=== PATIENT | female | born 1970 | race Caucasian/White ===

== ENCOUNTER 2024-01-22 04:13 | Emergency (ER) | payer OTHER ==
--- OUTSIDE RECORDS SUMMARY | 2024-01-22 04:23 | XMS REPORT | Continuity of Care Document ---
Author Name Unknown Address [address] [facility] [address] [place] [address] 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 Name Role Phone Margarita Salter Primary Care Physician [email or web address] Attending Clinician Unavaila ble [email or web address] Admitting Clinician Unavaila ble Allergies, Adverse Reactions, Alerts Allergy Name Allergy Type Status Severity Reaction(s) Onset Date Inactive Date Treating Clinician Comments Source cillins (Not Checked) Propensi ty to adverse reaction to drug Active 12-31 00:00: 00 Medardo Miner Penicill ins - CLASS Propensi ty to adverse reaction to drug Active 4-13 00:00: 00 Medardo Miner Penicill ins Propensi ty to adverse reaction to drug Active 2-16 00:00: 00 Medardo Miner Medications Ordered Medication Name Filled Medication Name Start Date Stop Date Current Medication? Ordering Clinician Indication Dosage Frequency Signature (SIG) Comments Components Source metoprolol tartrate 100 mg tablet 12-31 00:00: 00 Yes mg Medardo Miner hydralazine 10 mg tablet 12-31 00:00: 00 Yes 1mg Medardo Miner atorvastati n 20 mg tablet 12-31 00:00: 00 Yes 1mg Medardo Miner diltiazem ER 180 mg capsule,24 hr,extended release 12-31 00:00: 00 Yes 1mg Medardo Miner lisinopril 40 mg tablet - 00:00: 00 Yes 1mg Medardo Miner bupropion HCl XL 300 mg 24 hr tablet, extended release 2023-0 7-15 00:00: 00 Yes 1mg Medardo Miner aripiprazol e 2 mg tablet 0 -15 00:00: 00 Yes 15mg Medardo Miner Trileptal 300 mg tablet 2023-0 7-15 00:00: 00 Yes 1mg Medardo Miner buspirone 15 mg tablet 0 -15 00:00: 00 Yes 1mg Medardo Miner bupropion HCl XL 300 mg 24 hr tablet, extended release 0 -10 00:00: 00 Yes 1mg Medardo Miner aripiprazol e 2 mg tablet 0 - 00:00: 00 Yes 15mg Medardo Miner Trileptal 300 mg tablet 0 - 00:00: 00 Yes 1mg Medardo Miner buspirone 15 mg tablet 2023-0 - 00:00: 00 Yes 1mg Medardo Miner diltiazem ER 180 mg capsule,24 hr,extended release 0 -14 00:00: 00 Yes 1mg Medardo Miner diltiazem ER 360 mg capsule,24 hr,extended release 0 -30 00:00: 00 Yes mg Medardo Miner metoprolol tartrate 100 mg tablet 0 5-30 00:00: 00 Yes mg Medardo Miner atorvastati n 20 mg tablet 0 -30 00:00: 00 Yes 1mg Medardo Miner lisinopril 40 mg tablet 0 5-30 00:00: 00 Yes 1mg Medardo Miner hydralazine 10 mg tablet 0 5-30 00:00: 00 Yes 1mg Medardo iMner diltiazem ER 360 mg capsule,24 hr,extended release 0 -29 00:00: 00 Yes mg Medardo Miner metoprolol tartrate 100 mg tablet 0 5-24 00:00: 00 Yes mg Medardo Miner bupropion HCl XL 300 mg 24 hr tablet, extended release 2023-0 - 00:00: 00 Yes 1mg Medardo Miner aripiprazol e 2 mg tablet 5-10 00:00: 00 Yes 15mg Medardo Miner Trileptal 300 mg tablet 5-10 00:00: 00 Yes 1mg Medardo Miner buspirone 15 mg tablet 5-10 00:00: 00 Yes 1mg Medardo Miner TAKE 1 TABLET BY MOUTH TWICE A DAY 5 00:00: 00 Yes 300 Medardo Miner bupropion HCl XL 300 mg 24 hr tablet, extended release 14 00:00: 00 Yes 1mg Medardo Miner aripiprazol e 2 mg tablet 14 00:00: 00 Yes 15mg Medardo Miner Trileptal 300 mg tablet 06-23 00:00: 00 Yes 1mg Medardo Miner buspirone 15 mg tablet 06-23 00:00: 00 Yes 1mg Medardo Miner TAKE 1 TABLET BY MOUTH DAILY 05-28 00:00: 00 12-14 00:00 :00 No 10 Medardo Miner TAKE 1 TABLET DAILY. 05-07 00:00: 00 12-14 00:00 :00 No 300 Medardo Miner TAKE 1 TABLET TWICE DAILY. 05-07 00:00: 00 12-14 00:00 :00 No 300 Medardo Miner TAKE 1 TABLET 3 TIMES DAILY. 05-07 00:00: 00 12-14 00:00 :00 No 15 Medardo Miner TAKE ONE AND A HALF TABLET DAILY 05-07 00:00: 00 12-14 00:00 :00 No 2 Medardoraysa Miner TAKE ONE AND A HALF TABLET DAILY 2022-04 2 00:00: 00 12-14 00:00 :00 No 2 Medardoraysa Miner TAKE 1 TABLET 3 TIMES DAILY. 2022-04 2 00:00: 00 12-14 00:00 :00 No 15 Medardo Miner TAKE 1 TABLET TWICE DAILY. 2022-04 2- 00:00: 00 12-14 00:00 :00 No 300 Medardo Miner TAKE 1 TABLET DAILY. 2022-04 2 00:00: 00 12-14 00:00 :00 No 300 Medardo F Kristofer TAKE 1 TABLET BY MOUTH DAILY 2022-04 00:00: 00 12-14 00:00 :00 No 20 Medardo F Kristofer TAKE 1 TABLET TWICE DAILY. 2022-04 00:00: 00 12-14 00:00 :00 No 40 Medardo F Kristofer TAKE 1 TABLET BY MOUTH DAILY 2022-04 00:00: 00 12-14 00:00 :00 No 10 Medardo F Kristofer TAKE 1 TABLET DAILY. 2022-04 00:00: 00 12-14 00:00 :00 No 250 Medardo F Kristofer TAKE 1 TABLET TWICE DAILY. 2022-04 00:00: 00 12-14 00:00 :00 No 100 Medardo F Kristofer TAKE 1 TABLET BY MOUTH DAILY 2022-04 00:00: 00 12-14 00:00 :00 No 360 Medardo F Kristofer TAKE 1 TABLET 3 TIMES DAILY. 2022-04 00:00: 00 12-14 00:00 :00 No 15 Medardo F Kristofer TAKE 1 TABLET TWICE DAILY. 2022-04 0 00:00: 00 12-14 00:00 :00 No 300 Medardo F Kristofer TAKE 1 TABLET DAILY. 2022-04 0 00:00: 00 12-14 00:00 :00 No 300 Medardo F Kristofer TAKE ONE AND A HALF TABLET DAILY 2022-04 0 00:00: 00 12-14 00:00 :00 No 2 Medardo F Kristofer TAKE 1 CAPSULE TWICE DAILY. 12-16 00:00: 00 12-14 00:00 :00 No 100 Medardo F Kristofer APPLY SPARINGLY TO AFFECTED AREA(S) 3 TIMES A DAY 12-16 00:00: 00 12-14 00:00 :00 No 2 Medardo F Kristofer Apply to affected nail bed(s) and adjacent skin daily. Remove with alcohol every 7 days. 8-16 00:00: 00 12-14 00:00 :00 No 8 Medardo F Kristofer TAKE 1 TABLET BY MOUTH DAILY 11-24 00:00: 00 12-14 00:00 :00 No 20 Medardoraysa Miner TAKE 1 TABLET TWICE DAILY. 11-24 00:00: 00 12-14 00:00 :00 No 40 Medardoraysa Miner TAKE 1 TABLET BY MOUTH DAILY 11-24 00:00: 00 12-14 00:00 :00 No 10 Medardoraysa Miner TAKE 1 TABLET BY MOUTH DAILY 11-24 00:00: 00 12-14 00:00 :00 No 360 Medardo Miner TAKE 1 TABLET TWICE DAILY. 11-24 00:00: 00 12-14 00:00 :00 No 100 Medardo Miner TAKE 1 TAB Q12H X 5 DAYS 11-23 00:00: 00 12-14 00:00 :00 No 100 Medardoraysa Mienr APPLY SPARINGLY TO AFFECTED AREA(S) 3 TIMES A DAY 11-23 00:00: 00 12-14 00:00 :00 No 2 Medardoraysa Miner TAKE ONE AND A HALF TABLET DAILY 11-12 00:00: 00 12-14 00:00 :00 No 2 Medardoraysa Miner TAKE 1 TABLET DAILY. 11-12 00:00: 00 12-14 00:00 :00 No 300 Medardo Miner TAKE 1 TABLET TWICE DAILY. 11-12 00:00: 00 12-14 00:00 :00 No 300 Medardo Miner TAKE 1 TABLET 3 TIMES DAILY. 11-12 00:00: 00 12-14 00:00 :00 No 15 Medardo Miner TAKE 1 TABLET BY MOUTH DAILY 11-03 00:00: 00 12-14 00:00 :00 No 20 Medardoraysa Miner TAKE 1 TABLET BY MOUTH DAILY 09-18 00:00: 00 12-14 00:00 :00 No 360 Medardo Miner TAKE 1 TABLET TWICE DAILY. 09-18 00:00: 00 12-14 00:00 :00 No 100 Medardo Miner TAKE 1 TABLET TWICE DAILY. 09-17 00:00: 00 12-14 00:00 :00 No 300 Medardo Miner TAKE 1 TABLET 3 TIMES DAILY. 09-17 00:00: 00 12-14 00:00 :00 No 15 Medardoraysa Miner TAKE ONE AND A HALF TABLET DAILY 09-17 00:00: 00 12-14 00:00 :00 No 2 Medardoraysa Miner TAKE 1 TABLET DAILY. 09-17 00:00: 00 12-14 00:00 :00 No 300 Medardo Miner TAKE 1 TABLET TWICE DAILY. 09-09 00:00: 00 12-14 00:00 :00 No 40 Medardoraysa Miner TAKE 1 TABLET TWICE DAILY. 09-09 00:00: 00 12-14 00:00 :00 No 100 Medardo Miner TAKE 1 TABLET BY MOUTH DAILY 24 00:00: 00 12-14 00:00 :00 No 360 Medardo Miner TAKE 1 TABLET TWICE DAILY. 08-29 00:00: 00 12-14 00:00 :00 No 25 Medardoraysa Miner TAKE 1 TABLET TWICE DAILY DIRECTED. 20 00:00: 00 12-14 00:00 :00 No 100 Medardo Miner TAKE 1 TABLET 3 TIMES DAILY. 08-21 00:00: 00 12-14 00:00 :00 No 15 Medardo Miner TAKE ONE AND A HALF TABLET DAILY 08-21 00:00: 00 12-14 00:00 :00 No 2 Medardo Miner TAKE 1 TABLET DAILY. 08-21 00:00: 00 12-14 00:00 :00 No 300 Medardo Miner TAKE 1 TABLET TWICE DAILY. 12 00:00: 00 12-14 00:00 :00 No 300 Medardo Miner TAKE 1 TABLET DAILY. 4-14 00:00: 00 12-14 00:00 :00 No 150 Medardo Miner TAKE 1 TABLET TWICE DAILY. -14 00:00: 00 12-14 00:00 :00 No 300 Medardo Miner TAKE 1 TABLET 3 TIMES DAILY. 14 00:00: 00 12-14 00:00 :00 No 15 Medardoraysa Miner TAKE ONE AND A HALF TABLET DAILY 4 00:00: 00 12-14 00:00 :00 No 2 Medardoraysa Miner TAKE 1 TABLET TWICE DAILY. 07-23 00:00: 00 12-14 00:00 :00 No 100 Medardo Miner TAKE 1 TABLET DAILY. 07-23 00:00: 00 12-14 00:00 :00 No 20 Medardoraysa Miner TAKE 1 TABLET BY MOUTH DAILY 07-23 00:00: 00 12-14 00:00 :00 No 10 Medardoraysa Miner TAKE 1 TABLET TWICE DAILY. 07-23 00:00: 00 12-14 00:00 :00 No 40 Medardo Miner TAKE 1 CAPSULE BY MOUTH EVERY 8 HOURS NEEDED COUGH 07-17 00:00: 00 Yes Medardoraysa Miner INHALE 1 PUFF BY MOUTH EVERY 4 TO 6 HOURS NEEDED 07-17 00:00: 00 Yes Medardo Miner TAKE 1 TABLET DAILY. 3- 00:00: 00 12-14 00:00 :00 No 20 Medardoraysa Miner TAKE 1 TABLET BY MOUTH DAILY 3- 00:00: 00 12-14 00:00 :00 No 40 Medardoraysa Miner TAKE 1 TABLET BY MOUTH DAILY 3-10 00:00: 00 12-14 00:00 :00 No 10 Medardoraysa Miner TAKE 1 TABLET TWICE DAILY. 3- 00:00: 00 12-14 00:00 :00 No 100 Medardo Miner TAKE 1 TABLET BY MOUTH TWICE DAILY. 06-18 00:00: 00 12-14 00:00 :00 No [id number] Medardo Miner TAKE 1 TABLET BY MOUTH DAILY 2-22 00:00: 00 12-14 00:00 :00 No 10 Medardo [place] Miner TAKE ONE AND A HALF TABLET DAILY 2-17 00:00: 00 12-14 00:00 :00 No 2 Medardo F Kristofer TAKE 1 TABLET 3 TIMES DAILY. 2-17 00:00: 00 12-14 00:00 :00 No 15 Medardo [place] Miner TAKE 1 TABLET TWICE DAILY. 2-17 00:00: 00 12-14 00:00 :00 No 300 Medardo [place] Miner TAKE 1 TABLET BY MOUTH DAILY 1-16 00:00: 00 12-14 00:00 :00 No 10 Medardo F Kristofer TAKE 1 TABLET TWICE DAILY. 2021-04 2- 00:00: 00 12-14 00:00 :00 No 300 Medardo [place] Miner TAKE ONE AND A HALF TABLET DAILY 2021-04 2 00:00: 00 12-14 00:00 :00 No 2 Medardoraysa Miner TAKE 1 TABLET DAILY. 2021-04 2 00:00: 00 12-14 00:00 :00 No Medardo [place] Miner TAKE 1 TABLET TWICE DAILY. 2021-04 2 00:00: 00 12-14 00:00 :00 No Medardo [place] Miner TAKE 1 TABLET 3 TIMES DAILY. 2021-04 2- 00:00: 00 12-14 00:00 :00 No Medardo [place] Miner TAKE ONE AND A HALF TABLET DAILY 2021-04 2- 00:00: 00 12-14 00:00 :00 No Medardo [place] Miner TAKE 1 CAPSULE EVERY 12 HOURS DAILY. 2021-04 2- 00:00: 00 12-14 00:00 :00 No Medardo F Kristofer Dose Unknown 2021-04 2-15 00:00: 00 12-14 00:00 :00 No Medardo F Kristofer Dose Unknown 2021-04 2-15 00:00: 00 12-14 00:00 :00 No Medardo F Kristofer TAKE 1 TABLET DAILY. 2021-04 2- 00:00: 00 12-14 00:00 :00 No 10 Medardo [place] Miner TAKE 1 TABLET DAILY. 2021-04 2 00:00: 00 12-14 00:00 :00 No 10 Medardo Miner TAKE 1 TABLET TWICE DAILY. 2021-04 00:00: 00 12-14 00:00 :00 No Medardo Miner TAKE 1 TABLET TWICE DAILY. 2021-04 2 00:00: 00 12-14 00:00 :00 No 100 Medardo Miner TAKE 1 TABLET 3 TIMES DAILY. 2021-04 00:00: 00 12-14 00:00 :00 No 15 Medardo Miner TAKE 1 TAB Q12H X 5 DAYS 01-09 00:00: 00 No TAKE 1 TAB Q12H X 5 DAYS 01-09 00:00: 00 12-14 00:00 :00 No Medardo Miner TAKE 1 TABLET TWICE DAILY. 11-26 00:00: 00 Yes Medardo Miner TAKE 1 TABLET TWICE DAILY. 11-26 00:00: 00 No TAKE 1 TABLET TWICE DAILY. 11-26 00:00: 00 No TAKE 1 TAB Q12H X 5 DAYS 8 00:00: 00 Yes 100 Medardo Miner TAKE 1 TAB Q12H X 5 DAYS 11-24 00:00: 00 No 100 TAKE 1 TAB Q12H X 5 DAYS 11-24 00:00: 00 No 100 TAKE 1 TABLET 3 TIMES DAILY. 11-21 00:00: 00 Yes 15 Medardo Miner TAKE 1 TABLET 3 TIMES DAILY. 11-21 00:00: 00 No 15 TAKE 1 TABLET 3 TIMES DAILY. 11-21 00:00: 00 No 15 TAKE 1 TABLET 3 TIMES DAILY. 11-21 00:00: 00 No 15 TAKE ONE AND A HALF TABLET DAILY 11-19 00:00: 00 Yes 2 Medardo Miner TAKE ONE AND A HALF TABLET DAILY 11-19 00:00: 00 No 2 TAKE ONE AND A HALF TABLET DAILY 8 00:00: 00 No 2 TAKE ONE AND A HALF TABLET DAILY 11-19 00:00: 00 No 2 Dose Unknown 0 14 00:00: 00 Yes Medardo Miner Dose Unknown 0 14 00:00: 00 Yes Medardo Miner Dose Unknown 10-23 00:00: 00 Yes Medardo Miner Dose Unknown 0 10-23 00:00: 00 No Dose Unknown 0 10-23 00:00: 00 No Dose Unknown 0 10-23 00:00: 00 No Dose Unknown 0 10-23 00:00: 00 No Dose Unknown 0 10-23 00:00: 00 No Dose Unknown 0 10-23 00:00: 00 No Dose Unknown 0 10-23 00:00: 00 No Dose Unknown 0 10-23 00:00: 00 No Dose Unknown 0 10-23 00:00: 00 No TAKE 1 TABLET TWICE DAILY. 0 09-18 00:00: 00 Yes Medardo Miner Dose Unknown 0 09-18 00:00: 00 Yes Medardo Miner Dose Unknown 0 09-18 00:00: 00 Yes Medardo Miner Trileptal 300 mg tablet 0 09-18 00:00: 00 No 1mg buspirone 10 mg tablet 0 09-18 00:00: 00 No 15mg Abilify 2 mg tablet 0 09-18 00:00: 00 No 15mg Trileptal 300 mg tablet 0 09-18 00:00: 00 No 1mg buspirone 10 mg tablet 0 09-18 00:00: 00 No 15mg Abilify 2 mg tablet 0 09-18 00:00: 00 No 15mg Trileptal 300 mg tablet 0 09-18 00:00: 00 No 1mg buspirone 10 mg tablet 0 09-18 00:00: 00 No 15mg Abilify 2 mg tablet 0 09-18 00:00: 00 No 15mg TAKE 1 TABLET TWICE DAILY. 0 09-02 00:00: 00 Yes Medardo Miner simvastatin 40 mg tablet 0 09-02 00:00: 00 Yes 1mg Medardo Miner Dose Unknown 09-02 00:00: 00 Yes Medardo Miner Dose Unknown 09-02 00:00: 00 Yes Medardo Miner TAKE 1 TABLET TWICE DAILY. 09-02 00:00: 00 Yes Medardo Miner Dose Unknown 09-02 00:00: 00 Yes Medardo Miner simvastatin 40 mg tablet 09-02 00:00: 00 No 1mg Singulair 10 mg tablet 09-02 00:00: 00 No 1mg amlodipine 5 mg tablet 09-02 00:00: 00 No 1mg metoprolol tartrate 75 mg tablet 09-02 00:00: 00 No 1mg lisinopril 20 mg-hydrochl orothiazide 12.5 mg tablet 09-02 00:00: 00 No 1mg atorvastati n 10 mg tablet 09-02 00:00: 00 No 1mg simvastatin 40 mg tablet 09-02 00:00: 00 No 1mg Singulair 10 mg tablet 09-02 00:00: 00 No 1mg amlodipine 5 mg tablet 09-02 00:00: 00 No 1mg metoprolol tartrate 75 mg tablet 09-02 00:00: 00 No 1mg lisinopril 20 mg-hydrochl orothiazide 12.5 mg tablet 09-02 00:00: 00 No 1mg atorvastati n 10 mg tablet 09-02 00:00: 00 No 1mg simvastatin 40 mg tablet 09-02 00:00: 00 No 1mg Singulair 10 mg tablet 09-02 00:00: 00 No 1mg amlodipine 5 mg tablet 09-02 00:00: 00 No 1mg metoprolol tartrate 75 mg tablet 09-02 00:00: 00 No 1mg TAKE 1 TABLET TWICE DAILY. 09-02 00:00: 00 No atorvastati n 10 mg tablet 09-02 00:00: 00 No 1mg Dose Unknown 09-02 00:00: 00 12-14 00:00 :00 No 75 Medardo Miner Dose Unknown 0 08-04 00:00: 00 Yes Medardo Miner simvastatin 40 mg tablet 0 08-04 00:00: 00 No 1mg simvastatin 40 mg tablet 0 08-04 00:00: 00 No 1mg simvastatin 40 mg tablet 0 08-04 00:00: 00 No 1mg TAKE 1 TABLET TWICE DAILY. 0 07-23 00:00: 00 Yes Medardo Miner Dose Unknown 0 07-23 00:00: 00 Yes Medardo Miner Dose Unknown 0 07-23 00:00: 00 Yes Medardo Miner Dose Unknown 0 07-23 00:00: 00 Yes Medardo Miner Trileptal 300 mg tablet 0 07-23 00:00: 00 No 1mg buspirone 10 mg tablet 0 4 00:00: 00 No 15mg Abilify 2 mg tablet 0 4 00:00: 00 No 15mg Dose Unknown 0 4 00:00: 00 No Trileptal 300 mg tablet 0 4 00:00: 00 No 1mg buspirone 10 mg tablet 0 4 00:00: 00 No 15mg Abilify 2 mg tablet 0 07-23 00:00: 00 No 15mg Dose Unknown 0 4 00:00: 00 No Trileptal 300 mg tablet 0 4 00:00: 00 No 1mg buspirone 10 mg tablet 0 07-23 00:00: 00 No 15mg Abilify 2 mg tablet 0 07-23 00:00: 00 No 15mg Dose Unknown 0 4 00:00: 00 No TAKE 1 TABLET TWICE DAILY. 0 2-17 00:00: 00 Yes Medardo Miner Dose Unknown 0 217 00:00: 00 Yes Medardo Mnier Dose Unknown 0 217 00:00: 00 Yes Medardo Miner TAKE 1 TABLET TWICE DAILY. 0 2-17 00:00: 00 Yes Medardo Miner simvastatin 40 mg tablet 2022-0 2-17 00:00: 00 No 1mg Singulair 10 mg tablet 0 2-17 00:00: 00 No 1mg metoprolol tartrate 75 mg tablet 0 2-17 00:00: 00 No 1mg lisinopril 20 mg-hydrochl orothiazide 12.5 mg tablet 2021-0 2-17 00:00: 00 No 1mg simvastatin 40 mg tablet 2021-0 2-17 00:00: 00 No 1mg Singulair 10 mg tablet 0 2-17 00:00: 00 No 1mg metoprolol tartrate 75 mg tablet 0 2-17 00:00: 00 No 1mg lisinopril 20 mg-hydrochl orothiazide 12.5 mg tablet 0 2-17 00:00: 00 No 1mg simvastatin 40 mg tablet 0 2-17 00:00: 00 No 1mg Singulair 10 mg tablet 0 2-17 00:00: 00 No 1mg metoprolol tartrate 75 mg tablet 0 2-17 00:00: 00 No 1mg TAKE 1 TABLET TWICE DAILY. 0 2-17 00:00: 00 No Dose Unknown 0 2-17 00:00: 00 - 00:00 :00 No 75 Medardo F Kristofer Dose Unknown 2021-0 2-16 00:00: 00 Yes Medardo F Kristofer Dose Unknown 2021-0 2-16 00:00: 00 Yes Medardo F Kristofer Dose Unknown 0 2-16 00:00: 00 Yes Medardo F Kristofer Dose Unknown 2021-0 2-16 00:00: 00 No Dose Unknown 2021-0 2-16 00:00: 00 No Dose Unknown 2021-0 2-16 00:00: 00 No Dose Unknown 2021-0 2-16 00:00: 00 No Dose Unknown 2021-0 2-16 00:00: 00 No Dose Unknown 2021-0 2-16 00:00: 00 No Dose Unknown 2021-0 2-16 00:00: 00 No Dose Unknown 2021-0 2-16 00:00: 00 No Dose Unknown 2021-0 2-16 00:00: 00 No Trileptal 300 mg tablet 2021-1 2-23 00:00: 00 Yes 1mg Medardo Miner buspirone 10 mg tablet 2020-04 00:00: 00 Yes 15mg Medardo Miner Abilify 2 mg tablet 2020-04 00:00: 00 Yes 15mg Medardo Miner Trileptal 300 mg tablet 2020-04 00:00: 00 No 1mg buspirone 10 mg tablet 2020-04 00:00: 00 No 15mg Abilify 2 mg tablet 2020-04 00:00: 00 No 15mg Trileptal 300 mg tablet 2020-04 00:00: 00 No 1mg buspirone 10 mg tablet 2020-04 00:00: 00 No 15mg Abilify 2 mg tablet 2020-04 00:00: 00 No 15mg Trileptal 300 mg tablet 2020-04 00:00: 00 No 1mg buspirone 10 mg tablet 2020-04 00:00: 00 No 15mg Abilify 2 mg tablet 2020-04 00:00: 00 No 15mg simvastatin 40 mg tablet 2020-04 00:00: 00 Yes 1mg Medardo Miner metoprolol tartrate 25 mg tablet 2020-04 00:00: 00 Yes 1mg Medardo Miner lisinopril 20 mg-hydrochl orothiazide 12.5 mg tablet 2020-04 00:00: 00 Yes 1mg Medardo Miner metoprolol tartrate 75 mg tablet 2020-04 00:00: 00 Yes 1mg Medardo Miner simvastatin 40 mg tablet 2020-04 00:00: 00 No 1mg metoprolol tartrate 25 mg tablet 2020-04 00:00: 00 No 1mg lisinopril 20 mg-hydrochl orothiazide 12.5 mg tablet 2020-04 00:00: 00 No 1mg metoprolol tartrate 75 mg tablet 2020-04 2 00:00: 00 No 1mg simvastatin 40 mg tablet 2020-04 2 00:00: 00 No 1mg metoprolol tartrate 25 mg tablet 2020-04 00:00: 00 No 1mg lisinopril 20 mg-hydrochl orothiazide 12.5 mg tablet 2020-04 00:00: 00 No 1mg metoprolol tartrate 75 mg tablet 2020-04 00:00: 00 No 1mg simvastatin 40 mg tablet 2020-04 00:00: 00 No 1mg metoprolol tartrate 25 mg tablet 2020-04 00:00: 00 No 1mg lisinopril 20 mg-hydrochl orothiazide 12.5 mg tablet 2020-04 00:00: 00 No 1mg metoprolol tartrate 75 mg tablet 2020-04 00:00: 00 No 1mg metoprolol tartrate 25 mg tablet 2020-04 00:00: 00 Yes 1mg Medardo Miner metoprolol tartrate 50 mg tablet 2020-04 00:00: 00 Yes 1mg Medardo Miner metoprolol tartrate 25 mg tablet 2020-04 00:00: 00 No 1mg metoprolol tartrate 50 mg tablet 2020-04 00:00: 00 No 1mg metoprolol tartrate 25 mg tablet 2020-04 00:00: 00 No 1mg metoprolol tartrate 50 mg tablet 2020-04 00:00: 00 No 1mg metoprolol tartrate 25 mg tablet 2020-04 00:00: 00 No 1mg metoprolol tartrate 50 mg tablet 2020-04 00:00: 00 No 1mg metoprolol tartrate 50 mg tablet 2020-04 00:00: 00 Yes 1mg Medardo Miner metoprolol tartrate 50 mg tablet 2020-04 00:00: 00 No 1mg metoprolol tartrate 50 mg tablet 2020-04 00:00: 00 No 1mg metoprolol tartrate 50 mg tablet 2020-04 00:00: 00 No 1mg Trileptal 300 mg tablet 2020-04 00:00: 00 Yes 1mg Medardo Miner Abilify 2 mg tablet 2020-04 00:00: 00 Yes 15mg Medardo Miner Trileptal 300 mg tablet 2020-04 0 00:00: 00 No 1mg Abilify 2 mg tablet 2020-04 0 00:00: 00 No 15mg Trileptal 300 mg tablet 2020-04 0 00:00: 00 No 1mg Abilify 2 mg tablet 2020-04 0 00:00: 00 No 15mg Trileptal 300 mg tablet 2020-04 0 00:00: 00 No 1mg Abilify 2 mg tablet 2020-04 0 00:00: 00 No 15mg Dose Unknown 2020-04 0 00:00: 00 Yes Medardo Miner buspirone 10 mg tablet 2020-04 0 00:00: 00 Yes 15mg Medardo Miner hydrocortis one 2.5 % topical cream 2020-04 0- 00:00: 00 No 1% buspirone 10 mg tablet 2020-04 0 00:00: 00 No 15mg hydrocortis one 2.5 % topical cream 2020-04 0 00:00: 00 No 1% buspirone 10 mg tablet 2020-04 0 00:00: 00 No 15mg hydrocortis one 2.5 % topical cream 2020-04 0 00:00: 00 No 1% buspirone 10 mg tablet 2020-04 0 00:00: 00 No 15mg buspirone 10 mg tablet 01-02 00:00: 00 Yes 15mg Medardo Miner Trileptal 300 mg tablet 01-02 00:00: 00 Yes 1mg Medardo Miner Abilify 2 mg tablet 01-02 00:00: 00 Yes 15mg Medardo Miner buspirone 10 mg tablet 01-02 00:00: 00 No 15mg Trileptal 300 mg tablet 01-02 00:00: 00 No 1mg Abilify 2 mg tablet 01-02 00:00: 00 No 15mg buspirone 10 mg tablet 01-02 00:00: 00 No 15mg Trileptal 300 mg tablet 0 01-02 00:00: 00 No 1mg Abilify 2 mg tablet 0 01-02 00:00: 00 No 15mg buspirone 10 mg tablet 0 01-02 00:00: 00 No 15mg Trileptal 300 mg tablet 0 01-02 00:00: 00 No 1mg Abilify 2 mg tablet 0 01-02 00:00: 00 No 15mg Trileptal 300 mg tablet 11-07 00:00: 00 Yes 1mg Medardo Miner buspirone 10 mg tablet 11-07 00:00: 00 Yes 15mg Medardo Miner Abilify 2 mg tablet 11-07 00:00: 00 Yes 15mg Medardo Miner Trileptal 300 mg tablet 11-07 00:00: 00 No 1mg buspirone 10 mg tablet 0 11-07 00:00: 00 No 15mg Abilify 2 mg tablet 11-07 00:00: 00 No 15mg Trileptal 300 mg tablet 11-07 00:00: 00 No 1mg buspirone 10 mg tablet 11-07 00:00: 00 No 15mg Abilify 2 mg tablet 11-07 00:00: 00 No 15mg Trileptal 300 mg tablet 11-07 00:00: 00 No 1mg buspirone 10 mg tablet 11-07 00:00: 00 No 15mg Abilify 2 mg tablet 11-07 00:00: 00 No 15mg Trileptal 300 mg tablet 11-01 00:00: 00 Yes 1mg Medardo Miner Trileptal 300 mg tablet 11-01 00:00: 00 No 1mg Trileptal 300 mg tablet 11-01 00:00: 00 No 1mg Trileptal 300 mg tablet 11-01 00:00: 00 No 1mg simvastatin 40 mg tablet 0 10-27 00:00: 00 Yes 1mg Medardo Miner simvastatin 40 mg tablet 10-27 00:00: 00 No 1mg simvastatin 40 mg tablet 10-27 00:00: 00 No 1mg simvastatin 40 mg tablet 10-27 00:00: 00 No 1mg Dose Unknown 10-22 00:00: 00 Yes Medardo Miner simvastatin 20 mg tablet 10-22 00:00: 00 Yes 1mg Medardo Miner Singulair 10 mg tablet 10-22 00:00: 00 Yes 1mg Medardo Miner metoprolol tartrate 25 mg tablet 10-22 00:00: 00 Yes 1mg Medardo Miner lisinopril 20 mg-hydrochl orothiazide 12.5 mg tablet 10-22 00:00: 00 Yes 1mg Medardo Miner hydrocortis one 2.5 % topical cream 10-22 00:00: 00 No 1% simvastatin 20 mg tablet 10-22 00:00: 00 No 1mg Singulair 10 mg tablet 10-22 00:00: 00 No 1mg metoprolol tartrate 25 mg tablet 10-22 00:00: 00 No 1mg lisinopril 20 mg-hydrochl orothiazide 12.5 mg tablet 10-22 00:00: 00 No 1mg hydrocortis one 2.5 % topical cream 10-22 00:00: 00 No 1% simvastatin 20 mg tablet 10-22 00:00: 00 No 1mg Singulair 10 mg tablet 10-22 00:00: 00 No 1mg metoprolol tartrate 25 mg tablet 10-22 00:00: 00 No 1mg lisinopril 20 mg-hydrochl orothiazide 12.5 mg tablet 10-22 00:00: 00 No 1mg hydrocortis one 2.5 % topical cream 10-22 00:00: 00 No 1% simvastatin 20 mg tablet 10-22 00:00: 00 No 1mg Singulair 10 mg tablet 10-22 00:00: 00 No 1mg metoprolol tartrate 25 mg tablet 10-22 00:00: 00 No 1mg lisinopril 20 mg-hydrochl orothiazide 12.5 mg tablet 10-22 00:00: 00 No 1mg simvastatin 20 mg tablet 09-27 00:00: 00 Yes 1mg Medardo Miner Singulair 10 mg tablet 09-27 00:00: 00 Yes 1mg Medardo Miner lisinopril 20 mg-hydrochl orothiazide 12.5 mg tablet 09-27 00:00: 00 Yes 1mg Medardo Miner metoprolol tartrate 25 mg tablet 09-27 00:00: 00 Yes 1mg Medardo Miner simvastatin 20 mg tablet 09-27 00:00: 00 No 1mg Singulair 10 mg tablet 09-27 00:00: 00 No 1mg lisinopril 20 mg-hydrochl orothiazide 12.5 mg tablet 09-27 00:00: 00 No 1mg metoprolol tartrate 25 mg tablet 09-27 00:00: 00 No 1mg simvastatin 20 mg tablet 09-27 00:00: 00 No 1mg Singulair 10 mg tablet 09-27 00:00: 00 No 1mg lisinopril 20 mg-hydrochl orothiazide 12.5 mg tablet 09-27 00:00: 00 No 1mg metoprolol tartrate 25 mg tablet 09-27 00:00: 00 No 1mg simvastatin 20 mg tablet 09-27 00:00: 00 No 1mg Singulair 10 mg tablet 09-27 00:00: 00 No 1mg lisinopril 20 mg-hydrochl orothiazide 12.5 mg tablet 09-27 00:00: 00 No 1mg metoprolol tartrate 25 mg tablet 09-27 00:00: 00 No 1mg buspirone 10 mg tablet 09-13 00:00: 00 Yes 15mg Medardo Miner Trileptal 300 mg tablet 09-13 00:00: 00 Yes 1mg Medardo Miner Abilify 2 mg tablet 09-13 00:00: 00 Yes 15mg Medardo Miner buspirone 10 mg tablet 0 6- 00:00: 00 No 15mg Trileptal 300 mg tablet 0 6 00:00: 00 No 1mg Abilify 2 mg tablet 0 6 00:00: 00 No 15mg buspirone 10 mg tablet 0 6- 00:00: 00 No 15mg Trileptal 300 mg tablet 0 6 00:00: 00 No 1mg Abilify 2 mg tablet 0 6 00:00: 00 No 15mg buspirone 10 mg tablet 0 6 00:00: 00 No 15mg Trileptal 300 mg tablet 0 6 00:00: 00 No 1mg Abilify 2 mg tablet 0 6 00:00: 00 No 15mg buspirone 10 mg tablet 0 4-14 00:00: 00 Yes 15mg Medardo Miner Trileptal 300 mg tablet 0 4-14 00:00: 00 Yes 1mg Medardo Miner Abilify 2 mg tablet 0 4-14 00:00: 00 Yes 15mg Medardo Miner buspirone 10 mg tablet 0 4-14 00:00: 00 No 15mg Trileptal 300 mg tablet 0 4-14 00:00: 00 No 1mg Abilify 2 mg tablet 0 4-14 00:00: 00 No 15mg buspirone 10 mg tablet 0 4-14 00:00: 00 No 15mg Trileptal 300 mg tablet 0 4-14 00:00: 00 No 1mg Abilify 2 mg tablet 0 4-14 00:00: 00 No 15mg buspirone 10 mg tablet 0 4-14 00:00: 00 No 15mg Trileptal 300 mg tablet 0 4-14 00:00: 00 No 1mg Abilify 2 mg tablet 0 4-14 00:00: 00 No 15mg Trileptal 300 mg tablet 0 2-22 00:00: 00 Yes 1mg Medardo Miner buspirone 10 mg tablet 0 2- 00:00: 00 Yes 15mg Medardo Miner Abilify 2 mg tablet 2 00:00: 00 Yes 15mg Medardo Miner Trileptal 300 mg tablet 2 00:00: 00 No 1mg buspirone 10 mg tablet 0 2 00:00: 00 No 15mg Abilify 2 mg tablet 06-03 00:00: 00 No 15mg Trileptal 300 mg tablet 06-03 00:00: 00 No 1mg buspirone 10 mg tablet 06-03 00:00: 00 No 15mg Abilify 2 mg tablet 06-03 00:00: 00 No 15mg Trileptal 300 mg tablet 2 00:00: 00 No 1mg buspirone 10 mg tablet 06-03 00:00: 00 No 15mg Abilify 2 mg tablet 06-03 00:00: 00 No 15mg Trileptal 300 mg tablet 2019-04 2- 00:00: 00 Yes 1mg Medardo Miner buspirone 10 mg tablet 2019-04 2- 00:00: 00 Yes 15mg Medardo [facility]er Abilify 2 mg tablet 2019-04 2- 00:00: 00 Yes 15mg Medardo [facility]er Trileptal 300 mg tablet 2019-04 2- 00:00: 00 No 1mg buspirone 10 mg tablet 2019-04 2- 00:00: 00 No 15mg Abilify 2 mg tablet 2019-04 2- 00:00: 00 No 15mg Trileptal 300 mg tablet 2019-04 2- 00:00: 00 No 1mg buspirone 10 mg tablet 2019-04 2- 00:00: 00 No 15mg Abilify 2 mg tablet 2019-04 2- 00:00: 00 No 15mg Trileptal 300 mg tablet 2019-04 2- 00:00: 00 No 1mg buspirone 10 mg tablet 202006-03 00:00: 00 No 15mg Abilify 2 mg tablet 2019-04 00:00: 00 No 15mg simvastatin 20 mg tablet 2019-04 00:00: 00 Yes 1mg Medardo Miner Singulair 10 mg tablet 2019-04 00:00: 00 Yes 1mg Medardo Miner lisinopril 20 mg-hydrochl orothiazide 12.5 mg tablet 2019-04 00:00: 00 Yes 1mg Medardo Miner metoprolol tartrate 25 mg tablet 2019-04 00:00: 00 Yes 1mg Medardo [facility]er simvastatin 20 mg tablet 2019-04 00:00: 00 No 1mg Singulair 10 mg tablet 2019-04 00:00: 00 No 1mg lisinopril 20 mg-hydrochl orothiazide 12.5 mg tablet 2019-04 00:00: 00 No 1mg metoprolol tartrate 25 mg tablet 2019-04 00:00: 00 No 1mg simvastatin 20 mg tablet 2019-04 00:00: 00 No 1mg Singulair 10 mg tablet 2019-04 00:00: 00 No 1mg lisinopril 20 mg-hydrochl orothiazide 12.5 mg tablet 2019-04 00:00: 00 No 1mg metoprolol tartrate 25 mg tablet 2019-04 00:00: 00 No 1mg simvastatin 20 mg tablet 2019-04 00:00: 00 No 1mg Singulair 10 mg tablet 2019-04 00:00: 00 No 1mg lisinopril 20 mg-hydrochl orothiazide 12.5 mg tablet 2019-04 00:00: 00 No 1mg metoprolol tartrate 25 mg tablet 2019-04 00:00: 00 No 1mg buspirone 10 mg tablet 2019-04 00:00: 00 Yes 15mg Medardo [facility]er Trileptal 300 mg tablet 2019-04 00:00: 00 Yes 1mg Medardo [facility]er Abilify 2 mg tablet 2019-04 00:00: 00 Yes 15mg Medardo [facility]er buspirone 10 mg tablet 2020-1 0-22 00:00: 00 No 15mg Trileptal 300 mg tablet 2019-1 0- 00:00: 00 No 1mg Abilify 2 mg tablet 2019-1 0-22 00:00: 00 No 15mg buspirone 10 mg tablet 2019-1 0- 00:00: 00 No 15mg Trileptal 300 mg tablet 2019-1 0- 00:00: 00 No 1mg Abilify 2 mg tablet 2019-1 0- 00:00: 00 No 15mg buspirone 10 mg tablet 1 0- 00:00: 00 No 15mg Trileptal 300 mg tablet 2019-04 0- 00:00: 00 No 1mg Abilify 2 mg tablet 2019-04 0- 00:00: 00 No 15mg buspirone 10 mg tablet 2019-0 8- 00:00: 00 Yes 15mg Medardo [facility]er Trileptal 300 mg tablet 2019-0 8- 00:00: 00 Yes 1mg Medardo [facility]er Abilify 2 mg tablet 2019-0 8- 00:00: 00 Yes 15mg Medardo [facility]er Abilify 2 mg tablet 2019-0 8- 00:00: 00 No 15mg buspirone 10 mg tablet 2019-0 8- 00:00: 00 No 15mg Trileptal 300 mg tablet 2019-0 8- 00:00: 00 No 1mg Abilify 2 mg tablet 2019-0 8- 00:00: 00 No 15mg buspirone 10 mg tablet 2019-0 8- 00:00: 00 No 15mg Trileptal 300 mg tablet 2019-0 8- 00:00: 00 No 1mg Abilify 2 mg tablet 2019-0 8- 00:00: 00 No 15mg buspirone 10 mg tablet 2019-0 8- 00:00: 00 No 15mg Trileptal 300 mg tablet 2019-0 8- 00:00: 00 No 1mg buspirone 10 mg tablet 2019-0 6- 00:00: 00 Yes 15mg Medardo [facility]er Trileptal 300 mg tablet 2019-0 6- 00:00: 00 Yes 1mg Medardo [facility]er Abilify 2 mg tablet 201910-02 00:00: 00 Yes 15mg Medardo [facility]er buspirone 10 mg tablet 10-02 00:00: 00 No 15mg Trileptal 300 mg tablet 10-02 00:00: 00 No 1mg Abilify 2 mg tablet 10-02 00:00: 00 No 15mg buspirone 10 mg tablet 10-02 00:00: 00 No 15mg Trileptal 300 mg tablet 10-02 00:00: 00 No 1mg Abilify 2 mg tablet 10-02 00:00: 00 No 15mg buspirone 10 mg tablet 10-02 00:00: 00 No 15mg Trileptal 300 mg tablet 10-02 00:00: 00 No 1mg Abilify 2 mg tablet 10-02 00:00: 00 No 15mg simvastatin 20 mg tablet 08-10 00:00: 00 Yes 1mg Medardo Miner Singulair 10 mg tablet 08-10 00:00: 00 Yes 1mg Medardo [facility]er lisinopril 20 mg-hydrochl orothiazide 12.5 mg tablet 08-10 00:00: 00 Yes 1mg Medardo [facility]er metoprolol tartrate 25 mg tablet 0 08-10 00:00: 00 Yes 1mg Medardo [facility]er simvastatin 20 mg tablet 0 08-10 00:00: 00 No 1mg Singulair 10 mg tablet 0 5 00:00: 00 No 1mg lisinopril 20 mg-hydrochl orothiazide 12.5 mg tablet 0 08-10 00:00: 00 No 1mg metoprolol tartrate 25 mg tablet 0 5 00:00: 00 No 1mg simvastatin 20 mg tablet 0 5- 00:00: 00 No 1mg Singulair 10 mg tablet 5- 00:00: 00 No 1mg lisinopril 20 mg-hydrochl orothiazide 12.5 mg tablet 0 5- 00:00: 00 No 1mg metoprolol tartrate 25 mg tablet 0 5- 00:00: 00 No 1mg simvastatin 20 mg tablet 202008-10 00:00: 00 No 1mg Singulair 10 mg tablet 0 08-10 00:00: 00 No 1mg lisinopril 20 mg-hydrochl orothiazide 12.5 mg tablet 0 08-10 00:00: 00 No 1mg metoprolol tartrate 25 mg tablet 0 08-10 00:00: 00 No 1mg buspirone 10 mg tablet 0 08-07 00:00: 00 Yes 15mg Medardo [facility]er Trileptal 300 mg tablet 0 08-07 00:00: 00 Yes 1mg Medardo [facility]er Abilify 2 mg tablet 0 08-07 00:00: 00 Yes 1mg Medardo [facility]er melatonin 10 mg capsule 0 08-07 00:00: 00 Yes 12mg Medardo [facility]er buspirone 10 mg tablet 08-07 00:00: 00 No 15mg Trileptal 300 mg tablet 0 08-07 00:00: 00 No 1mg Abilify 2 mg tablet 0 08-07 00:00: 00 No 1mg melatonin 10 mg capsule 0 08-07 00:00: 00 No 12mg buspirone 10 mg tablet 0 08-07 00:00: 00 No 15mg Trileptal 300 mg tablet 0 08-07 00:00: 00 No 1mg Abilify 2 mg tablet 0 08-07 00:00: 00 No 1mg melatonin 10 mg capsule 0 08-07 00:00: 00 No 12mg buspirone 10 mg tablet 0 08-07 00:00: 00 No 15mg Trileptal 300 mg tablet 0 08-07 00:00: 00 No 1mg Abilify 2 mg tablet 0 08-07 00:00: 00 No 1mg melatonin 10 mg capsule 0 08-07 00:00: 00 No 12mg buspirone 10 mg tablet 2019-0 06-12 00:00: 00 Yes 15mg Medardo [facility]er Trileptal 300 mg tablet 0 3-03 00:00: 00 Yes 1mg Medardo [facility]er Abilify 2 mg tablet 2019-0 3- 00:00: 00 Yes 1mg Medardo [facility]er melatonin 10 mg capsule 2019-0 3-03 00:00: 00 Yes 12mg Medardo [facility]er buspirone 10 mg tablet 2019-0 3-03 00:00: 00 No 15mg Trileptal 300 mg tablet 2019-0 3-03 00:00: 00 No 1mg Abilify 2 mg tablet 2019-0 3-03 00:00: 00 No 1mg melatonin 10 mg capsule 2019-0 3-03 00:00: 00 No 12mg buspirone 10 mg tablet 2019-0 3-03 00:00: 00 No 15mg Trileptal 300 mg tablet 2019-0 3- 00:00: 00 No 1mg Abilify 2 mg tablet 2019-0 3- 00:00: 00 No 1mg melatonin 10 mg capsule 2019-0 3- 00:00: 00 No 12mg buspirone 10 mg tablet 2019-0 3- 00:00: 00 No 15mg Trileptal 300 mg tablet 2019-0 3- 00:00: 00 No 1mg Abilify 2 mg tablet 2019-0 3- 00:00: 00 No 1mg melatonin 10 mg capsule 2019-0 3- 00:00: 00 No 12mg buspirone 10 mg tablet 2019-0 1-07 00:00: 00 Yes 15mg Medardo [facility]er Trileptal 300 mg tablet 2019-0 1-07 00:00: 00 Yes 1mg Medardo [facility]er Abilify 2 mg tablet 2019-0 1-07 00:00: 00 Yes 1mg Medardo [facility]er melatonin 10 mg capsule 2019-0 1-07 00:00: 00 Yes 12mg Medardo [facility]er buspirone 10 mg tablet 2019-0 1-07 00:00: 00 No 15mg Trileptal 300 mg tablet 2019-0 1-07 00:00: 00 No 1mg Abilify 2 mg tablet 2019-0 1-07 00:00: 00 No 1mg melatonin 10 mg capsule 2019-0 1-07 00:00: 00 No 12mg buspirone 10 mg tablet 2019-0 1-07 00:00: 00 No 15mg Trileptal 300 mg tablet 2019-0 1-07 00:00: 00 No 1mg Abilify 2 mg tablet 2019-0 1-07 00:00: 00 No 1mg melatonin 10 mg capsule 04-18 00:00: 00 No 12mg buspirone 10 mg tablet 04-18 00:00: 00 No 15mg Trileptal 300 mg tablet 04-18 00:00: 00 No 1mg Abilify 2 mg tablet 04-18 00:00: 00 No 1mg melatonin 10 mg capsule 04-18 00:00: 00 No 12mg Trileptal 300 mg tablet 2018-04 00:00: 00 Yes 1mg Medardo [facility]er buspirone 10 mg tablet 2018-04 00:00: 00 Yes 15mg Medardo [facility]er Abilify 2 mg tablet 2018-04 00:00: 00 Yes 1mg Medardo [facility]er Trileptal 300 mg tablet 2018-04 00:00: 00 No 1mg buspirone 10 mg tablet 2018-04 00:00: 00 No 15mg Abilify 2 mg tablet 2018-04 00:00: 00 No 1mg Trileptal 300 mg tablet 2018-04 00:00: 00 No 1mg buspirone 10 mg tablet 2018-04 00:00: 00 No 15mg Abilify 2 mg tablet 2018-04 00:00: 00 No 1mg Trileptal 300 mg tablet 2018-04 00:00: 00 No 1mg buspirone 10 mg tablet 2018-04 00:00: 00 No 15mg Abilify 2 mg tablet 2018-04 00:00: 00 No 1mg Singulair 10 mg tablet 2018-04 00:00: 00 Yes 1mg Medardo [facility]er simvastatin 20 mg tablet 2018-04 00:00: 00 Yes 1mg Medardo [facility]er lisinopril 20 mg-hydrochl orothiazide 12.5 mg tablet 2018-04 00:00: 00 Yes 1mg Medardo [facility]er metoprolol tartrate 25 mg tablet 2018-04 00:00: 00 Yes 1mg Medardo Miner Singulair 10 mg tablet 2018-04 00:00: 00 No 1mg simvastatin 20 mg tablet 2018-04 00:00: 00 No 1mg lisinopril 20 mg-hydrochl orothiazide 12.5 mg tablet 2018-04 00:00: 00 No 1mg metoprolol tartrate 25 mg tablet 2018-04 00:00: 00 No 1mg Singulair 10 mg tablet 2018-04 00:00: 00 No 1mg simvastatin 20 mg tablet 2018-04 00:00: 00 No 1mg lisinopril 20 mg-hydrochl orothiazide 12.5 mg tablet 2018-04 00:00: 00 No 1mg metoprolol tartrate 25 mg tablet 2018-04 00:00: 00 No 1mg Singulair 10 mg tablet 2018-04 00:00: 00 No 1mg simvastatin 20 mg tablet 2018-04 00:00: 00 No 1mg lisinopril 20 mg-hydrochl orothiazide 12.5 mg tablet 2018-04 00:00: 00 No 1mg metoprolol tartrate 25 mg tablet 2018-04 00:00: 00 No 1mg buspirone 10 mg tablet 12-26 00:00: 00 Yes 15mg Medardo [facility]er Trileptal 300 mg tablet 12-26 00:00: 00 Yes 1mg Medardo Miner Abilify 2 mg tablet 12-26 00:00: 00 Yes 1mg Medardo [facility]er buspirone 10 mg tablet 12-26 00:00: 00 No 15mg Trileptal 300 mg tablet 12-26 00:00: 00 No 1mg Abilify 2 mg tablet 12-26 00:00: 00 No 1mg buspirone 10 mg tablet 12-26 00:00: 00 No 15mg Trileptal 300 mg tablet 12-26 00:00: 00 No 1mg Abilify 2 mg tablet 12-26 00:00: 00 No 1mg buspirone 10 mg tablet 12-26 00:00: 00 No 15mg Trileptal 300 mg tablet 12-26 00:00: 00 No 1mg Abilify 2 mg tablet 12-26 00:00: 00 No 1mg Trileptal 300 mg tablet 11-21 00:00: 00 Yes 1mg Medardo [facility]er buspirone 10 mg tablet 11-21 00:00: 00 Yes 15mg Medardo [facility]er Abilify 2 mg tablet 11-21 00:00: 00 Yes 1mg Medardo [facility]er Trileptal 300 mg tablet 11-21 00:00: 00 No 1mg buspirone 10 mg tablet 11-21 00:00: 00 No 15mg Abilify 2 mg tablet 11-21 00:00: 00 No 1mg Trileptal 300 mg tablet 11-21 00:00: 00 No 1mg buspirone 10 mg tablet 11-21 00:00: 00 No 15mg Abilify 2 mg tablet 11-21 00:00: 00 No 1mg Trileptal 300 mg tablet 11-21 00:00: 00 No 1mg buspirone 10 mg tablet 11-21 00:00: 00 No 15mg Abilify 2 mg tablet 11-21 00:00: 00 No 1mg Singulair 10 mg tablet 11-10 00:00: 00 Yes 1mg Medardo [facility]er simvastatin 20 mg tablet 11-10 00:00: 00 Yes 1mg Medardo [facility]er lisinopril 20 mg-hydrochl orothiazide 12.5 mg tablet 11-10 00:00: 00 Yes 1mg Medardo [facility]er metoprolol tartrate 25 mg tablet 11-10 00:00: 00 Yes 1mg Medardo [facility]er Singulair 10 mg tablet 11-10 00:00: 00 No 1mg simvastatin 20 mg tablet 11-10 00:00: 00 No 1mg lisinopril 20 mg-hydrochl orothiazide 12.5 mg tablet 11-10 00:00: 00 No 1mg metoprolol tartrate 25 mg tablet 11-10 00:00: 00 No 1mg Singulair 10 mg tablet 11-10 00:00: 00 No 1mg simvastatin 20 mg tablet 11-10 00:00: 00 No 1mg Singulair 10 mg tablet 11-10 00:00: 00 No 1mg simvastatin 20 mg tablet 11-10 00:00: 00 No 1mg lisinopril 20 mg-hydrochl orothiazide 12.5 mg tablet 11-10 00:00: 00 No 1mg lisinopril 20 mg-hydrochl orothiazide 12.5 mg tablet 11-10 00:00: 00 No 1mg metoprolol tartrate 25 mg tablet 11-10 00:00: 00 No 1mg metoprolol tartrate 25 mg tablet 11-10 00:00: 00 No 1mg Trileptal 300 mg tablet 10-24 00:00: 00 Yes 1mg Medardo [facility]er Abilify 2 mg tablet 10-24 00:00: 00 Yes 1mg Medardo F Kristofer Trileptal 300 mg tablet 10-24 00:00: 00 No 1mg Abilify 2 mg tablet 10-24 00:00: 00 No 1mg Trileptal 300 mg tablet 10-24 00:00: 00 No 1mg Abilify 2 mg tablet 10-24 00:00: 00 No 1mg Trileptal 300 mg tablet 10-24 00:00: 00 No 1mg Abilify 2 mg tablet 10-24 00:00: 00 No 1mg buspirone 10 mg tablet 09-26 00:00: 00 Yes 15mg Medardo [place] [facility] Trileptal 300 mg tablet 09-26 00:00: 00 Yes 1mg Medardo [place] [facility] Abilify 2 mg tablet 09-26 00:00: 00 Yes 1mg Medardo F Kristofer buspirone 10 mg tablet 09-26 00:00: 00 No 15mg Trileptal 300 mg tablet 09-26 00:00: 00 No 1mg Abilify 2 mg tablet 09-26 00:00: 00 No 1mg buspirone 10 mg tablet 09-26 00:00: 00 No 15mg Trileptal 300 mg tablet 09-26 00:00: 00 No 1mg Abilify 2 mg tablet 09-26 00:00: 00 No 1mg buspirone 10 mg tablet 09-26 00:00: 00 No 15mg Trileptal 300 mg tablet 09-26 00:00: 00 No 1mg Abilify 2 mg tablet 09-26 00:00: 00 No 1mg metronidazo le 0.75 % topical cream 08-23 00:00: 00 Yes 1% Medardo [facility]er metronidazo le 0.75 % topical cream 08-23 00:00: 00 No 1% metronidazo le 0.75 % topical cream 08-23 00:00: 00 No 1% metronidazo le 0.75 % topical cream 08-23 00:00: 00 No 1% Trileptal 300 mg tablet 08-22 00:00: 00 No 1mg buspirone 10 mg tablet 08-22 00:00: 00 No 15mg Abilify 2 mg tablet 08-22 00:00: 00 No 1mg Trileptal 300 mg tablet 08-22 00:00: 00 No 1mg buspirone 10 mg tablet 08-22 00:00: 00 No 15mg Abilify 2 mg tablet 08-22 00:00: 00 No 1mg Trileptal 300 mg tablet 08-22 00:00: 00 Yes 1mg Medardo [facility]er buspirone 10 mg tablet 08-22 00:00: 00 Yes 15mg Medardo [facility]er Abilify 2 mg tablet 08-22 00:00: 00 Yes 1mg Medardo [facility]er Trileptal 300 mg tablet 08-22 00:00: 00 No 1mg buspirone 10 mg tablet 08-22 00:00: 00 No 15mg Abilify 2 mg tablet 08-22 00:00: 00 No 1mg Trileptal 300 mg tablet 07-25 00:00: 00 No 1mg buspirone 10 mg tablet 07-25 00:00: 00 No 15mg Abilify 2 mg tablet 07-25 00:00: 00 No 1mg Trileptal 300 mg tablet 07-25 00:00: 00 No 1mg buspirone 10 mg tablet 07-25 00:00: 00 No 15mg Abilify 2 mg tablet 07-25 00:00: 00 No 1mg Trileptal 300 mg tablet 07-25 00:00: 00 No 1mg buspirone 10 mg tablet 07-25 00:00: 00 No 15mg Abilify 2 mg tablet 07-25 00:00: 00 No 1mg Trileptal 300 mg tablet 07-25 00:00: 00 Yes 1mg Medardo [facility]er buspirone 10 mg tablet 07-25 00:00: 00 Yes 15mg Medardo Miner Abilify 2 mg tablet 07-25 00:00: 00 Yes 1mg Medardo Miner Singulair 10 mg tablet 07-14 00:00: 00 No 1mg lisinopril 20 mg-hydrochl orothiazide 12.5 mg tablet 07-14 00:00: 00 No 1mg metoprolol tartrate 25 mg tablet 07-14 00:00: 00 No 1mg Singulair 10 mg tablet 07-14 00:00: 00 No 1mg lisinopril 20 mg-hydrochl orothiazide 12.5 mg tablet 07-14 00:00: 00 No 1mg metoprolol tartrate 25 mg tablet 07-14 00:00: 00 No 1mg Singulair 10 mg tablet 07-14 00:00: 00 No 1mg lisinopril 20 mg-hydrochl orothiazide 12.5 mg tablet 07-14 00:00: 00 No 1mg metoprolol tartrate 25 mg tablet 07-14 00:00: 00 No 1mg Singulair 10 mg tablet 07-14 00:00: 00 Yes 1mg Medardo [facility]er lisinopril 20 mg-hydrochl orothiazide 12.5 mg tablet 07-14 00:00: 00 Yes 1mg Medardo [facility]er metoprolol tartrate 25 mg tablet 07-14 00:00: 00 Yes 1mg Medardo [facility]er simvastatin 20 mg tablet 07-12 00:00: 00 No 1mg Singulair 10 mg tablet 07-12 00:00: 00 No 1mg lisinopril 20 mg-hydrochl orothiazide 12.5 mg tablet 07-12 00:00: 00 No 1mg metoprolol tartrate 25 mg tablet 07-12 00:00: 00 No 1mg simvastatin 20 mg tablet 07-12 00:00: 00 No 1mg Singulair 10 mg tablet 07-12 00:00: 00 No 1mg lisinopril 20 mg-hydrochl orothiazide 12.5 mg tablet 07-12 00:00: 00 No 1mg metoprolol tartrate 25 mg tablet 07-12 00:00: 00 No 1mg simvastatin 20 mg tablet 07-12 00:00: 00 No 1mg Singulair 10 mg tablet 07-12 00:00: 00 No 1mg lisinopril 20 mg-hydrochl orothiazide 12.5 mg tablet 07-12 00:00: 00 No 1mg metoprolol tartrate 25 mg tablet 07-12 00:00: 00 No 1mg simvastatin 20 mg tablet 07-12 00:00: 00 Yes 1mg Medardo [facility]er Singulair 10 mg tablet 07-12 00:00: 00 Yes 1mg Medardo [facility]er lisinopril 20 mg-hydrochl orothiazide 12.5 mg tablet 07-12 00:00: 00 Yes 1mg Medardo [facility]er metoprolol tartrate 25 mg tablet 07-12 00:00: 00 Yes 1mg Medardo [facility]er Trileptal 300 mg tablet 06-20 00:00: 00 No 1mg Abilify 2 mg tablet 06-20 00:00: 00 No 1mg Trileptal 300 mg tablet 06-20 00:00: 00 No 1mg Abilify 2 mg tablet 06-20 00:00: 00 No 1mg Trileptal 300 mg tablet 06-20 00:00: 00 No 1mg Abilify 2 mg tablet 3 00:00: 00 No 1mg Trileptal 300 mg tablet 3 00:00: 00 Yes 1mg Medardo [facility]er Abilify 2 mg tablet 3 00:00: 00 Yes 1mg Medardo [facility]er Trileptal 300 mg tablet 2 00:00: 00 No 1mg Abilify 2 mg tablet 05-23 00:00: 00 No 1mg Trileptal 300 mg tablet 05-23 00:00: 00 No 1mg Abilify 2 mg tablet 05-23 00:00: 00 No 1mg Trileptal 300 mg tablet 05-23 00:00: 00 No 1mg Abilify 2 mg tablet 05-23 00:00: 00 No 1mg Trileptal 300 mg tablet 05-23 00:00: 00 Yes 1mg Medardo [facility]er Abilify 2 mg tablet 05-23 00:00: 00 Yes 1mg Medardo Miner buspirone 10 mg tablet 04-25 00:00: 00 No 15mg Trileptal 300 mg tablet 04-25 00:00: 00 No 1mg Abilify 2 mg tablet 04-25 00:00: 00 No 1mg buspirone 10 mg tablet 04-25 00:00: 00 No 15mg Trileptal 300 mg tablet 04-25 00:00: 00 No 1mg Abilify 2 mg tablet 04-25 00:00: 00 No 1mg buspirone 10 mg tablet 04-25 00:00: 00 No 15mg Trileptal 300 mg tablet 04-25 00:00: 00 No 1mg Abilify 2 mg tablet 04-25 00:00: 00 No 1mg buspirone 10 mg tablet 04-25 00:00: 00 Yes 15mg Medardo [facility]er Trileptal 300 mg tablet 04-25 00:00: 00 Yes 1mg Medardo Miner Abilify 2 mg tablet 14 00:00: 00 Yes 1mg Medardo [facility]er Abilify 2 mg tablet 2017-04 00:00: 00 No 1mg buspirone 10 mg tablet 2017-04 00:00: 00 No 15mg Trileptal 300 mg tablet 2017-04 00:00: 00 No 1mg Abilify 2 mg tablet 2017-04 00:00: 00 No 1mg buspirone 10 mg tablet 2017-04 00:00: 00 No 15mg Trileptal 300 mg tablet 2017-04 00:00: 00 No 1mg Abilify 2 mg tablet 2017-04 00:00: 00 No 1mg buspirone 10 mg tablet 2017-04 00:00: 00 No 15mg Trileptal 300 mg tablet 2017-04 00:00: 00 No 1mg Abilify 2 mg tablet 2017-04 00:00: 00 Yes 1mg Medardo [facility]er buspirone 10 mg tablet 2017-04 00:00: 00 Yes 15mg Medardo [facility]er Trileptal 300 mg tablet 2017-04 00:00: 00 Yes 1mg Medardo Miner simvastatin 20 mg tablet 2017-0416 00:00: 00 No 1mg metoprolol tartrate 25 mg tablet 2017-0416 00:00: 00 No 1mg lisinopril 20 mg-hydrochl orothiazide 12.5 mg tablet 2017-0416 00:00: 00 No 1mg nitrofurant oin macrocrysta l 100 mg capsule 2017-04 00:00: 00 No 1mg simvastatin 20 mg tablet 2017-0416 00:00: 00 No 1mg metoprolol tartrate 25 mg tablet 2017-0416 00:00: 00 No 1mg lisinopril 20 mg-hydrochl orothiazide 12.5 mg tablet 2017-0416 00:00: 00 No 1mg nitrofurant oin macrocrysta l 100 mg capsule 2017-0416 00:00: 00 No 1mg simvastatin 20 mg tablet 2017-0416 00:00: 00 No 1mg metoprolol tartrate 25 mg tablet 2017-04 00:00: 00 No 1mg lisinopril 20 mg-hydrochl orothiazide 12.5 mg tablet 2017-04 00:00: 00 No 1mg nitrofurant oin macrocrysta l 100 mg capsule 2017-04 00:00: 00 No 1mg simvastatin 20 mg tablet 2017-04 00:00: 00 Yes 1mg Medardo Miner metoprolol tartrate 25 mg tablet 2017-04 00:00: 00 Yes 1mg Medardo Miner lisinopril 20 mg-hydrochl orothiazide 12.5 mg tablet 2017-04 00:00: 00 Yes 1mg Medardo [facility]er nitrofurant oin macrocrysta l 100 mg capsule 2017-04 00:00: 00 Yes 1mg Medardo Miner Abilify 2 mg tablet 12-20 00:00: 00 No 1mg buspirone 10 mg tablet 12-20 00:00: 00 No 1mg Trileptal 300 mg tablet 12-20 00:00: 00 No 1mg Abilify 2 mg tablet 12-20 00:00: 00 No 1mg buspirone 10 mg tablet 12-20 00:00: 00 No 1mg Trileptal 300 mg tablet 12-20 00:00: 00 No 1mg Abilify 2 mg tablet 12-20 00:00: 00 No 1mg buspirone 10 mg tablet 12-20 00:00: 00 No 1mg Trileptal 300 mg tablet 12-20 00:00: 00 No 1mg Abilify 2 mg tablet 12-20 00:00: 00 Yes 1mg Medardo Miner buspirone 10 mg tablet 12-20 00:00: 00 Yes 1mg Medardo [facility]er Trileptal 300 mg tablet 12-20 00:00: 00 Yes 1mg Medardo Miner Abilify 2 mg tablet 11-22 00:00: 00 No 1mg buspirone 5 mg tablet 11-22 00:00: 00 No 1mg Trileptal 300 mg tablet 11-22 00:00: 00 No 1mg Abilify 2 mg tablet 11-22 00:00: 00 No 1mg buspirone 5 mg tablet 11-22 00:00: 00 No 1mg Trileptal 300 mg tablet 11-22 00:00: 00 No 1mg Abilify 2 mg tablet 11-22 00:00: 00 No 1mg buspirone 5 mg tablet 11-22 00:00: 00 No 1mg Trileptal 300 mg tablet 11-22 00:00: 00 No 1mg Abilify 2 mg tablet 11-22 00:00: 00 Yes 1mg Medardo Miner buspirone 5 mg tablet 11-22 00:00: 00 Yes 1mg Medardo Miner Trileptal 300 mg tablet 11-22 00:00: 00 Yes 1mg Medardo Miner Abilify 2 mg tablet 11-09 00:00: 00 No 1mg buspirone 5 mg tablet 11-09 00:00: 00 No 1mg Trileptal 300 mg tablet 11-09 00:00: 00 No 1mg Abilify 2 mg tablet 11-09 00:00: 00 No 1mg buspirone 5 mg tablet 11-09 00:00: 00 No 1mg Trileptal 300 mg tablet 11-09 00:00: 00 No 1mg Abilify 2 mg tablet 11-09 00:00: 00 No 1mg buspirone 5 mg tablet 11-09 00:00: 00 No 1mg Trileptal 300 mg tablet 11-09 00:00: 00 No 1mg Abilify 2 mg tablet 11-09 00:00: 00 Yes 1mg Medardo Miner buspirone 5 mg tablet 11-09 00:00: 00 Yes 1mg Medardo [facility]er Trileptal 300 mg tablet 11-09 00:00: 00 Yes 1mg Medardo Miner simvastatin 20 mg tablet 11-02 00:00: 00 No 1mg metoprolol tartrate 25 mg tablet 11-02 00:00: 00 No 1mg lisinopril 20 mg-hydrochl orothiazide 12.5 mg tablet 11-02 00:00: 00 No 1mg simvastatin 20 mg tablet 11-02 00:00: 00 No 1mg metoprolol tartrate 25 mg tablet 11-02 00:00: 00 No 1mg lisinopril 20 mg-hydrochl orothiazide 12.5 mg tablet 11-02 00:00: 00 No 1mg simvastatin 20 mg tablet 11-02 00:00: 00 No 1mg metoprolol tartrate 25 mg tablet 11-02 00:00: 00 No 1mg lisinopril 20 mg-hydrochl orothiazide 12.5 mg tablet 11-02 00:00: 00 No 1mg simvastatin 20 mg tablet 11-02 00:00: 00 Yes 1mg Medardo Miner metoprolol tartrate 25 mg tablet 11-02 00:00: 00 Yes 1mg Medardo Miner lisinopril 20 mg-hydrochl orothiazide 12.5 mg tablet 11-02 00:00: 00 Yes 1mg Medardo Miner Abilify 2 mg tablet 10-11 00:00: 00 No 1mg buspirone 5 mg tablet 10-11 00:00: 00 No 1mg Trileptal 300 mg tablet 10-11 00:00: 00 No 1mg Abilify 2 mg tablet 10-11 00:00: 00 No 1mg buspirone 5 mg tablet 10-11 00:00: 00 No 1mg Trileptal 300 mg tablet 10-11 00:00: 00 No 1mg Abilify 2 mg tablet 10-11 00:00: 00 No 1mg buspirone 5 mg tablet 10-11 00:00: 00 No 1mg Trileptal 300 mg tablet 10-11 00:00: 00 No 1mg Abilify 2 mg tablet 10-11 00:00: 00 Yes 1mg Medardo Miner buspirone 5 mg tablet 10-11 00:00: 00 Yes 1mg Medardo Miner Trileptal 300 mg tablet 10-11 00:00: 00 Yes 1mg Medardo Miner Abilify 2 mg tablet 09-20 00:00: 00 No 1mg Trileptal 300 mg tablet 09-20 00:00: 00 No 1mg Abilify 2 mg tablet 09-20 00:00: 00 No 1mg Trileptal 300 mg tablet 09-20 00:00: 00 No 1mg Abilify 2 mg tablet 09-20 00:00: 00 No 1mg Trileptal 300 mg tablet 09-20 00:00: 00 No 1mg Abilify 2 mg tablet 09-20 00:00: 00 Yes 1mg Medardo [facility]er Trileptal 300 mg tablet 09-20 00:00: 00 Yes 1mg Medardo [facility]er Abilify 2 mg tablet 08-09 00:00: 00 No 1mg Trileptal 150 mg tablet 08-09 00:00: 00 No 1mg Abilify 2 mg tablet 08-09 00:00: 00 No 1mg Trileptal 150 mg tablet 08-09 00:00: 00 No 1mg Abilify 2 mg tablet 08-09 00:00: 00 No 1mg Trileptal 150 mg tablet 08-09 00:00: 00 No 1mg Abilify 2 mg tablet 08-09 00:00: 00 Yes 1mg Medardo Miner Trileptal 150 mg tablet 08-09 00:00: 00 Yes 1mg Medardo Miner simvastatin 20 mg tablet 07-08 00:00: 00 No 1mg lisinopril 20 mg-hydrochl orothiazide 12.5 mg tablet 07-08 00:00: 00 No 1mg Bactrim DS 800 mg-160 mg tablet 07-08 00:00: 00 No 1mg metoprolol tartrate 25 mg tablet 07-08 00:00: 00 No 1mg simvastatin 20 mg tablet 07-08 00:00: 00 No 1mg simvastatin 20 mg tablet 07-08 00:00: 00 No 1mg lisinopril 20 mg-hydrochl orothiazide 12.5 mg tablet 07-08 00:00: 00 No 1mg Bactrim DS 800 mg-160 mg tablet 07-08 00:00: 00 No 1mg metoprolol tartrate 25 mg tablet 07-08 00:00: 00 No 1mg lisinopril 20 mg-hydrochl orothiazide 12.5 mg tablet 07-08 00:00: 00 No 1mg Bactrim DS 800 mg-160 mg tablet 07-08 00:00: 00 No 1mg metoprolol tartrate 25 mg tablet 07-08 00:00: 00 No 1mg simvastatin 20 mg tablet 07-08 00:00: 00 Yes 1mg Medardo [place] Miner lisinopril 20 mg-hydrochl orothiazide 12.5 mg tablet 07-08 00:00: 00 Yes 1mg Medardo Miner Bactrim DS 800 mg-160 mg tablet 07-08 00:00: 00 Yes 1mg Medardo Miner metoprolol tartrate 25 mg tablet 07-08 00:00: 00 Yes 1mg Medardo [place] Kristofer Immunizations Ordered Immunization Name Filled Immunization Name Date Status Comments Source Influenza, seasonal, inj 2018-01-25 00:00:00 Completed Influenza, seasonal, inj 2018-01-25 00:00:00 Completed Influenza, seasonal, inj 2018-01-25 00:00:00 Completed Influenza, seasonal, inj Influenza, seasonal, inj 2018-01-25 00:00:00 Completed Medardo Alexandria Kristofer Vital Signs Vital Name Observation Time Observation Value Comments S petty BP Systolic 2024-01-01 08:15:00 Adi Miner BP Diastolic 2024-01-01 08:15:00 Ky Miner Weight Measured 2024-01-01 08:15:00 Medardo Miner Height Measured 2024-01-01 08:15:00 Medardo Miner Body Temperature 2024-01-01 08:15:00 Medardo Miner Heart Rate 2024-01-01 08:15:00 Kaley Miner Respiratory Rate 2024-01-01 08:15:00 Medardo F Kristofer BP Systolic 2023-09-24 08:10:00 151 mm[Hg] Step hen F Kristofer BP Diastolic 2023-09-24 08:10:00 88 mm[Hg] Ky phen F Kristofer Weight Measured 2023-09-24 08:10:00 150.80 pounds Medardo F Kristofer Height Measured 2023-09-24 08:10:00 63.00 inches Medardo F Kristofer Body Temperature 2023-09-24 08:10:00 98.00 degrees Medardo F Kristofer Heart Rate 2023-09-24 08:10:00 47.00 /min Kaley en F Kristofer Respiratory Rate 2023-09-24 08:10:00 16.00 /min Medardo F Kristofer BP Systolic 2023-09-09 08:09:00 160 mm[Hg] Step hen F Kristofer BP Diastolic 2023-09-09 08:09:00 96 mm[Hg] Ky phen F Kristofer Weight Measured 2023-09-09 08:09:00 155.00 pounds Medardo F Kristofer Height Measured 2023-09-09 08:09:00 63.00 inches Medardo F Kristofer Body Temperature 2023-09-09 08:09:00 98.00 degrees Medardo F Kristofer Heart Rate 2023-09-09 08:09:00 47.00 /min Kaley en F Kristofer Respiratory Rate 2023-09-09 08:09:00 Medardo F Kristofer BP Systolic 2023-02-26 08:11:00 132 mm[Hg] Step hen F Kristofer BP Diastolic 2023-02-26 08:11:00 86 mm[Hg] Ky phen F Kristofer Weight Measured 2023-02-26 08:11:00 168.00 pounds Medardo F Kristofer Height Measured 2023-02-26 08:11:00 63.00 inches Medardo F Kristofer Body Temperature 2023-02-26 08:11:00 98.20 degrees Medardo F Kristofer Heart Rate 2023-02-26 08:11:00 49.00 /min Kaley en F Kristofer Respiratory Rate 2023-02-26 08:11:00 19.00 /min Medardo F Kristofer BP Systolic 2023-02-26 08:07:00 132 mm[Hg] Step hen F Kristofer BP Diastolic 2023-02-26 08:07:00 86 mm[Hg] Ky phen F Kristofer Weight Measured 2023-02-26 08:07:00 168.00 pounds Medardo F Kristofer Height Measured 2023-02-26 08:07:00 63.00 inches Medardo F Kristofer Body Temperature 2023-02-26 08:07:00 98.20 degrees Medardo F Kritsofer Heart Rate 2023-02-26 08:07:00 59.00 /min Kaley en F Kristofer Respiratory Rate 2023-02-26 08:07:00 19.00 /min Medardo F Kristofer BP Systolic 2022-12-25 08:07:00 128 mm[Hg] Step hen F Kristofer BP Diastolic 2022-12-25 08:07:00 81 mm[Hg] Ky phen F Kristofer Weight Measured 2022-12-25 08:07:00 161.60 pounds Medardo F Kristofer Height Measured 2022-12-25 08:07:00 63.00 inches Medardo F Kristofer Body Temperature 2022-12-25 08:07:00 98.10 degrees Medardo F Kristofer Heart Rate 2022-12-25 08:07:00 54.00 /min Kaley en F Kristofer Respiratory Rate 2022-12-25 08:07:00 Medardo F Kristofer BP Systolic 2022-12-16 10:31:00 140 mm[Hg] Step hen F Kristofer BP Diastolic 2022-12-16 10:31:00 87 mm[Hg] Ky phen F Kristofer Weight Measured 2022-12-16 10:31:00 161.60 pounds Medardo F Kristofer Height Measured 2022-12-16 10:31:00 63.00 inches Medardo F Kristofer Body Temperature 2022-12-16 10:31:00 98.10 degrees Medardo F Kristofer Heart Rate 2022-12-16 10:31:00 55.00 /min Kaley en F Kristofer Respiratory Rate 2022-12-16 10:31:00 17.00 /min Medardo F Kristofer BP Systolic 2022-11-24 08:07:00 145 mm[Hg] Step hen F Kristofer BP Diastolic 2022-11-24 08:07:00 88 mm[Hg] Ky phen F Kristofer Weight Measured 2022-11-24 08:07:00 161.80 pounds Medardo F Kristofer Height Measured 2022-11-24 08:07:00 63.00 inches Medardo F Kristofer Body Temperature 2022-11-24 08:07:00 98.10 degrees Medardo F Kristofer Heart Rate 2022-11-24 08:07:00 54.00 /min Kaley en F Kristofer Respiratory Rate 2022-11-24 08:07:00 18.00 /min Medardo F Kristofer BP Systolic 2022-11-23 13:40:00 174 mm[Hg] Step hen F Kristofer BP Diastolic 2022-11-23 13:40:00 105 mm[Hg] Ky phen F Kristofer Weight Measured 2022-11-23 13:40:00 162.40 pounds Medardo F Kristofer Height Measured 2022-11-23 13:40:00 63.00 inches Medardo F Kristofer Body Temperature 2022-11-23 13:40:00 98.50 degrees Medardo F Kristofer Heart Rate 2022-11-23 13:40:00 62.00 /min Kaley en F Kristofer Respiratory Rate 2022-11-23 13:40:00 Medardo F Kristofer BP Systolic 2022-09-18 08:05:00 138 mm[Hg] Step hen F Kristofer BP Diastolic 2022-09-18 08:05:00 85 mm[Hg] Ky phen F Kristofer Weight Measured 2022-09-18 08:05:00 159.20 pounds Medardo F Kristofer Height Measured 2022-09-18 08:05:00 63.00 inches Medardo F Kristofer Body Temperature 2022-09-18 08:05:00 98.10 degrees Medardo F Kristofer Heart Rate 2022-09-18 08:05:00 54.00 /min Kaley en F Kristofer Respiratory Rate 2022-09-18 08:05:00 18.00 /min Medardo F Kristofer BP Systolic 2022-09-09 15:41:00 163 mm[Hg] Step hen F Kristofer BP Diastolic 2022-09-09 15:41:00 99 mm[Hg] Ky phen F Kristofer Weight Measured 2022-09-09 15:41:00 Medardo F Kristofer Height Measured 2022-09-09 15:41:00 Medardo F Kristofer Body Temperature 2022-09-09 15:41:00 Medardo F Kristofer Heart Rate 2022-09-09 15:41:00 Kaley en F Kristofer Respiratory Rate 2022-09-09 15:41:00 Medardo Miner BP Systolic 2022-03-12 08:46:00 146 mm[Hg] BP Diastolic 2022-03-12 08:46:00 71 mm[Hg] Weight Measured 2022-03-12 08:46:00 164.20 pounds Height Measured 2022-03-12 08:46:00 63.00 inches Body Temperature 2022-03-12 08:46:00 98.80 degrees Heart Rate 2022-03-12 08:46:00 68.00 /min Respiratory Rate 2022-03-12 08:46:00 18.00 /min BP Systolic 2021-11-26 08:32:00 148 mm[Hg] BP Diastolic 2021-11-26 08:32:00 89 mm[Hg] Weight Measured 2021-11-26 08:32:00 163.80 pounds Height Measured 2021-11-26 08:32:00 63.00 inches Body Temperature 2021-11-26 08:32:00 98.00 degrees Heart Rate 2021-11-26 08:32:00 60.00 /min Respiratory Rate 2021-11-26 08:32:00 15.00 /min BP Systolic 2021-11-21 08:31:00 162 mm[Hg] BP Diastolic 2021-11-21 08:31:00 99 mm[Hg] Weight Measured 2021-11-21 08:31:00 164.60 pounds Height Measured 2021-11-21 08:31:00 63.00 inches Body Temperature 2021-11-21 08:31:00 98.30 degrees Heart Rate 2021-11-21 08:31:00 68.00 /min Respiratory Rate 2021-11-21 08:31:00 18.00 /min BP Systolic 2021-09-02 13:38:00 174 mm[Hg] BP Diastolic 2021-09-02 13:38:00 100 mm[Hg] Weight Measured 2021-09-02 13:38:00 163.80 pounds Height Measured 2021-09-02 13:38:00 63.00 inches Body Temperature 2021-09-02 13:38:00 98.00 degrees Heart Rate 2021-09-02 13:38:00 70.00 /min Respiratory Rate 2021-09-02 13:38:00 16.00 /min BP Systolic 2021-05-26 10:32:00 151 mm[Hg] BP Diastolic 2021-05-26 10:32:00 92 mm[Hg] Weight Measured 2021-05-26 10:32:00 162.80 pounds Height Measured 2021-05-26 10:32:00 63.00 inches Body Temperature 2021-05-26 10:32:00 98.30 degrees Heart Rate 2021-05-26 10:32:00 69.00 /min Respiratory Rate 2021-05-26 10:32:00 BP Systolic 2021-03-18 13:24:00 157 mm[Hg] BP Diastolic 2021-03-18 13:24:00 98 mm[Hg] Weight Measured 2021-03-18 13:24:00 161.40 pounds Height Measured 2021-03-18 13:24:00 63.00 inches Body Temperature 2021-03-18 13:24:00 98.10 degrees Heart Rate 2021-03-18 13:24:00 66.00 /min Respiratory Rate 2021-03-18 13:24:00 17.00 /min BP Systolic 2021-03-03 17:10:00 159 mm[Hg] BP Diastolic 2021-03-03 17:10:00 88 mm[Hg] Weight Measured 2021-03-03 17:10:00 160.80 pounds Height Measured 2021-03-03 17:10:00 63.00 inches Body Temperature 2021-03-03 17:10:00 98.20 degrees Heart Rate 2021-03-03 17:10:00 82.00 /min Respiratory Rate 2021-03-03 17:10:00 17.00 /min BP Systolic 2021-02-07 08:12:00 163 mm[Hg] BP Diastolic 2021-02-07 08:12:00 101 mm[Hg] Weight Measured 2021-02-07 08:12:00 162.60 pounds Height Measured 2021-02-07 08:12:00 63.00 inches Body Temperature 2021-02-07 08:12:00 98.20 degrees Heart Rate 2021-02-07 08:12:00 70.00 /min Respiratory Rate 2021-02-07 08:12:00 16.00 /min BP Systolic 2021-01-21 08:11:00 152 mm[Hg] BP Diastolic 2021-01-21 08:11:00 96 mm[Hg] Weight Measured 2021-01-21 08:11:00 163.60 pounds Height Measured 2021-01-21 08:11:00 63.00 inches Body Temperature 2021-01-21 08:11:00 98.30 degrees Heart Rate 2021-01-21 08:11:00 73.00 /min Respiratory Rate 2021-01-21 08:11:00 17.00 /min BP Systolic 2020-10-22 11:36:00 158 mm[Hg] BP Diastolic 2020-10-22 11:36:00 90 mm[Hg] Weight Measured 2020-10-22 11:36:00 163.40 pounds Height Measured 2020-10-22 11:36:00 63.00 inches Body Temperature 2020-10-22 11:36:00 98.10 degrees Heart Rate 2020-10-22 11:36:00 80.00 /min Respiratory Rate 2020-10-22 11:36:00 25.00 /min BP Systolic 2019-10-03 08:51:00 155 mm[Hg] BP Diastolic 2019-10-03 08:51:00 96 mm[Hg] Weight Measured 2019-10-03 08:51:00 158.80 pounds Height Measured 2019-10-03 08:51:00 63.00 inches Body Temperature 2019-10-03 08:51:00 98.80 degrees Heart Rate 2019-10-03 08:51:00 70.00 /min Respiratory Rate 2019-10-03 08:51:00 16.00 /min BP Systolic 2019-08-11 08:47:00 132 mm[Hg] BP Diastolic 2019-08-11 08:47:00 88 mm[Hg] Weight Measured 2019-08-11 08:47:00 157.40 pounds Height Measured 2019-08-11 08:47:00 63.00 inches Body Temperature 2019-08-11 08:47:00 99.00 degrees Heart Rate 2019-08-11 08:47:00 79.00 /min Respiratory Rate 2019-08-11 08:47:00 16.00 /min Procedures Procedure Date / Time Performed Performing Clinicia n Source 27784 Ekg W/ At Least 12 Leads W/ I r 2022-07-17 00:00:00 Medardo Miner Plan of Care Planned Activity Planned Date Details Comments Source Goal Plan of Care Note [code = 27893-8] Goal Plan of Care Note [code = 57459-6] Goal Plan of Care Note [code = 56398-5] Goal Plan of Care Note [code = 75571-8] Goal Plan of Care Note [code = 39408-4] Goal Plan of Care Note [code = 85608-2] Goal Plan of Care Note [code = 75745-9] Goal Plan of Care Note [code = 02234-4] Goal Plan of Care Note [code = 39407-4] Goal Plan of Care Note [code = 98538-2] Goal Plan of Care Note [code = 97708-4] Goal Plan of Care Note [code = 88177-0] Goal Plan of Care Note [code = 25628-3] Goal Plan of Care Note [code = 87208-3] Goal Plan of Care Note [code = 63569-7] Goal Plan of Care Note [code = 82795-5] Goal Plan of Care Note [code = 94386-1] Goal Plan of Care Note [code = 54361-4] Goal Plan of Care Note [code = 62096-9] Goal Plan of Care Note [code = 76927-6] Goal Plan of Care Note [code = 80632-8] Goal Plan of Care Note [code = 77303-7] Goal Plan of Care Note [code = 25312-1] Goal Plan of Care Note [code = 16115-8] Goal Plan of Care Note [code = 71109-0] Goal Plan of Care Note [code = 46404-7] Goal Plan of Care Note [code = 81340-7] Goal Plan of Care Note [code = 13577-8] Goal Plan of Care Note [code = 02700-3] Goal Plan of Care Note [code = 57112-1] Goal Plan of Care Note [code = 66416-3] Goal Plan of Care Note [code = 06500-0] Goal Plan of Care Note [code = 83604-5] Goal Plan of Care Note [code = 08318-7] Goal Plan of Care Note [code = 35295-5] Goal Plan of Care Note [code = 61482-7] Goal Plan of Care Note [code = 69579-6] Goal Plan of Care Note [code = 66306-7] Goal Plan of Care Note [code = 77410-7] Goal Plan of Care Note [code = 03077-5] Goal Plan of Care Note [code = 37769-9] Goal Plan of Care Note [code = 69590-4] Goal Plan of Care Note [code = 48128-1] Goal Plan of Care Note [code = 81429-2] Goal Plan of Care Note [code = 02894-7] Goal Plan of Care Note [code = 10911-9] Goal Plan of Care Note [code = 67350-7] Goal Plan of Care Note [code = 12192-1] Goal Plan of Care Note [code = 99632-4] Goal Plan of Care Note [code = 43728-5] Goal Plan of Care Note [code = 62402-8] Goal Plan of Care Note [code = 37946-9] Goal Plan of Care Note [code = 40405-7] Goal Plan of Care Note [code = 25214-6] Goal Plan of Care Note [code = 07061-1] Goal Plan of Care Note [code = 84816-2] Goal Plan of Care Note [code = 83682-5] Goal Plan of Care Note [code = 84335-7] Goal Plan of Care Note [code = 39884-7] Goal Plan of Care Note [code = 47799-0] Goal Plan of Care Note [code = 50318-9] Goal Plan of Care Note [code = 63068-0] Goal Plan of Care Note [code = 30815-8] Goal Plan of Care Note [code = 00725-4] Goal Plan of Care Note [code = 52873-4] Goal Plan of Care Note [code = 55503-0] Goal Plan of Care Note [code = 66897-9] Goal Plan of Care Note [code = 17642-0] Goal Plan of Care Note [code = 75280-2] Goal Plan of Care Note [code = 22944-7] Goal Plan of Care Note [code = 27469-3] Goal Plan of Care Note [code = 92133-8] Goal Plan of Care Note [code = 21219-5] Goal Plan of Care Note [code = 06586-1] Goal Plan of Care Note [code = 42108-2] Goal Plan of Care Note [code = 31978-1] Goal Plan of Care Note [code = 72665-6] Goal Plan of Care Note [code = 42638-7] Goal Plan of Care Note [code = 81469-1] Encounters Start Date/Time End Date/Time Encounter Type Admission Type Attending [facility] Care Department Encounter ID Source 2024-01-21 07:59:00 2024-01-21 07:59:00 Outpatient SFA SFA [id number] Medardo Miner 2024-01-11 07:57:12 2024-01-11 07:57:12 Outpatient SFA SFA [id number] Medardo Miner 2024-01-01 08:45:28 2024-01-01 08:45:28 Outpatient SFA SFA [id number] Medardo Ibrahim Kristofer 2024-01-01 00:00:00 2024-01-01 00:00:00 Outpatient Visit SFA [id number] Medardo Miner 2023-09-24 08:00:06 2023-09-24 08:00:06 Outpatient SFA [id number] Medardo Miner 2023-09-24 00:00:00 2023-09-24 00:00:00 Outpatient Visit SFA [id number] Medardo Miner 2023-09-09 08:08:55 2023-09-09 08:08:55 Outpatient SFA SFA [id number] Medardo Miner 2023-09-09 00:00:00 2023-09-09 00:00:00 Outpatient Visit SFA [id number] Medardo Mnier 2023-08-20 08:20:50 2023-08-20 08:20:50 Outpatient SFA SFA [id number] Medardo Miner 2023-06-24 08:06:01 2023-06-24 08:06:01 Outpatient SFA SFA [id number] Medardo Miner 2023-05-07 08:01:36 2023-05-07 08:01:36 Outpatient SFA SFA [id number] Medardo Miner 2023-03-12 08:03:39 2023-03-12 08:03:39 Outpatient SFA SFA [id number] Medardo Ibrahim Kristofer 2023-02-26 08:03:23 2023-02-26 08:03:23 Outpatient SFA SFA [id number] Medardo Ibrahim Kristofer 2023-02-09 00:00:00 2023-02-09 00:00:00 Outpatient GC_GCBZW_Ka diyala_S PRIV PRIV [id number] [facility] 2023-02-08 00:00:00 2023-02-08 00:00:00 Outpatient GC_GCBZW_Ka diyala_S PRIV PRIV [id number] [facility] 2023-01-11 16:56:44 2023-01-11 16:56:44 Outpatient SFA SFA [id number] Medardo Ibrahim [place] 2022-12-25 07:59:39 2022-12-25 07:59:39 Outpatient SFA SFA [id number] Medardo Ibrahim [place] 2022-12-16 09:56:37 2022-12-16 09:56:37 Outpatient SFA SFA [id number] Medardo Ibrahim [place] 2022-11-23 13:37:52 2022-11-23 13:37:52 Outpatient SFA SFA [id number] Medardo Ibrahim Kristofer 2022-09-18 08:01:58 2022-09-18 08:01:58 Outpatient SFA SFA [id number] Medardo Ibrahim Kristofer 2022-09-10 10:11:37 2022-09-10 10:11:37 Outpatient SFA SFA [id number] Medardo Ibrahim Kristofer 2022-09-09 15:34:57 2022-09-09 15:34:57 Outpatient SFA SFA [id number] Medardo Ibrahim Kristofer 2022-09-02 10:09:33 2022-09-02 10:09:33 Outpatient SFA SFA [id number] Medardo Miner 2022-08-31 10:01:09 2022-08-31 10:01:09 Outpatient SFA SFA [id number] Medardo Miner 2022-08-29 09:02:59 2022-08-29 09:02:59 Outpatient SFA SFA [id number] Medardo Miner 2022-07-23 08:13:44 2022-07-23 08:13:44 Outpatient SFA SFA [id number] Medardo Miner 2022-07-17 10:18:41 2022-07-17 10:18:41 Outpatient SFA SFA [id number] Medardo Miner 2022-06-19 16:52:29 2022-06-19 16:52:29 Outpatient SFA SFA [id number] Medardo Miner 2022-03-19 10:48:26 2022-03-19 10:48:26 Outpatient SFA SFA [id number] Medardo Ibrahim Kristofer 2022-03-13 10:02:51 2022-03-13 10:02:51 Outpatient SFA SFA [id number] Medardo Ibrahim Kristofer 2022-03-12 08:33:45 2022-03-12 08:33:45 Outpatient SFA SFA [id number] Medardo Ibrahim Kristofer 2022-03-12 00:00:00 2022-03-12 00:00:00 Outpatient Visit [id number] 2021-11-26 00:00:00 2021-11-26 00:00:00 Outpatient Visit [id number] 2021-11-21 00:00:00 2021-11-21 00:00:00 Outpatient Visit [id number] Results Test Description Test Time Test Comments Results Result Co mments Source COMPREHENSIVE METABOLIC [id number] 06:06:54* Test Item Value Reference Range Interpretation Comme nts GLUCOSE (test code = 2217) 103 MG/DL 70-99 H BUN (test code = 2207) 14 MG/DL 6-20 CREATININE (test code = 2214) 0.90 MG/DL 0.60-1.30 eGFR (2020 CKD-EPI) (test code = 40270) 77 ML/MIN/1.73 >60 CALC BUN/CREAT (test code = 2235) 16 RATIO 6-28 SODIUM (test code = 223) 137 MEQ/L 133-146 POTASSIUM (test code = 2228) 3.6 MEQ/L 3.5-5.4 CHLORIDE (test code = 2215) 100 MEQ/L 95-107 CARBON DIOXIDE (test code = 2206) 23 MEQ/L 19-31 CALCIUM (test code = 2209) 8.9 MG/DL 8.5-10.5 PROTEIN, TOTAL (test code = 2229) 7.2 G/DL 6.1-8.3 ALBUMIN (test code = 2201) 4.7 G/DL 3.5-5.2 CALC GLOBULIN (test code = 2240) 2.5 G/DL 1.9-3.7 CALC A/G RATIO (test code = 2234) 1.9 RATIO 1.0-2.6 BILIRUBIN, TOTAL (test code = 2207) 0.4 MG/DL <=1.2 ALKALINE PHOSPHATASE (test code = 2204) 103 U/L 40-132 AST (test code = 2218) 26 U/L 9-40 ALT (test code = 2219) 28 U/L 5-40 UNLESS OTHERWISE INDICATED, ALL TESTING PERFORMED AT [facility] [address] [place] [id number] SAL[employer] AND BUSINESS [employer]ELOPMENT MANAGER: RAMY DOHERTY M.D. CLIA NUMBER [id number] [place]. [id number] CBC W/AUTO DIFF WITH [id number] 03:12:31* Test Item Value Reference Range Interpretation Comme nts WBC (test code = 1001) 12.0 K/UL 3.5-11.0 H RBC (test code = 1002) 4.80 M/UL 3.80-5.40 HEMOGLOBIN (test code = 1003) 15.4 G/DL 11.5-15.5 HEMATOCRIT (test code = 1004) 44.1 % 34.0-45.0 MCV (test code = 1005) 91.9 fL 80.0-99.0 MCH (test code = 1006) 32.1 PG 25.0-33.0 MCHC (test code = 1007) 34.9 G/DL 31.0-36.0 RDW (test code = 1038) 12.5 % 11.5-15.0 NEUTROPHILS (test code = 1008) 72.8 % LYMPHOCYTES (test code = 1010) 20.9 % MONOCYTES (test code = 1011) 3.8 % EOSINOPHILS (test code = 1012) 1.9 % BASOPHILS (test code = 1013) 0.3 % IMMATURE GRANULOCYTES (test code = 1036) 0.3 % NUCLEATED RBCS (test code = 1065) 0.0 /100 WBC'S See_Comment [Automated messa ge] The system which generated this result transmitted reference range: 0.0. The reference range was not used to interpret this result as normal/abnormal. PLATELET COUNT (test code = 1015) 317 K/UL 130-400 ABSOLUTE NEUTROPHILS (test code = 1066) 8.72 K/UL 1.50-7.50 H ABSOLUTE LYMPHOCYTES (test code = 1067) 2.50 K/UL 1.00-4.00 ABSOLUTE MONOCYTES (test code = 1068) 0.45 K/UL 0.20-1.00 ABSOLUTE EOSINOPHILS (test code = 1040) 0.23 K/UL 0.00-0.50 ABSOLUTE BASOPHILS (test code = 1069) 0.04 K/UL 0.00-0.20 ABS IMMATURE GRANULOCYTES (test code = 1020) 0.03 K/UL 0.00-0.10 ABS NUCLEATED RBCS (test code = 20770) 0.00 K/UL 0.00-0.11 CBC W/AUTO [id number] 00:00:00* Test Item Value Reference Range Interpretation Comme nts WBC (test code = 1001) 12.0 K/UL RBC (test code = 1002) 4.80 M/UL HEMOGLOBIN (test code = 1003) 15.4 G/DL HEMATOCRIT (test code = 1004) 44.1 % MCV (test code = 1005) 91.9 fL MCH (test code = 1006) 32.1 PG MCHC (test code = 1007) 34.9 G/DL RDW (test code = 1038) 12.5 % NEUTROPHILS (test code = 1008) 72.8 % LYMPHOCYTES (test code = 1010) 20.9 % MONOCYTES (test code = 1011) 3.8 % EOSINOPHILS (test code = 1012) 1.9 % BASOPHILS (test code = 1013) 0.3 % IMMATURE GRANULOCYTES (test code = 1036) 0.3 % NUCLEATED RBCS (test code = 1065) 0.0 /100WBC'S PLATELET COUNT (test code = 1015) 317 K/UL ABSOLUTE NEUTROPHILS (test c ode = 1066) 8.72 K/UL ABSOLUTE LYMPHOCYTES (test c ode = 1067) 2.50 K/UL ABSOLUTE MONOCYTES (test cod e = 1068) 0.45 K/UL ABSOLUTE EOSINOPHILS (test c ode = 1040) 0.23 K/UL ABSOLUTE BASOPHILS (test cod e = 1069) 0.04 K/UL ABS IMMATURE GRANULOCYTES (t est code = 1020) 0.03 K/UL ABS NUCLEATED RBCS (test cod e = 98645) 0.00 K/UL Medardo Ibrahim AustinLIPID [id number] 00:00:00* Test Item Value Reference Range Interpretation Comme nts CHOLESTEROL (test code = 2210) 202 MG/DL TRIGLYCERIDES (test code = 2232) 150 MG/DL HDL CHOLESTEROL (test code = 2220) 43 MG/DL CALC LDL CHOL (test code = 2237) 133 MG/DL RISK RATIO LDL/HDL (test cod e = 2238) 3.09 RATIO Medardo MinerCOMPREHENSIVE METABOLIC [id number] 00:00:00* Test Item Value Reference Range Interpretation Comme nts GLUCOSE (test code = 2217) 103 MG/DL BUN (test code = 2208) 14 MG/DL CREATININE (test code = 2214) 0.90 MG/DL eGFR (2020 CKD-EPI) (test co de = 38573) 77 ML/MIN/1.73 CALC BUN/CREAT (test code = 2235) 16 RATIO SODIUM (test code = 2231) 137 MEQ/L POTASSIUM (test code = 2228) 3.6 MEQ/L CHLORIDE (test code = 2215) 100 MEQ/L CARBON DIOXIDE (test code = 2206) 23 MEQ/L CALCIUM (test code = 2209) 8.9 MG/DL PROTEIN, TOTAL (test code = 2229) 7.2 G/DL ALBUMIN (test code = 2201) 4.7 G/DL CALC GLOBULIN (test code = 2240) 2.5 G/DL CALC A/G RATIO (test code = 2234) 1.9 RATIO BILIRUBIN, TOTAL (test code = 2207) 0.4 MG/DL ALKALINE PHOSPHATASE (test code = 2204) 103 U/L AST (test code = 2218) 26 U/L ALT (test code = 2219) 28 U/L [facility] I[facility] W/AUTO [id number] 00:00:00* Test Item Value Reference Range Interpretation Comme nts WBC (test code = 1001) 12.0 K/UL RBC (test code = 1002) 4.80 M/UL HEMOGLOBIN (test code = 1003) 15.4 G/DL HEMATOCRIT (test code = 1004) 44.1 % MCV (test code = 1005) 91.9 fL MCH (test code = 1006) 32.1 PG MCHC (test code = 1007) 34.9 G/DL RDW (test code = 1038) 12.5 % NEUTROPHILS (test code = 1008) 72.8 % LYMPHOCYTES (test code = 1010) 20.9 % MONOCYTES (test code = 1011) 3.8 % EOSINOPHILS (test code = 1012) 1.9 % BASOPHILS (test code = 1013) 0.3 % IMMATURE GRANULOCYTES (test code = 1036) 0.3 % NUCLEATED RBCS (test code = 1065) 0.0 /100WBC'S PLATELET COUNT (test code = 1015) 317 K/UL ABSOLUTE NEUTROPHILS (test c ode = 1066) 8.72 K/UL ABSOLUTE LYMPHOCYTES (test c ode = 1067) 2.50 K/UL ABSOLUTE MONOCYTES (test cod e = 1068) 0.45 K/UL ABSOLUTE EOSINOPHILS (test c ode = 1040) 0.23 K/UL ABSOLUTE BASOPHILS (test cod e = 1069) 0.04 K/UL ABS IMMATURE GRANULOCYTES (t est code = 1020) 0.03 K/UL ABS NUCLEATED RBCS (test cod e = 83829) 0.00 K/UL Medardo MinerLIPID [id number] 00:00:00* Test Item Value Reference Range Interpretation Comme nts CHOLESTEROL (test code = 2210) 202 MG/DL TRIGLYCERIDES (test code = 2232) 150 MG/DL HDL CHOLESTEROL (test code = 2220) 43 MG/DL CALC LDL CHOL (test code = 2237) 133 MG/DL RISK RATIO LDL/HDL (test cod e = 2238) 3.09 RATIO Medardo MinerCOMPREHENSIVE METABOLIC [id number] 00:00:00* Test Item Value Reference Range Interpretation Comme nts GLUCOSE (test code = 2217) 103 MG/DL BUN (test code = 2208) 14 MG/DL CREATININE (test code = 2214) 0.90 MG/DL eGFR (2020 CKD-EPI) (test co de = 68968) 77 ML/MIN/1.73 CALC BUN/CREAT (test code = 2235) 16 RATIO SODIUM (test code = 2231) 137 MEQ/L POTASSIUM (test code = 2228) 3.6 MEQ/L CHLORIDE (test code = 2215) 100 MEQ/L CARBON DIOXIDE (test code = 2206) 23 MEQ/L CALCIUM (test code = 2209) 8.9 MG/DL PROTEIN, TOTAL (test code = 2229) 7.2 G/DL ALBUMIN (test code = 2201) 4.7 G/DL CALC GLOBULIN (test code = 2240) 2.5 G/DL CALC A/G RATIO (test code = 2234) 1.9 RATIO BILIRUBIN, TOTAL (test code = 2207) 0.4 MG/DL ALKALINE PHOSPHATASE (test code = 2204) 103 U/L AST (test code = 2218) 26 U/L ALT (test code = 2219) 28 U/L Medardo MinerCBC W/AUTO [id number] 00:00:00* Test Item Value Reference Range Interpretation Comme nts WBC (test code = 1001) 12.0 K/UL RBC (test code = 1002) 4.80 M/UL HEMOGLOBIN (test code = 1003) 15.4 G/DL HEMATOCRIT (test code = 1004) 44.1 % MCV (test code = 1005) 91.9 fL MCH (test code = 1006) 32.1 PG MCHC (test code = 1007) 34.9 G/DL RDW (test code = 1038) 12.5 % NEUTROPHILS (test code = 1008) 72.8 % LYMPHOCYTES (test code = 1010) 20.9 % MONOCYTES (test code = 1011) 3.8 % EOSINOPHILS (test code = 1012) 1.9 % BASOPHILS (test code = 1013) 0.3 % IMMATURE GRANULOCYTES (test code = 1036) 0.3 % NUCLEATED RBCS (test code = 1065) 0.0 /100WBC'S PLATELET COUNT (test code = 1015) 317 K/UL ABSOLUTE NEUTROPHILS (test c ode = 1066) 8.72 K/UL ABSOLUTE LYMPHOCYTES (test c ode = 1067) 2.50 K/UL ABSOLUTE MONOCYTES (test cod e = 1068) 0.45 K/UL ABSOLUTE EOSINOPHILS (test c ode = 1040) 0.23 K/UL ABSOLUTE BASOPHILS (test cod e = 1069) 0.04 K/UL ABS IMMATURE GRANULOCYTES (t est code = 1020) 0.03 K/UL ABS NUCLEATED RBCS (test cod e = 66126) 0.00 K/UL Medardo Alexandria KristoferLIPID [id number] 00:00:00* Test Item Value Reference Range Interpretation Comme nts CHOLESTEROL (test code = 2210) 202 MG/DL TRIGLYCERIDES (test code = 2232) 150 MG/DL HDL CHOLESTEROL (test code = 2220) 43 MG/DL CALC LDL CHOL (test code = 2237) 133 MG/DL RISK RATIO LDL/HDL (test cod e = 2238) 3.09 RATIO Medardo Ibrahim KristoferCOMPREHENSIVE METABOLIC [id number] 00:00:00* Test Item Value Reference Range Interpretation Comme nts GLUCOSE (test code = 2217) 103 MG/DL BUN (test code = 2208) 14 MG/DL CREATININE (test code = 2214) 0.90 MG/DL eGFR (2020 CKD-EPI) (test co de = 59313) 77 ML/MIN/1.73 CALC BUN/CREAT (test code = 2235) 16 RATIO SODIUM (test code = 2231) 137 MEQ/L POTASSIUM (test code = 2228) 3.6 MEQ/L CHLORIDE (test code = 2215) 100 MEQ/L CARBON DIOXIDE (test code = 2206) 23 MEQ/L CALCIUM (test code = 2209) 8.9 MG/DL PROTEIN, TOTAL (test code = 2229) 7.2 G/DL ALBUMIN (test code = 2201) 4.7 G/DL CALC GLOBULIN (test code = 2240) 2.5 G/DL CALC A/G RATIO (test code = 2234) 1.9 RATIO BILIRUBIN, TOTAL (test code = 2207) 0.4 MG/DL ALKALINE PHOSPHATASE (test code = 2204) 103 U/L AST (test code = 2218) 26 U/L ALT (test code = 2219) 28 U/L Medardo MinerCOMPREHENSIVE METABOLIC [id number] 04:10:01* Test Item Value Reference Range Interpretation Comme nts GLUCOSE (test code = 221) 87 MG/DL 70-99 BUN (test code = 2207) 14 MG/DL 6-20 CREATININE (test code = 2214) 0.82 MG/DL 0.60-1.30 eGFR (2020 CKD-EPI) (test code = 62198) 87 ML/MIN/1.73 >60 CALC BUN/CREAT (test code = 2235) 17 RATIO 6-28 SODIUM (test code = 2231) 140 MEQ/L 133-146 POTASSIUM (test code = 2228) 3.9 MEQ/L 3.5-5.4 CHLORIDE (test code = 2215) 102 MEQ/L 95-107 CARBON DIOXIDE (test code = 2206) 28 MEQ/L 19-31 CALCIUM (test code = 2209) 9.5 MG/DL 8.5-10.5 PROTEIN, TOTAL (test code = 2229) 7.2 G/DL 6.1-8.3 ALBUMIN (test code = 2201) 4.8 G/DL 3.5-5.2 CALC GLOBULIN (test code = 2240) 2.4 G/DL 1.9-3.7 CALC A/G RATIO (test code = 2234) 2.0 RATIO 1.0-2.6 BILIRUBIN, TOTAL (test code = 2207) 0.4 MG/DL See_Comment [Automated me ssage] The system which generated this result transmitted reference range: <=1.2. The reference range was not used to interpret this result as normal/abnormal. ALKALINE PHOSPHATASE (test code = 2204) 96 U/L 40-130 AST (test code = 2218) 21 U/L 9-40 ALT (test code = 2219) 19 U/L 5-40 UNLESS OTHERWISE INDICATED, ALL TESTING PERFORMED AT [facility] [address] [place] [address] SALES AND BUSINESS DEVELOPMENT MANAGER: RAMY DOHERTY M.D. [place] NUMBER [id number] [facility] [place]. [id number] COMPREHENSIVE METABOLIC [id number] 00:00:00* Test Item Value Reference Range Interpretation Comme nts GLUCOSE (test code = 2217) 87 MG/DL BUN (test code = 2208) 14 MG/DL CREATININE (test code = 2214) 0.82 MG/DL eGFR (2020 CKD-EPI) (test co de = 98783) 87 ML/MIN/1.73 CALC BUN/CREAT (test code = 2235) 17 RATIO SODIUM (test code = 2231) 140 MEQ/L POTASSIUM (test code = 2228) 3.9 MEQ/L CHLORIDE (test code = 2215) 102 MEQ/L CARBON DIOXIDE (test code = 2206) 28 MEQ/L CALCIUM (test code = 2209) 9.5 MG/DL PROTEIN, TOTAL (test code = 2229) 7.2 G/DL ALBUMIN (test code = 2201) 4.8 G/DL CALC GLOBULIN (test code = 2240) 2.4 G/DL CALC A/G RATIO (test code = 2234) 2.0 RATIO BILIRUBIN, TOTAL (test code = 2207) 0.4 MG/DL ALKALINE PHOSPHATASE (test code = 2204) 96 U/L AST (test code = 2218) 21 U/L ALT (test code = 2219) 19 U/L Medardo MinerCOMPREHENSIVE METABOLIC [id number] 00:00:00* Test Item Value Reference Range Interpretation Comme nts GLUCOSE (test code = 2217) 87 MG/DL BUN (test code = 2208) 14 MG/DL CREATININE (test code = 2214) 0.82 MG/DL eGFR (2020 CKD-EPI) (test co de = 48359) 87 ML/MIN/1.73 CALC BUN/CREAT (test code = 2235) 17 RATIO SODIUM (test code = 2231) 140 MEQ/L POTASSIUM (test code = 2228) 3.9 MEQ/L CHLORIDE (test code = 2215) 102 MEQ/L CARBON DIOXIDE (test code = 2206) 28 MEQ/L CALCIUM (test code = 2209) 9.5 MG/DL PROTEIN, TOTAL (test code = 2229) 7.2 G/DL ALBUMIN (test code = 2201) 4.8 G/DL CALC GLOBULIN (test code = 2240) 2.4 G/DL CALC A/G RATIO (test code = 2234) 2.0 RATIO BILIRUBIN, TOTAL (test code = 2207) 0.4 MG/DL ALKALINE PHOSPHATASE (test code = 2204) 96 U/L AST (test code = 2218) 21 U/L ALT (test code = 2219) 19 U/L Medardo MinerCOMPREHENSIVE METABOLIC [id number] 00:00:00* Test Item Value Reference Range Interpretation Comme nts GLUCOSE (test code = 2217) 87 MG/DL BUN (test code = 2208) 14 MG/DL CREATININE (test code = 2214) 0.82 MG/DL eGFR (2020 CKD-EPI) (test co de = 88776) 87 ML/MIN/1.73 CALC BUN/CREAT (test code = 2235) 17 RATIO SODIUM (test code = 2231) 140 MEQ/L POTASSIUM (test code = 2228) 3.9 MEQ/L CHLORIDE (test code = 2215) 102 MEQ/L CARBON DIOXIDE (test code = 2206) 28 MEQ/L CALCIUM (test code = 2209) 9.5 MG/DL PROTEIN, TOTAL (test code = 2229) 7.2 G/DL ALBUMIN (test code = 2201) 4.8 G/DL CALC GLOBULIN (test code = 2240) 2.4 G/DL CALC A/G RATIO (test code = 2234) 2.0 RATIO BILIRUBIN, TOTAL (test code = 2207) 0.4 MG/DL ALKALINE PHOSPHATASE (test code = 2204) 96 U/L AST (test code = 2218) 21 U/L ALT (test code = 2219) 19 U/L Medardo MinerLIPID [id number] 01:33:15* Test Item Value Reference Range Interpretation Comme nts CHOLESTEROL (test code = 2210) 181 MG/DL <200 TRIGLYCERIDES (test code = 2232) 228 MG/DL <150 H HDL CHOLESTEROL (test code = 2220) 47 MG/DL >39 CALC LDL CHOL (test code = 2237) 99 MG/DL <100 NOTE: CALCULATED LDL IS BASED ON ZURDO-OSEGUERA METHOD WHICHINCLUDES ADJUSTABLE TRIGLYCERIDE:VLDL CHOLESTEROL RATIO.THIS FACTOR VARIES BY MEASURED TRIGLYCERIDE AND NON-HDLCHOLESTEROL CONCENTRATIONS WITH INCREASED CALCULATED LDL SEENIN HIGHER TRIGLYCERIDE OR LOWER NON-HDL SPECIMENS. FOR MOREINFORMATION, SEE CLIENT ANNOUNCEMENT AT [email or web address] RISK RATIO LDL/HDL (test code = 2238) 2.11 RATIO <3.22 UNLESS OTHERW ISE INDICATED, ALL TESTING PERFORMED AT [facility] [address] [place] [address] SALES AND BUSINESS DEVELOPMENT MANAGER: RAMY DOHERTY M.D. CLIA NUMBER [id number] [facility] [place]. [id number] LIPID [id number] 00:00:00* Test Item Value Reference Range Interpretation Comme nts CHOLESTEROL (test code = 2210) 181 MG/DL TRIGLYCERIDES (test code = 2232) 228 MG/DL HDL CHOLESTEROL (test code = 2220) 47 MG/DL CALC LDL CHOL (test code = 2237) 99 MG/DL RISK RATIO LDL/HDL (test cod e = 2238) 2.11 RATIO Medardo Ibrahim WestmorelandLIPID [id number] 00:00:00* Test Item Value Reference Range Interpretation Comme nts CHOLESTEROL (test code = 2210) 181 MG/DL TRIGLYCERIDES (test code = 2232) 228 MG/DL HDL CHOLESTEROL (test code = 2220) 47 MG/DL CALC LDL CHOL (test code = 2237) 99 MG/DL RISK RATIO LDL/HDL (test cod e = 2238) 2.11 RATIO Medardo F AustinLIPID [id number] 00:00:00* Test Item Value Reference Range Interpretation Comme nts CHOLESTEROL (test code = 2210) 181 MG/DL TRIGLYCERIDES (test code = 2232) 228 MG/DL HDL CHOLESTEROL (test code = 2220) 47 MG/DL CALC LDL CHOL (test code = 2237) 99 MG/DL RISK RATIO LDL/HDL (test cod e = 2238) 2.11 RATIO Medardo F AustinHEMOGLOBIN [id number] 00:00:00* Test Item Value Reference Range Interpretation Comme nts HEMOGLOBIN A1c (test code = 54797) 5.6 % Medardo Ibrahim AustinHEMOGLOBIN [id number] 00:00:00* Test Item Value Reference Range Interpretation Comme nts HEMOGLOBIN A1c (test code = 33422) 5.6 % Medardo Ibrahim AustinHEMOGLOBIN [id number] 00:00:00* Test Item Value Reference Range Interpretation Comme daysi HEMOGLOBIN A1c (test code = 74356) 5.6 % Medardo MinerLIPID [id number] 00:00:00* Test Item Value Reference Range Interpretation Comme nts CHOLESTEROL (test code = 2210) 297 MG/DL TRIGLYCERIDES (test code = 2232) 336 MG/DL HDL CHOLESTEROL (test code = 2220) 43 MG/DL CALC LDL CHOL (test code = 2237) 197 MG/DL RISK RATIO LDL/HDL (test cod e = 2238) 4.58 RATIO Medardo MinerCOMPREHENSIVE METABOLIC [id number] 00:00:00* Test Item Value Reference Range Interpretation Comme nts GLUCOSE (test code = 2217) 102 MG/DL BUN (test code = 2208) 11 MG/DL CREATININE (test code = 2214) 0.68 MG/DL eGFR (2020 CKD-EPI) (test code = 91500) 105 ML/MIN/1.73 CALC BUN/CREAT (test code = 2235) 16 RATIO SODIUM (test code = 2231) 138 MEQ/L POTASSIUM (test code = 2228) 3.7 MEQ/L CHLORIDE (test code = 2215) 97 MEQ/L CARBON DIOXIDE (test code = 2206) 29 MEQ/L CALCIUM (test code = 2209) 9.7 MG/DL PROTEIN, TOTAL (test code = 2229) 7.3 G/DL ALBUMIN (test code = 2201) 4.6 G/DL CALC GLOBULIN (test code = 2240) 2.7 G/DL CALC A/G RATIO (test code = 2234) 1.7 RATIO BILIRUBIN, TOTAL (test code = 2207) 0.6 MG/DL ALKALINE PHOSPHATASE (test code = 2204) 71 U/L AST (test code = 2218) 21 U/L ALT (test code = 2219) 18 U/L Medardo MinerLIPID [id number] 00:00:00* Test Item Value Reference Range Interpretation Comme nts CHOLESTEROL (test code = 2210) 297 MG/DL TRIGLYCERIDES (test code = 2232) 336 MG/DL HDL CHOLESTEROL (test code = 2220) 43 MG/DL CALC LDL CHOL (test code = 2237) 197 MG/DL RISK RATIO LDL/HDL (test cod e = 2238) 4.58 RATIO Medardo Ibrahim AustinCOMPREHENSIVE METABOLIC [id number] 00:00:00* Test Item Value Reference Range Interpretation Comme nts GLUCOSE (test code = 2217) 102 MG/DL BUN (test code = 2208) 11 MG/DL CREATININE (test code = 2214) 0.68 MG/DL eGFR (2020 CKD-EPI) (test code = 56166) 105 ML/MIN/1.73 CALC BUN/CREAT (test code = 2235) 16 RATIO SODIUM (test code = 2231) 138 MEQ/L POTASSIUM (test code = 2228) 3.7 MEQ/L CHLORIDE (test code = 2215) 97 MEQ/L CARBON DIOXIDE (test code = 2206) 29 MEQ/L CALCIUM (test code = 2209) 9.7 MG/DL PROTEIN, TOTAL (test code = 2229) 7.3 G/DL ALBUMIN (test code = 2201) 4.6 G/DL CALC GLOBULIN (test code = 2240) 2.7 G/DL CALC A/G RATIO (test code = 2234) 1.7 RATIO BILIRUBIN, TOTAL (test code = 2207) 0.6 MG/DL ALKALINE PHOSPHATASE (test code = 2204) 71 U/L AST (test code = 2218) 21 U/L ALT (test code = 2219) 18 U/L Medardo Ibrahim AustinLIPID [id number] 00:00:00* Test Item Value Reference Range Interpretation Comme nts CHOLESTEROL (test code = 2210) 297 MG/DL TRIGLYCERIDES (test code = 2232) 336 MG/DL HDL CHOLESTEROL (test code = 2220) 43 MG/DL CALC LDL CHOL (test code = 2237) 197 MG/DL RISK RATIO LDL/HDL (test cod e = 2238) 4.58 RATIO Medardo MinerCOMPREHENSIVE METABOLIC [id number] 00:00:00* Test Item Value Reference Range Interpretation Comme nts GLUCOSE (test code = 2217) 102 MG/DL BUN (test code = 2208) 11 MG/DL CREATININE (test code = 2214) 0.68 MG/DL eGFR (2020 CKD-EPI) (test code = 75310) 105 ML/MIN/1.73 CALC BUN/CREAT (test code = 2235) 16 RATIO SODIUM (test code = 2231) 138 MEQ/L POTASSIUM (test code = 2228) 3.7 MEQ/L CHLORIDE (test code = 2215) 97 MEQ/L CARBON DIOXIDE (test code = 2206) 29 MEQ/L CALCIUM (test code = 2209) 9.7 MG/DL PROTEIN, TOTAL (test code = 222) 7.3 G/DL ALBUMIN (test code = 2201) 4.6 G/DL CALC GLOBULIN (test code = 2240) 2.7 G/DL CALC A/G RATIO (test code = 2234) 1.7 RATIO BILIRUBIN, TOTAL (test code = 2207) 0.6 MG/DL ALKALINE PHOSPHATASE (test code = 2204) 71 U/L AST (test code = 2218) 21 U/L ALT (test code = 2219) 18 U/L Medardo Ibrahim WestmorelandLIPID [id number] 04:38:43* Test Item Value Reference Range Interpretation Comme nts CHOLESTEROL (test code = 2210) 212 MG/DL <200 H TRIGLYCERIDES (test code = 2232) 274 MG/DL <150 H HDL CHOLESTEROL (test code = 2220) 43 MG/DL >39 CALC LDL CHOL (test code = 2237) 127 MG/DL <100 H NOTE: CALCULATED LDL IS BASED ON ZURDO-OSEGUERA METHOD WHICHINCLUDES ADJUSTABLE TRIGLYCERIDE:VLDL CHOLESTEROL RATIO.THIS FACTOR VARIES BY MEASURED TRIGLYCERIDE AND NON-HDLCHOLESTEROL CONCENTRATIONS WITH INCREASED CALCULATED LDL SEENIN HIGHER TRIGLYCERIDE OR LOWER NON-HDL SPECIMENS. FOR MOREINFORMATION, SEE CLIENT ANNOUNCEMENT AT [email or web address] RISK RATIO LDL/HDL (test code = 2238) 2.95 RATIO <3.22 UNLESS OTHERW ISE INDICATED, [facility] [address] [place] [address] SALES AND BUSINESS DEVELOPMENT MANAGER: SUMMER STOKES M.D. CLIA NUMBER [id number] [place]. [id number] LIPID [id number] 00:00:00* Test Item Value Reference Range Interpretation Comme nts CHOLESTEROL (test code = 2210) 212 MG/DL TRIGLYCERIDES (test code = 2232) 274 MG/DL HDL CHOLESTEROL (test code = 2220) 43 MG/DL CALC LDL CHOL (test code = 2237) 127 MG/DL RISK RATIO LDL/HDL (test cod e = 2238) 2.95 RATIO Medardo MinerLIPID [id number] 00:00:00* Test Item Value Reference Range Interpretation Comme nts CHOLESTEROL (test code = 2210) 212 MG/DL TRIGLYCERIDES (test code = 2232) 274 MG/DL HDL CHOLESTEROL (test code = 2220) 43 MG/DL CALC LDL CHOL (test code = 2237) 127 MG/DL RISK RATIO LDL/HDL (test cod e = 2238) 2.95 RATIO Medardo Ibrahim AustinLIPID [id number] 00:00:00* Test Item Value Reference Range Interpretation Comme nts CHOLESTEROL (test code = 2210) 212 MG/DL TRIGLYCERIDES (test code = 2232) 274 MG/DL HDL CHOLESTEROL (test code = 2220) 43 MG/DL CALC LDL CHOL (test code = 2237) 127 MG/DL RISK RATIO LDL/HDL (test cod e = 2238) 2.95 RATIO LIPID [id number] 00:00:00* Test Item Value Reference Range Interpretation Comme nts CHOLESTEROL (test code = 2210) 212 MG/DL TRIGLYCERIDES (test code = 2232) 274 MG/DL HDL CHOLESTEROL (test code = 2220) 43 MG/DL CALC LDL CHOL (test code = 2237) 127 MG/DL RISK RATIO LDL/HDL (test cod e = 2238) 2.95 RATIO LIPID [id number] 00:00:00* Test Item Value Reference Range Interpretation Comme nts CHOLESTEROL (test code = 2210) 212 MG/DL TRIGLYCERIDES (test code = 2232) 274 MG/DL HDL CHOLESTEROL (test code = 2220) 43 MG/DL CALC LDL CHOL (test code = 2237) 127 MG/DL RISK RATIO LDL/HDL (test cod e = 2238) 2.95 RATIO Medardo Ibrahim AustinHEMOGLOBIN [id number] 05:20:30* Test Item Value Reference Range Interpretation Comme nts HEMOGLOBIN A1c (test code = 99730) 5.6 % 4.2-5.6 CBC W/AUTO DIFF WITH [id number] 04:41:22* Test Item Value Reference Range Interpretation Comme nts WBC (test code = 1001) 9.5 K/UL 3.5-11.0 RBC (test code = 1002) 4.88 M/UL 3.80-5.40 HEMOGLOBIN (test code = 1003) 14.9 G/DL 11.5-15.5 HEMATOCRIT (test code = 1004) 43.6 % 34.0-45.0 MCV (test code = 1005) 89.3 fL 80.0-99.0 MCH (test code = 1006) 30.5 PG 25.0-33.0 MCHC (test code = 1007) 34.2 G/DL 31.0-36.0 RDW (test code = 1038) 12.2 % 11.5-15.0 NEUTROPHILS (test code = 1008) 57.9 % LYMPHOCYTES (test code = 1010) 30.9 % MONOCYTES (test code = 1011) 4.3 % EOSINOPHILS (test code = 1012) 2.7 % BASOPHILS (test code = 1013) 0.5 % IMMATURE GRANULOCYTES (test code = 1036) 3.7 % NUCLEATED RBCS (test code = 1065) 0.0 /100 WBC'S See_Comment [Automated message] The system which generated this result transmitted reference range: 0.0. The reference range was not used to interpret this result as normal/abnormal. PLATELET COUNT (test code = 1015) 272 K/UL 130-400 ABSOLUTE NEUTROPHILS (test code = 1066) 5.49 K/UL 1.50-7.50 ABSOLUTE LYMPHOCYTES (test code = 1067) 2.93 K/UL 1.00-4.00 ABSOLUTE MONOCYTES (test code = 1068) 0.41 K/UL 0.20-1.00 ABSOLUTE EOSINOPHILS (test code = 1040) 0.26 K/UL 0.00-0.50 ABSOLUTE BASOPHILS (test code = 1069) 0.05 K/UL 0.00-0.20 ABS IMMATURE GRANULOCYTES (test code = 1020) 0.35 K/UL 0.00-0.10 H ABS NUCLEATED RBCS (test code = 68849) 0.00 K/UL 0.00-0.11 UNLESS OTHER MCKAY INDICATED, ALL TESTING PERFORMED [facility] [address] [place] [address] SALES AND BUSINESS DEVELOPMENT MANAGER: SUMMER STOKES M.D. IA NUMBER [id number] [facility] [place]. [id number] HEMOGLOBIN [id number] 00:00:00* Test Item Value Reference Range Interpretation Comme nts HEMOGLOBIN A1c (test code = 49191) 5.6 % Medardo MinerCBC W/AUTO [id number] 00:00:00* Test Item Value Reference Range Interpretation Comme nts WBC (test code = 1001) 9.5 K/UL RBC (test code = 1002) 4.88 M/UL HEMOGLOBIN (test code = 1003) 14.9 G/DL HEMATOCRIT (test code = 1004) 43.6 % MCV (test code = 1005) 89.3 fL MCH (test code = 1006) 30.5 PG MCHC (test code = 1007) 34.2 G/DL RDW (test code = 1038) 12.2 % NEUTROPHILS (test code = 1008) 57.9 % LYMPHOCYTES (test code = 1010) 30.9 % MONOCYTES (test code = 1011) 4.3 % EOSINOPHILS (test code = 1012) 2.7 % BASOPHILS (test code = 1013) 0.5 % IMMATURE GRANULOCYTES (test code = 1036) 3.7 % NUCLEATED RBCS (test code = 1065) 0.0 /100WBC'S PLATELET COUNT (test code = 1015) 272 K/UL ABSOLUTE NEUTROPHILS (test c ode = 1066) 5.49 K/UL ABSOLUTE LYMPHOCYTES (test c ode = 1067) 2.93 K/UL ABSOLUTE MONOCYTES (test cod e = 1068) 0.41 K/UL ABSOLUTE EOSINOPHILS (test c ode = 1040) 0.26 K/UL ABSOLUTE BASOPHILS (test cod e = 1069) 0.05 K/UL ABS IMMATURE GRANULOCYTES (t est code = 1020) 0.35 K/UL ABS NUCLEATED RBCS (test cod e = 46780) 0.00 K/UL Medardo MinerHEMOGLOBIN [id number] 00:00:00* Test Item Value Reference Range Interpretation Comme nts HEMOGLOBIN A1c (test code = 62072) 5.6 % Medardo Ibrahim AustinHEMOGLOBIN [id number] 00:00:00* Test Item Value Reference Range Interpretation Comme nts HEMOGLOBIN A1c (test code = 95035) 5.6 % CBC W/AUTO [id number] 00:00:00* Test Item Value Reference Range Interpretation Comme nts WBC (test code = 1001) 9.5 K/UL RBC (test code = 1002) 4.88 M/UL HEMOGLOBIN (test code = 1003) 14.9 G/DL HEMATOCRIT (test code = 1004) 43.6 % MCV (test code = 1005) 89.3 fL MCH (test code = 1006) 30.5 PG MCHC (test code = 1007) 34.2 G/DL RDW (test code = 1038) 12.2 % NEUTROPHILS (test code = 1008) 57.9 % LYMPHOCYTES (test code = 1010) 30.9 % MONOCYTES (test code = 1011) 4.3 % EOSINOPHILS (test code = 1012) 2.7 % BASOPHILS (test code = 1013) 0.5 % IMMATURE GRANULOCYTES (test code = 1036) 3.7 % NUCLEATED RBCS (test code = 1065) 0.0 /100WBC'S PLATELET COUNT (test code = 1015) 272 K/UL ABSOLUTE NEUTROPHILS (test c ode = 1066) 5.49 K/UL ABSOLUTE LYMPHOCYTES (test c ode = 1067) 2.93 K/UL ABSOLUTE MONOCYTES (test cod e = 1068) 0.41 K/UL ABSOLUTE EOSINOPHILS (test c ode = 1040) 0.26 K/UL ABSOLUTE BASOPHILS (test cod e = 1069) 0.05 K/UL ABS IMMATURE GRANULOCYTES (t est code = 1020) 0.35 K/UL ABS NUCLEATED RBCS (test cod e = 04192) 0.00 K/UL HEMOGLOBIN [id number] 00:00:00* Test Item Value Reference Range Interpretation Comme nts HEMOGLOBIN A1c (test code = 39513) 5.6 % CBC W/AUTO [id number] 00:00:00* Test Item Value Reference Range Interpretation Comme nts WBC (test code = 1001) 9.5 K/UL RBC (test code = 1002) 4.88 M/UL HEMOGLOBIN (test code = 1003) 14.9 G/DL HEMATOCRIT (test code = 1004) 43.6 % MCV (test code = 1005) 89.3 fL MCH (test code = 1006) 30.5 PG MCHC (test code = 1007) 34.2 G/DL RDW (test code = 1038) 12.2 % NEUTROPHILS (test code = 1008) 57.9 % LYMPHOCYTES (test code = 1010) 30.9 % MONOCYTES (test code = 1011) 4.3 % EOSINOPHILS (test code = 1012) 2.7 % BASOPHILS (test code = 1013) 0.5 % IMMATURE GRANULOCYTES (test code = 1036) 3.7 % NUCLEATED RBCS (test code = 1065) 0.0 /100WBC'S PLATELET COUNT (test code = 1015) 272 K/UL ABSOLUTE NEUTROPHILS (test c ode = 1066) 5.49 K/UL ABSOLUTE LYMPHOCYTES (test c ode = 1067) 2.93 K/UL ABSOLUTE MONOCYTES (test cod e = 1068) 0.41 K/UL ABSOLUTE EOSINOPHILS (test c ode = 1040) 0.26 K/UL ABSOLUTE BASOPHILS (test cod e = 1069) 0.05 K/UL ABS IMMATURE GRANULOCYTES (t est code = 1020) 0.35 K/UL ABS NUCLEATED RBCS (test cod e = 87769) 0.00 K/UL HEMOGLOBIN [id number] 00:00:00* Test Item Value Reference Range Interpretation Comme nts HEMOGLOBIN A1c (test code = 85998) 5.6 % CBC W/AUTO [id number] 00:00:00* Test Item Value Reference Range Interpretation Comme nts WBC (test code = 1001) 9.5 K/UL RBC (test code = 1002) 4.88 M/UL HEMOGLOBIN (test code = 1003) 14.9 G/DL HEMATOCRIT (test code = 1004) 43.6 % MCV (test code = 1005) 89.3 fL MCH (test code = 1006) 30.5 PG MCHC (test code = 1007) 34.2 G/DL RDW (test code = 1038) 12.2 % NEUTROPHILS (test code = 1008) 57.9 % LYMPHOCYTES (test code = 1010) 30.9 % MONOCYTES (test code = 1011) 4.3 % EOSINOPHILS (test code = 1012) 2.7 % BASOPHILS (test code = 1013) 0.5 % IMMATURE GRANULOCYTES (test code = 1036) 3.7 % NUCLEATED RBCS (test code = 1065) 0.0 /100WBC'S PLATELET COUNT (test code = 1015) 272 K/UL ABSOLUTE NEUTROPHILS (test c ode = 1066) 5.49 K/UL ABSOLUTE LYMPHOCYTES (test c ode = 1067) 2.93 K/UL ABSOLUTE MONOCYTES (test cod e = 1068) 0.41 K/UL ABSOLUTE EOSINOPHILS (test c ode = 1040) 0.26 K/UL ABSOLUTE BASOPHILS (test cod e = 1069) 0.05 K/UL ABS IMMATURE GRANULOCYTES (t est code = 1020) 0.35 K/UL ABS NUCLEATED RBCS (test cod e = 01083) 0.00 K/UL CBC W/AUTO [id number] 00:00:00* Test Item Value Reference Range Interpretation Comme nts WBC (test code = 1001) 9.5 K/UL RBC (test code = 1002) 4.88 M/UL HEMOGLOBIN (test code = 1003) 14.9 G/DL HEMATOCRIT (test code = 1004) 43.6 % MCV (test code = 1005) 89.3 fL MCH (test code = 1006) 30.5 PG MCHC (test code = 1007) 34.2 G/DL RDW (test code = 1038) 12.2 % NEUTROPHILS (test code = 1008) 57.9 % LYMPHOCYTES (test code = 1010) 30.9 % MONOCYTES (test code = 1011) 4.3 % EOSINOPHILS (test code = 1012) 2.7 % BASOPHILS (test code = 1013) 0.5 % IMMATURE GRANULOCYTES (test code = 1036) 3.7 % NUCLEATED RBCS (test code = 1065) 0.0 /100WBC'S PLATELET COUNT (test code = 1015) 272 K/UL ABSOLUTE NEUTROPHILS (test c ode = 1066) 5.49 K/UL ABSOLUTE LYMPHOCYTES (test c ode = 1067) 2.93 K/UL ABSOLUTE MONOCYTES (test cod e = 1068) 0.41 K/UL ABSOLUTE EOSINOPHILS (test c ode = 1040) 0.26 K/UL ABSOLUTE BASOPHILS (test cod e = 1069) 0.05 K/UL ABS IMMATURE GRANULOCYTES (t est code = 1020) 0.35 K/UL ABS NUCLEATED RBCS (test cod e = 03313) 0.00 K/UL Medardo MinerHEMOGLOBIN [id number] 00:00:00* Test Item Value Reference Range Interpretation Comme nts HEMOGLOBIN A1c (test code = 07551) 5.6 % Medardo MinerCBC W/AUTO [id number] 00:00:00* Test Item Value Reference Range Interpretation Comme nts WBC (test code = 1001) 9.5 K/UL RBC (test code = 1002) 4.88 M/UL HEMOGLOBIN (test code = 1003) 14.9 G/DL HEMATOCRIT (test code = 1004) 43.6 % MCV (test code = 1005) 89.3 fL MCH (test code = 1006) 30.5 PG MCHC (test code = 1007) 34.2 G/DL RDW (test code = 1038) 12.2 % NEUTROPHILS (test code = 1008) 57.9 % LYMPHOCYTES (test code = 1010) 30.9 % MONOCYTES (test code = 1011) 4.3 % EOSINOPHILS (test code = 1012) 2.7 % BASOPHILS (test code = 1013) 0.5 % IMMATURE GRANULOCYTES (test code = 1036) 3.7 % NUCLEATED RBCS (test code = 1065) 0.0 /100WBC'S PLATELET COUNT (test code = 1015) 272 K/UL ABSOLUTE NEUTROPHILS (test c ode = 1066) 5.49 K/UL ABSOLUTE LYMPHOCYTES (test c ode = 1067) 2.93 K/UL ABSOLUTE MONOCYTES (test cod e = 1068) 0.41 K/UL ABSOLUTE EOSINOPHILS (test c ode = 1040) 0.26 K/UL ABSOLUTE BASOPHILS (test cod e = 1069) 0.05 K/UL ABS IMMATURE GRANULOCYTES (t est code = 1020) 0.35 K/UL ABS NUCLEATED RBCS (test cod e = 92786) 0.00 K/UL Medardo MinerLIPID [id number] 00:00:00* Test Item Value Reference Range Interpretation Comme nts CHOLESTEROL (test code = 2210) 242 MG/DL TRIGLYCERIDES (test code = 2232) 300 MG/DL HDL CHOLESTEROL (test code = 2220) 53 MG/DL CALC LDL CHOL (test code = 2237) 146 MG/DL RISK RATIO LDL/HDL (test cod e = 2238) 2.75 RATIO Medardo MinerCOMPREHENSIVE METABOLIC [id number] 00:00:00* Test Item Value Reference Range Interpretation Comme nts GLUCOSE (test code = 2217) 101 MG/DL BUN (test code = 2208) 11 MG/DL CREATININE (test code = 2214) 0.86 MG/DL eGFR AMER. (test cod e = 76698) 92 ML/MIN/1.73 eGFR NON- AMER. (test code = 67847) 79 ML/MIN/1.73 CALC BUN/CREAT (test code = 2235) 13 RATIO SODIUM (test code = 2231) 141 MEQ/L POTASSIUM (test code = 2228) 3.4 MEQ/L CHLORIDE (test code = 2215) 99 MEQ/L CARBON DIOXIDE (test code = 2206) 26 MEQ/L CALCIUM (test code = 2209) 9.7 MG/DL PROTEIN, TOTAL (test code = 2229) 7.8 G/DL ALBUMIN (test code = 2201) 4.8 G/DL CALC GLOBULIN (test code = 2240) 3.0 G/DL CALC A/G RATIO (test code = 2234) 1.6 RATIO BILIRUBIN, TOTAL (test code = 2207) 0.4 MG/DL ALKALINE PHOSPHATASE (test code = 2204) 67 U/L AST (test code = 2218) 28 U/L ALT (test code = 2219) 31 U/L Medardo MinerHEMOGLOBIN [id number] 00:00:00* Test Item Value Reference Range Interpretation Comme nts HEMOGLOBIN A1c (test code = 31707) 5.5 % LIPID [id number] 00:00:00* Test Item Value Reference Range Interpretation Comme nts CHOLESTEROL (test code = 2210) 242 MG/DL TRIGLYCERIDES (test code = 2232) 300 MG/DL HDL CHOLESTEROL (test code = 2220) 53 MG/DL CALC LDL CHOL (test code = 2237) 146 MG/DL RISK RATIO LDL/HDL (test cod e = 2238) 2.75 RATIO COMPREHENSIVE METABOLIC [id number] 00:00:00* Test Item Value Reference Range Interpretation Comme nts GLUCOSE (test code = 2217) 101 MG/DL BUN (test code = 2208) 11 MG/DL CREATININE (test code = 2214) 0.86 MG/DL eGFR AMER. (test cod e = 69840) 92 ML/MIN/1.73 eGFR NON- AMER. (test code = 98744) 79 ML/MIN/1.73 CALC BUN/CREAT (test code = 2235) 13 RATIO SODIUM (test code = 2231) 141 MEQ/L POTASSIUM (test code = 2228) 3.4 MEQ/L CHLORIDE (test code = 2215) 99 MEQ/L CARBON DIOXIDE (test code = 2206) 26 MEQ/L CALCIUM (test code = 2209) 9.7 MG/DL PROTEIN, TOTAL (test code = 2229) 7.8 G/DL ALBUMIN (test code = 2201) 4.8 G/DL CALC GLOBULIN (test code = 2240) 3.0 G/DL CALC A/G RATIO (test code = 2234) 1.6 RATIO BILIRUBIN, TOTAL (test code = 2207) 0.4 MG/DL ALKALINE PHOSPHATASE (test code = 2204) 67 U/L AST (test code = 2218) 28 U/L ALT (test code = 2219) 31 U/L HEMOGLOBIN [id number] 00:00:00* Test Item Value Reference Range Interpretation Comme nts HEMOGLOBIN A1c (test code = 94800) 5.5 % LIPID [id number] 00:00:00* Test Item Value Reference Range Interpretation Comme nts CHOLESTEROL (test code = 2210) 242 MG/DL TRIGLYCERIDES (test code = 2232) 300 MG/DL HDL CHOLESTEROL (test code = 2220) 53 MG/DL CALC LDL CHOL (test code = 2237) 146 MG/DL RISK RATIO LDL/HDL (test cod e = 2238) 2.75 RATIO COMPREHENSIVE METABOLIC [id number] 00:00:00* Test Item Value Reference Range Interpretation Comme nts GLUCOSE (test code = 2217) 101 MG/DL BUN (test code = 2208) 11 MG/DL CREATININE (test code = 2214) 0.86 MG/DL eGFR AMER. (test cod e = 53147) 92 ML/MIN/1.73 eGFR NON- AMER. (test code = 36361) 79 ML/MIN/1.73 CALC BUN/CREAT (test code = 2235) 13 RATIO SODIUM (test code = 2231) 141 MEQ/L POTASSIUM (test code = 2228) 3.4 MEQ/L CHLORIDE (test code = 2215) 99 MEQ/L CARBON DIOXIDE (test code = 2206) 26 MEQ/L CALCIUM (test code = 2209) 9.7 MG/DL PROTEIN, TOTAL (test code = 2229) 7.8 G/DL ALBUMIN (test code = 2201) 4.8 G/DL CALC GLOBULIN (test code = 2240) 3.0 G/DL CALC A/G RATIO (test code = 2234) 1.6 RATIO BILIRUBIN, TOTAL (test code = 2207) 0.4 MG/DL ALKALINE PHOSPHATASE (test code = 2204) 67 U/L AST (test code = 2218) 28 U/L ALT (test code = 2219) 31 U/L HEMOGLOBIN [id number] 00:00:00* Test Item Value Reference Range Interpretation Comme nts HEMOGLOBIN A1c (test code = 40915) 5.5 % Medardo F AustinHEMOGLOBIN [id number] 00:00:00* Test Item Value Reference Range Interpretation Comme nts HEMOGLOBIN A1c (test code = 34255) 5.5 % LIPID [id number] 00:00:00* Test Item Value Reference Range Interpretation Comme nts CHOLESTEROL (test code = 2210) 242 MG/DL TRIGLYCERIDES (test code = 2232) 300 MG/DL HDL CHOLESTEROL (test code = 2220) 53 MG/DL CALC LDL CHOL (test code = 2237) 146 MG/DL RISK RATIO LDL/HDL (test cod e = 2238) 2.75 RATIO COMPREHENSIVE METABOLIC [id number] 00:00:00* Test Item Value Reference Range Interpretation Comme nts GLUCOSE (test code = 2217) 101 MG/DL BUN (test code = 2208) 11 MG/DL CREATININE (test code = 2214) 0.86 MG/DL eGFR AMER. (test cod e = 97101) 92 ML/MIN/1.73 eGFR NON- AMER. (test code = 27017) 79 ML/MIN/1.73 CALC BUN/CREAT (test code = 2235) 13 RATIO SODIUM (test code = 2231) 141 MEQ/L POTASSIUM (test code = 2228) 3.4 MEQ/L CHLORIDE (test code = 2215) 99 MEQ/L CARBON DIOXIDE (test code = 2206) 26 MEQ/L CALCIUM (test code = 2209) 9.7 MG/DL PROTEIN, TOTAL (test code = 2229) 7.8 G/DL ALBUMIN (test code = 2201) 4.8 G/DL CALC GLOBULIN (test code = 2240) 3.0 G/DL CALC A/G RATIO (test code = 2234) 1.6 RATIO BILIRUBIN, TOTAL (test code = 2207) 0.4 MG/DL ALKALINE PHOSPHATASE (test code = 2204) 67 U/L AST (test code = 2218) 28 U/L ALT (test code = 2219) 31 U/L LIPID [id number] 00:00:00* Test Item Value Reference Range Interpretation Comme nts CHOLESTEROL (test code = 2210) 242 MG/DL TRIGLYCERIDES (test code = 2232) 300 MG/DL HDL CHOLESTEROL (test code = 2220) 53 MG/DL CALC LDL CHOL (test code = 2237) 146 MG/DL RISK RATIO LDL/HDL (test cod e = 2238) 2.75 RATIO Medardo F KristoferCOMPREHENSIVE METABOLIC [id number] 00:00:00* Test Item Value Reference Range Interpretation Comme nts GLUCOSE (test code = 2217) 101 MG/DL BUN (test code = 2208) 11 MG/DL CREATININE (test code = 2214) 0.86 MG/DL eGFR AMER. (test cod e = 12209) 92 ML/MIN/1.73 eGFR NON- AMER. (test code = 81917) 79 ML/MIN/1.73 CALC BUN/CREAT (test code = 2235) 13 RATIO SODIUM (test code = 2231) 141 MEQ/L POTASSIUM (test code = 2228) 3.4 MEQ/L CHLORIDE (test code = 2215) 99 MEQ/L CARBON DIOXIDE (test code = 2206) 26 MEQ/L CALCIUM (test code = 2209) 9.7 MG/DL PROTEIN, TOTAL (test code = 2229) 7.8 G/DL ALBUMIN (test code = 2201) 4.8 G/DL CALC GLOBULIN (test code = 2240) 3.0 G/DL CALC A/G RATIO (test code = 2234) 1.6 RATIO BILIRUBIN, TOTAL (test code = 2207) 0.4 MG/DL ALKALINE PHOSPHATASE (test code = 2204) 67 U/L AST (test code = 2218) 28 U/L ALT (test code = 2219) 31 U/L Medardo MinerHEMOGLOBIN [id number] 00:00:00* Test Item Value Reference Range Interpretation Comme daysi HEMOGLOBIN A1c (test code = 25628) 5.5 % Medardo MinerLIPID [id number] 00:00:00* Test Item Value Reference Range Interpretation Comme nts CHOLESTEROL (test code = 2210) 242 MG/DL TRIGLYCERIDES (test code = 2232) 300 MG/DL HDL CHOLESTEROL (test code = 2220) 53 MG/DL CALC LDL CHOL (test code = 2237) 146 MG/DL RISK RATIO LDL/HDL (test cod e = 2238) 2.75 RATIO Medardo MinerCOMPREHENSIVE METABOLIC [id number] 00:00:00* Test Item Value Reference Range Interpretation Comme nts GLUCOSE (test code = 2217) 101 MG/DL BUN (test code = 2208) 11 MG/DL CREATININE (test code = 2214) 0.86 MG/DL eGFR AMER. (test cod e = 60024) 92 ML/MIN/1.73 eGFR NON- AMER. (test code = 84225) 79 ML/MIN/1.73 CALC BUN/CREAT (test code = 2235) 13 RATIO SODIUM (test code = 2231) 141 MEQ/L POTASSIUM (test code = 2228) 3.4 MEQ/L CHLORIDE (test code = 2215) 99 MEQ/L CARBON DIOXIDE (test code = 2206) 26 MEQ/L CALCIUM (test code = 2209) 9.7 MG/DL PROTEIN, TOTAL (test code = 2229) 7.8 G/DL ALBUMIN (test code = 2201) 4.8 G/DL CALC GLOBULIN (test code = 2240) 3.0 G/DL CALC A/G RATIO (test code = 2234) 1.6 RATIO BILIRUBIN, TOTAL (test code = 2207) 0.4 MG/DL ALKALINE PHOSPHATASE (test code = 2204) 67 U/L AST (test code = 2218) 28 U/L ALT (test code = 2219) 31 U/L Medardo MinerHEMOGLOBIN [id number] 00:00:00* Test Item Value Reference Range Interpretation Comme nts HEMOGLOBIN A1c (test code = 50436) 5.5 % Medardo Ibrahim AustinHEMOGLOBIN [id number] 00:00:00* Test Item Value Reference Range Interpretation Comme nts HEMOGLOBIN A1c (test code = 25329) 5.5 % Medardo F AustinHEMOGLOBIN [id number] 00:00:00* Test Item Value Reference Range Interpretation Comme nts HEMOGLOBIN A1c (test code = 40018) 5.5 % Medardo F AustinHEMOGLOBIN [id number] 00:00:00* Test Item Value Reference Range Interpretation Comme nts HEMOGLOBIN A1c (test code = 71126) 5.5 % HEMOGLOBIN [id number] 00:00:00* Test Item Value Reference Range Interpretation Comme nts HEMOGLOBIN A1c (test code = 04615) 5.5 % HEMOGLOBIN [id number] 00:00:00* Test Item Value Reference Range Interpretation Comme nts HEMOGLOBIN A1c (test code = 69643) 5.5 % HEMOGLOBIN [id number] 00:00:00* Test Item Value Reference Range Interpretation Comme nts HEMOGLOBIN A1c (test code = 80471) 5.5 % Medardo Ibrahim AustinCOMPREHENSIVE METABOLIC [id number] 00:00:00* Test Item Value Reference Range Interpretation Comme nts GLUCOSE (test code = 2217) 139 MG/DL BUN (test code = 2208) 12 MG/DL CREATININE (test code = 2214) 0.74 MG/DL eGFR AMER. (test cod e = 23732) 111 ML/MIN/1.73 eGFR NON- AMER. (test code = 46557) 96 ML/MIN/1.73 CALC BUN/CREAT (test code = 2235) 16 RATIO SODIUM (test code = 2231) 140 MEQ/L POTASSIUM (test code = 2228) 3.7 MEQ/L CHLORIDE (test code = 2215) 98 MEQ/L CARBON DIOXIDE (test code = 2206) 27 MEQ/L CALCIUM (test code = 2209) 10.3 MG/DL PROTEIN, TOTAL (test code = 2229) 7.7 G/DL ALBUMIN (test code = 2201) 4.6 G/DL CALC GLOBULIN (test code = 2240) 3.1 G/DL CALC A/G RATIO (test code = 2234) 1.5 RATIO BILIRUBIN, TOTAL (test code = 2207) 0.3 MG/DL ALKALINE PHOSPHATASE (test code = 2204) 63 U/L AST (test code = 2218) 17 U/L ALT (test code = 2219) 18 U/L Medardo MinerHEMOGLOBIN [id number] 00:00:00* Test Item Value Reference Range Interpretation Comme daysi HEMOGLOBIN A1c (test code = 80883) 5.5 % Medardo MinerCBC W/AUTO [id number] 00:00:00* Test Item Value Reference Range Interpretation Comme nts WBC (test code = 1001) 8.0 K/UL RBC (test code = 1002) 4.63 M/UL HEMOGLOBIN (test code = 1003) 14.2 G/DL HEMATOCRIT (test code = 1004) 41.7 % MCV (test code = 1005) 90.1 fL MCH (test code = 1006) 30.7 PG MCHC (test code = 1007) 34.1 G/DL RDW (test code = 1038) 11.8 % NEUTROPHILS (test code = 1008) 63.3 % LYMPHOCYTES (test code = 1010) 30.7 % MONOCYTES (test code = 1011) 3.9 % EOSINOPHILS (test code = 1012) 1.8 % BASOPHILS (test code = 1013) 0.3 % PLATELET COUNT (test code = 1015) 295 K/UL Medardo [id number] 00:00:00* Test Item Value Reference Range Interpretation Comme daysi TSH, THIRD GENERATION (test code = 2821) 0.857 UIU/ML Medardo MinerCOMPREHENSIVE METABOLIC [id number] 00:00:00* Test Item Value Reference Range Interpretation Comme nts GLUCOSE (test code = 2217) 139 MG/DL BUN (test code = 2208) 12 MG/DL CREATININE (test code = 2214) 0.74 MG/DL eGFR AMER. (test cod e = 42139) 111 ML/MIN/1.73 eGFR NON- AMER. (test code = 40721) 96 ML/MIN/1.73 CALC BUN/CREAT (test code = 2235) 16 RATIO SODIUM (test code = 2231) 140 MEQ/L POTASSIUM (test code = 2228) 3.7 MEQ/L CHLORIDE (test code = 2215) 98 MEQ/L CARBON DIOXIDE (test code = 2206) 27 MEQ/L CALCIUM (test code = 2209) 10.3 MG/DL PROTEIN, TOTAL (test code = 2229) 7.7 G/DL ALBUMIN (test code = 2201) 4.6 G/DL CALC GLOBULIN (test code = 2240) 3.1 G/DL CALC A/G RATIO (test code = 2234) 1.5 RATIO BILIRUBIN, TOTAL (test code = 2207) 0.3 MG/DL ALKALINE PHOSPHATASE (test code = 2204) 63 U/L AST (test code = 2218) 17 U/L ALT (test code = 2219) 18 U/L Medardo MinerCOMPREHENSIVE METABOLIC [id number] 00:00:00* Test Item Value Reference Range Interpretation Comme nts GLUCOSE (test code = 2217) 139 MG/DL BUN (test code = 2208) 12 MG/DL CREATININE (test code = 2214) 0.74 MG/DL eGFR AMER. (test cod e = 85840) 111 ML/MIN/1.73 eGFR NON- AMER. (test code = 62740) 96 ML/MIN/1.73 CALC BUN/CREAT (test code = 2235) 16 RATIO SODIUM (test code = 2231) 140 MEQ/L POTASSIUM (test code = 2228) 3.7 MEQ/L CHLORIDE (test code = 2215) 98 MEQ/L CARBON DIOXIDE (test code = 2206) 27 MEQ/L CALCIUM (test code = 2209) 10.3 MG/DL PROTEIN, TOTAL (test code = 2229) 7.7 G/DL ALBUMIN (test code = 2201) 4.6 G/DL CALC GLOBULIN (test code = 2240) 3.1 G/DL CALC A/G RATIO (test code = 2234) 1.5 RATIO BILIRUBIN, TOTAL (test code = 2207) 0.3 MG/DL ALKALINE PHOSPHATASE (test code = 2204) 63 U/L AST (test code = 2218) 17 U/L ALT (test code = 2219) 18 U/L HEMOGLOBIN [id number] 00:00:00* Test Item Value Reference Range Interpretation Comme nts HEMOGLOBIN A1c (test code = 13263) 5.5 % CBC W/AUTO [id number] 00:00:00* Test Item Value Reference Range Interpretation Comme nts WBC (test code = 1001) 8.0 K/UL RBC (test code = 1002) 4.63 M/UL HEMOGLOBIN (test code = 1003) 14.2 G/DL HEMATOCRIT (test code = 1004) 41.7 % MCV (test code = 1005) 90.1 fL MCH (test code = 1006) 30.7 PG MCHC (test code = 1007) 34.1 G/DL RDW (test code = 1038) 11.8 % NEUTROPHILS (test code = 1008) 63.3 % LYMPHOCYTES (test code = 1010) 30.7 % MONOCYTES (test code = 1011) 3.9 % EOSINOPHILS (test code = 1012) 1.8 % BASOPHILS (test code = 1013) 0.3 % PLATELET COUNT (test code = 1015) 295 K/UL [id number] 00:00:00* Test Item Value Reference Range Interpretation Comme nts TSH, THIRD GENERATION (test code = 2821) 0.857 UIU/ML COMPREHENSIVE METABOLIC [id number] 00:00:00* Test Item Value Reference Range Interpretation Comme nts GLUCOSE (test code = 2217) 139 MG/DL BUN (test code = 2208) 12 MG/DL CREATININE (test code = 2214) 0.74 MG/DL eGFR AMER. (test cod e = 13096) 111 ML/MIN/1.73 eGFR NON- AMER. (test code = 99407) 96 ML/MIN/1.73 CALC BUN/CREAT (test code = 2235) 16 RATIO SODIUM (test code = 2231) 140 MEQ/L POTASSIUM (test code = 2228) 3.7 MEQ/L CHLORIDE (test code = 2215) 98 MEQ/L CARBON DIOXIDE (test code = 2206) 27 MEQ/L CALCIUM (test code = 2209) 10.3 MG/DL PROTEIN, TOTAL (test code = 2229) 7.7 G/DL ALBUMIN (test code = 2201) 4.6 G/DL CALC GLOBULIN (test code = 2240) 3.1 G/DL CALC A/G RATIO (test code = 2234) 1.5 RATIO BILIRUBIN, TOTAL (test code = 2207) 0.3 MG/DL ALKALINE PHOSPHATASE (test code = 2204) 63 U/L AST (test code = 2218) 17 U/L ALT (test code = 2219) 18 U/L HEMOGLOBIN [id number] 00:00:00* Test Item Value Reference Range Interpretation Comme nts HEMOGLOBIN A1c (test code = 62379) 5.5 % CBC W/AUTO [id number] 00:00:00* Test Item Value Reference Range Interpretation Comme nts WBC (test code = 1001) 8.0 K/UL RBC (test code = 1002) 4.63 M/UL HEMOGLOBIN (test code = 1003) 14.2 G/DL HEMATOCRIT (test code = 1004) 41.7 % MCV (test code = 1005) 90.1 fL MCH (test code = 1006) 30.7 PG MCHC (test code = 1007) 34.1 G/DL RDW (test code = 1038) 11.8 % NEUTROPHILS (test code = 1008) 63.3 % LYMPHOCYTES (test code = 1010) 30.7 % MONOCYTES (test code = 1011) 3.9 % EOSINOPHILS (test code = 1012) 1.8 % BASOPHILS (test code = 1013) 0.3 % PLATELET COUNT (test code = 1015) 295 K/UL [id number] 00:00:00* Test Item Value Reference Range Interpretation Comme nts TSH, THIRD GENERATION (test code = 2821) 0.857 UIU/ML COMPREHENSIVE METABOLIC [id number] 00:00:00* Test Item Value Reference Range Interpretation Comme nts GLUCOSE (test code = 2217) 139 MG/DL BUN (test code = 2208) 12 MG/DL CREATININE (test code = 2214) 0.74 MG/DL eGFR AMER. (test cod e = 57452) 111 ML/MIN/1.73 eGFR NON- AMER. (test code = 63627) 96 ML/MIN/1.73 CALC BUN/CREAT (test code = 2235) 16 RATIO SODIUM (test code = 2231) 140 MEQ/L POTASSIUM (test code = 2228) 3.7 MEQ/L CHLORIDE (test code = 2215) 98 MEQ/L CARBON DIOXIDE (test code = 2206) 27 MEQ/L CALCIUM (test code = 2209) 10.3 MG/DL PROTEIN, TOTAL (test code = 2229) 7.7 G/DL ALBUMIN (test code = 2201) 4.6 G/DL CALC GLOBULIN (test code = 2240) 3.1 G/DL CALC A/G RATIO (test code = 2234) 1.5 RATIO BILIRUBIN, TOTAL (test code = 2207) 0.3 MG/DL ALKALINE PHOSPHATASE (test code = 2204) 63 U/L AST (test code = 2218) 17 U/L ALT (test code = 2219) 18 U/L HEMOGLOBIN [id number] 00:00:00* Test Item Value Reference Range Interpretation Comme nts HEMOGLOBIN A1c (test code = 67398) 5.5 % CBC W/AUTO [id number] 00:00:00* Test Item Value Reference Range Interpretation Comme nts WBC (test code = 1001) 8.0 K/UL RBC (test code = 1002) 4.63 M/UL HEMOGLOBIN (test code = 1003) 14.2 G/DL HEMATOCRIT (test code = 1004) 41.7 % MCV (test code = 1005) 90.1 fL MCH (test code = 1006) 30.7 PG MCHC (test code = 1007) 34.1 G/DL RDW (test code = 1038) 11.8 % NEUTROPHILS (test code = 1008) 63.3 % LYMPHOCYTES (test code = 1010) 30.7 % MONOCYTES (test code = 1011) 3.9 % EOSINOPHILS (test code = 1012) 1.8 % BASOPHILS (test code = 1013) 0.3 % PLATELET COUNT (test code = 1015) 295 K/UL [id number] 00:00:00* Test Item Value Reference Range Interpretation Comme nts TSH, THIRD GENERATION (test code = 2821) 0.857 UIU/ML HEMOGLOBIN [id number] 00:00:00* Test Item Value Reference Range Interpretation Comme nts HEMOGLOBIN A1c (test code = 66922) 5.5 % Medardo F AustinCBC W/AUTO [id number] 00:00:00* Test Item Value Reference Range Interpretation Comme nts WBC (test code = 1001) 8.0 K/UL RBC (test code = 1002) 4.63 M/UL HEMOGLOBIN (test code = 1003) 14.2 G/DL HEMATOCRIT (test code = 1004) 41.7 % MCV (test code = 1005) 90.1 fL MCH (test code = 1006) 30.7 PG MCHC (test code = 1007) 34.1 G/DL RDW (test code = 1038) 11.8 % NEUTROPHILS (test code = 1008) 63.3 % LYMPHOCYTES (test code = 1010) 30.7 % MONOCYTES (test code = 1011) 3.9 % EOSINOPHILS (test code = 1012) 1.8 % BASOPHILS (test code = 1013) 0.3 % PLATELET COUNT (test code = 1015) 295 K/UL Medardo [id number] 00:00:00* Test Item Value Reference Range Interpretation Comme nts TSH, THIRD GENERATION (test code = 2821) 0.857 UIU/ML Medardo MinerCOMPREHENSIVE METABOLIC [id number] 00:00:00* Test Item Value Reference Range Interpretation Comme nts GLUCOSE (test code = 2217) 139 MG/DL BUN (test code = 2208) 12 MG/DL CREATININE (test code = 2214) 0.74 MG/DL eGFR AMER. (test cod e = 39154) 111 ML/MIN/1.73 eGFR NON- AMER. (test code = 47497) 96 ML/MIN/1.73 CALC BUN/CREAT (test code = 2235) 16 RATIO SODIUM (test code = 2231) 140 MEQ/L POTASSIUM (test code = 2228) 3.7 MEQ/L CHLORIDE (test code = 2215) 98 MEQ/L CARBON DIOXIDE (test code = 2206) 27 MEQ/L CALCIUM (test code = 2209) 10.3 MG/DL PROTEIN, TOTAL (test code = 2229) 7.7 G/DL ALBUMIN (test code = 2201) 4.6 G/DL CALC GLOBULIN (test code = 2240) 3.1 G/DL CALC A/G RATIO (test code = 2234) 1.5 RATIO BILIRUBIN, TOTAL (test code = 2207) 0.3 MG/DL ALKALINE PHOSPHATASE (test code = 2204) 63 U/L AST (test code = 2218) 17 U/L ALT (test code = 2219) 18 U/L Medardo MinerHEMOGLOBIN [id number] 00:00:00* Test Item Value Reference Range Interpretation Comme nts HEMOGLOBIN A1c (test code = 23725) 5.5 % Medardo MinerCBC W/AUTO [id number] 00:00:00* Test Item Value Reference Range Interpretation Comme nts WBC (test code = 1001) 8.0 K/UL RBC (test code = 1002) 4.63 M/UL HEMOGLOBIN (test code = 1003) 14.2 G/DL HEMATOCRIT (test code = 1004) 41.7 % MCV (test code = 1005) 90.1 fL MCH (test code = 1006) 30.7 PG MCHC (test code = 1007) 34.1 G/DL RDW (test code = 1038) 11.8 % NEUTROPHILS (test code = 1008) 63.3 % LYMPHOCYTES (test code = 1010) 30.7 % MONOCYTES (test code = 1011) 3.9 % EOSINOPHILS (test code = 1012) 1.8 % BASOPHILS (test code = 1013) 0.3 % PLATELET COUNT (test code = 1015) 295 K/UL Medardo [id number] 00:00:00* Test Item Value Reference Range Interpretation Comme nts TSH, THIRD GENERATION (test code = 2821) 0.857 UIU/ML Medardo MinerLIPID [id number] 00:00:00* Test Item Value Reference Range Interpretation Comme nts CHOLESTEROL (test code = 2210) 219 MG/DL TRIGLYCERIDES (test code = 2232) 407 MG/DL HDL CHOLESTEROL (test code = 2220) 41 MG/DL CALC LDL CHOL (test code = 2237) NOTE MG/DL RISK RATIO LDL/HDL (test cod e = 2238) (NOTE) RATIO Medardo Ibrahim AustinLIPID [id number] 00:00:00* Test Item Value Reference Range Interpretation Comme nts CHOLESTEROL (test code = 2210) 219 MG/DL TRIGLYCERIDES (test code = 2232) 407 MG/DL HDL CHOLESTEROL (test code = 2220) 41 MG/DL CALC LDL CHOL (test code = 2237) NOTE MG/DL RISK RATIO LDL/HDL (test cod e = 2238) (NOTE) RATIO Medardo Ibrahim AustinLIPID [id number] 00:00:00* Test Item Value Reference Range Interpretation Comme nts CHOLESTEROL (test code = 2210) 219 MG/DL TRIGLYCERIDES (test code = 2232) 407 MG/DL HDL CHOLESTEROL (test code = 2220) 41 MG/DL CALC LDL CHOL (test code = 2237) NOTE MG/DL RISK RATIO LDL/HDL (test cod e = 2238) (NOTE) RATIO LIPID [id number] 00:00:00* Test Item Value Reference Range Interpretation Comme nts CHOLESTEROL (test code = 2210) 219 MG/DL TRIGLYCERIDES (test code = 2232) 407 MG/DL HDL CHOLESTEROL (test code = 2220) 41 MG/DL CALC LDL CHOL (test code = 2237) NOTE MG/DL RISK RATIO LDL/HDL (test cod e = 2238) (NOTE) RATIO LIPID [id number] 00:00:00* Test Item Value Reference Range Interpretation Comme nts CHOLESTEROL (test code = 2210) 219 MG/DL TRIGLYCERIDES (test code = 2232) 407 MG/DL HDL CHOLESTEROL (test code = 2220) 41 MG/DL CALC LDL CHOL (test code = 2237) NOTE MG/DL RISK RATIO LDL/HDL (test cod e = 2238) (NOTE) RATIO LIPID [id number] 00:00:00* Test Item Value Reference Range Interpretation Comme nts CHOLESTEROL (test code = 2210) 219 MG/DL TRIGLYCERIDES (test code = 2232) 407 MG/DL HDL CHOLESTEROL (test code = 2220) 41 MG/DL CALC LDL CHOL (test code = 2237) NOTE MG/DL RISK RATIO LDL/HDL (test cod e = 2238) (NOTE) RATIO Medardo F AustinGC AND CHLAMYDIA, AMPLIFIED, [id number] 00:00:00* Test Item Value Reference Range Interpretation Comme nts GONORRHEA, TMA (test code = 55206) NEGATIVE CHLAMYDIA, TMA (test code = 89806) NEGATIVE Medardo F AustinGC AND CHLAMYDIA, AMPLIFIED, [id number] 00:00:00* Test Item Value Reference Range Interpretation Comme nts GONORRHEA, TMA (test code = 77662) NEGATIVE CHLAMYDIA, TMA (test code = 24915) NEGATIVE GC AND CHLAMYDIA, AMPLIFIED, [id number] 00:00:00* Test Item Value Reference Range Interpretation Comme nts GONORRHEA, TMA (test code = 03181) NEGATIVE CHLAMYDIA, TMA (test code = 08029) NEGATIVE GC AND CHLAMYDIA, AMPLIFIED, [id number] 00:00:00* Test Item Value Reference Range Interpretation Comme nts GONORRHEA, TMA (test code = 75945) NEGATIVE CHLAMYDIA, TMA (test code = 96867) NEGATIVE Medardo F AustinGC AND CHLAMYDIA, AMPLIFIED, [id number] 00:00:00* Test Item Value Reference Range Interpretation Comme nts GONORRHEA, TMA (test code = 43785) NEGATIVE CHLAMYDIA, TMA (test code = 92725) NEGATIVE GC AND CHLAMYDIA, AMPLIFIED, [id number] 00:00:00* Test Item Value Reference Range Interpretation Comme nts GONORRHEA, TMA (test code = 68679) NEGATIVE CHLAMYDIA, TMA (test code = 36225) NEGATIVE Medardo F KristoferCOMPREHENSIVE METABOLIC [id number] 00:00:00* Test Item Value Reference Range Interpretation Comme nts GLUCOSE (test code = 2217) 100 MG/DL BUN (test code = 2208) 16 MG/DL CREATININE (test code = 2214) 0.72 MG/DL eGFR AMER. (test cod e = 15744) 116 ML/MIN/1.73 eGFR NON- AMER. (test code = 83170) 100 ML/MIN/1.73 CALC BUN/CREAT (test code = 2235) 22 RATIO SODIUM (test code = 2231) 143 MEQ/L POTASSIUM (test code = 2228) 3.9 MEQ/L CHLORIDE (test code = 2215) 101 MEQ/L CARBON DIOXIDE (test code = 2206) 26 MEQ/L CALCIUM (test code = 2209) 10.1 MG/DL PROTEIN, TOTAL (test code = 2229) 7.3 G/DL ALBUMIN (test code = 2201) 4.4 G/DL CALC GLOBULIN (test code = 2240) 2.9 G/DL CALC A/G RATIO (test code = 2234) 1.5 RATIO BILIRUBIN, TOTAL (test code = 2207) <0.2 MG/DL ALKALINE PHOSPHATASE (test code = 2204) 67 U/L AST (test code = 2218) 30 U/L ALT (test code = 2219) 20 U/L Medardo F AustinLIPID [id number] 00:00:00* Test Item Value Reference Range Interpretation Comme nts CHOLESTEROL (test code = 2210) 202 MG/DL TRIGLYCERIDES (test code = 2232) 190 MG/DL HDL CHOLESTEROL (test code = 2220) 51 MG/DL CALC LDL CHOL (test code = 2237) 113 MG/DL RISK RATIO LDL/HDL (test cod e = 2238) 2.22 RATIO Medardo MinerCOMPREHENSIVE METABOLIC [id number] 00:00:00* Test Item Value Reference Range Interpretation Comme nts GLUCOSE (test code = 2217) 100 MG/DL BUN (test code = 2208) 16 MG/DL CREATININE (test code = 2214) 0.72 MG/DL eGFR AMER. (test cod e = 92392) 116 ML/MIN/1.73 eGFR NON- AMER. (test code = 79294) 100 ML/MIN/1.73 CALC BUN/CREAT (test code = 2235) 22 RATIO SODIUM (test code = 2231) 143 MEQ/L POTASSIUM (test code = 2228) 3.9 MEQ/L CHLORIDE (test code = 2215) 101 MEQ/L CARBON DIOXIDE (test code = 2206) 26 MEQ/L CALCIUM (test code = 2209) 10.1 MG/DL PROTEIN, TOTAL (test code = 2229) 7.3 G/DL ALBUMIN (test code = 2201) 4.4 G/DL CALC GLOBULIN (test code = 2240) 2.9 G/DL CALC A/G RATIO (test code = 2234) 1.5 RATIO BILIRUBIN, TOTAL (test code = 2207) <0.2 MG/DL ALKALINE PHOSPHATASE (test code = 2204) 67 U/L AST (test code = 2218) 30 U/L ALT (test code = 2219) 20 U/L Medardo Ibrahim [facility] [id number] 00:00:00* Test Item Value Reference Range Interpretation Comme nts GLUCOSE (test code = 2217) 100 MG/DL BUN (test code = 2208) 16 MG/DL CREATININE (test code = 2214) 0.72 MG/DL eGFR AMER. (test cod e = 71396) 116 ML/MIN/1.73 eGFR NON- AMER. (test code = 45037) 100 ML/MIN/1.73 CALC BUN/CREAT (test code = 2235) 22 RATIO SODIUM (test code = 2231) 143 MEQ/L POTASSIUM (test code = 2228) 3.9 MEQ/L CHLORIDE (test code = 2215) 101 MEQ/L CARBON DIOXIDE (test code = 2206) 26 MEQ/L CALCIUM (test code = 2209) 10.1 MG/DL PROTEIN, TOTAL (test code = 2229) 7.3 G/DL ALBUMIN (test code = 2201) 4.4 G/DL CALC GLOBULIN (test code = 2240) 2.9 G/DL CALC A/G RATIO (test code = 2234) 1.5 RATIO BILIRUBIN, TOTAL (test code = 2207) <0.2 MG/DL ALKALINE PHOSPHATASE (test code = 2204) 67 U/L AST (test code = 2218) 30 U/L ALT (test code = 2219) 20 U/L LIPID [id number] 00:00:00* Test Item Value Reference Range Interpretation Comme nts CHOLESTEROL (test code = 2210) 202 MG/DL TRIGLYCERIDES (test code = 2232) 190 MG/DL HDL CHOLESTEROL (test code = 2220) 51 MG/DL CALC LDL CHOL (test code = 2237) 113 MG/DL RISK RATIO LDL/HDL (test cod e = 2238) 2.22 RATIO COMPREHENSIVE METABOLIC [id number] 00:00:00* Test Item Value Reference Range Interpretation Comme nts GLUCOSE (test code = 2217) 100 MG/DL BUN (test code = 2208) 16 MG/DL CREATININE (test code = 2214) 0.72 MG/DL eGFR AMER. (test cod e = 05691) 116 ML/MIN/1.73 eGFR NON- AMER. (test code = 51674) 100 ML/MIN/1.73 CALC BUN/CREAT (test code = 2235) 22 RATIO SODIUM (test code = 2231) 143 MEQ/L POTASSIUM (test code = 2228) 3.9 MEQ/L CHLORIDE (test code = 2215) 101 MEQ/L CARBON DIOXIDE (test code = 2206) 26 MEQ/L CALCIUM (test code = 2209) 10.1 MG/DL PROTEIN, TOTAL (test code = 2229) 7.3 G/DL ALBUMIN (test code = 2201) 4.4 G/DL CALC GLOBULIN (test code = 2240) 2.9 G/DL CALC A/G RATIO (test code = 2234) 1.5 RATIO BILIRUBIN, TOTAL (test code = 2207) <0.2 MG/DL ALKALINE PHOSPHATASE (test code = 2204) 67 U/L AST (test code = 2218) 30 U/L ALT (test code = 2219) 20 U/L LIPID [id number] 00:00:00* Test Item Value Reference Range Interpretation Comme nts CHOLESTEROL (test code = 2210) 202 MG/DL TRIGLYCERIDES (test code = 2232) 190 MG/DL HDL CHOLESTEROL (test code = 2220) 51 MG/DL CALC LDL CHOL (test code = 2237) 113 MG/DL RISK RATIO LDL/HDL (test cod e = 2238) 2.22 RATIO COMPREHENSIVE METABOLIC [id number] 00:00:00* Test Item Value Reference Range Interpretation Comme nts GLUCOSE (test code = 2217) 100 MG/DL BUN (test code = 2208) 16 MG/DL CREATININE (test code = 2214) 0.72 MG/DL eGFR AMER. (test cod e = 69171) 116 ML/MIN/1.73 eGFR NON- AMER. (test code = 08071) 100 ML/MIN/1.73 CALC BUN/CREAT (test code = 2235) 22 RATIO SODIUM (test code = 2231) 143 MEQ/L POTASSIUM (test code = 2228) 3.9 MEQ/L CHLORIDE (test code = 2215) 101 MEQ/L CARBON DIOXIDE (test code = 2206) 26 MEQ/L CALCIUM (test code = 2209) 10.1 MG/DL PROTEIN, TOTAL (test code = 2229) 7.3 G/DL ALBUMIN (test code = 2201) 4.4 G/DL CALC GLOBULIN (test code = 2240) 2.9 G/DL CALC A/G RATIO (test code = 2234) 1.5 RATIO BILIRUBIN, TOTAL (test code = 2207) <0.2 MG/DL ALKALINE PHOSPHATASE (test code = 2204) 67 U/L AST (test code = 2218) 30 U/L ALT (test code = 2219) 20 U/L LIPID [id number] 00:00:00* Test Item Value Reference Range Interpretation Comme nts CHOLESTEROL (test code = 2210) 202 MG/DL TRIGLYCERIDES (test code = 2232) 190 MG/DL HDL CHOLESTEROL (test code = 2220) 51 MG/DL CALC LDL CHOL (test code = 2237) 113 MG/DL RISK RATIO LDL/HDL (test cod e = 2238) 2.22 RATIO LIPID [id number] 00:00:00* Test Item Value Reference Range Interpretation Comme nts CHOLESTEROL (test code = 2210) 202 MG/DL TRIGLYCERIDES (test code = 2232) 190 MG/DL HDL CHOLESTEROL (test code = 2220) 51 MG/DL CALC LDL CHOL (test code = 2237) 113 MG/DL RISK RATIO LDL/HDL (test cod e = 2238) 2.22 RATIO Medardo MinerCOMPREHENSIVE METABOLIC [id number] 00:00:00* Test Item Value Reference Range Interpretation Comme nts GLUCOSE (test code = 2217) 100 MG/DL BUN (test code = 2208) 16 MG/DL CREATININE (test code = 2214) 0.72 MG/DL eGFR AMER. (test cod e = 86046) 116 ML/MIN/1.73 eGFR NON- AMER. (test code = 87193) 100 ML/MIN/1.73 CALC BUN/CREAT (test code = 2235) 22 RATIO SODIUM (test code = 2231) 143 MEQ/L POTASSIUM (test code = 2228) 3.9 MEQ/L CHLORIDE (test code = 2215) 101 MEQ/L CARBON DIOXIDE (test code = 2206) 26 MEQ/L CALCIUM (test code = 2209) 10.1 MG/DL PROTEIN, TOTAL (test code = 2229) 7.3 G/DL ALBUMIN (test code = 2201) 4.4 G/DL CALC GLOBULIN (test code = 2240) 2.9 G/DL CALC A/G RATIO (test code = 2234) 1.5 RATIO BILIRUBIN, TOTAL (test code = 2207) <0.2 MG/DL ALKALINE PHOSPHATASE (test code = 2204) 67 U/L AST (test code = 2218) 30 U/L ALT (test code = 2219) 20 U/L Medardo Ibrahim AustinLIPID [id number] 00:00:00* Test Item Value Reference Range Interpretation Comme nts CHOLESTEROL (test code = 2210) 202 MG/DL TRIGLYCERIDES (test code = 2232) 190 MG/DL HDL CHOLESTEROL (test code = 2220) 51 MG/DL CALC LDL CHOL (test code = 2237) 113 MG/DL RISK RATIO LDL/HDL (test cod e = 2238) 2.22 RATIO Medardo MinerCOMPREHENSIVE METABOLIC PANEL [ADDED]2018-01-26 00:00:00* Test Item Value Reference Range Interpretation Comme nts GLUCOSE (test code = 2217) 93 MG/DL BUN (test code = 2208) 15 MG/DL CREATININE (test code = 2214) 0.61 MG/DL eGFR AMER. (test cod e = 83405) 126 ML/MIN/1.73 eGFR NON- AMER. (test code = 19306) 109 ML/MIN/1.73 CALC BUN/CREAT (test code = 2235) 25 RATIO SODIUM (test code = 2231) 141 MEQ/L POTASSIUM (test code = 2228) 3.6 MEQ/L CHLORIDE (test code = 2215) 98 MEQ/L CARBON DIOXIDE (test code = 2206) 31 MEQ/L CALCIUM (test code = 2209) 9.8 MG/DL PROTEIN, TOTAL (test code = 2229) 7.6 G/DL ALBUMIN (test code = 2201) 4.8 G/DL CALC GLOBULIN (test code = 2240) 2.8 G/DL CALC A/G RATIO (test code = 2234) 1.7 RATIO BILIRUBIN, TOTAL (test code = 2207) 0.3 MG/DL ALKALINE PHOSPHATASE (test code = 2204) 65 U/L AST (test code = 2218) 20 U/L ALT (test code = 2219) 16 U/L Medardo Ibrahim AustinLIPID PANEL [ADDED]2018-01-26 00:00:00* Test Item Value Reference Range Interpretation Comme nts CHOLESTEROL (test code = 2210) 220 MG/DL TRIGLYCERIDES (test code = 2232) 389 MG/DL HDL CHOLESTEROL (test code = 2220) 44 MG/DL CALC LDL CHOL (test code = 2237) 98 MG/DL RISK RATIO LDL/HDL (test cod e = 2238) 2.23 RATIO Medardo Ibrahim AustinCOMPREHENSIVE METABOLIC PANEL [ADDED]2018-01-26 00:00:00* Test Item Value Reference Range Interpretation Comme nts GLUCOSE (test code = 2217) 93 MG/DL BUN (test code = 2208) 15 MG/DL CREATININE (test code = 2214) 0.61 MG/DL eGFR AMER. (test cod e = 82296) 126 ML/MIN/1.73 eGFR NON- AMER. (test code = 43834) 109 ML/MIN/1.73 CALC BUN/CREAT (test code = 2235) 25 RATIO SODIUM (test code = 2231) 141 MEQ/L POTASSIUM (test code = 2228) 3.6 MEQ/L CHLORIDE (test code = 2215) 98 MEQ/L CARBON DIOXIDE (test code = 2206) 31 MEQ/L CALCIUM (test code = 2209) 9.8 MG/DL PROTEIN, TOTAL (test code = 2229) 7.6 G/DL ALBUMIN (test code = 2201) 4.8 G/DL CALC GLOBULIN (test code = 2240) 2.8 G/DL CALC A/G RATIO (test code = 2234) 1.7 RATIO BILIRUBIN, TOTAL (test code = 2207) 0.3 MG/DL ALKALINE PHOSPHATASE (test code = 2204) 65 U/L AST (test code = 2218) 20 U/L ALT (test code = 2219) 16 U/L Medardo Ibrahim WestmorelandCOMPREHENSIVE METABOLIC PANEL [ADDED]2018-01-26 00:00:00* Test Item Value Reference Range Interpretation Comme nts GLUCOSE (test code = 2217) 93 MG/DL BUN (test code = 2208) 15 MG/DL CREATININE (test code = 2214) 0.61 MG/DL eGFR AMER. (test cod e = 56296) 126 ML/MIN/1.73 eGFR NON- AMER. (test code = 10407) 109 ML/MIN/1.73 CALC BUN/CREAT (test code = 2235) 25 RATIO SODIUM (test code = 2231) 141 MEQ/L POTASSIUM (test code = 2228) 3.6 MEQ/L CHLORIDE (test code = 2215) 98 MEQ/L CARBON DIOXIDE (test code = 2206) 31 MEQ/L CALCIUM (test code = 2209) 9.8 MG/DL PROTEIN, TOTAL (test code = 2229) 7.6 G/DL ALBUMIN (test code = 2201) 4.8 G/DL CALC GLOBULIN (test code = 2240) 2.8 G/DL CALC A/G RATIO (test code = 2234) 1.7 RATIO BILIRUBIN, TOTAL (test code = 2207) 0.3 MG/DL ALKALINE PHOSPHATASE (test code = 2204) 65 U/L AST (test code = 2218) 20 U/L ALT (test code = 2219) 16 U/L LIPID PANEL [ADDED]2018-01-26 00:00:00* Test Item Value Reference Range Interpretation Comme nts CHOLESTEROL (test code = 2210) 220 MG/DL TRIGLYCERIDES (test code = 2232) 389 MG/DL HDL CHOLESTEROL (test code = 2220) 44 MG/DL CALC LDL CHOL (test code = 2237) 98 MG/DL RISK RATIO LDL/HDL (test cod e = 2238) 2.23 RATIO COMPREHENSIVE METABOLIC PANEL [ADDED]2018-01-26 00:00:00* Test Item Value Reference Range Interpretation Comme nts GLUCOSE (test code = 2217) 93 MG/DL BUN (test code = 2208) 15 MG/DL CREATININE (test code = 2214) 0.61 MG/DL eGFR AMER. (test cod e = 24323) 126 ML/MIN/1.73 eGFR NON- AMER. (test code = 89711) 109 ML/MIN/1.73 CALC BUN/CREAT (test code = 2235) 25 RATIO SODIUM (test code = 2231) 141 MEQ/L POTASSIUM (test code = 2228) 3.6 MEQ/L CHLORIDE (test code = 2215) 98 MEQ/L CARBON DIOXIDE (test code = 2206) 31 MEQ/L CALCIUM (test code = 2209) 9.8 MG/DL PROTEIN, TOTAL (test code = 2229) 7.6 G/DL ALBUMIN (test code = 2201) 4.8 G/DL CALC GLOBULIN (test code = 2240) 2.8 G/DL CALC A/G RATIO (test code = 2234) 1.7 RATIO BILIRUBIN, TOTAL (test code = 2207) 0.3 MG/DL ALKALINE PHOSPHATASE (test code = 2204) 65 U/L AST (test code = 2218) 20 U/L ALT (test code = 2219) 16 U/L LIPID PANEL [ADDED]2018-01-26 00:00:00* Test Item Value Reference Range Interpretation Comme nts CHOLESTEROL (test code = 2210) 220 MG/DL TRIGLYCERIDES (test code = 2232) 389 MG/DL HDL CHOLESTEROL (test code = 2220) 44 MG/DL CALC LDL CHOL (test code = 2237) 98 MG/DL RISK RATIO LDL/HDL (test cod e = 2238) 2.23 RATIO COMPREHENSIVE METABOLIC PANEL [ADDED]2018-01-26 00:00:00* Test Item Value Reference Range Interpretation Comme nts GLUCOSE (test code = 2217) 93 MG/DL BUN (test code = 2208) 15 MG/DL CREATININE (test code = 2214) 0.61 MG/DL eGFR AMER. (test cod e = 52779) 126 ML/MIN/1.73 eGFR NON- AMER. (test code = 09664) 109 ML/MIN/1.73 CALC BUN/CREAT (test code = 2235) 25 RATIO SODIUM (test code = 2231) 141 MEQ/L POTASSIUM (test code = 2228) 3.6 MEQ/L CHLORIDE (test code = 2215) 98 MEQ/L CARBON DIOXIDE (test code = 2206) 31 MEQ/L CALCIUM (test code = 2209) 9.8 MG/DL PROTEIN, TOTAL (test code = 2229) 7.6 G/DL ALBUMIN (test code = 2201) 4.8 G/DL CALC GLOBULIN (test code = 2240) 2.8 G/DL CALC A/G RATIO (test code = 2234) 1.7 RATIO BILIRUBIN, TOTAL (test code = 2207) 0.3 MG/DL ALKALINE PHOSPHATASE (test code = 2204) 65 U/L AST (test code = 2218) 20 U/L ALT (test code = 2219) 16 U/L LIPID PANEL [ADDED]2018-01-26 00:00:00* Test Item Value Reference Range Interpretation Comme nts CHOLESTEROL (test code = 2210) 220 MG/DL TRIGLYCERIDES (test code = 2232) 389 MG/DL HDL CHOLESTEROL (test code = 2220) 44 MG/DL CALC LDL CHOL (test code = 2237) 98 MG/DL RISK RATIO LDL/HDL (test cod e = 2238) 2.23 RATIO Medardo F AustinLIPID PANEL [ADDED]2018-01-26 00:00:00* Test Item Value Reference Range Interpretation Comme nts CHOLESTEROL (test code = 2210) 220 MG/DL TRIGLYCERIDES (test code = 2232) 389 MG/DL HDL CHOLESTEROL (test code = 2220) 44 MG/DL CALC LDL CHOL (test code = 2237) 98 MG/DL RISK RATIO LDL/HDL (test cod e = 2238) 2.23 RATIO COMPREHENSIVE METABOLIC PANEL [ADDED]2018-01-26 00:00:00* Test Item Value Reference Range Interpretation Comme nts GLUCOSE (test code = 2217) 93 MG/DL BUN (test code = 2208) 15 MG/DL CREATININE (test code = 2214) 0.61 MG/DL eGFR AMER. (test cod e = 49262) 126 ML/MIN/1.73 eGFR NON- AMER. (test code = 99308) 109 ML/MIN/1.73 CALC BUN/CREAT (test code = 2235) 25 RATIO SODIUM (test code = 2231) 141 MEQ/L POTASSIUM (test code = 2228) 3.6 MEQ/L CHLORIDE (test code = 2215) 98 MEQ/L CARBON DIOXIDE (test code = 2206) 31 MEQ/L CALCIUM (test code = 2209) 9.8 MG/DL PROTEIN, TOTAL (test code = 2229) 7.6 G/DL ALBUMIN (test code = 2201) 4.8 G/DL CALC GLOBULIN (test code = 2240) 2.8 G/DL CALC A/G RATIO (test code = 2234) 1.7 RATIO BILIRUBIN, TOTAL (test code = 2207) 0.3 MG/DL ALKALINE PHOSPHATASE (test code = 2204) 65 U/L AST (test code = 2218) 20 U/L ALT (test code = 2219) 16 U/L Medardo MinerLIPID PANEL [ADDED]2018-01-26 00:00:00* Test Item Value Reference Range Interpretation Comme nts CHOLESTEROL (test code = 2210) 220 MG/DL TRIGLYCERIDES (test code = 2232) 389 MG/DL HDL CHOLESTEROL (test code = 2220) 44 MG/DL CALC LDL CHOL (test code = 2237) 98 MG/DL RISK RATIO LDL/HDL (test cod e = 2238) 2.23 RATIO Medardo Lynch Date/Time Note Provider Source Medardo Duque [facility]2024-06-14 00:00:00 Medardo Duque [facility]2024-05-30 00:00:00 Medardo Duque [facility]
[2024-01-22] MEDS ORDERED: METOCLOPRAMIDE 10 MG/2mL INJ ONE (04:41)
[2024-01-22] MEDS ORDERED: KETOROLAC 30 MG/ML INJ ONE (04:41)
[2024-01-22] MEDS ORDERED: HYDRALAZINE HCL 25 MG TABLET ONE (04:41)
[2024-01-22 04:51] LABS: Absolute Basophils 0.1 K/uL (0-0.5); Absolute Eosinophils 0.3 K/uL (0-0.5); Absolute Lymphocytes (CBC) 3.6 K/uL (0.7-4.9); Absolute Monocytes 0.6 K/uL (0.1-1.3); Absolute Neutrophil 4.7 K/uL (1.8-8.0); Basophils % 1.2 % (0-1.3); Eosinophils % 2.9 % (0-4.4); Hemoglobin 15.9 g/dL (12.0-15.0); Lymphocytes % 38.9 % (15.3-44.8); MCH 30.9 pg (27.0-35.0); MCHC 33.8 g/dL (32.0-36.0); MCV 91.6 fL (80-100); MPV 9.9 fL (7.6-11.3); Monocytes % 6.3 % (3.3-12.3); Neutrophils % 50.7 % (41.7-73.7); Nucleated Red Blood Cells % 0.1 % (0-0); PT Prothrombin Time 10.7 SECONDS (9.4-12.5); Platelets 259 thou/uL (152-406); Protime INR 0.95; RBC Red Blood Cell Count 5.13 M/uL (3.86-4.86); Red Cell Distribution Width 13.9 % (12.1-15.2)
[2024-01-22 05:02] LABS: Albumin 3.5 g/dL (3.4-5.0); Anion Gap 7.3 mEq/L (5.0-15.0); BUN Blood Urea Nitrogen 15 mg/dL (7-18); Bicarbonate 25 mEq/L (21-32); Glucose Level 95 mg/dL (74-106); Sodium Level 134 mEq/L (136-145)
[2024-01-22 05:08] LABS: ALT/SGPT 28 U/L (13-56); AST/SGOT 16 U/L (15-37); Albumin/Globulin Ratio 0.9 (1.1-1.8); Alkaline Phosphatase 102 U/L (45-117); Bilirubin Direct < 0.2 mg/dL (0-0.2); Bilirubin Indirect, Calculated 0.2 mg/dL (0.2-0.8); Bilirubin Total 0.4 mg/dL (0.2-1.0); Globulin 4.1 g/dL (2.3-3.5); Glomerular Filtration Rate 104 ml/min (=/>90); Magnesium 1.9 mg/dL (1.6-2.4); NT PRO-BNP 261 pg/mL (<125); Potassium 3.3 mEq/L (3.5-5.1); Protein, Total 7.6 g/dL (6.4-8.2); Troponin High Sensitivity 30.1 pg/mL (<58.9)
--- NOTE | 2024-01-22 05:51 | RAD REPORT ---
CLINICAL HISTORY: Chest pain. COMPARISON: None. TECHNIQUE: XR CHEST 1 VIEW 01/22/2024 4:24 AM CDT FINDINGS: Cardiac silhouette is normal in size. Lungs are clear without consolidation, atelectasis, mass or shawn ma. There is no pleural effusion. There is no pneumothorax. There are no acute osseous findings. IMPRESSION: Clear lungs. Electronically signed by: Ihsan Negron MD 01/22/2024 05:43 AM CDT RP Due to temporary technical issues with the [employer] reporting system, reports are being rakan d by the in-house radiologist without review as a courtesy to ensure prompt reporting the interpreting radiologist is fully responsible for the content of the report. Transcribed Date/Time: 01/22/2024 5:51 AM
--- NOTE | 2024-01-22 06:33 | RAD REPORT ---
CLINICAL HISTORY: Acute headache. COMPARISON: CT Head Brain 07/18/2023. TECHNIQUE: CT HEAD WITHOUT IV CONTRAST on 01/22/2024 4:33 AM CDT This exam was performed according to our departmental dose-optimization program, which includes autom ated exposure control, adjustment of the mA and/or kV according to patient size and/or use of iterative reconstruction technique. FINDINGS: There is no acute hemorrhage, mass effect or midline shift. López-white differentiation is preserved. There is no hydrocephalus. There is no significant volume loss for age. The calvarium is intact. Orbits and globes are unremarkable. The paranasal sinuses are clear. Mastoid air cells are clear. IMPRESSION: No acute intracranial findings. Electronically signed by: Ihsan Negron MD 01/22/2024 05:50 AM CDT Due to temporary technical issues with the PACS/Q Interactive reporting system, reports are being rakan d by the in-house radiologist without review as a courtesy to ensure prompt reporting the interpreting radiologist is fully responsible for the content of the report. Transcribed Date/Time: 01/22/2024 9:52 PM
--- NOTE | 2024-01-22 07:13 | ER ---
Nurse's Notes [facility] Name: Tina Chapman Age: 53 yrs Sex: Female : 1970 Arrival Date: 01/22/2024 Time: 04:13 Bed 13 Private MD: Diagnosis: Essential (primary) hypertension;Essential hypertension, acute hypertensive urgency, tension headache Presentation: 01/21 04:19 Chief complaint: Patient states: HIGH BLOOD PRESSURE, HEADACHE, NAUSEA, AND CHEST PAIN. ha1 04:19 Coronavirus screen: Vaccine status: At this time, the client does not indicate any [facility] symptoms associated with coronavirus-19. Ebola Screen: No symptoms or risks identified at this time. Initial Sepsis Screen: Does the patient meet any 2 criteria? No. Patient's initial sepsis screen is negative. Does the patient have a suspected source of infection? No. Patient's initial sepsis screen is negative. Risk Assessment: Do you want to hurt yourself or someone else? Patient reports no desire to harm self or others. Onset of symptoms was January 22, 2024. 04:19 Method Of Arrival: Ambulatory ha1 04:19 Acuity: DENEEN 2 ha1 Triage Assessment: 04:19 Headache History: Denies prior headaches. General: Appears uncomfortable, Behavior is ha1 calm, cooperative. Pain: Complains of pain in HEAD AND CHEST Pain does not radiate. Pain currently is 5 out of 10 on a pain scale. Quality of pain is described as pressure, Pain began gradually, Also complains of nausea. Neuro: Level of Consciousness is awake, alert, obeys commands, Oriented to person, place, time, situation. Cardiovascular: Reports chest pain, Capillary refill < 3 seconds Patient's skin is warm and dry. Respiratory: Airway is patent Respiratory effort is even, unlabored, Respiratory pattern is regular, symmetrical. CELERY WRAPPER: 04:19 LMP N/A - Hysterectomy, Not ha1 Historical: - Allergies: 04:33 Codeine; cp4 04:33 PENICILLINS; cp4 - Home Meds: 04:33 lisinopril 40 mg Oral tablet daily [Active]; metoprolol tartrate 100 mg Oral tablet 2 cp4 times per day [Active]; - PMHx: 04:33 Anxiety; Hypercholesterolemia; Hypertensive disorder; cp4 - PSHx: 04:33 Thyroid tumor; cp4 04:42 Thyroidectomy; Tonsillectomy; HISTORECTOMY; ha1 - Immunization history:: Adult Immunizations up to date. - Infectious Disease History:: Denies. - Family history:: not pertinent. - Social history:: Smoking status: Patient denies any tobacco usage or history of. Screenin:33 [facility] ED Fall Risk Assessment (Adult) History of falling in the last 3 months, cp4 including since admission No falls in past 3 months (0 pts) Confusion or Disorientation No (0 pts) Intoxicated or Sedated No (0 pts) Impaired Gait No (0 pts) Mobility Assist Device Used No (0 pt) Altered Elimination No (0 pt) Score/Fall Risk Level 0 - 2 = Low Risk Oriented to surroundings, Maintained a safe environment, Assessed \T\ reinforced patient's understanding of fall precautions, Hourly rounding (assess needs \T\ fall precautionary measures) done. Abuse screen: Denies threats or abuse. Nutritional screening: No deficits noted. Tuberculosis screening: No symptoms or risk factors identified. Assessment: 04:31 General: Appears in no apparent distress. uncomfortable. General: Appears Behavior is cp4 calm, cooperative, appropriate for age. Pain: Complains of pain in head Pain does not radiate. Pain currently is 5 out of 10 on a pain scale. Neuro: Level of Consciousness is awake, alert, obeys commands, Oriented to person, place, time, situation. Cardiovascular: Patient's skin is warm and dry. Respiratory: Airway is patent Respiratory effort is even, unlabored. GI: No signs and/or symptoms were reported involving the gastrointestinal system. : No signs and/or symptoms were reported regarding the genitourinary system. EENT: No signs and/or symptoms were reported regarding the EENT system. Derm: No signs and/or symptoms reported regarding the dermatologic system. Musculoskeletal: No signs and/or symptoms reported regarding the musculoskeletal system. 05:30 Reassessment: Patient appears in no apparent distress at this time. Patient and/or cp4 family updated on plan of care and expected duration. Pain level reassessed. Patient is alert, oriented x 3, equal unlabored respirations, skin warm/dry/pink. 06:30 Reassessment: Patient appears in no apparent distress at this time. Patient and/or cp4 family updated on plan of care and expected duration. Pain level reassessed. Patient is alert, oriented x 3, equal unlabored respirations, skin warm/dry/pink. Vital Signs: 04:19 BP 198 / 117; Pulse 71; Resp 17 S; Temp 97.8(T); Pulse Ox 99% on R/A; Weight 68.49 kg; ha1 Height 5 ft. 4 in. ; Pain 5/10; 05:30 BP 170 / 97; Pulse 69; Resp 18; Pulse Ox 99% ; cp4 06:43 BP 161 / 104; Pulse 70; Resp 18; Pulse Ox 99% ; cp4 04:19 Body Mass Index 25.92 (68.49 kg, 162.56 cm) ha1 04:19 Pain Scale: Adult ha1 Jamila Coma Score: 07:09 Eye Response: spontaneous(4). Motor Response: obeys commands(6). Verbal Response: sp4 oriented(5). Total: 15. NIH Stroke Scale Scores: 07:09 NIHSS Score: 0 sp4 ED Course: 04:17 Patient arrived in ED. jj6 04:23 Mickey Zamudio MD is Attending Physician. sp4 04:31 Pearl Paz is Primary Nurse. cp4 04:32 Inserted saline lock: 20 gauge in right forearm, using aseptic technique. Blood vc1 collected. Flushed with 10 mL NS. 04:33 No provider procedures requiring assistance completed. cp4 04:33 Bed in low position. Call light in reach. Side rails up X2. Provided Education on: cp4 hypertension. 04:38 Basic Metabolic Panel Sent. cp4 04:38 CBC with Diff Sent. cp4 04:38 LFT's Sent. cp4 04:38 Magnesium Sent. cp4 04:38 NT PRO-BNP Sent. cp4 04:38 PT-INR Sent. cp4 04:39 Troponin HS Sent. cp4 04:39 Initial lab(s) drawn, by ED staff, sent to lab. cp4 04:41 Triage completed. ha1 04:54 XRAY Chest (1 view) In Process Unspecified. EDMS 05:01 CT Head Brain wo Cont In Process Unspecified. EDMS 07:41 IV discontinued, intact, bleeding controlled, No redness/swelling at site. Pressure ph dressing applied. Administered Medications: 04:45 Drug: HydrALAZINE PO 50 mg PO once Route: PO; cp4 04:45 Drug: metoCLOPramide IVP 10 mg IVP once; over 1 to 2 minutes Route: IVP; Site: right cp4 forearm; 04:45 Drug: Ketorolac IVP 15 mg IVP once Route: IVP; Site: right forearm; cp4 Medication: 04:33 VIS not applicable for this client. cp4 Outcome: 07:12 Discharge ordered by sp4 07:41 Discharged to home ambulatory, 07:41 Condition: good 07:41 Discharge instructions given to patient, Instructed on discharge instructions, follow up and referral plans. medication usage, Demonstrated understanding of instructions, follow-up care, medications, Prescriptions given X 1, 07:41 Patient left the ED. ph NIH Stroke Scale - NIH Stroke Score Date: 01/22/2024 Time: 07:09 Total Score = 0 10. Dysarthria (speech clarity - read or repeat words) - 0(Normal) 11. Extinction and Inattention (visual/tactile/auditory/spatial/personal) - 0(No abnormality) 1a. Level of Consciousness (LOC) - 0(Alert) 1b. Level of Consciousness (LOC) (Month \T\ Age) - 0(Both) 1c. LOC Commands (Open \T\ Closes Eyes/Halal Butcher) - 0(Both) 2. Best Gaze (Lateral Gaze Paresis) - 0(Normal) 3. Visual Field Loss - 0(No visual loss) 4. Facial Palsy - 0(Normal) 5a. Left Arm: Motor (10-second hold) - 0(No drift) 5b. Right Arm: Motor (10-second hold) - 0(No drift) 6a. Left Leg: Motor (5-second hold - always test supine) - 0(No drift) 6b. Right Leg: Motor (5-second hold - always test supine) - 0(No drift) 7. Limb Ataxia (finger/nose \T\ heel/rea - test with eyes open) - 0(Absent) 8. Sensory Loss (pinprick arms/legs/face) - 0(Normal) 9. Best Language: Aphasia (description/naming/reading) - 0(No aphasia) Initials: sp4 Signatures: Dispatcher [employer] EDIL Makayla Zimmerman RN RN Carmen Guevara jj6 Sue Huggins RN RN vc1 Mary Rogers RN RN ha1 Mickey Zamudio MD MD sp4 Pearl Paz 4
--- NOTE | 2024-01-22 07:13 | EDPHYS ---
Physician Documentation [facility] Name: Tina Chapman Age: 53 yrs Sex: Female : 1970 Arrival Date: 01/22/2024 Time: 04:13 Bed 13 Private MD: ED Physician Mickey Zamudio HPI: 01/21 04:23 This 53 yrs old Female presents to ER via Unassigned with complaints of High sp4 Blood Pressure, Headache, Doesn't Feel Right. 07:09 53-year-old female presents with complaint of headache and elevated blood pressure. 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 - Infectious Disease History:: Denies. - Family history:: not pertinent. - Social history:: Smoking status: Patient denies any tobacco usage or history of. ROS: 07:09 Constitutional: Negative for fever, chills, and weight loss, positive for elevated sp4 blood pressure and headache 07:09 All other systems are negative, Exam: 07:09 Constitutional: This is a well developed, well nourished patient who is awake, alert, sp4 and in no acute distress. Head/Face: Normocephalic, atraumatic. Eyes: Pupils equal round and reactive to light, extra-ocular motions intact. Lids and lashes normal. Conjunctiva and sclera are not injected. Cornea within normal limits. Periorbital areas with no swelling, redness, or edema. ENT: Nares patent. No nasal discharge, no septal abnormalities noted. Tympanic membranes are normal and external auditory canals are clear. Oropharynx with no redness, swelling, or masses, exudates, or evidence of obstruction, uvula midline. Mucous membranes moist. Neck: Trachea midline, no thyromegaly or masses palpated, and no cervical lymphadenopathy. Supple, full range of motion without nuchal rigidity, or vertebral point tenderness. Chest/axilla: Normal chest wall appearance and motion. Nontender with no deformity. No lesions are appreciated. Cardiovascular: Regular rate and rhythm with a normal S1 and S2. No gallops, murmurs, or rubs. Normal PMI, no JVD. No pulse deficits. Respiratory: Lungs have equal breath sounds bilaterally, clear to auscultation and percussion. No rales, rhonchi or wheezes noted. No increased work of breathing, no retractions or nasal flaring. Abdomen/GI: Soft, with normal bowel sounds. No distension or tympany. No guarding or rebound. No evidence of tenderness throughout. Back: No spinal tenderness. No costovertebral tenderness. Skin: Warm, dry with normal turgor. Normal color with no rashes, no lesions, and no evidence of cellulitis. MS/ Extremity: Pulses equal, no cyanosis. Neurovascular intact. Full, normal range of motion. Neuro: Awake and alert, GCS 15, oriented to person, place, time, and situation. Cranial nerves II-XII grossly intact. Motor strength 5/5 in all extremities. Sensory grossly intact. Psych: Awake, alert, with orientation to person, place and time. Behavior, mood, and affect are within normal limits 07:31 ECG was reviewed by the Attending Physician. EKG at 0 427 normal sinus rhythm rate sp4 68 Vital Signs: 04:19 BP 198 / 117; Pulse 71; Resp 17 S; Temp 97.8(T); Pulse Ox 99% on R/A; Weight 68.49 kg; ha1 Height 5 ft. 4 in. ; Pain 5/10; 05:30 BP 170 / 97; Pulse 69; Resp 18; Pulse Ox 99% ; cp4 06:43 BP 161 / 104; Pulse 70; Resp 18; Pulse Ox 99% ; cp4 04:19 Body Mass Index 25.92 (68.49 kg, 162.56 cm) ha1 04:19 Pain Scale: Adult ha1 NIH Stroke Scale Scores: 07:09 NIHSS Score: 0 sp4 Jamila Coma Score: 07:09 Eye Response: spontaneous(4). Motor Response: obeys commands(6). Verbal Response: sp4 oriented(5). Total: 15. MDM: 07:00 Patient medically screened. sp4 07:11 Differential diagnosis: hypertensive crisis, Malignant HTN, CVA, intracerebral sp4 hemorrhage. Data reviewed: vital signs, nurses notes, lab test result(s), EKG, radiologic studies, CT scan, plain films. ED course: CLINICAL HISTORY: Acute headache. COMPARISON: CT Head Brain 07/18/2023. TECHNIQUE: CT HEAD WITHOUT IV CONTRAST on 01/22/2024 4:33 AM CDT This exam was performed according to our departmental dose-optimization program, which includes automated exposure control, adjustment of the mA and/or kV according to patient size and/or use of iterative reconstruction technique. FINDINGS: There is no acute hemorrhage, mass effect or midline shift. López-white differentiation is preserved. There is no hydrocephalus. There is no significant volume loss for age. The calvarium is intact. Orbits and globes are unremarkable. The paranasal sinuses are clear. Mastoid air cells are clear. IMPRESSION: No acute intracranial findings. . ED course: CLINICAL HISTORY: Chest pain. COMPARISON: None. TECHNIQUE: XR CHEST 1 VIEW 01/22/2024 4:24 AM CDT FINDINGS: Cardiac silhouette is normal in size. Lungs are clear without consolidation, atelectasis, mass or edema. There is no pleural effusion. There is no pneumothorax. There are no acute osseous findings. IMPRESSION: Clear lungs. . 07:11 Consideration of Admission/Observation Escalation of care including sp4 admission/observation considered. ED course: Patient is stable for discharge home.. 01/21 04:24 Order name: Basic Metabolic Panel; Complete Time: 07:00 sp4 01/21 04:24 Order name: CBC with Diff; Complete Time: 07:00 sp4 01/21 04:24 Order name: LFT's; Complete Time: 07:00 sp4 01/21 04:24 Order name: Magnesium; Complete Time: 07:00 sp4 01/21 04:24 Order name: NT PRO-BNP; Complete Time: 07:00 sp4 01/21 04:24 Order name: PT-INR; Complete Time: 07:00 sp4 01/21 04:24 Order name: Troponin HS; Complete Time: 07:00 4 01/21 04:24 Order name: XRAY Chest (1 view) 4 01/21 04:33 Order name: CT Head Brain wo Cont sp4 01/21 04:24 Order name: Cardiac monitoring; Complete Time: sp4 01/21 04:24 Order name: EKG - Nurse/Tech; Complete Time: sp4 01/21 04:24 Order name: IV Saline Lock; Complete Time: sp4 01/21 04:24 Order name: Labs collected and sent; Complete Time: sp4 01/21 04:24 Order name: O2 Per Protocol; Complete Time: sp4 01/21 04:24 Order name: O2 Sat Monitoring; Complete Time: : sp4 EC:31 Rate is 68 beats/min. Rhythm is regular, Normal Sinus Rhythm. QRS [place] is Normal. ID sp4 interval is normal. QRS interval is normal. QT interval is normal. No Q waves. T waves are Normal. No ST changes noted. Clinical impression: No evidence of ischemia. Interpreted by me. Reviewed by me. Administered Medications: 04:45 Drug: HydrALAZINE PO 50 mg PO once Route: PO; cp4 04:45 Drug: metoCLOPramide IVP 10 mg IVP once; over 1 to 2 minutes Route: IVP; Site: right cp4 forearm; 04:45 Drug: Ketorolac IVP 15 mg IVP once Route: IVP; Site: right forearm; cp4 Disposition Summary: 01/22/24 07:12 Discharge Ordered Notes: Location: Home sp4 Problem: new sp4 Symptoms: have improved sp4 Condition: Stable sp4 Diagnosis - Essential (primary) hypertension sp4 - Essential hypertension, acute hypertensive urgency, tension headache sp4 Followup: sp4 - With: Private Physician - When: 7 - 10 days - Reason: Recheck today's complaints Discharge Instructions: - Discharge Summary Sheet sp4 - Tension Headache, Adult, [id number] sp4 Forms: - Work release form ph - Patient Portal Instructions sp4 Prescriptions: - Fioricet 50-300-40 mg Oral capsule - take 1 capsule ORAL route every 8 hours PRN headache; 30 capsule; Refills: 0, sp4 Product Selection Permitted NIH Stroke Scale - NIH Stroke Score Date: 01/22/2024 Time: 07:09 Total Score = 0 10. Dysarthria (speech clarity - read or repeat words) - 0(Normal) 11. Extinction and Inattention (visual/tactile/auditory/spatial/personal) - 0(No abnormality) 1a. Level of Consciousness (LOC) - 0(Alert) 1b. Level of Consciousness (LOC) (Month \T\ Age) - 0(Both) 1c. LOC Commands (Open \T\ Closes Eyes/Marketing Program Manager) - 0(Both) 2. Best Gaze (Lateral Gaze Paresis) - 0(Normal) 3. Visual Field Loss - 0(No visual loss) 4. Facial Palsy - 0(Normal) 5a. Left Arm: Motor (10-second hold) - 0(No drift) 5b. Right Arm: Motor (10-second hold) - 0(No drift) 6a. Left Leg: Motor (5-second hold - always test supine) - 0(No drift) 6b. Right Leg: Motor (5-second hold - always test supine) - 0(No drift) 7. Limb Ataxia (finger/nose \T\ heel/rea - test with eyes open) - 0(Absent) 8. Sensory Loss (pinprick arms/legs/face) - 0(Normal) 9. Best Language: Aphasia (description/naming/reading) - 0(No aphasia) Initials: sp4 Signatures: Dispatcher [employer] EDMS Mary Rogers RN RN ha1 Mickey Zamudio MD MD sp4 Pearl Paz cp4 Corrections: (The following items were deleted from the chart) 04:24 04:24 BASIC METABOLIC PANEL+C.LAB.BRZ ordered. EDMS EDMS 04:24 04:24 CBC+H.LAB.BRZ ordered. EDMS EDMS 04:24 04:24 HEPATIC FUNCTION+C.LAB.BRZ ordered. EDMS EDMS 04:24 04:24 MAGNESIUM+C.LAB.BRZ ordered. EDMS EDMS 04:24 04:24 PROBNP+C.LAB.BRZ ordered. EDMS EDMS 04:24 04:24 PROTIME (+INR)+COAG.LAB.BRZ ordered. EDMS EDMS 04:24 04:24 Troponin High Sensitivity+C.LAB.BRZ ordered. EDMS EDMS 04:24 04:24 Chest Single View+RAD.RAD.BRZ ordered. EDMS EDMS 04:33 04:33 Head Brain Wo Cont+CT.RAD.BRZ ordered. EDMS EDMS
[2024-01-22 10:21] VITALS: TEMP 97.8; O2SAT 99
[2024-01-22 10:24] VITALS: BP 161/104
--- NOTE | 2024-01-27 12:14 | EKG ---
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
== END 2024-01-22 07:41 | disposition home or self-care (01) ==
LOC: ER 04:13
DX: I16.0 Hypertensive urgency (principal); G44.209 Tension-type headache, unspecified, not intractable; E78.00 Pure hypercholesterolemia, unspecified; F41.9 Anxiety disorder, unspecified
CPT/HCPCS: 93005; 85025; 80048; 36415; 83735; 85610; 80076; 84484; 83880; 70450; 71045; J2765; 96374; 96375; 99284

== ENCOUNTER 2024-02-08 21:41 | Emergency (ER) | payer OTHER ==
--- OUTSIDE RECORDS SUMMARY | 2024-02-08 21:48 | XMS REPORT | Continuity of Care Document ---
Author Name Unknown Address [address] [facility] [address] [place], [place] [id number] [place] [address] [address] [facility] [address] [place] [address] Care Team Providers Care Drying Room Attendant Name Role Phone Veronica Gaona Primary Care Physician [email or web address] Attending Clinician Unavaila ble [email or web address] Admitting Clinician Unavaila ble Allergies, Adverse Reactions, Alerts Allergy Name Allergy Type Status Severity Reaction(s) Onset Date Inactive Date Treating Clinician Comments Source cillins (Not Checked) Propensi ty to adverse reaction to drug Active 9-21 00:00: 00 Medardo Miner Penicill ins - [...] Components Source metoprolol tartrate 100 mg tablet 2023-04 0-12 00:00: 00 Yes mg Medardo Miner metoprolol tartrate 100 mg tablet 2023-04 0-11 00:00: 00 Yes mg Medardo Miner Norvasc 10 mg tablet 2023-04 0-11 00:00: 00 Yes 1mg Medardo Miner lisinopril 40 mg tablet 2023-04 0-11 00:00: 00 Yes 1mg Medardo Miner bupropion HCl XL 300 mg 24 hr tablet, extended release 2023-04 0- 00:00: 00 Yes 1mg Medardo Miner aripiprazol e 2 mg tablet 2023-04 0- 00:00: 00 Yes 15mg Medardo Miner Trileptal 300 mg tablet 2023-04 0- 00:00: 00 Yes 1mg Medardo Miner buspirone 15 mg tablet 2023-04 0- 00:00: 00 Yes 1mg Medardo Miner metoprolol tartrate 100 mg tablet 0 - 00:00: 00 Yes mg Medardo Miner hydralazine 10 mg tablet 0 - 00:00: 00 Yes 1mg Medardo Miner atorvastati n 20 mg tablet 0 - 00:00: 00 Yes 1mg Medardo Miner diltiazem ER 180 mg capsule,24 hr,extended release 0 - 00:00: 00 Yes 1mg Medardo Miner lisinopril 40 mg tablet 0 9-05 00:00: 00 Yes 1mg Medardo Miner bupropion HCl XL 300 mg 24 hr tablet, extended release 2023-0 7-15 00:00: 00 Yes 1mg Medardo Miner aripiprazol e 2 mg tablet 0 7-15 00:00: 00 Yes 15mg Medardo Miner Trileptal 300 mg tablet 2023-0 7-15 00:00: 00 Yes 1mg Medardo Miner buspirone 15 mg tablet 2023-0 7-15 00:00: 00 Yes 1mg Medardo Miner bupropion HCl XL 300 mg 24 hr tablet, extended release 2023-0 7-10 00:00: 00 Yes 1mg Medardo Miner aripiprazol e 2 mg tablet 2023-0 7-10 00:00: 00 Yes 15mg Medardo Miner Trileptal 300 mg tablet 2023-0 7-10 00:00: 00 Yes 1mg Medardo Miner buspirone 15 mg tablet 2023-0 7-10 00:00: 00 Yes 1mg Medardo Miner diltiazem ER 180 mg capsule,24 hr,extended release 4-0 6-14 00:00: 00 Yes 1mg Medardo Miner diltiazem ER 360 mg capsule,24 hr,extended release 4-0 5-30 00:00: 00 Yes mg Medardo Miner metoprolol tartrate 100 mg tablet 09-08 00:00: 00 Yes mg Medardo Miner atorvastati n 20 mg tablet 09-08 00:00: 00 Yes 1mg Medardo Miner lisinopril 40 mg tablet 09-08 00:00: 00 Yes 1mg Medardo Miner hydralazine 10 mg tablet 09-08 00:00: 00 Yes 1mg Medardo Miner diltiazem ER 360 mg capsule,24 hr,extended release 09-07 00:00: 00 Yes mg Medardo Miner metoprolol tartrate 100 mg tablet 09-02 00:00: 00 Yes mg Medardo Miner bupropion HCl XL 300 mg 24 hr tablet, extended release 08-19 00:00: 00 Yes 1mg Medardo Miner aripiprazol e 2 mg tablet 0 - 00:00: 00 Yes 15mg Medardo Miner Trileptal 300 mg tablet 0 5-10 00:00: 00 Yes 1mg Medardo Miner buspirone 15 mg tablet 0 5-10 00:00: 00 Yes 1mg Medardo Miner TAKE 1 TABLET BY MOUTH TWICE A DAY 0 -10 00:00: 00 Yes 300 Medardo Miner bupropion HCl XL 300 mg 24 hr tablet, extended release -14 00:00: 00 Yes 1mg Medardo Miner aripiprazol e 2 mg tablet 0 -14 00:00: 00 Yes 15mg Medardo Miner Trileptal 300 mg tablet 0 3-14 00:00: 00 Yes 1mg Medardo Miner buspirone 15 mg tablet 0 3-14 00:00: 00 Yes 1mg Medardo Miner TAKE 1 TABLET BY MOUTH DAILY 2-16 00:00: 00 12-14 00:00 :00 No 10 Medardo Miner TAKE 1 TABLET DAILY. 1-26 00:00: 00 12-14 00:00 :00 No 300 Medardo Miner TAKE 1 TABLET TWICE DAILY. 05-07 00:00: 00 12-14 00:00 :00 No 300 Medardo F Kristofer TAKE 1 TABLET 3 TIMES DAILY. 05-07 00:00: 00 12-14 00:00 :00 No 15 Medardo F Kristofer TAKE ONE AND A HALF TABLET DAILY 05-07 00:00: 00 12-14 00:00 :00 No 2 Medardo F Kristofer TAKE ONE AND A HALF TABLET DAILY 2022-04 2 00:00: 00 12-14 00:00 :00 No 2 Medardo F Kristofer TAKE 1 TABLET 3 TIMES DAILY. 2022-04 00:00: 00 12-14 00:00 :00 No 15 Medardo F Kristofer TAKE 1 TABLET TWICE DAILY. 2022-04 00:00: 00 12-14 00:00 :00 No 300 Medardo F Kristofer TAKE 1 TABLET DAILY. 2022-04 00:00: 00 12-14 00:00 :00 No 300 Medardo F Kristofer TAKE 1 TABLET BY MOUTH DAILY 2022-04 00:00: 00 12-14 00:00 :00 No 20 Medardo F Kristofer TAKE 1 TABLET TWICE DAILY. 2022-04 00:00: 00 12-14 00:00 :00 No 40 Medardo F Krsitofer TAKE 1 TABLET BY MOUTH DAILY 2022-04 [...] 2022-04 00:00: 00 12-14 00:00 :00 No 300 Medardo [place] Miner TAKE 1 TABLET DAILY. 2022-04 0 00:00: [...] daily. Remove with alcohol every 7 days. 16 00:00: 00 12-14 00:00 :00 No 8 Medardo F Kristofer TAKE 1 TABLET BY MOUTH DAILY 11-24 00:00: 00 12-14 00:00 :00 No 20 Medardo F Kristofer TAKE 1 TABLET TWICE DAILY. 11-24 00:00: 00 12-14 00:00 :00 No 40 Medardo F Kristofer TAKE 1 TABLET BY MOUTH DAILY 11-24 00:00: 00 12-14 00:00 :00 No 10 Medardo F Kristofer TAKE 1 TABLET BY MOUTH DAILY 11-24 00:00: 00 12-14 00:00 :00 No 360 Medardo F Kristofer TAKE 1 TABLET TWICE DAILY. 11-24 00:00: 00 12-14 00:00 :00 No 100 Medardo [place] Miner TAKE 1 TAB Q12H X 5 DAYS 11-23 00:00: 00 12-14 00:00 :00 No 100 Medardo F Kristofer APPLY SPARINGLY TO AFFECTED AREA(S) 3 TIMES A DAY 11-23 00:00: 00 12-14 00:00 :00 No 2 Medardo F Kristofer TAKE ONE AND A HALF TABLET DAILY 11-12 00:00: 00 12-14 00:00 :00 No 2 Medardo F Kristofer TAKE 1 TABLET DAILY. 8- 00:00: 00 12-14 00:00 :00 No 300 Medardoraysa Miner TAKE 1 TABLET TWICE DAILY. 11-12 00:00: 00 12-14 00:00 :00 No 300 Medardo Miner TAKE 1 TABLET 3 TIMES DAILY. 11-12 00:00: 00 12-14 00:00 :00 No 15 Medardoraysa Miner TAKE 1 TABLET BY MOUTH DAILY 7 00:00: 00 12-14 00:00 :00 No 20 Medardo F Kristofer TAKE 1 TABLET BY MOUTH DAILY 09-18 00:00: 00 12-14 00:00 :00 No 360 Medardoraysa Miner TAKE 1 TABLET TWICE DAILY. 09-18 00:00: 00 12-14 00:00 :00 No 100 Medardoraysa Miner TAKE 1 TABLET TWICE DAILY. 09-17 00:00: 00 12-14 00:00 :00 No 300 Medardoraysa Miner TAKE 1 TABLET 3 TIMES DAILY. 6 00:00: 00 12-14 00:00 :00 No 15 Medardoraysa Miner TAKE ONE AND A HALF TABLET DAILY 6 00:00: 00 12-14 00:00 :00 No 2 Mdeardo Miner TAKE 1 TABLET DAILY. 09-17 00:00: 00 12-14 00:00 :00 No 300 Medardo Miner TAKE 1 TABLET TWICE DAILY. 09-09 00:00: 00 12-14 00:00 :00 No 40 Medardoraysa Miner TAKE 1 TABLET TWICE DAILY. 5 00:00: 00 12-14 00:00 :00 No 100 Medardoraysa Miner TAKE 1 TABLET BY MOUTH DAILY 5-24 00:00: 00 12-14 00:00 :00 No 360 Medardo Miner TAKE 1 TABLET TWICE DAILY. 5-20 00:00: 00 12-14 00:00 :00 No 25 Medardoraysa Miner TAKE 1 TABLET TWICE DAILY DIRECTED. 5-20 00:00: 00 12-14 00:00 :00 No 100 Medardoraysa Miner TAKE 1 TABLET 3 TIMES DAILY. 12 00:00: 00 12-14 00:00 :00 No 15 Medardo Alexandria Miner TAKE ONE AND A HALF TABLET DAILY 08-21 00:00: 00 12-14 00:00 :00 No 2 Medardoraysa Miner TAKE 1 TABLET DAILY. 08-21 00:00: 00 12-14 00:00 :00 No 300 Medardoraysa Miner TAKE 1 TABLET TWICE DAILY. 08-21 00:00: 00 12-14 00:00 :00 No 300 Medardo Miner TAKE 1 TABLET DAILY. 07-24 00:00: 00 12-14 00:00 :00 No 150 Medardo Miner TAKE 1 TABLET TWICE DAILY. 07-24 00:00: 00 12-14 00:00 :00 No 300 Medardo Miner TAKE 1 TABLET 3 TIMES DAILY. 07-24 00:00: 00 12-14 00:00 :00 No 15 Medardoraysa Miner TAKE ONE AND A HALF TABLET DAILY 07-24 00:00: 00 12-14 00:00 :00 No 2 [...] HOURS NEEDED COUGH 07-17 00:00: 00 Yes Medardo Miner INHALE 1 PUFF BY MOUTH EVERY 4 TO 6 HOURS NEEDED 2023-0 4-07 00:00: 00 Yes Medardo Miner TAKE 1 TABLET DAILY. 3-10 00:00: 00 12-14 00:00 :00 No 20 Medardo Alexandria Miner TAKE 1 TABLET BY MOUTH DAILY 3-10 00:00: 00 12-14 00:00 :00 No 40 Medardo F Kristofer TAKE 1 TABLET BY MOUTH DAILY 3-10 00:00: 00 12-14 00:00 :00 No 10 Medardo [place] Miner TAKE 1 TABLET TWICE DAILY. 3-10 00:00: 00 12-14 00:00 :00 No 100 Medardo F Kristofer TAKE 1 TABLET BY MOUTH TWICE DAILY. 06-18 00:00: 00 12-14 00:00 :00 [place] [id number] Medardoraysa Miner TAKE 1 TABLET BY MOUTH DAILY 2-22 00:00: 00 12-14 00:00 :00 No 10 Medardoraysa Miner TAKE ONE AND A HALF TABLET DAILY 2-17 00:00: 00 12-14 00:00 :00 No 2 Medardoraysa Miner TAKE 1 TABLET 3 TIMES DAILY. 2-17 00:00: 00 12-14 00:00 :00 No 15 Medardo [place] Miner TAKE 1 TABLET TWICE DAILY. 2-17 00:00: 00 12-14 00:00 :00 No 300 Medardoraysa Miner TAKE 1 TABLET BY MOUTH DAILY 1-16 00:00: 00 12-14 00:00 :00 No 10 Medardoraysa Miner TAKE 1 TABLET TWICE DAILY. 2021-04 2-23 00:00: 00 12-14 00:00 :00 No 300 Medardo F Kristofer TAKE ONE AND A HALF TABLET DAILY 2021-04 2-23 00:00: 00 12-14 00:00 :00 No 2 Medardo F Kristofer TAKE 1 TABLET DAILY. 2021-04 2-15 00:00: 00 12-14 00:00 :00 No Medardoraysa Miner TAKE 1 TABLET TWICE DAILY. 2021-04 2-15 00:00: 00 12-14 00:00 :00 No Medardo F Kristofer TAKE 1 TABLET 3 TIMES DAILY. 2021-04 2- 00:00: 00 12-14 00:00 :00 No Medardo Miner TAKE ONE AND A HALF TABLET DAILY 2021-04 2 00:00: 00 12-14 00:00 :00 No Medardo Miner TAKE 1 CAPSULE EVERY 12 HOURS DAILY. 2021-04 2 00:00: 00 12-14 00:00 :00 No Medardo Miner Dose Unknown 2021-04 2 00:00: 00 12-14 00:00 :00 No Medardo [place] Miner Dose Unknown 2021-04 2 00:00: 00 12-14 00:00 :00 No Medardo Miner TAKE 1 TABLET DAILY. 2021-04 2 00:00: 00 12-14 00:00 :00 No 10 Medardo Miner TAKE 1 TABLET DAILY. 2021-04 00:00: 00 12-14 00:00 :00 No 10 Medardo Miner TAKE 1 TABLET TWICE DAILY. 2021-04 2 00:00: 00 12-14 00:00 :00 No Medardo Miner TAKE 1 TABLET TWICE DAILY. 2021-04 00:00: 00 12-14 00:00 :00 No 100 [...] Q12H X 5 DAYS 11-24 00:00: 00 Yes 100 Medardo Miner TAKE 1 TAB Q12H X 5 DAYS 0 8-15 00:00: 00 No 100 TAKE 1 TAB Q12H X 5 DAYS 0 8-15 00:00: 00 No 100 TAKE 1 TABLET 3 TIMES DAILY. 8-12 00:00: 00 Yes 15 Medardo Miner TAKE 1 TABLET 3 TIMES DAILY. 8-12 00:00: 00 No 15 TAKE 1 TABLET 3 TIMES DAILY. 8-12 00:00: 00 No 15 TAKE 1 TABLET 3 TIMES DAILY. 8-12 00:00: 00 No 15 TAKE ONE AND A HALF TABLET DAILY 8- 00:00: 00 Yes 2 Medardo Miner TAKE ONE AND A HALF TABLET DAILY 11-19 00:00: 00 No 2 TAKE ONE AND A HALF TABLET DAILY 8 00:00: 00 No 2 TAKE ONE AND A HALF TABLET DAILY 0 8 00:00: 00 No 2 Dose Unknown 0 7-14 00:00: 00 Yes Medardo Miner Dose Unknown 0 7-14 00:00: 00 Yes Medardo Miner Dose Unknown 0 7-14 00:00: 00 Yes Medardo Miner Dose Unknown 0 7-14 00:00: 00 No Dose Unknown 0 7-14 00:00: 00 No Dose Unknown 0 7-14 00:00: 00 No Dose Unknown 0 7-14 00:00: 00 No Dose Unknown 0 7-14 00:00: 00 No Dose Unknown 0 7-14 00:00: 00 No Dose Unknown 0 7-14 00:00: 00 No Dose Unknown 0 7-14 00:00: 00 No Dose Unknown 0 7-14 00:00: 00 No TAKE 1 TABLET TWICE DAILY. - 00:00: 00 Yes Medardo Miner Dose Unknown 0 - 00:00: 00 Yes Medardo Miner Dose Unknown 0 6- 00:00: 00 Yes Medardo Miner Trileptal 300 mg tablet 0 6- 00:00: 00 No 1mg buspirone 10 mg tablet 09-18 00:00: 00 No 15mg Abilify 2 mg tablet 09-18 00:00: 00 No 15mg Trileptal 300 mg tablet 09-18 00:00: 00 No 1mg buspirone 10 mg tablet 09-18 00:00: 00 No 15mg Abilify 2 mg tablet 09-18 00:00: 00 No 15mg Trileptal 300 mg tablet 09-18 00:00: 00 No 1mg buspirone 10 mg tablet 09-18 00:00: 00 No 15mg Abilify 2 mg tablet 09-18 00:00: 00 No 15mg TAKE 1 TABLET TWICE DAILY. 09-02 00:00: 00 Yes Medardo Miner simvastatin 40 mg tablet 09-02 00:00: 00 Yes 1mg Medardo Miner [...] 00 12-14 00:00 :00 No 75 Medardo F Kristofer Dose Unknown 08-04 00:00: 00 Yes Medardo F Kristofer simvastatin 40 mg tablet 08-04 00:00: 00 No 1mg simvastatin 40 mg tablet 08-04 00:00: 00 No 1mg simvastatin 40 mg tablet 08-04 00:00: 00 No 1mg TAKE 1 TABLET TWICE DAILY. 07-23 00:00: 00 Yes Medardo F Kristofer Dose Unknown 07-23 00:00: 00 Yes Medardo F Kristofer Dose Unknown 07-23 00:00: 00 Yes Medardo F Kristofer Dose Unknown 07-23 00:00: 00 Yes Medardo F Kristofer Trileptal 300 mg tablet 07-23 00:00: 00 No 1mg buspirone 10 mg tablet 07-23 00:00: 00 No 15mg Abilify 2 mg tablet 07-23 00:00: 00 No 15mg Dose Unknown 4- 00:00: 00 No Trileptal 300 mg tablet 4- 00:00: 00 No 1mg buspirone 10 mg tablet 2022-0 4-13 00:00: 00 No 15mg Abilify 2 mg tablet 4-13 00:00: 00 No 15mg Dose Unknown 4-13 00:00: 00 No Trileptal 300 mg tablet 4-13 00:00: 00 No 1mg buspirone 10 mg tablet 4-13 00:00: 00 No 15mg Abilify 2 mg tablet 4-13 00:00: 00 No 15mg Dose Unknown 413 00:00: 00 No TAKE 1 TABLET TWICE DAILY. 217 00:00: 00 Yes Medardo Miner Dose Unknown 217 00:00: 00 Yes Medardo Miner Dose Unknown 05-29 00:00: 00 Yes Medardo Miner TAKE 1 TABLET TWICE DAILY. 2 00:00: 00 Yes Medardo Miner simvastatin 40 mg tablet 2-17 00:00: 00 No 1mg Singulair 10 mg tablet 2 00:00: 00 No 1mg metoprolol tartrate 75 mg tablet 217 00:00: 00 No 1mg lisinopril 20 mg-hydrochl orothiazide 12.5 mg tablet 217 00:00: 00 No 1mg simvastatin 40 mg tablet 217 00:00: 00 No 1mg Singulair 10 mg tablet 2-17 00:00: 00 No 1mg metoprolol tartrate 75 mg tablet 2-17 00:00: 00 No 1mg lisinopril 20 mg-hydrochl orothiazide 12.5 mg tablet 217 00:00: 00 No 1mg simvastatin 40 mg tablet 2-17 00:00: 00 No 1mg Singulair 10 mg tablet 217 00:00: 00 No 1mg metoprolol tartrate 75 mg tablet 217 00:00: 00 No 1mg TAKE 1 TABLET TWICE DAILY. 217 00:00: 00 No Dose Unknown 17 00:00: 00 12-14 00:00 :00 No 75 Medardo Miner Dose Unknown 2021-0 2-16 00:00: 00 Yes Medardo Miner Dose Unknown 2021-0 2-16 00:00: 00 Yes Medardo Miner Dose Unknown 0 2-16 00:00: 00 Yes Medardo Miner Dose Unknown 0 2-16 00:00: 00 No Dose Unknown 2021-0 2-16 00:00: 00 No Dose Unknown 2021-0 2-16 00:00: 00 No Dose Unknown 0 2-16 00:00: 00 No Dose Unknown 2021-0 2-16 00:00: 00 No Dose Unknown 0 2-16 00:00: 00 No Dose Unknown 0 2-16 00:00: 00 No Dose Unknown 0 2-16 00:00: 00 No Dose Unknown 0 2-16 00:00: 00 No Trileptal 300 mg tablet 2020-04 2- 00:00: 00 Yes 1mg Medardo Miner buspirone 10 mg tablet 2020-04 2- 00:00: 00 Yes 15mg Medardo Miner Abilify 2 mg tablet 2020-04 2- 00:00: 00 Yes 15mg Medardo Miner Trileptal 300 mg tablet 2020-04 2- 00:00: 00 No 1mg buspirone 10 mg tablet 2020-04 2- 00:00: 00 No 15mg Abilify 2 mg tablet 2020-04 2- 00:00: 00 No 15mg Trileptal 300 mg tablet 2020-04 2- 00:00: 00 No 1mg buspirone 10 mg tablet 2020-04 2- 00:00: 00 No 15mg Abilify 2 mg tablet 2020-04 2- 00:00: 00 No 15mg Trileptal 300 mg tablet 2020-04 2- 00:00: 00 No 1mg buspirone 10 mg tablet 2020-04 2- 00:00: 00 No 15mg Abilify 2 mg tablet 2020-04 2- 00:00: 00 No 15mg simvastatin 40 mg tablet 2020-04 2- 00:00: 00 Yes 1mg Medardo Miner metoprolol tartrate 25 mg tablet 2020-04 2 00:00: 00 Yes 1mg Medardo Miner lisinopril 20 mg-hydrochl orothiazide 12.5 mg tablet 2020-04 2 00:00: 00 Yes 1mg Medardo Miner metoprolol tartrate 75 mg tablet 2020-04 2 00:00: 00 Yes 1mg Medardo Miner simvastatin 40 mg tablet 2020-04 2 00:00: [...] mg tablet 2020-04 00:00: 00 No 1mg Abilify 2 mg tablet 2020-04 00:00: 00 No 15mg Trileptal 300 mg tablet 2020-04 00:00: 00 No 1mg Abilify 2 mg tablet 2020-04 00:00: 00 No 15mg Trileptal 300 mg tablet 2020-04 00:00: 00 No 1mg Abilify 2 mg tablet 2020-04 00:00: 00 No 15mg Dose Unknown 2020-04 0 00:00: 00 Yes Medardo Miner buspirone 10 mg tablet 2020-04 0 00:00: 00 Yes 15mg Medardo [place] Miner hydrocortis one 2.5 % topical cream 2020-04 0- 00:00: 00 No 1% buspirone 10 mg tablet 2020-04 0 00:00: 00 No 15mg hydrocortis one 2.5 % topical cream 2020-04 0- 00:00: 00 No 1% buspirone 10 mg tablet 2020-04 0 00:00: 00 No 15mg hydrocortis one 2.5 % topical cream 2020-04 0-12 00:00: 00 No 1% buspirone 10 mg tablet 1 0-12 00:00: 00 No 15mg buspirone 10 mg tablet 0 9 00:00: 00 Yes 15mg Medardo Miner Trileptal 300 mg tablet 0 9 00:00: 00 Yes 1mg Medardo Miner Abilify 2 mg tablet 0 01-02 00:00: 00 Yes 15mg Medardo Miner buspirone 10 mg tablet 0 01-02 00:00: 00 No 15mg Trileptal 300 mg tablet 0 9 00:00: 00 No 1mg Abilify 2 mg tablet 0 9 00:00: 00 No 15mg buspirone 10 mg tablet 0 9 00:00: 00 No 15mg Trileptal 300 mg tablet 0 9 00:00: 00 No 1mg Abilify 2 mg tablet 0 01-02 00:00: 00 No 15mg buspirone 10 mg tablet 0 9 00:00: 00 No 15mg Trileptal 300 mg tablet 0 01-02 00:00: 00 No 1mg Abilify 2 mg tablet 0 01-02 00:00: 00 No 15mg Trileptal 300 mg tablet 0 7 00:00: 00 Yes 1mg Medardo Miner buspirone 10 mg tablet 0 11-07 00:00: 00 Yes 15mg Medardo Miner Abilify 2 mg tablet 0 11-07 00:00: 00 Yes 15mg Medardo Miner Trileptal 300 mg tablet 0 11-07 00:00: 00 No 1mg buspirone 10 mg tablet 0 11-07 00:00: 00 No 15mg Abilify 2 mg tablet 0 11-07 00:00: 00 No 15mg Trileptal 300 mg tablet 0 7 00:00: 00 No 1mg buspirone 10 mg [...] simvastatin 40 mg tablet 10-27 00:00: 00 Yes 1mg Medardo Miner [...] tablet 09-13 00:00: 00 Yes 15mg Medardo F Kristofer Trileptal 300 mg tablet 09-13 00:00: 00 Yes 1mg Medardo F Kristofer Abilify 2 mg tablet 6- 00:00: 00 Yes 15mg Medardo F Kristofer buspirone 10 mg tablet 6- 00:00: 00 No 15mg Trileptal 300 mg tablet 6 00:00: 00 No 1mg Abilify 2 mg tablet 6 00:00: 00 No 15mg buspirone 10 mg tablet 6 00:00: 00 No 15mg Trileptal 300 mg tablet 6- 00:00: 00 No 1mg Abilify 2 mg tablet 6 00:00: 00 No 15mg buspirone 10 mg tablet 6- 00:00: 00 No 15mg Trileptal 300 mg tablet 6- 00:00: 00 No 1mg Abilify 2 mg tablet 6- 00:00: 00 No 15mg buspirone 10 mg tablet 4-14 00:00: 00 Yes 15mg Medardo F Kristofer Trileptal 300 mg tablet 4-14 00:00: 00 Yes 1mg Medardo F Kristofer Abilify 2 mg tablet 4-14 00:00: 00 Yes 15mg Medardo F Kristofer buspirone 10 mg tablet 0 4-14 00:00: [...] Medardo Miner buspirone 10 mg tablet 0 2-22 00:00: 00 Yes 15mg Medardo Miner Abilify 2 mg tablet 0 2-22 00:00: 00 Yes 15mg Medardo Miner Trileptal 300 mg tablet 0 2-22 00:00: 00 No 1mg buspirone 10 mg tablet 0 2-22 00:00: 00 No 15mg Abilify 2 mg tablet 0 2-22 00:00: 00 No 15mg Trileptal 300 mg tablet 0 2-22 00:00: 00 No 1mg buspirone 10 mg tablet 0 2-22 00:00: 00 No 15mg Abilify 2 mg tablet 0 2-22 00:00: 00 No 15mg Trileptal 300 mg tablet 0 2-22 00:00: 00 No 1mg buspirone 10 mg tablet 0 2-22 00:00: 00 No 15mg Abilify 2 mg tablet 0 2-22 00:00: 00 No 15mg Trileptal 300 mg tablet 2019-04 2-22 00:00: 00 Yes 1mg Medardo Miner buspirone 10 mg tablet 2019-04 2 00:00: 00 Yes 15mg Medardo Miner Abilify 2 mg tablet 2019-04 2 00:00: 00 Yes 15mg Medardo Miner Trileptal 300 mg tablet 2019-04 00:00: 00 No 1mg buspirone 10 mg tablet 2019-04 00:00: 00 No 15mg Abilify 2 mg tablet 2019-04 00:00: 00 No 15mg Trileptal 300 mg tablet 2019-04 00:00: 00 No 1mg buspirone 10 mg tablet 2019-04 00:00: 00 No 15mg Abilify 2 mg tablet 2019-04 00:00: 00 No 15mg Trileptal 300 mg tablet 2019-04 00:00: 00 No 1mg buspirone 10 mg tablet 2019-04 00:00: 00 No 15mg Abilify 2 mg [...] Medardo Miner Trileptal 300 mg tablet 2019-04 0 00:00: 00 Yes 1mg Medardo Miner Abilify 2 mg tablet 2019-04 0 00:00: 00 Yes 15mg Medardo Miner buspirone 10 mg tablet 2019-04 0 00:00: 00 No 15mg Trileptal 300 mg tablet 2019-04 0 00:00: 00 No 1mg Abilify 2 mg tablet 2019-04 0 00:00: 00 No 15mg buspirone 10 mg tablet 2019-04 0 00:00: 00 No 15mg Trileptal 300 mg tablet 2019-04 0 00:00: 00 No 1mg Abilify 2 mg tablet 2019-04 0 00:00: 00 No 15mg buspirone 10 mg tablet 2019-04 0 00:00: 00 No 15mg Trileptal 300 mg tablet 2019-04 0 00:00: 00 No 1mg Abilify 2 mg tablet 2019-04 0 00:00: 00 No 15mg buspirone 10 mg tablet 12-05 00:00: 00 Yes 15mg Medardo Miner Trileptal 300 mg tablet 12-05 00:00: 00 Yes 1mg Medardo Miner Abilify 2 mg tablet 12-05 00:00: 00 Yes 15mg Medardo [place] Miner Abilify 2 mg tablet 12-05 00:00: 00 No 15mg buspirone 10 mg tablet 12-05 00:00: 00 No 15mg Trileptal 300 mg tablet 0 12-05 00:00: 00 No 1mg Abilify 2 mg tablet 0 12-05 00:00: 00 No 15mg buspirone 10 mg tablet 0 12-05 00:00: 00 No 15mg Trileptal 300 mg tablet 0 12-05 00:00: 00 No 1mg Abilify 2 mg tablet 0 12-05 00:00: 00 No 15mg buspirone 10 mg tablet 0 12-05 00:00: 00 No 15mg Trileptal 300 mg tablet 0 12-05 00:00: 00 No 1mg buspirone 10 mg tablet 0 10-02 00:00: 00 Yes 15mg Medardo Miner Trileptal 300 mg tablet 0 10-02 00:00: 00 Yes 1mg Medardo Miner Abilify 2 mg tablet 0 10-02 00:00: 00 Yes 15mg Medardo Miner buspirone 10 mg tablet 0 10-02 00:00: 00 No 15mg Trileptal 300 mg tablet 0 10-02 00:00: 00 No 1mg Abilify 2 mg tablet 0 10-02 00:00: 00 No 15mg buspirone 10 mg tablet 0 10-02 00:00: 00 No 15mg Trileptal 300 mg tablet 0 10-02 00:00: 00 No 1mg Abilify 2 mg tablet 0 10-02 00:00: 00 No 15mg buspirone 10 mg tablet 0 10-02 00:00: 00 No 15mg Trileptal 300 mg tablet 0 10-02 00:00: 00 No 1mg Abilify 2 mg tablet 0 10-02 00:00: 00 No 15mg simvastatin 20 mg tablet 0 08-10 00:00: 00 Yes 1mg Medardo Miner Singulair 10 mg tablet 0 08-10 00:00: 00 Yes 1mg Medardo Miner lisinopril 20 mg-hydrochl orothiazide 12.5 mg tablet 2019-0 08-10 00:00: 00 Yes 1mg Medardo Miner metoprolol tartrate 25 mg tablet 0 5- 00:00: 00 Yes 1mg Medardo Miner simvastatin 20 mg tablet 2019-0 5- 00:00: 00 No 1mg Singulair 10 mg tablet 2019-0 5- 00:00: 00 No 1mg lisinopril 20 [...] tablet 0 08-10 00:00: 00 No 1mg simvastatin 20 mg tablet 0 08-10 00:00: 00 No 1mg Singulair 10 mg tablet 0 08-10 00:00: 00 No 1mg lisinopril 20 mg-hydrochl orothiazide 12.5 mg tablet 0 08-10 00:00: 00 No 1mg metoprolol tartrate 25 mg tablet 0 08-10 00:00: 00 No 1mg buspirone 10 mg tablet 0 08-07 00:00: 00 Yes 15mg Medardo Miner Trileptal 300 mg tablet 2019-0 08-07 00:00: 00 Yes 1mg Medardo Miner Abilify 2 mg tablet 2019-0 08-07 00:00: 00 Yes 1mg Medardo Miner melatonin 10 mg capsule 0 08-07 00:00: 00 Yes 12mg Medardo Miner buspirone 10 mg tablet 2019-0 08-07 00:00: 00 No 15mg Trileptal 300 mg tablet 2019-0 08-07 00:00: 00 No 1mg Abilify 2 mg tablet 0 08-07 00:00: 00 No 1mg melatonin 10 mg capsule 2019-0 08-07 00:00: 00 No 12mg buspirone 10 mg tablet 2019-0 08-07 00:00: 00 No 15mg Trileptal 300 mg tablet 2019-0 08-07 00:00: 00 No 1mg Abilify 2 mg tablet 2019-0 08-07 00:00: 00 No 1mg melatonin 10 mg capsule 2019-0 08-07 00:00: 00 No 12mg buspirone 10 mg tablet 2019-0 08-07 00:00: 00 No 15mg Trileptal 300 mg tablet 2019-0 08-07 00:00: 00 No 1mg Abilify 2 mg tablet 2019-0 08-07 00:00: 00 No 1mg melatonin 10 mg capsule 2019-0 08-07 00:00: 00 No 12mg buspirone 10 mg tablet 2019-0 3- 00:00: 00 Yes 15mg [facility] Trileptal 300 mg tablet 2019-0 3-03 00:00: 00 Yes 1mg [facility] Abilify 2 mg tablet 2019-0 3-03 00:00: 00 Yes 1mg [facility] melatonin [...] 15mg [facility] Trileptal 300 mg tablet 04-18 00:00: 00 Yes 1mg Med[facility] Abilify 2 mg tablet 04-18 00:00: 00 Yes 1mg Mdeardo [facility]er melatonin 10 mg capsule 04-18 00:00: 00 Yes 12mg [facility] buspirone 10 mg tablet 04-18 00:00: 00 [...] 12-26 00:00: 00 Yes 1mg [facility] Trileptal [...] 11-21 00:00: 00 Yes 1mg [facility]er Singulair [...] 11-10 00:00: 00 Yes 1mg [facility] Trileptal 300 mg tablet 10-24 00:00: 00 [...] 10-24 00:00: 00 Yes 1mg Med[facility] buspirone 10 mg tablet 09-26 00:00: 00 [...] tablet 09-26 00:00: 00 Yes 15mg Med[facility] Trileptal 300 mg tablet 09-26 00:00: 00 Yes 1mg Med[facility] Abilify 2 mg tablet 09-26 00:00: 00 Yes 1mg Medardo [facility]er metronidazo le 0.75 % topical cream 08-23 00:00: 00 No 1% metronidazo le 0.75 % topical cream 08-23 00:00: 00 No 1% metronidazo le 0.75 % topical cream 08-23 00:00: 00 No 1% metronidazo le 0.75 % topical cream 08-23 00:00: 00 Yes 1% [facility] Trileptal 300 mg tablet 08-22 [...] 1mg [facility] Trileptal 300 mg tablet 07-25 00:00: 00 [...] 1mg Medardo [facility]er buspirone 10 mg tablet 15 00:00: 00 Yes 15mg Med[facility] Abilify 2 mg tablet 15 00:00: 00 Yes 1mg Medardo [facility]er Singulair [...] 1mg Medardo [facility]er Trileptal 300 mg tablet 3-11 00:00: 00 No 1mg Abilify 2 mg tablet 0 3-11 00:00: 00 No 1mg Trileptal 300 mg tablet 0 3-11 00:00: 00 No 1mg Abilify 2 mg tablet 0 3-11 00:00: 00 No 1mg Trileptal 300 mg tablet 0 3-11 00:00: 00 No 1mg Abilify 2 mg tablet 0 3-11 00:00: 00 No 1mg Trileptal 300 mg tablet 0 3-11 00:00: 00 Yes 1mg Med[facility] Abilify 2 mg tablet 0 3-11 00:00: 00 Yes 1mg Med[facility] Trileptal 300 mg tablet 0 2-11 00:00: 00 No 1mg Abilify 2 mg tablet 0 2-11 00:00: 00 No 1mg Trileptal 300 mg tablet 0 2-11 00:00: 00 No 1mg Abilify 2 mg tablet 0 2-11 00:00: 00 No 1mg Trileptal 300 mg tablet 0 2-11 00:00: 00 No 1mg Abilify 2 mg tablet 0 2-11 00:00: 00 No 1mg Trileptal 300 mg tablet 0 2-11 00:00: 00 Yes 1mg Med[facility] Abilify 2 mg tablet 0 2-11 00:00: 00 Yes 1mg Med[facility]er buspirone 10 mg tablet 0 1-14 00:00: 00 No 15mg Trileptal 300 mg [...] 1mg Medardo Miner Abilify 2 mg tablet 04-25 00:00: 00 Yes 1mg [...] 1mg Medardo Miner simvastatin 20 mg tablet 2017-04 00:00: 00 No 1mg metoprolol tartrate 25 mg tablet 2017-04 00:00: 00 No 1mg lisinopril 20 mg-hydrochl orothiazide 12.5 mg tablet 2017-04 00:00: 00 No 1mg nitrofurant oin macrocrysta l 100 mg capsule 2017-04 00:00: 00 No 1mg simvastatin 20 mg tablet 2017-04 00:00: 00 No 1mg metoprolol tartrate 25 mg tablet 2017-04 00:00: 00 No 1mg lisinopril 20 mg-hydrochl orothiazide 12.5 mg tablet 2017-04 00:00: 00 No 1mg nitrofurant oin macrocrysta l 100 mg capsule 2017-04 00:00: 00 No 1mg simvastatin 20 mg tablet 2017-04 00:00: 00 No 1mg metoprolol tartrate 25 [...] 07-08 00:00: 00 Yes 1mg Medardo Miner lisinopril 20 mg-hydrochl orothiazide 12.5 mg tablet 07-08 00:00: 00 Yes 1mg Medardo Miner Bactrim DS 800 mg-160 mg tablet 07-08 00:00: 00 Yes 1mg Medardo Miner metoprolol tartrate 25 mg tablet 2018-0 3-29 00:00: 00 Yes 1mg Medardo Miner Immunizations Ordered Immunization Name Filled Immunization Name Date Status Comments Source Influenza, seasonal, inj 2018-01-25 00:00:00 Completed Influenza, seasonal, inj 2018-01-25 00:00:00 Completed Influenza, seasonal, inj 2018-01-25 00:00:00 Completed Influenza, seasonal, inj Influenza, seasonal, inj 2018-01-25 00:00:00 Completed Medardo F Kristofer Vital Signs Vital Name Observation Time Observation Value Comments S ource BP Systolic 2024-01-21 08:20:00 203 mm[Hg] Step hen F Kristofer BP Diastolic 2024-01-21 08:20:00 135 mm[Hg] Ky phen F Kristofer Weight Measured 2024-01-21 08:20:00 151.60 pounds Medardo F Kristofer Height Measured 2024-01-21 08:20:00 63.00 inches Medardo F Kristofer Body Temperature 2024-01-21 08:20:00 98.20 degrees Medardo F Kristofer Heart Rate 2024-01-21 08:20:00 86.00 /min Kaley en F Kristofer Respiratory Rate 2024-01-21 08:20:00 16.00 /min Medardo F Kristofer BP Systolic 2024-01-21 08:13:00 203 mm[Hg] Step hen F Kristofer BP Diastolic 2024-01-21 08:13:00 135 mm[Hg] Ky phen F Kristofer Weight Measured 2024-01-21 08:13:00 151.60 pounds Medardo F Kristofer Height Measured 2024-01-21 08:13:00 63.00 inches Medardo F Kristofer Body Temperature 2024-01-21 08:13:00 98.20 degrees Medardo F Kristofer Heart Rate 2024-01-21 08:13:00 86.00 /min Kaley en F Kristofer Respiratory Rate 2024-01-21 08:13:00 16.00 /min Medardo F Kristofer BP Systolic 2024-01-01 08:15:00 Step hen F Kristofer BP Diastolic 2024-01-01 08:15:00 Ky phen F Kristofer Weight Measured 2024-01-01 08:15:00 Medardo F Kristofer Height Measured 2024-01-01 08:15:00 Medardo F Kristofer Body Temperature 2024-01-01 08:15:00 Medardo F Kristofer Heart Rate 2024-01-01 08:15:00 Kaley en F Kristofer Respiratory Rate 2024-01-01 08:15:00 Medardo F Kristofer [...] Temperature 2023-02-26 08:07:00 98.20 degrees Medardo F Kristofer Heart Rate 2023-02-26 08:07:00 59.00 /min Kaley [...] Kristofer BP Diastolic 2022-11-24 08:07:00 88 mm[Hg] Yk phen F Kristofer Weight Measured 2022-11-24 08:07:00 [...] F Kristofer Body Temperature 2022-09-09 15:41:00 Medardo Miner Heart Rate 2022-09-09 15:41:00 Kaley chester Miner Respiratory Rate 2022-09-09 15:41:00 Medardo Miner BP [...] / Time Performed Performing Clinicia n Source 46086 Ekg W/ At Least 12 Leads W/ I r 2022-07-17 00:00:00 Medardo Miner Plan of Care Planned Activity Planned Date Details Comments Source Goal Plan of Care Note [code = 08750-7] Goal Plan of Care Note [code = 05087-6] Goal Plan of Care Note [code = 07309-9] Goal Plan of Care Note [code = 17974-1] Goal Plan of Care Note [code = 61348-3] Goal Plan of Care Note [code = 84746-2] Goal Plan of Care Note [code = 58488-3] Goal Plan of Care Note [code = 81044-1] Goal Plan of Care Note [code = 90078-2] Goal Plan of Care Note [code = 65387-0] Goal Plan of Care Note [code = 83800-5] Goal Plan of Care Note [code = 94303-8] Goal Plan of Care Note [code = 96923-8] Goal Plan of Care Note [code = 98830-3] Goal Plan of Care Note [code = 49280-5] Goal Plan of Care Note [code = 61328-9] Goal Plan of Care Note [code = 99015-5] Goal Plan of Care Note [code = 11222-3] Goal Plan of Care Note [code = 45222-3] Goal Plan of Care Note [code = 81724-8] Goal Plan of Care Note [code = 00287-0] Goal Plan of Care Note [code = 94587-3] Goal Plan of Care Note [code = 57259-8] Goal Plan of Care Note [code = 57563-1] Goal Plan of Care Note [code = 21145-4] Goal Plan of Care Note [code = 91778-0] Goal Plan of Care Note [code = 77653-7] Goal Plan of Care Note [code = 61984-2] Goal Plan of Care Note [code = 04553-1] Goal Plan of Care Note [code = 17191-7] Goal Plan of Care Note [code = 34056-6] Goal Plan of Care Note [code = 55610-7] Goal Plan of Care Note [code = 35669-3] Goal Plan of Care Note [code = 61013-1] Goal Plan of Care Note [code = 90240-1] Goal Plan of Care Note [code = 18001-7] Goal Plan of Care Note [code = 04561-1] Goal Plan of Care Note [code = 12466-1] Goal Plan of Care Note [code = 84063-5] Goal Plan of Care Note [code = 56344-9] Goal Plan of Care Note [code = 41082-3] Goal Plan of Care Note [code = 89001-9] Goal Plan of Care Note [code = 13722-7] Goal Plan of Care Note [code = 56289-8] Goal Plan of Care Note [code = 25157-7] Goal Plan of Care Note [code = 86002-4] Goal Plan of Care Note [code = 41258-7] Goal Plan of Care Note [code = 08867-0] Goal Plan of Care Note [code = 13694-8] Goal Plan of Care Note [code = 60108-1] Goal Plan of Care Note [code = 30042-5] Goal Plan of Care Note [code = 31853-0] Goal Plan of Care Note [code = 97583-6] Goal Plan of Care Note [code = 86032-6] Goal Plan of Care Note [code = 62669-5] Goal Plan of Care Note [code = 17675-3] Goal Plan of Care Note [code = 15599-9] Goal Plan of Care Note [code = 20491-4] Goal Plan of Care Note [code = 85051-4] Goal Plan of Care Note [code = 65083-0] Goal Plan of Care Note [code = 91258-6] Goal Plan of Care Note [code = 15039-6] Goal Plan of Care Note [code = 91065-5] Goal Plan of Care Note [code = 09903-4] Goal Plan of Care Note [code = 37603-9] Goal Plan of Care Note [code = 36969-1] Goal Plan of Care Note [code = 66105-8] Goal Plan of Care Note [code = 21469-1] Goal Plan of Care Note [code = 25917-7] Goal Plan of Care Note [code = 21195-1] Goal Plan of Care Note [code = 72667-9] Goal Plan of Care Note [code = 10477-2] Goal Plan of Care Note [code = 04628-7] Goal Plan of Care Note [code = 47061-0] Goal Plan of Care Note [code = 72526-3] Goal Plan of Care Note [code = 31713-0] Goal Plan of Care Note [code = 07021-9] Goal Plan of Care Note [code = 90561-5] Goal Plan of Care Note [code = 99560-0] Encounters Start Date/Time End Date/Time Encounter Type Admission Type Attending [facility] Care Department Encounter ID Source 2024-02-04 10:13:15 2024-02-04 10:13:15 Outpatient [facility] [id number] Medardo Miner 2024-01-21 07:59:00 2024-01-21 07:59:00 Outpatient [facility] [id number] Medardo Miner 2024-01-21 00:00:00 2024-01-21 00:00:00 Outpatient Visit [facility] [id number] Medardo Miner 2024-01-11 07:57:12 2024-01-11 07:57:12 Outpatient [facility] [id number] Medardo Miner 2024-01-01 08:45:28 2024-01-01 08:45:28 Outpatient [facility] [id number] Medardo Miner 2024-01-01 00:00:00 2024-01-01 00:00:00 Outpatient Visit [facility] [id number] Medardo Miner 2023-09-24 08:00:06 2023-09-24 08:00:06 Outpatient [facility] [id number] Medardo Miner 2023-09-24 00:00:00 2023-09-24 00:00:00 Outpatient Visit [facility] [id number] Medardo Miner 2023-09-09 08:08:55 2023-09-09 08:08:55 Outpatient [facility] [id number] Medardo Miner 2023-09-09 00:00:00 2023-09-09 00:00:00 Outpatient Visit [facility] [id number] Medardo Miner 2023-08-20 08:20:50 2023-08-20 08:20:50 Outpatient [facility] [id number] Medardo Miner 2023-06-24 08:06:01 2023-06-24 08:06:01 Outpatient [facility] [id number] Medardo Ibrahim Kristofer 2023-05-07 08:01:36 2023-05-07 08:01:36 Outpatient [facility] [id number] Medardo Ibrahim Kristofer 2023-03-12 08:03:39 2023-03-12 08:03:39 Outpatient [facility] [id number] Medardo Ibrahim Cromona 2023-02-26 08:03:23 2023-02-26 08:03:23 Outpatient [facility] [id number] Medardo Ibrahim Cromona 2023-02-09 00:00:00 2023-02-09 00:00:00 Outpatient GC_GCBZW_Ka diyala_S PRIV PRIV [id number] [facility] 2023-02-08 00:00:00 2023-02-08 00:00:00 Outpatient GC_GCBZW_Ka diyala_S PRIV PRIV [id number] [facility] 2023-01-11 16:56:44 2023-01-11 16:56:44 Outpatient [facility] [id number] Medardo Ibrahim Kristofer 2022-12-25 07:59:39 2022-12-25 07:59:39 Outpatient [facility] [id number] Medardo Ibrahim Kristofer 2022-12-16 09:56:37 2022-12-16 09:56:37 Outpatient [facility] [id number] Medardo Ibrahim Kristofer 2022-11-23 13:37:52 2022-11-23 13:37:52 Outpatient [facility] [id number] Medardo Ibrahim Kristofer 2022-09-18 08:01:58 2022-09-18 08:01:58 Outpatient [facility] [id number] Medardo Ibrahim Kristofer 2022-09-10 10:11:37 2022-09-10 10:11:37 Outpatient [facility] [id number] Medardo Miner 2022-09-09 15:34:57 2022-09-09 15:34:57 Outpatient [facility] [id number] Medardo Ibrahim Kristofer 2022-09-02 10:09:33 2022-09-02 10:09:33 Outpatient [facility] [id number] Medardo Ibrahim Cromona 2022-08-31 10:01:09 2022-08-31 10:01:09 Outpatient [facility] [id number] Medardo Ibrahim Kristofer 2022-08-29 09:02:59 2022-08-29 09:02:59 Outpatient [facility] 05 Medardo Ibrahim Kristofer 2022-07-23 08:13:44 2022-07-23 08:13:44 Outpatient [facility] [id number] Medardo Ibrahim Kristofer 2022-07-17 10:18:41 2022-07-17 10:18:41 Outpatient [facility] [id number] Medardo Ibrahim Kristofer 2022-06-19 16:52:29 2022-06-19 16:52:29 Outpatient [facility] [id number] Medardo Ibrahim Kristofer 2022-03-19 10:48:26 2022-03-19 10:48:26 Outpatient [facility] [id number] Medardo Ibrahim Cromona 2022-03-13 10:02:51 2022-03-13 10:02:51 Outpatient [facility] [id number] Medardo Ibrahim Cromona 2022-03-12 08:33:45 2022-03-12 08:33:45 Outpatient [facility] [id number] Medardo Ibrahim Cromona 2022-03-12 00:00:00 2022-03-12 00:00:00 Outpatient Visit [id number] 2021-11-26 00:00:00 2021-11-26 00:00:00 Outpatient Visit [id number] 2021-11-21 00:00:00 2021-11-21 00:00:00 Outpatient Visit [id number] Results Test Description Test Time Test Comments Results Result Co mments Source COMPREHENSIVE METABOLIC [id number] 06:06:54* Test Item Value Reference Range Interpretation Comme nts GLUCOSE (test code = 2217) 103 MG/DL 70-99 H BUN (test code = 220) 14 MG/DL 6-20 CREATININE (test code = 2214) 0.90 MG/DL 0.60-1.30 eGFR (2020 CKD-EPI) (test code = 66060) 77 ML/MIN/1.73 >60 CALC BUN/CREAT (test code = 2235) 16 RATIO 6-28 SODIUM (test code = 2231) 137 MEQ/L 133-146 POTASSIUM (test code = 2228) 3.6 MEQ/L 3.5-5.4 CHLORIDE (test code = 2215) 100 MEQ/L 95-107 CARBON DIOXIDE (test code = 2206) 23 MEQ/L 19-31 CALCIUM (test code = 2209) 8.9 MG/DL 8.5-10.5 PROTEIN, TOTAL (test code = 222) 7.2 G/DL 6.1-8.3 ALBUMIN (test code = 2201) 4.7 G/DL 3.5-5.2 CALC GLOBULIN (test code = 2240) 2.5 G/DL 1.9-3.7 CALC A/G RATIO (test code = 2234) 1.9 RATIO 1.0-2.6 BILIRUBIN, TOTAL (test code = 220) 0.4 MG/DL <=1.2 ALKALINE PHOSPHATASE (test code = 2204) 103 U/L 40-132 AST (test code = 2218) 26 U/L 9-40 ALT (test code = 2219) 28 U/L 5-40 UNLESS OTHERWISE INDICATED, ALL TESTING PERFORMED AT [facility] [address] [place] [address] ANIMAL FEEDER: RAMY DOHERTY M.D. CLIA NUMBER [id number] [facility]. [id number] CBC W/AUTO DIFF WITH [id number] 03:12:31* Test Item Value Reference Range Interpretation [...] 0.00-0.10 ABS NUCLEATED RBCS (test code = 88793) 0.00 K/UL 0.00-0.11 CBC W/AUTO [id number] 00:00:00* Test Item Value Reference Range Interpretation [...] ABS NUCLEATED RBCS (test cod e = 63816) 0.00 K/UL Medardo Alexandria AustinLIPID [id number] 00:00:00* Test Item Value Reference Range Interpretation Comme nts CHOLESTEROL (test code = 2210) 202 MG/DL TRIGLYCERIDES (test code = 2232) 150 MG/DL HDL CHOLESTEROL (test code = 2220) 43 MG/DL CALC LDL CHOL (test code = 2237) 133 MG/DL RISK RATIO LDL/HDL (test cod e = 2238) 3.09 RATIO Medardo MinerCOMPREHENSIVE METABOLIC [id number] 00:00:00* Test Item Value Reference Range Interpretation Comme nts GLUCOSE (test code = 2217) 103 MG/DL BUN (test code = 2208) 14 MG/DL CREATININE (test code = 2214) 0.90 MG/DL eGFR (2020 CKD-EPI) (test co de = 15117) 77 ML/MIN/1.73 CALC BUN/CREAT (test code = [...] = 2219) 28 U/L Medardo MinerCBC W/AUTO [id number] 00:00:00* Test Item Value Reference Range Interpretation [...] ABS NUCLEATED RBCS (test cod e = 32205) 0.00 K/UL Medardo MinerLIPID [id number] 00:00:00* Test Item Value Reference Range Interpretation Comme nts CHOLESTEROL (test code = 2210) 202 MG/DL TRIGLYCERIDES (test code = 2232) 150 MG/DL HDL CHOLESTEROL (test code = 2220) 43 MG/DL CALC LDL CHOL (test code = 2237) 133 MG/DL RISK RATIO LDL/HDL (test cod e = 2238) 3.09 RATIO Medardo MinerCOMPREHENSIVE METABOLIC [id number] 00:00:00* Test Item Value Reference Range Interpretation Comme nts GLUCOSE (test code = 2217) 103 MG/DL BUN (test code = 2208) 14 MG/DL CREATININE (test code = 2214) 0.90 MG/DL eGFR (2020 CKD-EPI) (test co de = 04636) 77 ML/MIN/1.73 CALC BUN/CREAT (test code = [...] = 2219) 28 U/L Medardo MinerCBC W/AUTO [id number] 00:00:00* Test Item Value Reference Range Interpretation [...] ABS NUCLEATED RBCS (test cod e = 42490) 0.00 K/UL Medardo MinerLIPID [id number] 00:00:00* Test Item Value Reference Range Interpretation Comme nts CHOLESTEROL (test code = 2210) 202 MG/DL TRIGLYCERIDES (test code = 2232) 150 MG/DL HDL CHOLESTEROL (test code = 2220) 43 MG/DL CALC LDL CHOL (test code = 2237) 133 MG/DL RISK RATIO LDL/HDL (test cod e = 2238) 3.09 RATIO Medardo MinerCOMPREHENSIVE METABOLIC [id number] 00:00:00* Test Item Value Reference Range Interpretation Comme nts GLUCOSE (test code = 2217) 103 MG/DL BUN (test code = 2208) 14 MG/DL CREATININE (test code = 2214) 0.90 MG/DL eGFR (2020 CKD-EPI) (test co de = 91925) 77 ML/MIN/1.73 CALC BUN/CREAT (test code = [...] = 2219) 28 U/L Medardo MinerCBC W/AUTO [id number] 00:00:00* Test Item Value Reference Range Interpretation [...] ABS NUCLEATED RBCS (test cod e = 69207) 0.00 K/UL Medardo MinerLIPID [id number] 00:00:00* Test Item Value Reference Range Interpretation Comme nts CHOLESTEROL (test code = 2210) 202 MG/DL TRIGLYCERIDES (test code = 2232) 150 MG/DL HDL CHOLESTEROL (test code = 2220) 43 MG/DL CALC LDL CHOL (test code = 2237) 133 MG/DL RISK RATIO LDL/HDL (test cod e = 2238) 3.09 RATIO Medardo MinerCOMPREHENSIVE METABOLIC [id number] 00:00:00* Test Item Value Reference Range Interpretation Comme nts GLUCOSE (test code = 2217) 103 MG/DL BUN (test code = 2208) 14 MG/DL CREATININE (test code = 2214) 0.90 MG/DL eGFR (2020 CKD-EPI) (test co de = 43411) 77 ML/MIN/1.73 CALC BUN/CREAT (test code = [...] = 2219) 28 U/L Medardo MinerCOMPREHENSIVE METABOLIC [id number] 04:10:01* Test Item Value Reference Range Interpretation Comme nts GLUCOSE (test code = 2217) 87 MG/DL 70-99 BUN (test code = 220) 14 MG/DL 6-20 CREATININE (test code = 221) 0.82 MG/DL 0.60-1.30 eGFR (2020 CKD-EPI) (test code = 79136) 87 ML/MIN/1.73 >60 CALC BUN/CREAT (test code = 2235) 17 RATIO 6-28 SODIUM (test code = 223) 140 MEQ/L 133-146 POTASSIUM (test code = 2228) 3.9 MEQ/L 3.5-5.4 CHLORIDE (test code = 2215) 102 MEQ/L 95-107 CARBON DIOXIDE (test code = 2206) 28 MEQ/L 19-31 CALCIUM (test code = 220) 9.5 MG/DL 8.5-10.5 PROTEIN, TOTAL (test code = 222) 7.2 G/DL 6.1-8.3 ALBUMIN (test code = [...] TESTING PERFORMED AT [facility] [address] [place] [address] ANIMAL FEEDER: RAMY DOHERTY M.D. CLIA NUMBER [id number] [place] [id number] COMPREHENSIVE METABOLIC [id number] 00:00:00* Test Item Value Reference Range Interpretation Comme nts GLUCOSE (test code = 2217) 87 MG/DL BUN (test code = 2208) 14 MG/DL CREATININE (test code = 2214) 0.82 MG/DL eGFR (2020 CKD-EPI) (test co de = 90749) 87 ML/MIN/1.73 CALC BUN/CREAT (test code = [...] = 2219) 19 U/L Medardo MinerCOMPREHENSIVE METABOLIC [id number] 00:00:00* Test Item Value Reference Range Interpretation Comme nts GLUCOSE (test code = 2217) 87 MG/DL BUN (test code = 2208) 14 MG/DL CREATININE (test code = 2214) 0.82 MG/DL eGFR (2020 CKD-EPI) (test co de = 50327) 87 ML/MIN/1.73 CALC BUN/CREAT (test code = [...] = 2219) 19 U/L Medardo MinerCOMPREHENSIVE METABOLIC [id number] 00:00:00* Test Item Value Reference Range Interpretation Comme nts GLUCOSE (test code = 2217) 87 MG/DL BUN (test code = 2208) 14 MG/DL CREATININE (test code = 2214) 0.82 MG/DL eGFR (2020 CKD-EPI) (test co de = 01237) 87 ML/MIN/1.73 CALC BUN/CREAT (test code = [...] = 2219) 19 U/L Medardo MinerCOMPREHENSIVE METABOLIC [id number] 00:00:00* Test Item Value Reference Range Interpretation Comme nts GLUCOSE (test code = 2217) 87 MG/DL BUN (test code = 2208) 14 MG/DL CREATININE (test code = 2214) 0.82 MG/DL eGFR (2020 CKD-EPI) (test co de = 33719) 87 ML/MIN/1.73 CALC BUN/CREAT (test code = [...] (test code = 2219) 19 U/L Medardo Ibrahim AustinLIPID [id number] 01:33:15* Test Item Value Reference Range Interpretation [...] SPECIMENS. FOR MOREINFORMATION, SEE CLIENT ANNOUNCEMENT AT [email or web address] RISK RATIO LDL/HDL (test code = 2238) 2.11 RATIO <3.22 UNLESS OTHERW ISE INDICATED, ALL TESTING PERFORMED AT [facility] [address] [place] [address] ANIMAL FEEDER: RAMY DOHERTY M.D. IA NUMBER [id number] [facility]. [id number] LIPID [id number] 00:00:00* Test Item Value Reference Range Interpretation Comme nts CHOLESTEROL (test code = 2210) 181 MG/DL TRIGLYCERIDES (test code = 2232) 228 MG/DL HDL CHOLESTEROL (test code = 2220) 47 MG/DL CALC LDL CHOL (test code = 2237) 99 MG/DL RISK RATIO LDL/HDL (test cod e = 2238) 2.11 RATIO Medardo Ibrahim AustinLIPID [id number] 00:00:00* Test Item Value Reference Range Interpretation Comme nts CHOLESTEROL (test code = 2210) 181 MG/DL TRIGLYCERIDES (test code = 2232) 228 MG/DL HDL CHOLESTEROL (test code = 2220) 47 MG/DL CALC LDL CHOL (test code = 2237) 99 MG/DL RISK RATIO LDL/HDL (test cod e = 2238) 2.11 RATIO Medardo Ibrahim AustinLIPID [id number] 00:00:00* Test Item Value Reference Range Interpretation Comme nts CHOLESTEROL (test code = 2210) 181 MG/DL TRIGLYCERIDES (test code = 2232) 228 MG/DL HDL CHOLESTEROL (test code = 2220) 47 MG/DL CALC LDL CHOL (test code = 2237) 99 MG/DL RISK RATIO LDL/HDL (test cod e = 2238) 2.11 RATIO Medardo Ibrahim AustinLIPID [id number] 00:00:00* Test Item Value Reference Range Interpretation Comme nts CHOLESTEROL (test code = 2210) 181 MG/DL TRIGLYCERIDES (test code = 2232) 228 MG/DL HDL CHOLESTEROL (test code = 2220) 47 MG/DL CALC LDL CHOL (test code = 2237) 99 MG/DL RISK RATIO LDL/HDL (test cod e = 2238) 2.11 RATIO Medardo Ibrahim AustinHEMOGLOBIN [id number] 00:00:00* Test Item Value Reference Range Interpretation Comme nts HEMOGLOBIN A1c (test code = 77278) 5.6 % Medardo Ibrahim AustinHEMOGLOBIN [id number] 00:00:00* Test Item Value Reference Range Interpretation Comme nts HEMOGLOBIN A1c (test code = 23995) 5.6 % Medardo Ibrahim AustinHEMOGLOBIN [id number] 00:00:00* Test Item Value Reference Range Interpretation Comme nts HEMOGLOBIN A1c (test code = 16217) 5.6 % Medardo Ibrahim AustinHEMOGLOBIN [id number] 00:00:00* Test Item Value Reference Range Interpretation Comme nts HEMOGLOBIN A1c (test code = 50959) 5.6 % Medardo Ibrahim AustinLIPID [id number] 00:00:00* Test Item Value Reference Range Interpretation Comme nts CHOLESTEROL (test code = 2210) 297 MG/DL TRIGLYCERIDES (test code = 2232) 336 MG/DL HDL CHOLESTEROL (test code = 2220) 43 MG/DL CALC LDL CHOL (test code = 2237) 197 MG/DL RISK RATIO LDL/HDL (test cod e = 2238) 4.58 RATIO Medardo F AustinCOMPREHENSIVE METABOLIC [id number] 00:00:00* Test Item Value Reference Range Interpretation Comme nts GLUCOSE (test code = 2217) 102 MG/DL BUN (test code = 2208) 11 MG/DL CREATININE (test code = 2214) 0.68 MG/DL eGFR (2020 CKD-EPI) (test code = 79896) 105 ML/MIN/1.73 CALC BUN/CREAT (test code = [...] = 2219) 18 U/L Medardo Ibrahim AustinLIPID [id number] 00:00:00* Test Item Value Reference Range Interpretation Comme nts CHOLESTEROL (test code = 2210) 297 MG/DL TRIGLYCERIDES (test code = 2232) 336 MG/DL HDL CHOLESTEROL (test code = 2220) 43 MG/DL CALC LDL CHOL (test code = 2237) 197 MG/DL RISK RATIO LDL/HDL (test cod e = 2238) 4.58 RATIO Medardo Ibrahim AustinCOMPREHENSIVE METABOLIC [id number] 00:00:00* Test Item Value Reference Range Interpretation Comme nts GLUCOSE (test code = 2217) 102 MG/DL BUN (test code = 2208) 11 MG/DL CREATININE (test code = 2214) 0.68 MG/DL eGFR (2020 CKD-EPI) (test code = 39426) 105 ML/MIN/1.73 CALC BUN/CREAT (test code = [...] code = 2219) 18 U/L Medardo Ibrahim CromonaLIPID [id number] 00:00:00* Test Item Value Reference Range Interpretation Comme nts CHOLESTEROL (test code = 2210) 297 MG/DL TRIGLYCERIDES (test code = 2232) 336 MG/DL HDL CHOLESTEROL (test code = 2220) 43 MG/DL CALC LDL CHOL (test code = 2237) 197 MG/DL RISK RATIO LDL/HDL (test cod e = 2238) 4.58 RATIO Medardo MinerCOMPREHENSIVE METABOLIC [id number] 00:00:00* Test Item Value Reference Range Interpretation Comme nts GLUCOSE (test code = 2217) 102 MG/DL BUN (test code = 2208) 11 MG/DL CREATININE (test code = 2214) 0.68 MG/DL eGFR (2020 CKD-EPI) (test code = 93107) 105 ML/MIN/1.73 CALC BUN/CREAT (test code = [...] code = 2219) 18 U/L Medardo MinerLIPID [id number] 00:00:00* Test Item Value Reference Range Interpretation Comme nts CHOLESTEROL (test code = 2210) 297 MG/DL TRIGLYCERIDES (test code = 2232) 336 MG/DL HDL CHOLESTEROL (test code = 2220) 43 MG/DL CALC LDL CHOL (test code = 2237) 197 MG/DL RISK RATIO LDL/HDL (test cod e = 2238) 4.58 RATIO Medardo MinerCOMPREHENSIVE METABOLIC [id number] 00:00:00* Test Item Value Reference Range Interpretation Comme nts GLUCOSE (test code = 2217) 102 MG/DL BUN (test code = 2208) 11 MG/DL CREATININE (test code = 2214) 0.68 MG/DL eGFR (2020 CKD-EPI) (test code = 45303) 105 ML/MIN/1.73 CALC BUN/CREAT (test code = [...] code = 2219) 18 U/L Medardo MinerLIPID [id number] 04:38:43* Test Item Value Reference Range Interpretation [...] SPECIMENS. FOR MOREINFORMATION, SEE CLIENT ANNOUNCEMENT AT [email or web address] RISK RATIO LDL/HDL (test code = 2238) 2.95 RATIO <3.22 UNLESS OTHERW ISE INDICATED, ALL TESTING PERFORMED [facility] [address] [place] [address] ANIMAL FEEDER: [employer] M.D. IA NUMBER [id number] [facility]. [id number] LIPID [id number] 00:00:00* Test Item Value Reference Range Interpretation Comme nts CHOLESTEROL (test code = 2210) 212 MG/DL TRIGLYCERIDES (test code = 2232) 274 MG/DL HDL CHOLESTEROL (test code = 2220) 43 MG/DL CALC LDL CHOL (test code = 2237) 127 MG/DL RISK RATIO LDL/HDL (test cod e = 2238) 2.95 RATIO Medardo Ibrahim AustinLIPID [id number] 00:00:00* Test Item Value Reference Range Interpretation Comme nts CHOLESTEROL (test code = 2210) 212 MG/DL TRIGLYCERIDES (test code = 2232) 274 MG/DL HDL CHOLESTEROL (test code = 2220) 43 MG/DL CALC LDL CHOL (test code = 2237) 127 MG/DL RISK RATIO LDL/HDL (test cod e = 2238) 2.95 RATIO Medardo Ibrahim AustinLIPID [id number] 00:00:00* Test Item Value Reference Range Interpretation Comme nts CHOLESTEROL (test code = 2210) 212 MG/DL TRIGLYCERIDES (test code = 2232) 274 MG/DL HDL CHOLESTEROL (test code = 2220) 43 MG/DL CALC LDL CHOL (test code = 2237) 127 MG/DL RISK RATIO LDL/HDL (test cod e = 2238) 2.95 RATIO LIPID [id number] 00:00:00* Test Item Value Reference Range Interpretation Comme nts CHOLESTEROL (test code = 2210) 212 MG/DL TRIGLYCERIDES (test code = 2232) 274 MG/DL HDL CHOLESTEROL (test code = 2220) 43 MG/DL CALC LDL CHOL (test code = 2237) 127 MG/DL RISK RATIO LDL/HDL (test cod e = 2238) 2.95 RATIO LIPID [id number] 00:00:00* Test Item Value Reference Range Interpretation Comme nts CHOLESTEROL (test code = 2210) 212 MG/DL TRIGLYCERIDES (test code = 2232) 274 MG/DL HDL CHOLESTEROL (test code = 2220) 43 MG/DL CALC LDL CHOL (test code = 2237) 127 MG/DL RISK RATIO LDL/HDL (test cod e = 2238) 2.95 RATIO Medardo Ibrahim AustinLIPID [id number] 00:00:00* Test Item Value Reference Range Interpretation Comme nts CHOLESTEROL (test code = 2210) 212 MG/DL TRIGLYCERIDES (test code = 2232) 274 MG/DL HDL CHOLESTEROL (test code = 2220) 43 MG/DL CALC LDL CHOL (test code = 2237) 127 MG/DL RISK RATIO LDL/HDL (test cod e = 2238) 2.95 RATIO Medardo MinerHEMOGLOBIN [id number] 05:20:30* Test Item Value Reference Range Interpretation Comme nts HEMOGLOBIN A1c (test code = 02112) 5.6 % 4.2-5.6 CBC W/AUTO DIFF WITH [id number] 04:41:22* Test Item Value Reference Range Interpretation [...] H ABS NUCLEATED RBCS (test code = 26928) 0.00 K/UL 0.00-0.11 UNLESS OTHER MCKAY INDICATED, ALL TESTING PERFORMED [facility] [address] [place] [address] ANIMAL FEEDER: [employer] M.D. CLIA NUMBER [id number] [facility]. [id number] HEMOGLOBIN [id number] 00:00:00* Test Item Value Reference Range Interpretation Comme nts HEMOGLOBIN A1c (test code = 85884) 5.6 % Medardo [place] [facility] W/AUTO [id number] 00:00:00* Test Item Value Reference Range Interpretation [...] ABS NUCLEATED RBCS (test cod e = 97757) 0.00 K/UL Medardo MinerHEMOGLOBIN [id number] 00:00:00* Test Item Value Reference Range Interpretation Comme nts HEMOGLOBIN A1c (test code = 37412) 5.6 % Medardo MinerCBC W/AUTO [id number] 00:00:00* Test Item Value Reference Range Interpretation [...] ABS NUCLEATED RBCS (test cod e = 86458) 0.00 K/UL Medardo Ibrahim AustinHEMOGLOBIN [id number] 00:00:00* Test Item Value Reference Range Interpretation Comme nts HEMOGLOBIN A1c (test code = 76376) 5.6 % CBC W/AUTO [id number] 00:00:00* Test Item Value Reference Range Interpretation [...] ABS NUCLEATED RBCS (test cod e = 52636) 0.00 K/UL HEMOGLOBIN [id number] 00:00:00* Test Item Value Reference Range Interpretation Comme nts HEMOGLOBIN A1c (test code = 96116) 5.6 % CBC W/AUTO [id number] 00:00:00* Test Item Value Reference Range Interpretation [...] ABS NUCLEATED RBCS (test cod e = 98647) 0.00 K/UL HEMOGLOBIN [id number] 00:00:00* Test Item Value Reference Range Interpretation Comme nts HEMOGLOBIN A1c (test code = 98337) 5.6 % CBC W/AUTO [id number] 00:00:00* Test Item Value Reference Range Interpretation [...] ABS NUCLEATED RBCS (test cod e = 19001) 0.00 K/UL HEMOGLOBIN [id number] 00:00:00* Test Item Value Reference Range Interpretation Comme nts HEMOGLOBIN A1c (test code = 29764) 5.6 % Medardo MinerC W/AUTO [id number] 00:00:00* Test Item Value Reference Range Interpretation [...] ABS NUCLEATED RBCS (test cod e = 07857) 0.00 K/UL Medardo MinerHEMOGLOBIN [id number] 00:00:00* Test Item Value Reference Range Interpretation Comme nts HEMOGLOBIN A1c (test code = 07389) 5.6 % Medardo MinerCBC W/AUTO [id number] 00:00:00* Test Item Value Reference Range Interpretation [...] ABS NUCLEATED RBCS (test cod e = 51641) 0.00 K/UL Medardo MinerCOMPREHENSIVE METABOLIC [id number] 00:00:00* Test Item Value Reference Range Interpretation Comme nts GLUCOSE (test code = 2217) 101 MG/DL BUN (test code = 2208) 11 MG/DL CREATININE (test code = 2214) 0.86 MG/DL eGFR AMER. (test cod e = 57228) 92 ML/MIN/1.73 eGFR NON- AMER. (test code = 20251) 79 ML/MIN/1.73 CALC BUN/CREAT (test code = [...] code = 2219) 31 U/L Medardo MinerHEMOGLOBIN [id number] 00:00:00* Test Item Value Reference Range Interpretation Comme nts HEMOGLOBIN A1c (test code = 75493) 5.5 % Medardo MinerLIPID [id number] 00:00:00* Test Item Value Reference Range Interpretation Comme nts CHOLESTEROL (test code = 2210) 242 MG/DL TRIGLYCERIDES (test code = 2232) 300 MG/DL HDL CHOLESTEROL (test code = 2220) 53 MG/DL CALC LDL CHOL (test code = 2237) 146 MG/DL RISK RATIO LDL/HDL (test cod e = 2238) 2.75 RATIO Medardo Ibrahim AustinCOMPREHENSIVE METABOLIC [id number] 00:00:00* Test Item Value Reference Range Interpretation Comme nts GLUCOSE (test code = 2217) 101 MG/DL BUN (test code = 2208) 11 MG/DL CREATININE (test code = 2214) 0.86 MG/DL eGFR AMER. (test cod e = 66834) 92 ML/MIN/1.73 eGFR NON- AMER. (test code = 52199) 79 ML/MIN/1.73 CALC BUN/CREAT (test code = [...] code = 2219) 31 U/L Medardo MinerHEMOGLOBIN [id number] 00:00:00* Test Item Value Reference Range Interpretation Comme nts HEMOGLOBIN A1c (test code = 12645) 5.5 % Medardo Ibrahim AustinLIPID [id number] 00:00:00* Test Item Value Reference Range Interpretation Comme nts CHOLESTEROL (test code = 2210) 242 MG/DL TRIGLYCERIDES (test code = 2232) 300 MG/DL HDL CHOLESTEROL (test code = 2220) 53 MG/DL CALC LDL CHOL (test code = 2237) 146 MG/DL RISK RATIO LDL/HDL (test cod e = 2238) 2.75 RATIO Medardo MinerCOMPREHENSIVE METABOLIC [id number] 00:00:00* Test Item Value Reference Range Interpretation Comme nts GLUCOSE (test code = 2217) 101 MG/DL BUN (test code = 2208) 11 MG/DL CREATININE (test code = 2214) 0.86 MG/DL eGFR AMER. (test cod e = 65916) 92 ML/MIN/1.73 eGFR NON- AMER. (test code = 74579) 79 ML/MIN/1.73 CALC BUN/CREAT (test code = [...] 0.4 MG/DL ALKALINE PHOSPHATASE (test code = 220) 67 U/L AST (test code = 2218) 28 U/L ALT (test code = 2219) 31 U/L Medardo Ibrahim AustinHEMOGLOBIN [id number] 00:00:00* Test Item Value Reference Range Interpretation Comme nts HEMOGLOBIN A1c (test code = 60043) 5.5 % LIPID [id number] 00:00:00* Test Item Value Reference Range Interpretation Comme nts CHOLESTEROL (test code = 2210) 242 MG/DL TRIGLYCERIDES (test code = 2232) 300 MG/DL HDL CHOLESTEROL (test code = 2220) 53 MG/DL CALC LDL CHOL (test code = 2237) 146 MG/DL RISK RATIO LDL/HDL (test cod e = 2238) 2.75 RATIO COMPREHENSIVE METABOLIC [id number] 00:00:00* Test Item Value Reference Range Interpretation Comme nts GLUCOSE (test code = 2217) 101 MG/DL BUN (test code = 2208) 11 MG/DL CREATININE (test code = 2214) 0.86 MG/DL eGFR AMER. (test cod e = 07221) 92 ML/MIN/1.73 eGFR NON- AMER. (test code = 05658) 79 ML/MIN/1.73 CALC BUN/CREAT (test code = [...] 2204) 67 U/L AST (test code = 221) 28 U/L ALT (test code = 2219) 31 U/L HEMOGLOBIN [id number] 00:00:00* Test Item Value Reference Range Interpretation Comme nts HEMOGLOBIN A1c (test code = 01027) 5.5 % LIPID [id number] 00:00:00* Test Item Value Reference Range Interpretation Comme nts CHOLESTEROL (test code = 2210) 242 MG/DL TRIGLYCERIDES (test code = 2232) 300 MG/DL HDL CHOLESTEROL (test code = 2220) 53 MG/DL CALC LDL CHOL (test code = 2237) 146 MG/DL RISK RATIO LDL/HDL (test cod e = 2238) 2.75 RATIO COMPREHENSIVE METABOLIC [id number] 00:00:00* Test Item Value Reference Range Interpretation Comme nts GLUCOSE (test code = 2217) 101 MG/DL BUN (test code = 8) 11 MG/DL CREATININE (test code = 2214) 0.86 MG/DL eGFR AMER. (test cod e = 54745) 92 ML/MIN/1.73 eGFR NON- AMER. (test code = 73464) 79 ML/MIN/1.73 CALC BUN/CREAT (test code = [...] (test code = 2219) 31 U/L HEMOGLOBIN [id number] 00:00:00* Test Item Value Reference Range Interpretation Comme nts HEMOGLOBIN A1c (test code = 44443) 5.5 % LIPID [id number] 00:00:00* Test Item Value Reference Range Interpretation Comme nts CHOLESTEROL (test code = 2210) 242 MG/DL TRIGLYCERIDES (test code = 2232) 300 MG/DL HDL CHOLESTEROL (test code = 2220) 53 MG/DL CALC LDL CHOL (test code = 2237) 146 MG/DL RISK RATIO LDL/HDL (test cod e = 2238) 2.75 RATIO COMPREHENSIVE METABOLIC [id number] 00:00:00* Test Item Value Reference Range Interpretation Comme nts GLUCOSE (test code = 2217) 101 MG/DL BUN (test code = 2208) 11 MG/DL CREATININE (test code = 2214) 0.86 MG/DL eGFR AMER. (test cod e = 68703) 92 ML/MIN/1.73 eGFR NON- AMER. (test code = 95725) 79 ML/MIN/1.73 CALC BUN/CREAT (test code = [...] (test code = 2219) 31 U/L HEMOGLOBIN [id number] 00:00:00* Test Item Value Reference Range Interpretation Comme daysi HEMOGLOBIN A1c (test code = 59648) 5.5 % Medardo MinerLIPID [id number] 00:00:00* Test Item Value Reference Range Interpretation Comme nts CHOLESTEROL (test code = 2210) 242 MG/DL TRIGLYCERIDES (test code = 2232) 300 MG/DL HDL CHOLESTEROL (test code = 2220) 53 MG/DL CALC LDL CHOL (test code = 2237) 146 MG/DL RISK RATIO LDL/HDL (test cod e = 2238) 2.75 RATIO Medardo MinerCOMPREHENSIVE METABOLIC [id number] 00:00:00* Test Item Value Reference Range Interpretation Comme nts GLUCOSE (test code = 2217) 101 MG/DL BUN (test code = 2208) 11 MG/DL CREATININE (test code = 2214) 0.86 MG/DL eGFR AMER. (test cod e = 30256) 92 ML/MIN/1.73 eGFR NON- AMER. (test code = 02932) 79 ML/MIN/1.73 CALC BUN/CREAT (test code = [...] code = 2219) 31 U/L Medardo MinerHEMOGLOBIN [id number] 00:00:00* Test Item Value Reference Range Interpretation Comme nts HEMOGLOBIN A1c (test code = 88703) 5.5 % Medardo Ibrahim AustinLIPID [id number] 00:00:00* Test Item Value Reference Range Interpretation Comme nts CHOLESTEROL (test code = 2210) 242 MG/DL TRIGLYCERIDES (test code = 2232) 300 MG/DL HDL CHOLESTEROL (test code = 2220) 53 MG/DL CALC LDL CHOL (test code = 2237) 146 MG/DL RISK RATIO LDL/HDL (test cod e = 2238) 2.75 RATIO Medardo Ibrahim AustinHEMOGLOBIN [id number] 00:00:00* Test Item Value Reference Range Interpretation Comme nts HEMOGLOBIN A1c (test code = 68359) 5.5 % Medardo Ibrahim AustinHEMOGLOBIN [id number] 00:00:00* Test Item Value Reference Range Interpretation Comme nts HEMOGLOBIN A1c (test code = 99746) 5.5 % Medardo Ibrahim AustinHEMOGLOBIN [id number] 00:00:00* Test Item Value Reference Range Interpretation Comme nts HEMOGLOBIN A1c (test code = 58837) 5.5 % HEMOGLOBIN [id number] 00:00:00* Test Item Value Reference Range Interpretation Comme nts HEMOGLOBIN A1c (test code = 12991) 5.5 % HEMOGLOBIN [id number] 00:00:00* Test Item Value Reference Range Interpretation Comme nts HEMOGLOBIN A1c (test code = 83719) 5.5 % HEMOGLOBIN [id number] 00:00:00* Test Item Value Reference Range Interpretation Comme nts HEMOGLOBIN A1c (test code = 84251) 5.5 % Medardo Ibrahim AustinHEMOGLOBIN [id number] 00:00:00* Test Item Value Reference Range Interpretation Comme nts HEMOGLOBIN A1c (test code = 87767) 5.5 % Medardo Ibrahim [id number] 00:00:00* Test Item Value Reference Range Interpretation Comme nts TSH, THIRD GENERATION (test code = 2821) 0.857 UIU/ML Medardo MinerCOMPREHENSIVE METABOLIC [id number] 00:00:00* Test Item Value Reference Range Interpretation Comme nts GLUCOSE (test code = 2217) 139 MG/DL BUN (test code = 2208) 12 MG/DL CREATININE (test code = 2214) 0.74 MG/DL eGFR AMER. (test cod e = 37197) 111 ML/MIN/1.73 eGFR NON- AMER. (test code = 37811) 96 ML/MIN/1.73 CALC BUN/CREAT (test code = [...] code = 2219) 18 U/L Medardo MinerHEMOGLOBIN [id number] 00:00:00* Test Item Value Reference Range Interpretation Comme nts HEMOGLOBIN A1c (test code = 13091) 5.5 % Medardo Ibrahim KristoferCBC W/AUTO [id number] 00:00:00* Test Item Value Reference Range Interpretation [...] (test code = 1015) 295 K/UL Medardo Ibrahim [id number] 00:00:00* Test Item Value Reference Range Interpretation Comme nts TSH, THIRD GENERATION (test code = 2821) 0.857 UIU/ML Medardo MinerCOMPREHENSIVE METABOLIC [id number] 00:00:00* Test Item Value Reference Range Interpretation Comme nts GLUCOSE (test code = 2217) 139 MG/DL BUN (test code = 2208) 12 MG/DL CREATININE (test code = 2214) 0.74 MG/DL eGFR AMER. (test cod e = 09443) 111 ML/MIN/1.73 eGFR NON- AMER. (test code = 01954) 96 ML/MIN/1.73 CALC BUN/CREAT (test code = [...] code = 2219) 18 U/L Medardo MinerHEMOGLOBIN [id number] 00:00:00* Test Item Value Reference Range Interpretation Comme daysi HEMOGLOBIN A1c (test code = 76355) 5.5 % Medardo MinerCBC W/AUTO [id number] 00:00:00* Test Item Value Reference Range Interpretation [...] (test code = 1015) 295 K/UL Medardo [id number] 00:00:00* Test Item Value Reference Range Interpretation Comme nts TSH, THIRD GENERATION (test code = 2821) 0.857 UIU/ML Medardo MinerCOMPREHENSIVE METABOLIC [id number] 00:00:00* Test Item Value Reference Range Interpretation Comme nts GLUCOSE (test code = 2217) 139 MG/DL BUN (test code = 2208) 12 MG/DL CREATININE (test code = 2214) 0.74 MG/DL eGFR AMER. (test cod e = 82336) 111 ML/MIN/1.73 eGFR NON- AMER. (test code = 33302) 96 ML/MIN/1.73 CALC BUN/CREAT (test code = [...] (test code = 2219) 18 U/L HEMOGLOBIN [id number] 00:00:00* Test Item Value Reference Range Interpretation Comme nts HEMOGLOBIN A1c (test code = 50237) 5.5 % CBC W/AUTO [id number] 00:00:00* Test Item Value Reference Range Interpretation [...] COUNT (test code = 1015) 295 K/UL [id number] 00:00:00* Test Item Value Reference Range Interpretation Comme nts TSH, THIRD GENERATION (test code = 2821) 0.857 UIU/ML COMPREHENSIVE METABOLIC [id number] 00:00:00* Test Item Value Reference Range Interpretation Comme nts GLUCOSE (test code = 2217) 139 MG/DL BUN (test code = 2208) 12 MG/DL CREATININE (test code = 2214) 0.74 MG/DL eGFR AMER. (test cod e = 29630) 111 ML/MIN/1.73 eGFR NON- AMER. (test code = 90553) 96 ML/MIN/1.73 CALC BUN/CREAT (test code = [...] (test code = 2219) 18 U/L HEMOGLOBIN [id number] 00:00:00* Test Item Value Reference Range Interpretation Comme nts HEMOGLOBIN A1c (test code = 22748) 5.5 % CBC W/AUTO [id number] 00:00:00* Test Item Value Reference Range Interpretation [...] COUNT (test code = 1015) 295 K/UL [id number] 00:00:00* Test Item Value Reference Range Interpretation Comme nts TSH, THIRD GENERATION (test code = 2821) 0.857 UIU/ML COMPREHENSIVE METABOLIC [id number] 00:00:00* Test Item Value Reference Range Interpretation Comme nts GLUCOSE (test code = 2217) 139 MG/DL BUN (test code = 2208) 12 MG/DL CREATININE (test code = 2214) 0.74 MG/DL eGFR AMER. (test cod e = 67405) 111 ML/MIN/1.73 eGFR NON- AMER. (test code = 01914) 96 ML/MIN/1.73 CALC BUN/CREAT (test code = [...] (test code = 2219) 18 U/L HEMOGLOBIN [id number] 00:00:00* Test Item Value Reference Range Interpretation Comme nts HEMOGLOBIN A1c (test code = 21532) 5.5 % CBC W/AUTO [id number] 00:00:00* Test Item Value Reference Range Interpretation [...] COUNT (test code = 1015) 295 K/UL [id number] 00:00:00* Test Item Value Reference Range Interpretation Comme nts TSH, THIRD GENERATION (test code = 2821) 0.857 UIU/ML COMPREHENSIVE METABOLIC [id number] 00:00:00* Test Item Value Reference Range Interpretation Comme nts GLUCOSE (test code = 2217) 139 MG/DL BUN (test code = 2208) 12 MG/DL CREATININE (test code = 2214) 0.74 MG/DL eGFR AMER. (test cod e = 13982) 111 ML/MIN/1.73 eGFR NON- AMER. (test code = 58771) 96 ML/MIN/1.73 CALC BUN/CREAT (test code = [...] code = 2219) 18 U/L Medardo MinerHEMOGLOBIN [id number] 00:00:00* Test Item Value Reference Range Interpretation Comme [facility] HEMOGLOBIN A1c (test code = 35906) 5.5 % Medardo Ibrahim KristoferCBC W/AUTO [id number] 00:00:00* Test Item Value Reference Range Interpretation [...] (test code = 1015) 295 K/UL Medardo Ibrahim [id number] 00:00:00* Test Item Value Reference Range Interpretation Comme nts TSH, THIRD GENERATION (test code = 2821) 0.857 UIU/ML Medardo Ibrahim KristoferCOMPREHENSIVE METABOLIC [id number] 00:00:00* Test Item Value Reference Range Interpretation Comme nts GLUCOSE (test code = 2217) 139 MG/DL BUN (test code = 2208) 12 MG/DL CREATININE (test code = 2214) 0.74 MG/DL eGFR AMER. (test cod e = ) 111 ML/MIN/1.73 eGFR NON- AMER. (test code = 96721) 96 ML/MIN/1.73 CALC BUN/CREAT (test code = [...] code = 2219) 18 U/L Medardo MinerHEMOGLOBIN [id number] 00:00:00* Test Item Value Reference Range Interpretation Comme nts HEMOGLOBIN A1c (test code = 00579) 5.5 % Medardo MinerCBC W/AUTO [id number] 00:00:00* Test Item Value Reference Range Interpretation [...] (test code = 1015) 295 K/UL Medardo Ibrahim AustinLIPID [id number] 00:00:00* Test Item Value Reference Range Interpretation Comme nts CHOLESTEROL (test code = 2210) 219 MG/DL TRIGLYCERIDES (test code = 2232) 407 MG/DL HDL CHOLESTEROL (test code = 2220) 41 MG/DL CALC LDL CHOL (test code = 2237) NOTE MG/DL RISK RATIO LDL/HDL (test cod e = 2238) (NOTE) RATIO Medardo Ibrahim AustinLIPID [id number] 00:00:00* Test Item Value Reference Range Interpretation Comme nts CHOLESTEROL (test code = 2210) 219 MG/DL TRIGLYCERIDES (test code = 2232) 407 MG/DL HDL CHOLESTEROL (test code = 2220) 41 MG/DL CALC LDL CHOL (test code = 2237) NOTE MG/DL RISK RATIO LDL/HDL (test cod e = 2238) (NOTE) RATIO Medardo Ibrahim AustinLIPID [id number] 00:00:00* Test Item Value Reference Range Interpretation Comme nts CHOLESTEROL (test code = 2210) 219 MG/DL TRIGLYCERIDES (test code = 2232) 407 MG/DL HDL CHOLESTEROL (test code = 2220) 41 MG/DL CALC LDL CHOL (test code = 2237) NOTE MG/DL RISK RATIO LDL/HDL (test cod e = 2238) (NOTE) RATIO LIPID [id number] 00:00:00* Test Item Value Reference Range Interpretation Comme nts CHOLESTEROL (test code = 2210) 219 MG/DL TRIGLYCERIDES (test code = 2232) 407 MG/DL HDL CHOLESTEROL (test code = 2220) 41 MG/DL CALC LDL CHOL (test code = 2237) NOTE MG/DL RISK RATIO LDL/HDL (test cod e = 2238) (NOTE) RATIO LIPID [id number] 00:00:00* Test Item Value Reference Range Interpretation Comme nts CHOLESTEROL (test code = 2210) 219 MG/DL TRIGLYCERIDES (test code = 2232) 407 MG/DL HDL CHOLESTEROL (test code = 2220) 41 MG/DL CALC LDL CHOL (test code = 2237) NOTE MG/DL RISK RATIO LDL/HDL (test cod e = 2238) (NOTE) RATIO LIPID [id number] 00:00:00* Test Item Value Reference Range Interpretation Comme nts CHOLESTEROL (test code = 2210) 219 MG/DL TRIGLYCERIDES (test code = 2232) 407 MG/DL HDL CHOLESTEROL (test code = 2220) 41 MG/DL CALC LDL CHOL (test code = 2237) NOTE MG/DL RISK RATIO LDL/HDL (test cod e = 2238) (NOTE) RATIO Medardo MinerLIPID [id number] 00:00:00* Test Item Value Reference Range Interpretation Comme nts CHOLESTEROL (test code = 2210) 219 MG/DL TRIGLYCERIDES (test code = 2232) 407 MG/DL HDL CHOLESTEROL (test code = 2220) 41 MG/DL CALC LDL CHOL (test code = 2237) NOTE MG/DL RISK RATIO LDL/HDL (test cod e = 2238) (NOTE) RATIO Medardo Ibrahim AustinGC AND CHLAMYDIA, AMPLIFIED, [id number] 00:00:00* Test Item Value Reference Range Interpretation Comme nts GONORRHEA, TMA (test code = 70507) NEGATIVE CHLAMYDIA, TMA (test code = 31326) NEGATIVE Medardoraysa MinerGC AND CHLAMYDIA, AMPLIFIED, [id number] 00:00:00* Test Item Value Reference Range Interpretation Comme nts GONORRHEA, TMA (test code = 04801) NEGATIVE CHLAMYDIA, TMA (test code = 24873) NEGATIVE Medardo F AustinGC AND CHLAMYDIA, AMPLIFIED, [id number] 00:00:00* Test Item Value Reference Range Interpretation Comme nts GONORRHEA, TMA (test code = 96214) NEGATIVE CHLAMYDIA, TMA (test code = 57653) NEGATIVE GC AND CHLAMYDIA, AMPLIFIED, [id number] 00:00:00* Test Item Value Reference Range Interpretation Comme nts GONORRHEA, TMA (test code = 86061) NEGATIVE CHLAMYDIA, TMA (test code = 27959) NEGATIVE GC AND CHLAMYDIA, AMPLIFIED, [id number] 00:00:00* Test Item Value Reference Range Interpretation Comme nts GONORRHEA, TMA (test code = 50490) NEGATIVE CHLAMYDIA, TMA (test code = 20783) NEGATIVE GC AND CHLAMYDIA, AMPLIFIED, [id number] 00:00:00* Test Item Value Reference Range Interpretation Comme nts GONORRHEA, TMA (test code = 42934) NEGATIVE CHLAMYDIA, TMA (test code = 00783) NEGATIVE Medardo F AustinGC AND CHLAMYDIA, AMPLIFIED, [id number] 00:00:00* Test Item Value Reference Range Interpretation Comme nts GONORRHEA, TMA (test code = 08007) NEGATIVE CHLAMYDIA, TMA (test code = 96242) NEGATIVE Medardo MinerCOMPREHENSIVE METABOLIC [id number] 00:00:00* Test Item Value Reference Range Interpretation Comme nts GLUCOSE (test code = 2217) 100 MG/DL BUN (test code = 2208) 16 MG/DL CREATININE (test code = 2214) 0.72 MG/DL eGFR AMER. (test cod e = 01068) 116 ML/MIN/1.73 eGFR NON- AMER. (test code = 18156) 100 ML/MIN/1.73 CALC BUN/CREAT (test code = [...] = 2219) 20 U/L Medardo Ibrahim AustinLIPID [id number] 00:00:00* Test Item Value Reference Range Interpretation Comme nts CHOLESTEROL (test code = 2210) 202 MG/DL TRIGLYCERIDES (test code = 2232) 190 MG/DL HDL CHOLESTEROL (test code = 2220) 51 MG/DL CALC LDL CHOL (test code = 2237) 113 MG/DL RISK RATIO LDL/HDL (test cod e = 2238) 2.22 RATIO Medardo MinerCOMPREHENSIVE METABOLIC [id number] 00:00:00* Test Item Value Reference Range Interpretation Comme nts GLUCOSE (test code = 2217) 100 MG/DL BUN (test code = 2208) 16 MG/DL CREATININE (test code = 2214) 0.72 MG/DL eGFR AMER. (test cod e = 40749) 116 ML/MIN/1.73 eGFR NON- AMER. (test code = 96282) 100 ML/MIN/1.73 CALC BUN/CREAT (test code = [...] (test code = 2219) 20 U/L Medardo Alexandria AustinLIPID [id number] 00:00:00* Test Item Value Reference Range Interpretation Comme nts CHOLESTEROL (test code = 2210) 202 MG/DL TRIGLYCERIDES (test code = 2232) 190 MG/DL HDL CHOLESTEROL (test code = 2220) 51 MG/DL CALC LDL CHOL (test code = 2237) 113 MG/DL RISK RATIO LDL/HDL (test cod e = 2238) 2.22 RATIO Medardo Ibrahim CromonaCOMPREHENSIVE METABOLIC [id number] 00:00:00* Test Item Value Reference Range Interpretation Comme nts GLUCOSE (test code = 2217) 100 MG/DL BUN (test code = 2208) 16 MG/DL CREATININE (test code = 2214) 0.72 MG/DL eGFR AMER. (test cod e = 88395) 116 ML/MIN/1.73 eGFR NON- AMER. (test code = 65363) 100 ML/MIN/1.73 CALC BUN/CREAT (test code = [...] 2204) 67 U/L AST (test code = 221) 30 U/L ALT (test code = 2219) 20 U/L LIPID [id number] 00:00:00* Test Item Value Reference Range Interpretation Comme nts CHOLESTEROL (test code = 2210) 202 MG/DL TRIGLYCERIDES (test code = 2232) 190 MG/DL HDL CHOLESTEROL (test code = 2220) 51 MG/DL CALC LDL CHOL (test code = 2237) 113 MG/DL RISK RATIO LDL/HDL (test cod e = 2238) 2.22 RATIO COMPREHENSIVE METABOLIC [id number] 00:00:00* Test Item Value Reference Range Interpretation Comme nts GLUCOSE (test code = 2217) 100 MG/DL BUN (test code = 8) 16 MG/DL CREATININE (test code = 2214) 0.72 MG/DL eGFR AMER. (test cod e = 28141) 116 ML/MIN/1.73 eGFR NON- AMER. (test code = 31530) 100 ML/MIN/1.73 CALC BUN/CREAT (test code = [...] (test code = 2219) 20 U/L LIPID [id number] 00:00:00* Test Item Value Reference Range Interpretation Comme nts CHOLESTEROL (test code = 2210) 202 MG/DL TRIGLYCERIDES (test code = 2232) 190 MG/DL HDL CHOLESTEROL (test code = 2220) 51 MG/DL CALC LDL CHOL (test code = 2237) 113 MG/DL RISK RATIO LDL/HDL (test cod e = 2238) 2.22 RATIO COMPREHENSIVE METABOLIC [id number] 00:00:00* Test Item Value Reference Range Interpretation Comme nts GLUCOSE (test code = 2217) 100 MG/DL BUN (test code = 2208) 16 MG/DL CREATININE (test code = 2214) 0.72 MG/DL eGFR AMER. (test cod e = 42541) 116 ML/MIN/1.73 eGFR NON- AMER. (test code = 59658) 100 ML/MIN/1.73 CALC BUN/CREAT (test code = [...] (test code = 2219) 20 U/L LIPID [id number] 00:00:00* Test Item Value Reference Range Interpretation Comme nts CHOLESTEROL (test code = 2210) 202 MG/DL TRIGLYCERIDES (test code = 2232) 190 MG/DL HDL CHOLESTEROL (test code = 2220) 51 MG/DL CALC LDL CHOL (test code = 2237) 113 MG/DL RISK RATIO LDL/HDL (test cod e = 2238) 2.22 RATIO COMPREHENSIVE METABOLIC [id number] 00:00:00* Test Item Value Reference Range Interpretation Comme nts GLUCOSE (test code = 2217) 100 MG/DL BUN (test code = 2208) 16 MG/DL CREATININE (test code = 2214) 0.72 MG/DL eGFR AMER. (test cod e = 03848) 116 ML/MIN/1.73 eGFR NON- AMER. (test code = 03363) 100 ML/MIN/1.73 CALC BUN/CREAT (test code = [...] = 2219) 20 U/L Medardo Ibrahim AustinLIPID [id number] 00:00:00* Test Item Value Reference Range Interpretation Comme nts CHOLESTEROL (test code = 2210) 202 MG/DL TRIGLYCERIDES (test code = 2232) 190 MG/DL HDL CHOLESTEROL (test code = 2220) 51 MG/DL CALC LDL CHOL (test code = 2237) 113 MG/DL RISK RATIO LDL/HDL (test cod e = 2238) 2.22 RATIO Medardo Ibrahim KristoferCOMPREHENSIVE METABOLIC [id number] 00:00:00* Test Item Value Reference Range Interpretation Comme nts GLUCOSE (test code = 2217) 100 MG/DL BUN (test code = 2208) 16 MG/DL CREATININE (test code = 2214) 0.72 MG/DL eGFR AMER. (test cod e = 92971) 116 ML/MIN/1.73 eGFR NON- AMER. (test code = 46757) 100 ML/MIN/1.73 CALC BUN/CREAT (test code = [...] (test code = 2219) 20 U/L Medardo MinerLIPID [id number] 00:00:00* Test Item Value Reference Range Interpretation [...] MG/DL eGFR AMER. (test cod e = 55846) 126 ML/MIN/1.73 eGFR NON- AMER. (test code = 11644) 109 ML/MIN/1.73 CALC BUN/CREAT (test code = [...] cod e = 2238) 2.23 RATIO Medardo Alexandria KristoferCOMPREHENSIVE METABOLIC PANEL [ADDED]2018-01-26 00:00:00* Test Item Value Reference Range Interpretation Comme nts GLUCOSE (test code = 2217) 93 MG/DL BUN (test code = 2208) 15 MG/DL CREATININE (test code = 2214) 0.61 MG/DL eGFR AMER. (test cod e = 53588) 126 ML/MIN/1.73 eGFR NON- AMER. (test code = 21822) 109 ML/MIN/1.73 CALC BUN/CREAT (test code = [...] cod e = 2238) 2.23 RATIO Medardo MinerCOMPREHENSIVE METABOLIC PANEL [ADDED]2018-01-26 00:00:00* Test Item Value Reference Range Interpretation Comme nts GLUCOSE (test code = 2217) 93 MG/DL BUN (test code = 2208) 15 MG/DL CREATININE (test code = 2214) 0.61 MG/DL eGFR AMER. (test cod e = 28056) 126 ML/MIN/1.73 eGFR NON- AMER. (test code = 41100) 109 ML/MIN/1.73 CALC BUN/CREAT (test code = [...] MG/DL eGFR AMER. (test cod e = 84885) 126 ML/MIN/1.73 eGFR NON- AMER. (test code = 97928) 109 ML/MIN/1.73 CALC BUN/CREAT (test code = [...] MG/DL eGFR AMER. (test cod e = 08273) 126 ML/MIN/1.73 eGFR NON- AMER. (test code = 89512) 109 ML/MIN/1.73 CALC BUN/CREAT (test code = [...] MG/DL eGFR AMER. (test cod e = 65565) 126 ML/MIN/1.73 eGFR NON- AMER. (test code = 34614) 109 ML/MIN/1.73 CALC BUN/CREAT (test code = [...] code = 2219) 16 U/L Medardo Ibrahim KristoferLIPID PANEL [ADDED]2018-01-26 00:00:00* Test Item Value Reference Range Interpretation Comme nts CHOLESTEROL (test code = 2210) 220 MG/DL TRIGLYCERIDES (test code = 2232) 389 MG/DL HDL CHOLESTEROL (test code = 2220) 44 MG/DL CALC LDL CHOL (test code = 2237) 98 MG/DL RISK RATIO LDL/HDL (test cod e = 2238) 2.23 RATIO Medardo Ibrahim KristoferCOMPREHENSIVE METABOLIC PANEL [ADDED]2018-01-26 00:00:00* Test Item Value Reference Range Interpretation Comme nts GLUCOSE (test code = 2217) 93 MG/DL BUN (test code = 2208) 15 MG/DL CREATININE (test code = 2214) 0.61 MG/DL eGFR AMER. (test cod e = 32705) 126 ML/MIN/1.73 eGFR NON- AMER. (test code = 83645) 109 ML/MIN/1.73 CALC BUN/CREAT (test code = [...] (test code = 2219) 16 U/L Medardo Alexandria KristoferLIPID PANEL [ADDED]2018-01-26 00:00:00* Test Item Value Reference Range Interpretation Comme nts CHOLESTEROL (test code = 2210) 220 MG/DL TRIGLYCERIDES (test code = 2232) 389 MG/DL HDL CHOLESTEROL (test code = 2220) 44 MG/DL CALC LDL CHOL (test code = 2237) 98 MG/DL RISK RATIO LDL/HDL (test cod e = 2238) 2.23 RATIO Medardo Miner Notes Date/Time Note Provider Source Medardo Miner [facility]2024-09-21 00:00:00 Medardo Duque [facility]2024-06-14 00:00:00 Medardo Duque [facility]2024-05-30 00:00:00 Medardo Duque [facility]
[2024-02-08 22:46] LABS: Absolute Eosinophils 0.2 K/uL (0-0.5); Absolute Monocytes 0.6 K/uL (0.1-1.3); Basophils % 0.5 % (0-1.3); Eosinophils % 2.5 % (0-4.4); Hematocrit 45.6 % (36.0-45.0); Hemoglobin 15.1 g/dL (12.0-15.0); MCH 30.4 pg (27.0-35.0); MCHC 33.2 g/dL (32.0-36.0); MCV 91.6 fL (80-100); MPV 9.8 fL (7.6-11.3); Monocytes % 6.3 % (3.3-12.3); Neutrophils % 56.7 % (41.7-73.7); Platelets 269 thou/uL (152-406); RBC Red Blood Cell Count 4.97 M/uL (3.86-4.86); Red Cell Distribution Width 13.7 % (12.1-15.2)
[2024-02-08 22:59] LABS: PT Prothrombin Time 12.5 SECONDS (9.4-12.5); PTT, Activated Partial Thromb 31.2 SECONDS (24.3-36.9); Protime INR 1.12
[2024-02-08 23:07] LABS: ALT/SGPT 29 U/L (13-56); AST/SGOT 17 U/L (15-37); Albumin 3.8 g/dL (3.4-5.0); Alkaline Phosphatase 92 U/L (45-117); Anion Gap 6.1 mEq/L (5.0-15.0); BUN Blood Urea Nitrogen 17 mg/dL (7-18); Bicarbonate 31 mEq/L (21-32); Bilirubin Total 0.4 mg/dL (0.2-1.0); Globulin 3.9 g/dL (2.3-3.5); Glomerular Filtration Rate 65 ml/min (=/>90); Glucose Level 117 mg/dL (74-106); Potassium 3.1 mEq/L (3.5-5.1); Protein, Total 7.7 g/dL (6.4-8.2); Sodium Level 139 mEq/L (136-145); Troponin High Sensitivity 12.5 pg/mL (<58.9)
[2024-02-08 23:11] LABS: Bilirubin Direct < 0.2 mg/dL (0-0.2); Bilirubin Indirect, Calculated 0.2 mg/dL (0.2-0.8)
[2024-02-08] MEDS ORDERED: NA CHLORIDE 0.9% 1,000 ML ONE (23:38)
[2024-02-09] MEDS ORDERED: POTASSIUM CL SA 10 MEQ TAB PO ONE (00:25)
[2024-02-09 00:51] LABS: Specific Gravity 1.012 (1.005-1.030); Sqamous Epithelial <5 /HPF (None Seen); Urine Bacteria <20 /HPF (<20); Urine Bilirubin NEGATIVE (Negative); Urine Blood Trace (Negative); Urine Clarity Turbid (Clear); Urine Color Light-Yellow (Yellow); Urine Culture Reflex Order NOT NEEDED; Urine Glucose NEGATIVE (Negative); Urine Ketones NEGATIVE (Negative); Urine Microscopic Reflex YN ORDER UMIC; Urine Mucus 2+ /HPF (None Seen); Urine Nitrite NEGATIVE (Negative); Urine Protein NEGATIVE (Negative); Urine RBC <5 /HPF (None Seen); Urine Urobilinogen Normal (Normal); Urine WBC <5 /HPF (<5)
--- NOTE | 2024-02-09 00:54 | ER ---
Nurse's Notes [facility] Name: Tina Chapman Age: 53 yrs Sex: Female : 1970 Arrival Date: 02/08/2024 Time: 21:41 Bed 7 Private MD: Diagnosis: Weakness Presentation: 02/07 22:03 Chief complaint: EMS states: Called to patient's home for patient suddenly feeling cm10 dizzy, weak and short of breath. Pt reports to EMS that she took her blood pressure medicine today after not taking it for a while. Pt reports that she is still feeling dizzy, shortness of breath has resolved. Coronavirus screen: Client denies travel out of the [place] in the last 14 days. Ebola Screen: Patient denies travel to an Ebola-affected area in the 21 days before illness onset. No symptoms or risks identified at this time. Initial Sepsis Screen: Does the patient meet any 2 criteria? No. Patient's initial sepsis screen is negative. Does the patient have a suspected source of infection? No. Patient's initial sepsis screen is negative. Risk Assessment: Do you want to hurt yourself or someone else? Patient reports no desire to harm self or others. Onset of symptoms was February 08, 2024. Care prior to arrival: Glucose check: 120. 22:03 Method Of Arrival: EMS: [facility] cm10 22:03 Acuity: DENEEN 3 cm10 Triage Assessment: 22:07 General: Appears in no apparent distress. comfortable, Behavior is calm, cooperative, cm10 appropriate for age. Pain: Denies pain. Neuro: No deficits noted. Level of Consciousness is awake, alert, obeys commands, Oriented to person, place, time, situation, Appropriate for age. Cardiovascular: No deficits noted. Patient's skin is warm and dry. Respiratory: No deficits noted. Airway is patent Respiratory effort is even, unlabored, Respiratory pattern is regular, symmetrical. 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 - Infectious Disease History:: Denies. - Social history:: Smoking status: unknown. Screenin:37 [facility] ED Fall Risk Assessment (Adult) History of falling in the last 3 months, bm8 including since admission No falls in past 3 months (0 pts) Confusion or Disorientation No (0 pts) Intoxicated or Sedated No (0 pts) Impaired Gait No (0 pts) Mobility Assist Device Used No (0 pt) Altered Elimination No (0 pt) Score/Fall Risk Level 0 - 2 = Low Risk Oriented to surroundings, Maintained a safe environment, Educated pt \T\ family on fall prevention, incl call for assistance when getting out of bed, Assessed \T\ reinforced patient's understanding of fall precautions, Hourly rounding (assess needs \T\ fall precautionary measures) done, Used ambulatory aids as needed (educated on \T\ assisted with), Used gait belt as appropriate. Abuse screen: Denies threats or abuse. Nutritional screening: No deficits noted. Tuberculosis screening: No symptoms or risk factors identified. Assessment: 22:37 General: Appears in no apparent distress. comfortable, Behavior is calm, cooperative, bm8 appropriate for age. Pain: Denies pain. Neuro: No deficits noted. Level of Consciousness is awake, alert, obeys commands, Oriented to person, place, time, situation, Appropriate for age. Cardiovascular: No deficits noted. Denies diaphoresis, lightheadedness, shortness of breath, Capillary refill < 3 seconds in bilateral fingers toes Rhythm is sinus rhythm. Respiratory: No deficits noted. Airway is patent Respiratory effort is even, unlabored, Respiratory pattern is regular, symmetrical. GI: No deficits noted. No signs and/or symptoms were reported involving the gastrointestinal system. : No signs and/or symptoms were reported regarding the genitourinary system. EENT: No signs and/or symptoms were reported regarding the EENT system. Derm: No signs and/or symptoms reported regarding the dermatologic system. Musculoskeletal: No signs and/or symptoms reported regarding the musculoskeletal system. 23:35 Reassessment: Patient appears in no apparent distress at this time. No changes from bm8 previously documented assessment. Patient and/or family updated on plan of care and expected duration. Pain level reassessed. Patient is alert, oriented x 3, equal unlabored respirations, skin warm/dry/pink. Patient states feeling better. Patient states symptoms have improved. 02/08 00:58 Reassessment: Patient appears in no apparent distress at this time. Patient and/or bm8 family updated on plan of care and expected duration. Pain level reassessed. Patient is alert, oriented x 3, equal unlabored respirations, skin warm/dry/pink. Patient denies pain at this time. Patient states feeling better. Patient states symptoms have improved. General: Appears in no apparent distress. comfortable, Behavior is calm, cooperative, appropriate for age. Pain: Denies pain. Vital Signs: 02/07 22:03 BP 152 / 85; Pulse 63; Resp 16; Temp 97.8; Pulse Ox 100% ; Weight 68.49 kg; Pain 0/10; cm10 22:37 BP 131 / 84; Pulse 62; Resp 15; Temp 97.8; Pulse Ox 99% ; Pain 0/10; bm8 23:35 BP 125 / 78; Pulse 67; Resp 17; Temp 97.8; Pulse Ox 99% ; Pain 0/10; bm8 02/08 00:58 BP 124 / 72; Pulse 65; Resp 17; Temp 97.8; Pulse Ox 99% ; Pain 0/10; bm8 02/07 22:03 Pain Scale: Adult cm10 22:37 Pain Scale: Adult bm8 23:35 Pain Scale: Adult bm8 02/08 00:58 Pain Scale: Adult bm8 Vitals: 02/07 22:37 Cardiac Rhythm Assessment Regular Sinus rhythm. bm8 Alton Coma Score: 22:37 Eye Response: spontaneous(4). Motor Response: obeys commands(6). Verbal Response: bm8 oriented(5). Total: 15. 23:35 Eye Response: spontaneous(4). Motor Response: obeys commands(6). Verbal Response: bm8 oriented(5). Total: 15. 02/08 00:58 Eye Response: spontaneous(4). Motor Response: obeys commands(6). Verbal Response: bm8 oriented(5). Total: 15. ED Course: 02/07 21:55 Patient arrived in ED. rv1 22:02 [facility]C [facility]. kb 22:02 Luis Maravilla MD is Attending Physician. kb 22:07 Triage completed. cm10 22:08 Arm band placed on Patient placed in an exam room, on a stretcher, on pulse oximetry. cm10 22:20 Jonel Rendon, RN is Primary Nurse. bm8 22:37 Patient has correct armband on for positive identification. Placed in gown. Bed in low bm8 position. Call light in reach. Side rails up X2. Adult w/ patient. Client placed on continuous cardiac and pulse oximetry monitoring. NIBP monitoring applied. quality assurance monitor final on. Pulse ox on. NIBP on. Door closed. Noise minimized. Lights dimmed. Warm blanket given. Pillow given. Verbal reassurance given. Head of bed elevated. 22:37 No provider procedures requiring assistance completed. Initial lab(s) drawn, by mt, bm8 sent to lab. EKG done, by ED staff, reviewed by Sonia LEIVA. Inserted saline lock: 20 gauge in right antecubital area, using aseptic technique. Blood collected. Flushed with 10 mL NS Missed attempt(s): 20 gauge in right antecubital area. Bleeding controlled, band aid applied, catheter tip intact. Patient maintains SpO2 saturation greater than 95% on room air. 22:44 Chest Single View XRAY In Process Unspecified. EDMS 02/08 00:12 Urinalysis w/ reflexes Sent. vk 00:12 Urine collected:. vk 00:58 Provided Education on: post ER care. bm8 00:58 IV discontinued, intact, bleeding controlled, No redness/swelling at site. Pressure bm8 dressing applied. Administered Medications: 02/07 23:41 Drug: NS 0.9% IV 1000 ml IV at 1000 ml once; to be given as a bolus over 60 minutes bm8 Route: IV; Rate: 1000 ml; Site: right antecubital; 02/08 00:47 Follow up: Response: No adverse reaction; IV Status: Completed infusion; IV Intake: bm8 1000ml 00:27 Drug: Potassium Chloride PO 40 mEq PO once Route: PO; bm8 00:47 Follow up: Response: No adverse reaction bm8 Medication: 02/07 22:37 VIS not applicable for this client. bm8 Intake: 10/30 00:47 IV: 1000ml; Total: 1000ml. bm8 Outcome: 00:54 Discharge ordered by . ashley 00:58 Discharged to home ambulatory, bm8 00:58 Condition: stable 00:58 Discharge instructions given to patient, family, Instructed on discharge instructions, follow up and referral plans. medication usage, safety practices, Demonstrated understanding of instructions, follow-up care, medications, 01:00 Patient left the ED. bm8 Signatures: Dispatcher [employer] EDCA Sonia Roe, FERNANDA-C CLIN TECH-Shawanda Delgado rv1 Kellee Pemberton, RN RN cm10 Nevaeh Bourgeois Brad, RN RN bm8
--- NOTE | 2024-02-09 00:54 | EDPHYS ---
Physician Documentation [facility] Name: Tina Chapman Age: 53 yrs Sex: Female : 1970 Arrival Date: 02/08/2024 Time: 21:41 Bed 7 Private MD: ED Physician Luis Maravilla HPI: 02/07 23:29 This 53 yrs old Female presents to ER via EMS with complaints of Dizziness, General kb Weakness. 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 States the symptoms are resolving, shortness of breath completely resolved. Denies chest pain. 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 - Infectious Disease History:: Denies. - Social history:: Smoking status: unknown. ROS: 22:37 Constitutional: As per HPI kb Exam: 22:37 Constitutional: This is a well developed, well nourished patient who is awake, alert, kb and in no acute distress. Head/Face: Normocephalic, atraumatic. ENT: Moist Mucous membranes Cardiovascular: Regular rate Respiratory: Respirations even and unlabored. No increased work of breathing. Talking in full sentences Skin: Warm, dry with normal turgor. Normal color. MS/ Extremity: Pulses equal, no cyanosis. Neurovascular intact. Full, normal range of motion. Neuro: Awake and alert, GCS 15, oriented to person, place, time, and situation. 22:37 ECG was reviewed by the Attending Physician. Vital Signs: 22:03 BP 152 / 85; Pulse 63; Resp 16; Temp 97.8; Pulse Ox 100% ; Weight 68.49 kg; Pain 0/10; cm10 22:37 BP 131 / 84; Pulse 62; Resp 15; Temp 97.8; Pulse Ox 99% ; Pain 0/10; bm8 23:35 BP 125 / 78; Pulse 67; Resp 17; Temp 97.8; Pulse Ox 99% ; Pain 0/10; bm8 02/08 00:58 BP 124 / 72; Pulse 65; Resp 17; Temp 97.8; Pulse Ox 99% ; Pain 0/10; bm8 02/07 22:03 Pain Scale: Adult cm10 22:37 Pain Scale: Adult bm8 23:35 Pain Scale: Adult bm8 02/08 00:58 Pain Scale: Adult bm8 Jamila Coma Score: 02/07 22:37 Eye Response: spontaneous(4). Motor Response: obeys commands(6). Verbal Response: bm8 oriented(5). Total: 15. 23:35 Eye Response: spontaneous(4). Motor Response: obeys commands(6). Verbal Response: bm8 oriented(5). Total: 15. 02/08 00:58 Eye Response: spontaneous(4). Motor Response: obeys commands(6). Verbal Response: bm8 oriented(5). Total: 15. MDM: 02/07 22:02 Medical Screening Exam initiated kb 22:37 Data reviewed: vital signs, nurses notes. 02/08 00:53 Differential diagnosis: generalized weakness, idiopathic dizziness, near-syncope, kb vertigo, anxiety. Historians other than the Patient: EMS: [facility]. Counseling: I had a detailed discussion with the patient and/or guardian regarding the historical points, exam findings, and any diagnostic results supporting the discharge/admit diagnosis, lab results, radiology results, the need for outpatient follow up, a family practitioner, to return to the emergency department if symptoms worsen or persist or if there are any questions or concerns that arise at home. 00:53 ED course: pt feeling better after treatment. kb 02/07 22:08 Order name: Basic Metabolic Panel; Complete Time: 23:12 kb 02/07 22:08 Order name: CBC with Diff; Complete Time: 22:51 kb 02/07 22:08 Order name: Hepatic Function; Complete Time: 23:12 kb 02/07 22:08 Order name: Magnesium; Complete Time: 23:12 kb 02/07 22:08 Order name: Protime (+inr); Complete Time: 23:01 kb 02/07 22:08 Order name: Ptt, Activated; Complete Time: 23:01 kb 02/07 22:08 Order name: Troponin High Sensitivity; Complete Time: 23:12 kb 02/07 22:08 Order name: Urinalysis w/ reflexes; Complete Time: 00:51 kb 02/07 22:08 Order name: Chest Single View XRAY kb 02/07 22:08 Order name: EKG; Complete Time: 22:08 kb 02/07 22:08 Order name: Cardiac monitoring; Complete Time: 22:37 kb 02/07 22:08 Order name: EKG - Nurse/Tech; Complete Time: 22:37 kb 02/07 22:08 Order name: IV Saline Lock; Complete Time: 22:37 kb 02/07 22:08 Order name: Labs collected and sent; Complete Time: 22:37 kb 02/07 22:08 Order name: NPO; Complete Time: 22:37 kb 02/07 22:08 Order name: O2 Per Protocol; Complete Time: 22:37 kb 02/07 22:08 Order name: O2 Sat Monitoring; Complete Time: 22:37 kb EC/29 22:37 Rate is 64 beats/min. Rhythm is regular. QRS [place] is Normal. [place] interval is normal at kb 142 msec. QRS interval is normal at 88 msec. QT interval is normal at 445 msec. Administered Medications: 23:41 Drug: NS 0.9% IV 1000 ml IV at 1000 ml once; to be given as a bolus over 60 minutes bm8 Route: IV; Rate: 1000 ml; Site: right antecubital; 02/08 00:47 Follow up: Response: No adverse reaction; IV Status: Completed infusion; IV Intake: bm8 1000ml 00:27 Drug: Potassium Chloride PO 40 mEq PO once Route: PO; bm8 00:47 Follow up: Response: No adverse reaction bm8 Disposition Summary: 02/09/24 00:54 Discharge Ordered Notes: Location: Home kb Condition: Stable kb Diagnosis - Weakness kb Followup: kb - With: Emergency Department - When: As needed - Reason: Worsening of condition Followup: kb - With: Private Physician - When: 2 - 3 days - Reason: Recheck today's complaints, Continuance of care, Re-evaluation by your physician Discharge Instructions: - Discharge Summary Sheet kb - Weakness, [id number] kb Forms: - Medication Reconciliation Form kb - Antibiotic Education kb - Prescription Opioid Use kb - Patient Portal Instructions kb - Leadership Thank You Letter kb Addendum: 02/10/2024 09:15 I was immediately available for consultation during this patient's visit. I did not e c2 personally see the patient or discuss the patient with the ANITA. . Signatures: Dispatcher [employer] Sonia Johansen, BASIN CLEANER-C FERNANDA-Kellee Dillard, RN RN cm10 Luis Maravilla MD MD ec2 Jonel Rendon, RN RN bm8 Corrections: (The following items were deleted from the chart) 02/07 22:08 22:08 BASIC METABOLIC PANEL+C.LAB.BRZ ordered. EDMS EDMS 22:08 22:08 CBC+H.LAB.BRZ ordered. EDMS EDMS 22:08 22:08 HEPATIC FUNCTION+C.LAB.BRZ ordered. EDMS EDMS 22:08 22:08 MAGNESIUM+C.LAB.BRZ ordered. EDMS EDMS 22:08 22:08 PROTIME (+INR)+COAG.LAB.BRZ ordered. EDMS EDMS 22:08 22:08 PTT, ACTIVATED+COAG.LAB.BRZ ordered. EDMS EDMS 22:08 22:08 Troponin High Sensitivity+C.LAB.BRZ ordered. EDMS EDMS 22:08 22:08 Urinalysis+U.LAB.BRZ ordered. EDMS EDMS
[2024-02-09 01:08] VITALS: TEMP 97.8
[2024-02-09 01:10] VITALS: O2SAT 99
[2024-02-09 01:11] VITALS: BP 124/72
--- NOTE | 2024-02-09 03:40 | RAD REPORT ---
EXAM: XR Chest, 1 View CLINICAL HISTORY: The patient is 53 years old and is Female; DYSPNEA TECHNIQUE: Frontal view of the chest. COMPARISON: XR Chest dated January 22 2024 FINDINGS: LUNGS: Unremarkable. No consolidation. PLEURAL SPACE: Unremarkable. No pneumothorax. HEART: Unremarkable. No cardiomegaly. MEDIASTINUM: Unremarkable. Normal mediastinal contour. BONES/JOINTS: Unremarkable. No acute fracture. UPPER ABDOMEN: Unremarkable as visualized. IMPRESSION: No acute cardiopulmonary process. Electronically signed by: Ariadna Ryan MD 02/09/2024 12:08 AM CDT RP Due to temporary technical issues with the PACS/[employer] reporting system, reports are being rakan d by the in-house radiologist without review as a courtesy to ensure prompt reporting the interpreting radiologist is fully responsible for the content of the report. Transcribed Date/Time: 02/09/2024 3:40 AM
--- NOTE | 2024-02-09 14:47 | EKG ---
Test Date: 2024-02-08 Test Time: 22:26:42 Field Marketing Coordinator: ML MEASUREMENT RESULTS: Intervals: Rate: 64 VA: 142 QRSD: 88 QT: 432 QTc: 445 [place]: P: 40 VA: 142 QRS: 39 T: 48 INTERPRETIVE STATEMENTS: Normal sinus rhythm Normal ECG Compared to ECG 01/22/2024 04:27:38 No significant changes Electronically Signed On 02-09-24 14:45:36 CDT by Parviz Mixon
== END 2024-02-09 01:00 | disposition home or self-care (01) ==
LOC: ER 21:41
DX: R53.1 Weakness (principal); R42 Dizziness and giddiness; I10 Essential (primary) hypertension; F41.9 Anxiety disorder, unspecified
CPT/HCPCS: 85025; 80048; 36415; 83735; 85610; 80076; 85730; 84484; 71045; J7030; 81001; 93005; 96360; 99285

== ENCOUNTER 2024-07-29 13:01 | Emergency (ER) | payer OTHER ==
--- OUTSIDE RECORDS SUMMARY | 2024-07-29 13:12 | XMS REPORT | Continuity of Care Document ---
Author Name Unknown Address [address] [facility] [place] [address] Organization [facility] [place] Address [address] 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 Name Role Phone Veronica Gaona Primary Care Physician RADHA LANIER Attending Clinician Unavailable [email or web address] Attending Clinician Unavaila ble [email or web address] Admitting Clinician Unavaila ble Payers Payer Name Policy Type Policy Number Effective Date Expirati on Date Source [facility] YNESHermelindoJOSEOSVALDO CHANDLER COPAY FOCUS 9 [id number] 2024 00:00:00 Problems Condition Name Condition Details Condition Category Status Onset Date Resolution Date Last Treatment Date Treating Clinician Comments Source Severe depression (multi HCC) Severe depression (multi HCC) Disease Active Ynes Seybold - Externa l Anxiety Anxiety Disease Active Ynes Seybold - Externa l HTN (hypertens ion) HTN (hypertens ion) Disease Active Ynes Seybold - Externa l Hyperlipid emia Hyperlipid emia Disease Active Ynes Seybold - Externa l History of bilateral tubal ligation History of bilateral tubal ligation Disease Active Ynes Seybold - Externa l Family history of colon cancer in mother Family history of colon cancer in mother Disease Active Ynes Seybold - Externa l Allergies, Adverse Reactions, Alerts Allergy Name Allergy Type Status Severity Reaction(s) Onset Date Inactive Date Treating Clinician Comments Source Codeine Propensi ty to adverse reaction s to drug Active Hives 2-11 00:00: 00 Ynes Russell - Externa l Penicill ins Propensi ty to adverse reaction s Active Hives 2-11 00:00: 00 Ynes Russell - Externa l cillins (Not Checked) Propensi ty to adverse reaction to drug Active 9-21 00:00: 00 Medardo Miner Penicill ins - CLASS Propensi ty to adverse reaction to drug Active 4-13 00:00: 00 Medardo Miner Penicill ins Propensi ty to adverse reaction to drug Active 2-16 00:00: 00 Medardo Alexandria Miner Social History Social Habit Start Date Stop Date Quantity Comments Source Sexual orientation 2024-05-22 17:11:44 Heterosexual (finding) Ynes Russell - External ASSERTION Not Ynes Russell - External History of Occupation Ynes Russell - External History of tobacco use Cigarette Smoker Ynes ríos - External Tobacco use and exposure 2024-05-23 00:00:00 2024-05-23 00:00:00 Smokeless tobacco non-user Ynes Russell - External Alcoholic beverage intake 2024-05-23 00:00:00 2024-05-23 00:00:00 Current drinker of alcohol (finding) Ynes Russell - External History of Social function 2024-05-23 00:00:00 2024-05-23 00:00:00 Ynes Russell - External Education 2024-05-23 00:00:00 2024-05-23 00:00:00 10 Ynes Russell - External Alcohol Comment 2024-05-23 00:00:00 2024-05-23 00:00:00 occasionally Ynes Russell - External Cigarettes smoked current (pack per day) - Reported 2024-05-23 00:00:00 2024-05-23 00:00:00 Ynes Casarez External Cigarette pack-years 2024-05-23 00:00:00 2024-05-23 00:00:00 Ynes Russell - External Sex 2024-05-09 23:16:26 2024-05-09 23:16:26 Female (finding) Ynes Pitt Sex assigned at 1970 00:00:00 1970 00:00:00 Ynes Pitt Smoking Status Start Date Stop Date Source Ex-smoker 2024-05-23 00:00:00 2024-05-23 00:00:00 Mike hines Drew Pitt Medications Ordered Medication Name Filled Medication Name Start Date Stop Date Current Medication? Ordering Clinician Indication Dosage Frequency Signature (SIG) Comments Components Source Metoprolol Tartrate (LOPRESSOR) 100 MG oral Tablet 05-23 16:29: 55 05-23 00:00 :00 No 87 100mg Q.5D Take 1 tablet (100 mg total) by mouth 2 times daily. Indication s: High Blood Pressure Ynes vásquez Amlodipine Besylate (Norvasc) 10 MG oral Tablet 05-23 16:29: 55 05-23 00:00 :00 No 87 10mg QD Take 1 tablet (10 mg total) by mouth daily. Indication s: High Blood Pressure Ynes vásquez Lisinopril 20 MG oral Tablet 05-23 16:21: 27 05-23 00:00 :00 No 87 20mg Q.5D Take 1 tablet (20 mg total) by mouth 2 times daily. Indication s: High Blood Pressure Ynes vásquez busPIRone HCl 15 MG oral Tablet 05-23 16:08: 10 Yes 1741 15mg [id number] 3D Take 1 tablet (15 mg total) by mouth 3 times daily. Indication s: Anxiety Disorder, Major Depressive Disorder Ynes vásquez Aripiprazol e (Abilify) 2 MG oral Tablet 05-23 16:07: 54 Yes 1{tbl} QD Take 1 tablet by mouth daily. Ynes vásquez Bupropion HCL XL 300 MG OR TB24 05-23 16:07: 38 Yes 1741 300mg QD Take 1 tablet (300 mg total) by mouth daily. Indication s: Major Depressive Disorder Ynes vásquez Oxcarbazepi ne 300 MG oral Tablet 05-23 16:07: 15 Yes 300mg Q.5D Take 1 tablet (300 mg total) by mouth 2 times daily. Ynes vásquez Losartan Potassium (COZAAR) 50 MG oral Tablet 05-23 00:00: 00 Yes [id number] 50mg QD Take 1 tablet (50 mg total) by mouth daily. Ynes vásquez Amlodipine Besylate (Norvasc) 10 MG oral Tablet 05-23 00:00: 00 Yes 87 10mg QD Take 1 tablet (10 mg total) by mouth daily. Indication s: High Blood Pressure Ynes vásquez Metoprolol Tartrate (LOPRESSOR) 100 MG oral Tablet 05-23 00:00: 00 Yes 87 100mg Q.5D Take 1 tablet (100 mg total) by mouth 2 times daily. Indication s: High Blood Pressure Ynes vásquez metoprolol tartrate 100 mg tablet 04-26 00:00: 00 Yes mg Medardo Miner Norvasc 10 mg tablet 04-26 00:00: 00 Yes 1mg Medardo Miner lisinopril 20 mg tablet 04-26 00:00: 00 Yes 1mg Medardo Miner lisinopril 40 mg tablet 2023-04 00:00: 00 Yes mg Medardo Miner Norvasc 10 mg tablet 2023-04 00:00: 00 Yes 1mg Medardo Miner bupropion HCl XL 300 mg 24 hr tablet, extended release 2023-04 00:00: 00 Yes 1mg Medardo Miner aripiprazol e 2 mg tablet 2023-04 00:00: 00 Yes 15mg Medardo Miner Trileptal 300 mg tablet 2023-04 00:00: 00 Yes 1mg Medardo Miner buspirone 15 mg tablet 2023-04 00:00: 00 Yes 1mg Medardo Miner Norvasc 10 mg tablet 2023-04 00:00: 00 Yes 1mg Medardo Miner lisinopril 40 mg tablet 2023-04- 00:00: 00 Yes mg Medardo Miner hydralazine 10 mg tablet 2023-04 0- 00:00: 00 Yes 1mg Medardo Miner atorvastati n 20 mg tablet 2023-04 00:00: 00 Yes 1mg Medardo Miner diltiazem ER 180 mg capsule,24 hr,extended release 2023-04- 00:00: 00 Yes 1mg Medardo Miner metoprolol tartrate 100 mg tablet 2023-04 0- 00:00: 00 Yes mg Medardo Miner metoprolol tartrate 100 mg tablet 2023-04 0- 00:00: 00 Yes mg Medardo Miner Norvasc 10 mg tablet 2023-04- 00:00: 00 Yes 1mg Medardo Miner lisinopril 40 mg tablet 2023-04 00:00: 00 Yes 1mg Medardo Miner bupropion HCl XL 300 mg 24 hr tablet, extended release 2023-04 0- 00:00: 00 Yes 1mg Medardo Miner aripiprazol e 2 mg tablet 2023-04 0 00:00: 00 Yes 15mg Medardo Miner Trileptal 300 mg tablet 2023-04 0 00:00: 00 Yes 1mg Medardo Miner buspirone 15 mg tablet 2023-04 0 00:00: 00 Yes 1mg Medardo Miner metoprolol tartrate 100 mg tablet 12-31 00:00: 00 Yes mg Medardo Miner hydralazine 10 mg tablet - 00:00: 00 Yes 1mg Medardo Miner atorvastati n 20 mg tablet 12-31 00:00: 00 Yes 1mg Medardo Miner diltiazem ER 180 mg capsule,24 hr,extended release - 00:00: 00 Yes 1mg Medardo Miner lisinopril 40 mg tablet - 00:00: 00 Yes 1mg Medardo Miner bupropion HCl XL 300 mg 24 hr tablet, extended release -15 00:00: 00 Yes 1mg Medardo Miner aripiprazol e 2 mg tablet 2024-0 7-15 00:00: 00 Yes 15mg Medardo Miner [...] Medardo Miner buspirone 15 mg tablet 2023-0 -10 00:00: 00 Yes 1mg Medardo Miner diltiazem ER 180 mg capsule,24 hr,extended release 2023-0 6-14 00:00: 00 Yes 1mg Medardo Miner diltiazem ER 360 mg capsule,24 hr,extended release 2023-0 5-30 00:00: 00 Yes mg Medardo Miner metoprolol tartrate 100 mg tablet 2023-0 5-30 00:00: 00 Yes mg Medardo Miner atorvastati n 20 mg tablet 2023-0 5-30 00:00: 00 Yes 1mg Medardo Miner lisinopril 40 mg tablet 2023-0 5-30 00:00: 00 Yes 1mg Medardo Miner hydralazine 10 mg tablet 2023-0 5-30 00:00: 00 Yes 1mg Medardo Miner diltiazem ER 360 mg capsule,24 hr,extended release 2023-0 5-29 00:00: 00 Yes mg Medardo Miner metoprolol tartrate 100 mg tablet 2023-0 5-24 00:00: 00 Yes mg Medardo Miner bupropion HCl XL 300 mg 24 hr tablet, extended release 2023-0 5-10 00:00: 00 Yes 1mg Medardo Miner aripiprazol e 2 mg tablet 2023-0 5-10 00:00: 00 Yes 15mg Medardo Miner Trileptal 300 mg tablet 2023-0 5-10 00:00: 00 Yes 1mg Medardo Miner buspirone 15 mg tablet 5-10 00:00: 00 Yes 1mg Medardo Miner TAKE 1 TABLET BY MOUTH TWICE A DAY 5-10 00:00: 00 Yes 300 Medardo Miner bupropion HCl XL 300 mg 24 hr tablet, extended release 3-14 00:00: 00 Yes 1mg Medardo Miner aripiprazol e 2 mg tablet -14 00:00: 00 Yes 15mg Medardo Miner Trileptal 300 mg tablet -14 00:00: 00 Yes 1mg Medardo Miner buspirone 15 mg tablet -14 00:00: 00 Yes 1mg Medardo Miner TAKE 1 TABLET BY MOUTH DAILY 05-28 00:00: 00 12-14 00:00 :00 No 10 Medardoraysa Miner TAKE 1 TABLET DAILY. 05-07 00:00: 00 12-14 00:00 :00 No 300 Medardo Miner TAKE 1 TABLET TWICE DAILY. 05-07 00:00: 00 12-14 00:00 :00 No 300 Medardoraysa Miner TAKE 1 TABLET 3 TIMES DAILY. 05-07 00:00: 00 12-14 00:00 :00 No 15 Medardoraysa Miner TAKE ONE AND A HALF TABLET DAILY 05-07 00:00: 00 12-14 00:00 :00 No 2 Medardo Alexandria Miner TAKE ONE AND A HALF TABLET DAILY 2022-04 2 00:00: 00 12-14 00:00 :00 No 2 Medardoraysa Miner TAKE 1 TABLET 3 TIMES DAILY. 2022-04 2- 00:00: 00 12-14 00:00 :00 No 15 Medardo Alexandria Miner TAKE 1 TABLET TWICE DAILY. 2022-04 2- 00:00: 00 12-14 00:00 :00 No 300 Medardoraysa Miner TAKE 1 TABLET DAILY. 2022-04 2- 00:00: 00 12-14 00:00 :00 No 300 Medardoraysa Miner TAKE 1 TABLET BY MOUTH DAILY 2022-04 1-17 00:00: 00 12-14 00:00 :00 No 20 [...] Kristofer TAKE 1 TABLET BY MOUTH DAILY 8-15 00:00: 00 12-14 00:00 :00 No 20 Medardo F Kristofer TAKE 1 TABLET TWICE DAILY. 8-15 00:00: 00 12-14 00:00 :00 No 40 Medardoraysa Miner TAKE 1 TABLET BY MOUTH DAILY 11-24 00:00: 00 12-14 00:00 :00 No 10 Medardoraysa Miner TAKE 1 TABLET BY MOUTH DAILY 8 00:00: 00 12-14 00:00 :00 No 360 Medardoraysa Miner TAKE 1 TABLET TWICE DAILY. 11-24 00:00: 00 12-14 00:00 :00 No 100 Medardo Miner TAKE 1 TAB Q12H X 5 DAYS 11-23 00:00: 00 12-14 00:00 :00 No 100 Medardoraysa Miner APPLY SPARINGLY TO AFFECTED AREA(S) 3 TIMES [...] Medardo F Kristofer TAKE 1 TABLET DAILY. 09-17 00:00: 00 12-14 00:00 :00 No 300 Medardoraysa Miner TAKE 1 TABLET TWICE DAILY. 09-09 00:00: 00 12-14 00:00 :00 No 40 Medardo F Kristofer TAKE 1 TABLET TWICE DAILY. 09-09 00:00: 00 12-14 00:00 :00 No 100 Medardoraysa Miner TAKE 1 TABLET BY MOUTH DAILY 24 00:00: 00 12-14 00:00 :00 No 360 Medardoraysa Miner TAKE 1 TABLET TWICE DAILY. 08-29 00:00: 00 12-14 00:00 :00 No 25 Medardorasya Miner TAKE 1 TABLET TWICE DAILY DIRECTED. 08-29 00:00: 00 12-14 00:00 :00 No 100 [...] 300 Medardo Miner TAKE 1 TABLET DAILY. -14 00:00: 00 12-14 00:00 :00 No 150 Medardo Miner TAKE 1 TABLET TWICE DAILY. -14 00:00: 00 12-14 00:00 :00 No 300 Medardo Miner TAKE 1 TABLET 3 TIMES DAILY. -14 00:00: 00 12-14 00:00 :00 No 15 Medardo Miner TAKE ONE AND A HALF TABLET DAILY 4-14 00:00: 00 12-14 00:00 :00 No 2 Medardoraysa Miner TAKE 1 TABLET TWICE DAILY. 4- 00:00: 00 12-14 00:00 :00 No 100 Medardo Miner TAKE 1 TABLET DAILY. - 00:00: 00 12-14 00:00 :00 No 20 Medardo Miner TAKE 1 TABLET BY MOUTH DAILY - 00:00: 00 12-14 00:00 :00 No 10 Medardoraysa Miner TAKE 1 TABLET TWICE DAILY. 07-23 00:00: 00 12-14 00:00 :00 No 40 Medardo Miner TAKE 1 CAPSULE BY MOUTH EVERY 8 HOURS NEEDED COUGH - 00:00: 00 Yes Medardo Miner INHALE 1 PUFF BY MOUTH EVERY 4 TO 6 HOURS NEEDED - 00:00: 00 Yes Medardo Miner TAKE 1 TABLET DAILY. 3-10 00:00: 00 12-14 00:00 :00 No 20 Medardo Miner TAKE 1 TABLET BY MOUTH DAILY 3-10 00:00: 00 12-14 00:00 :00 No 40 Medardo Miner TAKE 1 TABLET BY MOUTH DAILY 3-10 00:00: 00 12-14 00:00 :00 No 10 Medardo Miner TAKE 1 TABLET TWICE DAILY. 3-10 00:00: 00 12-14 00:00 :00 No 100 Medardo Miner TAKE 1 TABLET BY MOUTH TWICE DAILY. -09 00:00: 00 12-14 00:00 :00 No 00031 Medardo Miner TAKE 1 TABLET BY MOUTH DAILY 2-22 00:00: 00 12-14 00:00 :00 No 10 Medardoraysa Miner TAKE ONE AND A HALF TABLET DAILY 2-17 00:00: 00 12-14 00:00 :00 No 2 Medardo Miner TAKE 1 TABLET 3 TIMES DAILY. 2-17 00:00: 00 12-14 00:00 :00 No 15 Medardoraysa Miner TAKE 1 TABLET TWICE DAILY. 2-17 00:00: 00 12-14 00:00 :00 No 300 Medardoraysa Miner TAKE 1 TABLET BY MOUTH DAILY 1-16 00:00: 00 12-14 00:00 :00 No 10 Medardo Alexandria Miner TAKE 1 TABLET TWICE DAILY. 2021-04 2- 00:00: 00 12-14 00:00 :00 No 300 Medardoraysa Miner TAKE ONE AND A HALF TABLET DAILY 2021-04 2 00:00: 00 12-14 00:00 :00 No 2 Medardoraysa Miner TAKE 1 TABLET DAILY. 2021-04 2- 00:00: 00 12-14 00:00 :00 No Medardo Miner TAKE 1 TABLET TWICE DAILY. 2021-04 2- 00:00: 00 12-14 00:00 :00 No Medardo Miner TAKE 1 TABLET 3 TIMES DAILY. 2021-04 2 00:00: 00 12-14 00:00 :00 No Medardo Alexandria Miner TAKE ONE AND A HALF TABLET DAILY 2021-04 2- 00:00: 00 12-14 00:00 :00 No Medardo Alexandria Miner TAKE 1 CAPSULE EVERY 12 HOURS DAILY. 2021-04 2- 00:00: 00 12-14 00:00 :00 No Medardo Alexandria Miner Dose Unknown 2021-04 2-15 00:00: 00 12-14 00:00 :00 No Medardo F Kristofer Dose Unknown 2021-04 2-15 00:00: 00 12-14 00:00 :00 No Medardo Alexandria Miner TAKE 1 TABLET DAILY. 2021-04 2-15 00:00: 00 12-14 00:00 :00 No 10 Medardo Alexandria Miner TAKE 1 TABLET DAILY. 2021-04 2- 00:00: 00 12-14 00:00 :00 No 10 Medardo Alexandria Miner TAKE 1 TABLET TWICE DAILY. 2021-04 2- 00:00: 00 12-14 00:00 :00 No Medardo Miner TAKE 1 TABLET TWICE DAILY. 2021-04 2- 00:00: 00 12-14 00:00 :00 No 100 Medardo Miner TAKE 1 TABLET 3 TIMES DAILY. 2021-04 1-29 00:00: 00 12-14 00:00 :00 No 15 Medardo Miner TAKE 1 TAB Q12H X 5 DAYS 9 00:00: 00 No TAKE 1 TAB Q12H X 5 DAYS 9 00:00: 00 12-14 00:00 :00 No Medardo Miner TAKE 1 TABLET TWICE DAILY. 11-26 00:00: 00 No TAKE 1 TABLET TWICE DAILY. 11-26 00:00: 00 No TAKE 1 TABLET TWICE DAILY. 11-26 00:00: 00 Yes Medardo Miner TAKE 1 TAB Q12H X 5 DAYS 8-15 00:00: 00 No 100 TAKE 1 TAB Q12H X 5 DAYS 8-15 00:00: 00 No 100 TAKE 1 TAB Q12H X 5 DAYS 8-15 00:00: 00 Yes 100 Medardo Miner TAKE 1 TABLET 3 TIMES DAILY. 8 00:00: 00 No 15 TAKE 1 TABLET 3 TIMES DAILY. 8 00:00: 00 No 15 TAKE 1 TABLET 3 TIMES DAILY. 8 00:00: 00 No 15 TAKE 1 TABLET 3 TIMES DAILY. 8 00:00: 00 Yes 15 Medardo Miner TAKE ONE AND A HALF TABLET DAILY 8- 00:00: 00 No 2 TAKE ONE AND A HALF TABLET DAILY 8- 00:00: 00 No 2 TAKE ONE AND A HALF TABLET DAILY 8 00:00: 00 No 2 TAKE ONE AND A HALF TABLET DAILY 8 00:00: 00 Yes 2 Medardo Miner Dose Unknown 7-14 00:00: 00 No Dose Unknown 7-14 00:00: 00 No Dose Unknown 714 00:00: 00 No Dose Unknown 0 7-14 00:00: 00 No Dose Unknown 0 7-14 00:00: 00 No Dose Unknown 0 714 00:00: 00 No Dose Unknown 0 714 00:00: 00 No Dose Unknown 0 10-23 00:00: 00 No Dose Unknown 0 10-23 00:00: 00 No Dose Unknown 0 10-23 00:00: 00 Yes Medardo Miner Dose Unknown 10-23 00:00: 00 Yes Medardo Miner Dose Unknown 10-23 00:00: 00 Yes Medardo Miner Trileptal 300 mg tablet 0 09-18 00:00: 00 No 1mg buspirone 10 mg tablet 0 09-18 00:00: 00 No 15mg Abilify 2 mg tablet 0 09-18 00:00: 00 No 15mg Trileptal 300 mg tablet 0 09-18 00:00: 00 No 1mg buspirone 10 mg tablet 0 6 00:00: 00 No 15mg Abilify 2 mg tablet 0 6 00:00: 00 No 15mg Trileptal 300 mg tablet 0 6 00:00: 00 No 1mg buspirone 10 mg tablet 0 6 00:00: 00 No 15mg Abilify 2 mg tablet 0 6 00:00: 00 No 15mg TAKE 1 TABLET TWICE DAILY. 0 09-18 00:00: 00 Yes Medardo Miner Dose Unknown 0 09-18 00:00: 00 Yes Medardo Miner Dose Unknown 09-18 00:00: 00 Yes Medardo Miner simvastatin 40 mg tablet 0 - 00:00: 00 No 1mg Singulair 10 mg tablet 0 -24 00:00: 00 No 1mg amlodipine 5 mg tablet 0 - 00:00: 00 No 1mg metoprolol tartrate 75 mg tablet 0 -24 00:00: 00 No 1mg lisinopril 20 mg-hydrochl [...] Dose Unknown 09-02 00:00: 00 Yes Medardo F Kristofer Dose Unknown 09-02 00:00: 00 Yes Medardo Miner TAKE 1 TABLET TWICE DAILY. 09-02 00:00: 00 Yes Medardo F Kristofer Dose Unknown 09-02 00:00: 00 Yes Medardo F Kristofer Dose Unknown 09-02 00:00: 00 12-14 00:00 :00 No 75 Medardo Miner simvastatin 40 mg tablet 08-04 00:00: 00 No 1mg simvastatin 40 mg tablet 2022-0 4-25 00:00: 00 No 1mg simvastatin 40 mg tablet 425 00:00: 00 No 1mg Dose Unknown 25 00:00: 00 Yes Medardo Miner Trileptal 300 mg tablet 4- 00:00: 00 No 1mg buspirone 10 mg tablet 4 00:00: 00 No 15mg Abilify 2 mg tablet 4- 00:00: 00 No 15mg Dose Unknown 4- 00:00: 00 No Trileptal 300 mg tablet 4 00:00: 00 No 1mg buspirone 10 mg tablet 4- 00:00: 00 No 15mg Abilify 2 mg tablet 4- 00:00: 00 No 15mg Dose Unknown 4 00:00: 00 No TAKE 1 TABLET TWICE DAILY. 4- 00:00: 00 Yes Medardo Miner Dose Unknown 4- 00:00: 00 Yes Medardo Miner Dose Unknown 4 00:00: 00 Yes Medardo Miner Trileptal 300 mg tablet 4- 00:00: 00 No 1mg buspirone 10 mg tablet 4 00:00: 00 No 15mg Dose Unknown 4 00:00: 00 Yes Medardo Miner Abilify 2 mg tablet 4- 00:00: 00 No 15mg Dose Unknown 07-23 00:00: 00 No TAKE 1 TABLET TWICE DAILY. 2-17 00:00: 00 Yes Medardo Miner Dose Unknown 2-17 00:00: 00 Yes Medardo Miner Dose Unknown 2-17 00:00: 00 Yes Medardo Miner TAKE 1 TABLET TWICE DAILY. 2-17 00:00: 00 Yes Medardo Miner simvastatin 40 mg tablet 0 2-17 00:00: [...] No Dose Unknown 0 2-17 00:00: 00 2023- 09-04 00:00 :00 No 75 Medardo Miner Dose Unknown 0 2-16 00:00: 00 Yes Medardo Alexandria Miner Dose Unknown 0 2-16 00:00: 00 Yes Medardo F Kristofer Dose Unknown 0 2-16 00:00: 00 Yes Medardo F Kristofer Dose Unknown 0 2-16 00:00: 00 No [...] 00:00: 00 No Trileptal 300 mg tablet 2020-1 2-23 00:00: 00 Yes 1mg Medardo Miner buspirone 10 mg tablet 1 2-23 00:00: 00 Yes 15mg Medardo Miner Abilify [...] 00 No 15mg buspirone 10 mg tablet 23 00:00: 00 No 15mg Trileptal 300 mg [...] No 15mg Trileptal 300 mg tablet 0 11-07 00:00: [...] 40 mg tablet 0 10-27 00:00: 00 No 1mg simvastatin 40 [...] 15mg Medardo Miner buspirone 10 mg tablet 09-13 00:00: 00 No 15mg Trileptal 300 mg tablet 0 6-04 00:00: 00 No 1mg Abilify 2 mg tablet 0 6-04 00:00: 00 No 15mg buspirone 10 mg tablet 0 6-04 00:00: 00 No 15mg Trileptal 300 mg tablet 0 6-04 00:00: 00 No 1mg Abilify 2 mg tablet 0 6-04 00:00: 00 No 15mg buspirone 10 mg tablet 0 6- 00:00: 00 No 15mg Trileptal 300 mg tablet 0 6- 00:00: 00 No 1mg Abilify 2 mg tablet 0 6-04 00:00: 00 No 15mg buspirone 10 mg tablet 0 4-14 00:00: 00 Yes 15mg Medardo F Kristofer Trileptal 300 mg tablet 0 4-14 00:00: 00 Yes 1mg Medardo F Kristofer Abilify 2 mg tablet 0 4-14 00:00: 00 Yes 15mg Medardo F [...] 0 2-22 00:00: 00 Yes 1mg Medardo F Kristofer buspirone 10 mg tablet 0 2-22 00:00: 00 Yes 15mg Medardo F Kristofer Abilify 2 mg tablet 2 00:00: 00 [...] 2019-04 00:00: 00 Yes 1mg Medardo Miner buspirone 10 mg tablet 2019-04 00:00: 00 Yes 15mg Medardo Miner Abilify 2 mg tablet 2019-04 2 00:00: 00 Yes 15mg Medardo Miner Trileptal 300 mg tablet 2019-04 2- 00:00: 00 No 1mg buspirone 10 mg tablet 2019-04 2 00:00: 00 No 15mg Abilify 2 [...] tablet 2019-04 2- 00:00: 00 No 15mg simvastatin 20 mg tablet 2019-04 1-16 00:00: 00 Yes 1mg Medardo Miner Singulair [...] Medardo Miner buspirone 10 mg tablet 2019-04 00:00: 00 No 15mg Trileptal 300 mg tablet 2019-04 00:00: 00 No 1mg Abilify 2 mg tablet 2019-04 00:00: 00 No 15mg buspirone 10 mg tablet 2019-1 0- 00:00: 00 No 15mg Trileptal 300 mg tablet 1 0- 00:00: 00 No 1mg Abilify 2 mg tablet 2019- 0- 00:00: 00 No 15mg buspirone 10 mg tablet 2019-04 0- 00:00: 00 No 15mg Trileptal 300 mg tablet 1 0- 00:00: 00 No 1mg Abilify 2 mg tablet 2019-04 0- 00:00: 00 No 15mg Abilify 2 mg tablet 2019-0 8- 00:00: 00 No 15mg buspirone 10 mg tablet 0 8- 00:00: 00 No 15mg Trileptal 300 mg tablet 0 8- 00:00: 00 No 1mg Abilify 2 mg tablet 0 8 00:00: 00 No 15mg buspirone 10 mg tablet 0 8- 00:00: 00 No 15mg Trileptal 300 mg tablet 0 8 00:00: 00 No 1mg buspirone 10 mg tablet 0 8- 00:00: 00 Yes 15mg Medardo Miner Trileptal 300 mg tablet 2019-0 8- 00:00: 00 Yes 1mg Medardo Miner Abilify 2 mg tablet 0 8 00:00: 00 Yes 15mg Medardo Miner Abilify 2 mg tablet 2019-0 8- 00:00: 00 No 15mg buspirone 10 mg tablet 0 8- 00:00: 00 No 15mg Trileptal 300 mg tablet 0 8- 00:00: 00 No 1mg buspirone 10 mg tablet 0 6- 00:00: 00 No 15mg Trileptal 300 mg tablet 0 6- 00:00: 00 No 1mg Abilify 2 mg tablet 0 6 00:00: 00 No 15mg buspirone 10 mg tablet 0 6- 00:00: 00 No 15mg Trileptal 300 mg tablet 0 6- 00:00: 00 No 1mg Abilify 2 mg tablet 10-02 00:00: 00 No 15mg buspirone 10 mg tablet 10-02 00:00: 00 No 15mg Trileptal 300 mg tablet 10-02 00:00: 00 No 1mg Abilify 2 mg tablet 10-02 00:00: 00 No 15mg buspirone 10 mg tablet 10-02 00:00: 00 Yes 15mg Medardo Miner Trileptal 300 mg tablet 10-02 00:00: 00 Yes 1mg Medardo Miner Abilify 2 mg tablet 10-02 00:00: 00 Yes 15mg Medardo Miner simvastatin 20 mg tablet 08-10 00:00: 00 No 1mg Singulair 10 mg tablet 08-10 00:00: 00 No 1mg lisinopril 20 mg-hydrochl orothiazide 12.5 mg tablet 08-10 00:00: 00 No 1mg metoprolol tartrate 25 mg tablet 0 08-10 00:00: 00 No 1mg simvastatin 20 mg tablet 0 08-10 00:00: 00 No 1mg Singulair 10 mg tablet 08-10 00:00: 00 No 1mg lisinopril 20 mg-hydrochl orothiazide 12.5 mg tablet 08-10 00:00: 00 No 1mg metoprolol tartrate 25 mg tablet 08-10 00:00: 00 No 1mg simvastatin 20 mg tablet 0 08-10 00:00: 00 No 1mg Singulair 10 mg tablet 08-10 00:00: 00 No 1mg lisinopril 20 mg-hydrochl orothiazide 12.5 mg tablet 08-10 00:00: 00 No 1mg metoprolol tartrate 25 mg tablet 08-10 00:00: 00 No 1mg simvastatin 20 mg tablet 08-10 00:00: 00 Yes 1mg Medardo Miner Singulair 10 mg tablet 0 - 00:00: 00 Yes 1mg Medardo Miner lisinopril 20 mg-hydrochl orothiazide 12.5 mg tablet 0 08-10 00:00: 00 Yes 1mg Medardo Miner metoprolol tartrate 25 mg tablet 0 08-10 00:00: 00 Yes 1mg Medardo Miner buspirone 10 mg tablet 0 08-07 00:00: [...] 00 No 1mg melatonin 10 mg capsule 08-07 00:00: 00 No 12mg buspirone 10 mg tablet 2019-0 08-07 00:00: 00 No 15mg Trileptal 300 mg tablet 0 08-07 00:00: 00 No 1mg Abilify 2 mg tablet 0 08-07 00:00: 00 No 1mg melatonin 10 mg capsule 0 08-07 00:00: 00 No 12mg buspirone 10 mg tablet 2019-0 08-07 00:00: 00 Yes 15mg Medardo Miner Trileptal 300 mg tablet 2019-0 08-07 00:00: 00 Yes 1mg Medardo Miner Abilify 2 mg tablet 2019-0 08-07 00:00: 00 Yes 1mg Medardo Miner melatonin 10 mg capsule 2019-0 08-07 00:00: 00 Yes 12mg Medardo Miner buspirone 10 mg tablet 2019-0 3- 00:00: [...] Medardo Miner Trileptal 300 mg tablet 2019-0 3- 00:00: 00 Yes 1mg Medardo Miner Abilify 2 mg tablet 2019-0 3- 00:00: 00 Yes 1mg Medardo Miner melatonin 10 mg capsule 2019-0 3- 00:00: 00 Yes 12mg Medardo Miner buspirone 10 mg tablet 2019-0 1-07 00:00: 00 No 15mg Trileptal 300 mg tablet 2019-0 1- 00:00: 00 No 1mg Abilify 2 mg tablet 2019-0 1-07 00:00: 00 No 1mg melatonin 10 mg capsule 2019-0 1-07 00:00: 00 No 12mg buspirone 10 mg tablet 2019-0 1- 00:00: 00 No 15mg Trileptal 300 mg tablet 2019-0 1- 00:00: 00 No 1mg Abilify 2 mg tablet 2019-0 1-07 00:00: 00 No 1mg melatonin 10 mg capsule 2019-0 1-07 00:00: 00 No 12mg buspirone 10 mg tablet 2019-0 1- 00:00: 00 No 15mg Trileptal 300 mg [...] 04-18 00:00: 00 Yes 1mg [facility] melatonin 10 mg capsule 04-18 00:00: 00 Yes 12mg [facility] Trileptal 300 mg tablet 2018-04 [...] 00 No 1mg buspirone 10 mg tablet 15 00:00: 00 No 15mg Abilify 2 mg tablet 15 00:00: 00 No 1mg Trileptal 300 mg [...] No 1mg metoprolol tartrate 25 mg tablet 4 00:00: 00 No 1mg Singulair 10 mg tablet 4 00:00: 00 No 1mg lisinopril 20 mg-hydrochl orothiazide 12.5 mg tablet 07-14 00:00: 00 No 1mg metoprolol tartrate 25 mg tablet 4 00:00: 00 No 1mg Singulair 10 mg tablet 4 00:00: 00 No 1mg lisinopril 20 mg-hydrochl orothiazide 12.5 mg tablet 4 00:00: 00 No 1mg metoprolol tartrate 25 mg tablet 4 00:00: 00 No 1mg Singulair 10 mg tablet 4 00:00: 00 Yes 1mg [facility] lisinopril 20 mg-hydrochl orothiazide 12.5 mg tablet 4 00:00: 00 Yes 1mg [facility] metoprolol tartrate 25 mg tablet 4 00:00: 00 Yes 1mg [facility] simvastatin 20 mg tablet 4 00:00: 00 No 1mg Singulair 10 mg [...] Trileptal 300 mg tablet 06-20 00:00: 00 Yes 1mg [facility] Abilify 2 mg tablet 3 00:00: 00 Yes 1mg [facility] Trileptal 300 mg tablet 2 00:00: 00 No 1mg Abilify 2 mg tablet 2 00:00: 00 No 1mg Trileptal 300 mg tablet 2 00:00: 00 No 1mg Abilify 2 mg tablet 2 00:00: 00 No 1mg Trileptal 300 mg tablet 2 00:00: 00 No 1mg Abilify 2 mg tablet 2 00:00: 00 No 1mg Trileptal 300 mg tablet 2 00:00: 00 Yes 1mg Medardo Miner Abilify [...] 07-08 00:00: 00 Yes 1mg Medardo Miner Immunizations Ordered Immunization Name Filled Immunization Name Date Status Comments Source Influenza, seasonal, inj Influenza, seasonal, inj 2018-01-25 00:00:00 Completed Medardo Miner Influenza, seasonal, inj 2018-01-25 00:00:00 Completed Influenza, seasonal, inj 2018-01-25 00:00:00 Completed Influenza, seasonal, inj 2018-01-25 00:00:00 Completed Vital Signs Vital Name Observation Time Observation Value Comments S ource Systolic blood pressure 2024-05-23 21:58:00 155 mm[Hg] Ynes Briceño ld - External Diastolic blood pressure 2024-05-23 21:58:00 95 mm[Hg] Ynes randle - External Heart rate 2024-05-23 21:58:00 71 /min Leoncio Russell - External Body temperature 2024-05-23 21:58:00 36.22 Mila Ynes Russell - External Respiratory rate 2024-05-23 21:58:00 16 /min Ynes Russell - External Body height 2024-05-23 21:58:00 162.6 cm Loan Russell - External Body weight 2024-05-23 21:58:00 67.677 kg Loan Russell - External BMI 2024-05-23 21:58:00 25.61 kg/m2 Loan Russell - External Oxygen saturation in Arterial blood by Pulse oximetry 2024-05-23 21:58:00 99 /min Ynes Briceño ld - External BP Systolic 2024-04-26 08:02:00 176 mm[Hg] Step hen F Kristofer BP Diastolic 2024-04-26 08:02:00 110 mm[Hg] Ky phen F Kristofer Weight Measured 2024-04-26 08:02:00 153.80 pounds Medardo F Kristofer Height Measured 2024-04-26 08:02:00 63.00 inches Medardo F Kristofer Body Temperature 2024-04-26 08:02:00 97.80 degrees Medardo F Kristofer Heart Rate 2024-04-26 08:02:00 70.00 /min Kaley en F Kristofer Respiratory Rate 2024-04-26 08:02:00 18.00 /min Medardo F Kristofer BP Systolic 2024-02-04 10:21:00 142 mm[Hg] Step hen F Kristofer BP Diastolic 2024-02-04 10:21:00 89 mm[Hg] Ky phen F Kristofer Weight Measured 2024-02-04 10:21:00 151.00 pounds Medardo F Kristofer Height Measured 2024-02-04 10:21:00 63.00 inches Medardo F Kristofer Body Temperature 2024-02-04 10:21:00 98.20 degrees Medardo F Kristofer Heart Rate 2024-02-04 10:21:00 86.00 /min Kaley en F Kristofer Respiratory Rate 2024-02-04 10:21:00 18.00 /min Medardo F Kristofer BP Systolic 2024-01-21 08:20:00 203 mm[Hg] Step [...] Respiratory Rate 2022-12-25 08:07:00 Medardo F Kristofer Height Measured 2022-12-16 10:31:00 63.00 inches Medardo F Kristofer Body Temperature 2022-12-16 10:31:00 98.10 degrees Medardo F Kristofer Heart Rate 2022-12-16 10:31:00 55.00 /min Kaley en F Kristofer Respiratory Rate 2022-12-16 10:31:00 17.00 /min Medardo F Kristofer BP Systolic 2022-12-16 10:31:00 140 mm[Hg] Step hen F Kristofer BP Diastolic 2022-12-16 10:31:00 87 mm[Hg] Ky phen F Kristofer Weight Measured 2022-12-16 10:31:00 161.60 pounds Medardo F Kristofer BP Systolic 2022-11-24 08:07:00 [...] Body Temperature 2022-09-18 08:05:00 98.10 degrees Medardo Miner Heart Rate 2022-09-18 08:05:00 54.00 /min Kaley en F Kristofer Respiratory Rate 2022-09-18 08:05:00 18.00 /min Medardo F Kristofer BP Systolic 2022-09-09 15:41:00 163 mm[Hg] Step hen F Kristofer BP Diastolic 2022-09-09 15:41:00 99 mm[Hg] Ky phen F Kristofer Weight Measured 2022-09-09 15:41:00 Medardo Miner Height Measured 2022-09-09 15:41:00 Medardo Alexandria Miner Body Temperature 2022-09-09 15:41:00 Medardoraysa Miner Heart Rate 2022-09-09 15:41:00 Kaley en F Kristofer Respiratory Rate 2022-09-09 15:41:00 Medardoraysa Miner BP Systolic 2022-03-12 08:46:00 146 mm[Hg] [...] / Time Performed Performing Clinicia n Source 48524 Ekg W/ At Least 12 Leads W/ I r 2022-07-17 00:00:00 Medardo Miner Plan of Care Planned Activity Planned Date Details Comments Source Goal Plan of Care Note [code = 93166-6] Goal Plan of Care Note [code = 14323-6] Goal Plan of Care Note [code = 18035-5] Goal Plan of Care Note [code = 31909-2] Goal Plan of Care Note [code = 79237-6] Goal Plan of Care Note [code = 13038-3] Goal Plan of Care Note [code = 32278-1] Goal Plan of Care Note [code = 08387-8] Goal Plan of Care Note [code = 70304-3] Goal Plan of Care Note [code = 64330-4] Goal Plan of Care Note [code = 84843-6] Goal Plan of Care Note [code = 57057-4] Goal Plan of Care Note [code = 56707-1] Goal Plan of Care Note [code = 59390-9] Goal Plan of Care Note [code = 02710-1] Goal Plan of Care Note [code = 75770-3] Goal Plan of Care Note [code = 31229-5] Goal Plan of Care Note [code = 90896-0] Goal Plan of Care Note [code = 67377-0] Goal Plan of Care Note [code = 31474-1] Goal Plan of Care Note [code = 36072-9] Goal Plan of Care Note [code = 83330-4] Goal Plan of Care Note [code = 86089-8] Goal Plan of Care Note [code = 67790-3] Goal Plan of Care Note [code = 36819-2] Goal Plan of Care Note [code = 49082-4] Goal Plan of Care Note [code = 24932-7] Goal Plan of Care Note [code = 42638-4] Goal Plan of Care Note [code = 94321-9] Goal Plan of Care Note [code = 75522-3] Goal Plan of Care Note [code = 12645-4] Goal Plan of Care Note [code = 36781-4] Goal Plan of Care Note [code = 32339-2] Goal Plan of Care Note [code = 74729-2] Goal Plan of Care Note [code = 18084-8] Goal Plan of Care Note [code = 85274-2] Goal Plan of Care Note [code = 48125-5] Goal Plan of Care Note [code = 08047-1] Goal Plan of Care Note [code = 21391-2] Goal Plan of Care Note [code = 80454-7] Goal Plan of Care Note [code = 26025-1] Goal Plan of Care Note [code = 07112-2] Goal Plan of Care Note [code = 19803-9] Goal Plan of Care Note [code = 78315-0] Goal Plan of Care Note [code = 49527-2] Goal Plan of Care Note [code = 68605-0] Goal Plan of Care Note [code = 74495-4] Goal Plan of Care Note [code = 99350-8] Goal Plan of Care Note [code = 68436-4] Goal Plan of Care Note [code = 51904-0] Goal Plan of Care Note [code = 03272-2] Goal Plan of Care Note [code = 98969-8] Goal Plan of Care Note [code = 30839-5] Goal Plan of Care Note [code = 10001-4] Goal Plan of Care Note [code = 02328-3] Goal Plan of Care Note [code = 32372-9] Goal Plan of Care Note [code = 19614-6] Goal Plan of Care Note [code = 06271-0] Goal Plan of Care Note [code = 96294-1] Goal Plan of Care Note [code = 76798-6] Goal Plan of Care Note [code = 84483-4] Goal Plan of Care Note [code = 92614-9] Goal Plan of Care Note [code = 93493-7] Goal Plan of Care Note [code = 75695-4] Goal Plan of Care Note [code = 32918-6] Goal Plan of Care Note [code = 01334-5] Goal Plan of Care Note [code = 09327-9] Goal Plan of Care Note [code = 78839-0] Goal Plan of Care Note [code = 06729-4] Goal Plan of Care Note [code = 58171-7] Goal Plan of Care Note [code = 26747-7] Goal Plan of Care Note [code = 94190-9] Goal Plan of Care Note [code = 99270-0] Goal Plan of Care Note [code = 48619-4] Goal Plan of Care Note [code = 42125-1] Goal Plan of Care Note [code = 28323-2] Goal Plan of Care Note [code = 62804-5] Goal Plan of Care Note [code = 94801-0] Goal Plan of Care Note [code = 46631-6] Encounters Start Date/Time End Date/Time Encounter Type Admission Type Attending Clinicians Care Facility Care Department Encounter ID Source 2024-07-17 08:09:10 2024-07-17 08:09:10 Outpatient S[facility] [id number] Medardo Miner 2024-07-04 08:00:00 2024-07-04 08:00:00 Outpatient RADHA LANIER [id number] Ynes Russell 2024-05-30 00:00:00 2024-05-30 00:00:00 Outpatient RADHA LANIER [id number] Ynes Russell 2024-05-23 16:00:00 2024-05-23 16:00:00 Outpatient RADHA LANIER [id number] Ynes Russell 2024-05-23 00:00:00 2024-05-23 00:00:00 Outpatient YNES GROVES [id number] Ynes Russell 2024-05-23 00:00:00 2024-05-23 00:00:00 Outpatient YNES GROVES [id number] Ynes Russell 2024-04-26 07:58:55 2024-04-26 07:58:55 Outpatient SFA S[facility] [id number] Medardo Miner 2024-04-26 00:00:00 2024-04-26 00:00:00 Outpatient Visit SFA [id number] Medardo Miner 2024-03-27 09:02:49 2024-03-27 09:02:49 Outpatient SFA SFA [id number] Medardo Miner 2024-03-08 07:59:28 2024-03-08 07:59:28 Outpatient SFA SFA [id number] Medardo Miner 2024-02-04 10:13:15 2024-02-04 10:13:15 Outpatient SFA SFA [id number] Medardo Miner 2024-01-21 07:59:00 2024-01-21 07:59:00 Outpatient SFA SFA [id number] Medardo Miner 2024-01-21 00:00:00 2024-01-21 00:00:00 Outpatient Visit SFA [id number] Medardo Miner 2024-01-11 07:57:12 2024-01-11 07:57:12 Outpatient SFA SFA [id number] Medardo Miner 2024-01-01 08:45:28 2024-01-01 08:45:28 Outpatient SFA SFA [id number] Medardo [facility] 2024-01-01 00:00:00 2024-01-01 00:00:00 Outpatient Visit SFA [id number] Medardo Ibrahim Kristofer 2023-09-24 08:00:06 2023-09-24 08:00:06 Outpatient SFA SFA [id number] Med[facility] 2023-09-24 00:00:00 2023-09-24 00:00:00 Outpatient Visit SFA [id number] [facility] 2023-09-09 08:08:55 2023-09-09 08:08:55 Outpatient SFA SFA [id number] [facility] 2023-09-09 00:00:00 2023-09-09 00:00:00 Outpatient Visit SFA [id number] [facility] 2023-08-20 08:20:50 2023-08-20 08:20:50 Outpatient SFA SFA [id number] [facility] 2023-06-24 08:06:01 2023-06-24 08:06:01 Outpatient SFA SFA [id number] [facility] 2023-05-07 08:01:36 2023-05-07 08:01:36 Outpatient SFA SFA [id number] Med[facility] 2023-03-12 08:03:39 2023-03-12 08:03:39 Outpatient SFA SFA [id number] Med[facility] 2023-02-26 08:03:23 2023-02-26 08:03:23 Outpatient SFA SFA [id number] [facility] 2023-02-09 00:00:00 2023-02-09 00:00:00 Outpatient GC_GCBZW_Ka diyala_S PRIV PRIV [id number] [facility] 2023-02-08 00:00:00 2023-02-08 00:00:00 Outpatient GC_GCBZW_Ka diyala_S PRIV PRIV [id number] [facility] 2023-01-11 16:56:44 2023-01-11 16:56:44 Outpatient SFA SFA [id number] Medardo [facility] 2022-12-25 07:59:39 2022-12-25 07:59:39 Outpatient SFA SFA [id number] [facility] 2022-12-16 09:56:37 2022-12-16 09:56:37 Outpatient SFA SFA [id number] [facility] 2022-11-23 13:37:52 2022-11-23 13:37:52 Outpatient SFA SFA [id number] [facility] 2022-09-18 08:01:58 2022-09-18 08:01:58 Outpatient SFA SFA [id number] [facility] 2022-09-10 10:11:37 2022-09-10 10:11:37 Outpatient SFA SFA [id number] [facility] 2022-09-09 15:34:57 2022-09-09 15:34:57 Outpatient SFA SFA [id number] [facility] 2022-09-02 10:09:33 2022-09-02 10:09:33 Outpatient SFA SFA [id number] [facility] 2022-08-31 10:01:09 2022-08-31 10:01:09 Outpatient SFA SFA [id number] [facility] 2022-08-29 09:02:59 2022-08-29 09:02:59 Outpatient SFA SFA [id number] [facility] 2022-07-23 08:13:44 2022-07-23 08:13:44 Outpatient SFA SFA [id number] [facility] 2022-07-17 10:18:41 2022-07-17 10:18:41 Outpatient SFA SFA [id number] [facility] 2022-06-19 16:52:29 2022-06-19 16:52:29 Outpatient SFA SFA [id number] Medardo Miner 2022-03-19 10:48:26 2022-03-19 10:48:26 Outpatient [facility] [id number] Medardo Miner 2022-03-13 10:02:51 2022-03-13 10:02:51 Outpatient [facility] [id number] Medardo Miner 2022-03-12 08:33:45 2022-03-12 08:33:45 Outpatient [facility] [id number] Medardo Miner 2022-03-12 00:00:00 2022-03-12 00:00:00 Outpatient Visit [id number] 2021-11-26 00:00:00 2021-11-26 00:00:00 Outpatient Visit [id number] 2021-11-21 00:00:00 2021-11-21 00:00:00 Outpatient Visit [id number] Results Test Description Test Time Test Comments Results Result Co mments Source COMPREHENSIVE METABOLIC [id number] 06:06:54* Test Item Value Reference Range Interpretation Comme nts GLUCOSE (test code = 2217) 103 MG/DL 70-99 H BUN (test code = 2208) 14 MG/DL 6-20 CREATININE (test code = 2214) 0.90 MG/DL 0.60-1.30 eGFR (2020 CKD-EPI) (test code = 80697) 77 ML/MIN/1.73 >60 CALC BUN/CREAT (test code [...] MG/DL <=1.2 ALKALINE PHOSPHATASE (test code = 220) 103 U/L 40-132 AST (test code = 2218) 26 U/L 9-40 ALT (test code = 221) 28 U/L 5-40 UNLESS OTHERWISE INDICATED, ALL TESTING PERFORMED AT [facility] [address] [place] [address] [employer]: RAMY DOHERTY M.D. CLIA NUMBER [id number] [facility] [place]. [id number] CBC W/AUTO DIFF WITH [id number] 03:12:31* Test Item Value Reference Range Interpretation [...] 0.00-0.10 ABS NUCLEATED RBCS (test code = 69224) 0.00 K/UL 0.00-0.11 CBC W/AUTO [id number] 00:00:00* Test Item Value Reference Range Interpretation [...] ABS NUCLEATED RBCS (test cod e = 71761) 0.00 K/UL Medardo Ibrahim KristoferLIPID [id number] 00:00:00* Test Item Value Reference Range Interpretation Comme nts CHOLESTEROL (test code = 2210) 202 MG/DL TRIGLYCERIDES (test code = 2232) 150 MG/DL HDL CHOLESTEROL (test code = 2220) 43 MG/DL CALC LDL CHOL (test code = 2237) 133 MG/DL RISK RATIO LDL/HDL (test cod e = 2238) 3.09 RATIO Medardo MinerCOMPREHENSIVE METABOLIC [id number] 00:00:00* Test Item Value Reference Range Interpretation Comme nts GLUCOSE (test code = 2217) 103 MG/DL BUN (test code = 2208) 14 MG/DL CREATININE (test code = 2214) 0.90 MG/DL eGFR (2020 CKD-EPI) (test co de = 73649) 77 ML/MIN/1.73 CALC BUN/CREAT (test code = [...] code = 2219) 28 U/L Medardo Ibrahim KristoferCBC W/AUTO [id number] 00:00:00* Test Item Value Reference Range Interpretation [...] ABS NUCLEATED RBCS (test cod e = 29985) 0.00 K/UL Medardo MinerLIPID [id number] 00:00:00* Test Item Value Reference Range Interpretation Comme nts CHOLESTEROL (test code = 2210) 202 MG/DL TRIGLYCERIDES (test code = 2232) 150 MG/DL HDL CHOLESTEROL (test code = 2220) 43 MG/DL CALC LDL CHOL (test code = 2237) 133 MG/DL RISK RATIO LDL/HDL (test cod e = 2238) 3.09 RATIO Medardo MinerCOMPREHENSIVE METABOLIC [id number] 00:00:00* Test Item Value Reference Range Interpretation Comme nts GLUCOSE (test code = 2217) 103 MG/DL BUN (test code = 2208) 14 MG/DL CREATININE (test code = 2214) 0.90 MG/DL eGFR (2020 CKD-EPI) (test co de = 73042) 77 ML/MIN/1.73 CALC BUN/CREAT (test code = [...] code = 2219) 28 U/L Medardo Ibrahim [facility] W/AUTO [id number] 00:00:00* Test Item Value Reference Range Interpretation [...] ABS NUCLEATED RBCS (test cod e = 98195) 0.00 K/UL Medardo MinerLIPID [id number] 00:00:00* Test Item Value Reference Range Interpretation Comme nts CHOLESTEROL (test code = 2210) 202 MG/DL TRIGLYCERIDES (test code = 2232) 150 MG/DL HDL CHOLESTEROL (test code = 2220) 43 MG/DL CALC LDL CHOL (test code = 2237) 133 MG/DL RISK RATIO LDL/HDL (test cod e = 2238) 3.09 RATIO Medardo MinerCOMPREHENSIVE METABOLIC [id number] 00:00:00* Test Item Value Reference Range Interpretation Comme nts GLUCOSE (test code = 2217) 103 MG/DL BUN (test code = 2208) 14 MG/DL CREATININE (test code = 2214) 0.90 MG/DL eGFR (2020 CKD-EPI) (test co de = 16006) 77 ML/MIN/1.73 CALC BUN/CREAT (test code = [...] = 2219) 28 U/L Medardo MinerCBC W/AUTO [id number] 00:00:00* Test Item Value Reference Range Interpretation [...] ABS NUCLEATED RBCS (test cod e = 24461) 0.00 K/UL Medardo Ibrahim AustinLIPID [id number] 00:00:00* Test Item Value Reference Range Interpretation Comme nts CHOLESTEROL (test code = 2210) 202 MG/DL TRIGLYCERIDES (test code = 2232) 150 MG/DL HDL CHOLESTEROL (test code = 2220) 43 MG/DL CALC LDL CHOL (test code = 2237) 133 MG/DL RISK RATIO LDL/HDL (test cod e = 2238) 3.09 RATIO Medardo MinerCOMPREHENSIVE METABOLIC [id number] 00:00:00* Test Item Value Reference Range Interpretation Comme nts GLUCOSE (test code = 2217) 103 MG/DL BUN (test code = 2208) 14 MG/DL CREATININE (test code = 2214) 0.90 MG/DL eGFR (2020 CKD-EPI) (test co de = 54352) 77 ML/MIN/1.73 CALC BUN/CREAT (test code = [...] code = 2219) 28 U/L Medardo Ibrahim [facility] W/AUTO [id number] 00:00:00* Test Item Value Reference Range Interpretation [...] ABS NUCLEATED RBCS (test cod e = 50721) 0.00 K/UL Medardo MinerLIPID [id number] 00:00:00* Test Item Value Reference Range Interpretation Comme nts CHOLESTEROL (test code = 2210) 202 MG/DL TRIGLYCERIDES (test code = 2232) 150 MG/DL HDL CHOLESTEROL (test code = 2220) 43 MG/DL CALC LDL CHOL (test code = 2237) 133 MG/DL RISK RATIO LDL/HDL (test cod e = 2238) 3.09 RATIO Medardo Ibrahim AustinCOMPREHENSIVE METABOLIC [id number] 00:00:00* Test Item Value Reference Range Interpretation Comme nts GLUCOSE (test code = 2217) 103 MG/DL BUN (test code = 2208) 14 MG/DL CREATININE (test code = 2214) 0.90 MG/DL eGFR (2020 CKD-EPI) (test co de = 82568) 77 ML/MIN/1.73 CALC BUN/CREAT (test code = [...] = 2219) 28 U/L Medardo MinerCOMPREHENSIVE METABOLIC [id number] 04:10:01* Test Item Value Reference Range Interpretation Comme nts GLUCOSE (test code = 2217) 87 MG/DL 70-99 BUN (test code = 2208) 14 MG/DL 6-20 CREATININE (test code = 2214) 0.82 MG/DL 0.60-1.30 eGFR (2020 CKD-EPI) (test code = 87557) 87 ML/MIN/1.73 >60 CALC BUN/CREAT (test code [...] TESTING PERFORMED AT [facility] [address] [place] [address] [employer]: RAMY DOHERTY M.D. CLIA NUMBER [id number] [facility] [place] [id number] COMPREHENSIVE METABOLIC [id number] 00:00:00* Test Item Value Reference Range Interpretation Comme nts GLUCOSE (test code = 2217) 87 MG/DL BUN (test code = 2208) 14 MG/DL CREATININE (test code = 2214) 0.82 MG/DL eGFR (2020 CKD-EPI) (test co de = 53318) 87 ML/MIN/1.73 CALC BUN/CREAT (test code = [...] (test code = 2219) 19 U/L [facility]COM[facility] [id number] 00:00:00* Test Item Value Reference Range Interpretation Comme nts GLUCOSE (test code = 2217) 87 MG/DL BUN (test code = 2208) 14 MG/DL CREATININE (test code = 2214) 0.82 MG/DL eGFR (2020 CKD-EPI) (test co de = 10627) 87 ML/MIN/1.73 CALC BUN/CREAT (test code = [...] (test code = 2219) 19 U/L Medardo F AustinCOMPREHENSIVE METABOLIC [id number] 00:00:00* Test Item Value Reference Range Interpretation Comme nts GLUCOSE (test code = 2217) 87 MG/DL BUN (test code = 2208) 14 MG/DL CREATININE (test code = 2214) 0.82 MG/DL eGFR (2020 CKD-EPI) (test co de = 60707) 87 ML/MIN/1.73 CALC BUN/CREAT (test code = [...] code = 2219) 19 U/L Medardo Ibrahim KristoferCOMPREHENSIVE METABOLIC [id number] 00:00:00* Test Item Value Reference Range Interpretation Comme nts GLUCOSE (test code = 2217) 87 MG/DL BUN (test code = 2208) 14 MG/DL CREATININE (test code = 2214) 0.82 MG/DL eGFR (2020 CKD-EPI) (test co de = 47871) 87 ML/MIN/1.73 CALC BUN/CREAT (test code = [...] = 2219) 19 U/L Medardo MinerCOMPREHENSIVE METABOLIC [id number] 00:00:00* Test Item Value Reference Range Interpretation Comme nts GLUCOSE (test code = 2217) 87 MG/DL BUN (test code = 2208) 14 MG/DL CREATININE (test code = 2214) 0.82 MG/DL eGFR (2020 CKD-EPI) (test co de = 34673) 87 ML/MIN/1.73 CALC BUN/CREAT (test code = [...] code = 2219) 19 U/L Medardo MinerLIPID [id number] 01:33:15* Test Item Value Reference Range Interpretation [...] SPECIMENS. FOR MOREINFORMATION, SEE CLIENT ANNOUNCEMENT AT [email or web address] /CalcLDL-C RISK RATIO LDL/HDL (test code = 2238) 2.11 RATIO <3.22 UNLESS OTHERW ISE INDICATED, ALL TESTING PERFORMED AT [facility] [address] [place] [place] [address] [employer]AR SALES: Ammy RALPHIA NUMBER [id number] [facility] [place]. [id number] LIPID [id number] 00:00:00* Test Item Value Reference Range Interpretation Comme nts CHOLESTEROL (test code = 2210) 181 MG/DL TRIGLYCERIDES (test code = 2232) 228 MG/DL HDL CHOLESTEROL (test code = 2220) 47 MG/DL CALC LDL CHOL (test code = 2237) 99 MG/DL RISK RATIO LDL/HDL (test cod e = 2238) 2.11 RATIO Medardo MinerLIPID [id number] 00:00:00* Test Item Value Reference Range Interpretation Comme nts CHOLESTEROL (test code = 2210) 181 MG/DL TRIGLYCERIDES (test code = 2232) 228 MG/DL HDL CHOLESTEROL (test code = 2220) 47 MG/DL CALC LDL CHOL (test code = 2237) 99 MG/DL RISK RATIO LDL/HDL (test cod e = 2238) 2.11 RATIO Medardo Ibrahim AustinLIPID [id number] 00:00:00* Test Item Value Reference Range Interpretation Comme nts CHOLESTEROL (test code = 2210) 181 MG/DL TRIGLYCERIDES (test code = 2232) 228 MG/DL HDL CHOLESTEROL (test code = 2220) 47 MG/DL CALC LDL CHOL (test code = 2237) 99 MG/DL RISK RATIO LDL/HDL (test cod e = 2238) 2.11 RATIO Medardo Ibrahim AustinLIPID [id number] 00:00:00* Test Item Value Reference Range Interpretation Comme nts CHOLESTEROL (test code = 2210) 181 MG/DL TRIGLYCERIDES (test code = 2232) 228 MG/DL HDL CHOLESTEROL (test code = 2220) 47 MG/DL CALC LDL CHOL (test code = 2237) 99 MG/DL RISK RATIO LDL/HDL (test cod e = 2238) 2.11 RATIO Mdeardo Ibrahim AustinLIPID [id number] 00:00:00* Test Item Value Reference Range Interpretation Comme nts CHOLESTEROL (test code = 2210) 181 MG/DL TRIGLYCERIDES (test code = 2232) 228 MG/DL HDL CHOLESTEROL (test code = 2220) 47 MG/DL CALC LDL CHOL (test code = 2237) 99 MG/DL RISK RATIO LDL/HDL (test cod e = 2238) 2.11 RATIO Medardo Ibrahim AustinHEMOGLOBIN [id number] 00:00:00* Test Item Value Reference Range Interpretation Comme nts HEMOGLOBIN A1c (test code = 37610) 5.6 % Medardo Ibrahim AustinHEMOGLOBIN [id number] 00:00:00* Test Item Value Reference Range Interpretation Comme nts HEMOGLOBIN A1c (test code = 13802) 5.6 % Medardo Ibrahim AustinHEMOGLOBIN [id number] 00:00:00* Test Item Value Reference Range Interpretation Comme nts HEMOGLOBIN A1c (test code = 84707) 5.6 % Medardo Ibrahim AustinHEMOGLOBIN [id number] 00:00:00* Test Item Value Reference Range Interpretation Comme nts HEMOGLOBIN A1c (test code = 00722) 5.6 % Medardo Ibrahim AustinHEMOGLOBIN [id number] 00:00:00* Test Item Value Reference Range Interpretation Comme nts HEMOGLOBIN A1c (test code = 87654) 5.6 % Medardo MinerCOMPREHENSIVE METABOLIC [id number] 00:00:00* Test Item Value Reference Range Interpretation Comme nts GLUCOSE (test code = 2217) 102 MG/DL BUN (test code = 2208) 11 MG/DL CREATININE (test code = 2214) 0.68 MG/DL eGFR (2020 CKD-EPI) (test code = 05315) 105 ML/MIN/1.73 CALC BUN/CREAT (test code = [...] code = 2219) 18 U/L Medardo MinerLIPID [id number] 00:00:00* Test Item Value Reference Range Interpretation Comme nts CHOLESTEROL (test code = 2210) 297 MG/DL TRIGLYCERIDES (test code = 2232) 336 MG/DL HDL CHOLESTEROL (test code = 2220) 43 MG/DL CALC LDL CHOL (test code = 2237) 197 MG/DL RISK RATIO LDL/HDL (test cod e = 2238) 4.58 RATIO Medardo MinerCOMPREHENSIVE METABOLIC [id number] 00:00:00* Test Item Value Reference Range Interpretation Comme nts GLUCOSE (test code = 2217) 102 MG/DL BUN (test code = 2208) 11 MG/DL CREATININE (test code = 2214) 0.68 MG/DL eGFR (2020 CKD-EPI) (test code = 48941) 105 ML/MIN/1.73 CALC BUN/CREAT (test code = [...] code = 2219) 18 U/L Medardo MinerLIPID [id number] 00:00:00* Test Item Value Reference Range Interpretation Comme nts CHOLESTEROL (test code = 2210) 297 MG/DL TRIGLYCERIDES (test code = 2232) 336 MG/DL HDL CHOLESTEROL (test code = 2220) 43 MG/DL CALC LDL CHOL (test code = 2237) 197 MG/DL RISK RATIO LDL/HDL (test cod e = 2238) 4.58 RATIO Medardo Ibrahim AustinCOMPREHENSIVE METABOLIC [id number] 00:00:00* Test Item Value Reference Range Interpretation Comme nts GLUCOSE (test code = 2217) 102 MG/DL BUN (test code = 2208) 11 MG/DL CREATININE (test code = 2214) 0.68 MG/DL eGFR (2020 CKD-EPI) (test code = 47442) 105 ML/MIN/1.73 CALC BUN/CREAT (test code = [...] = 2219) 18 U/L Medardo Ibrahim AustinLIPID [id number] 00:00:00* Test Item Value Reference Range Interpretation Comme nts CHOLESTEROL (test code = 2210) 297 MG/DL TRIGLYCERIDES (test code = 2232) 336 MG/DL HDL CHOLESTEROL (test code = 2220) 43 MG/DL CALC LDL CHOL (test code = 2237) 197 MG/DL RISK RATIO LDL/HDL (test cod e = 2238) 4.58 RATIO Medardo Ibrahim AustinCOMPREHENSIVE METABOLIC [id number] 00:00:00* Test Item Value Reference Range Interpretation Comme nts GLUCOSE (test code = 2217) 102 MG/DL BUN (test code = 2208) 11 MG/DL CREATININE (test code = 2214) 0.68 MG/DL eGFR (2020 CKD-EPI) (test code = 44518) 105 ML/MIN/1.73 CALC BUN/CREAT (test code = [...] code = 2219) 18 U/L Medardo MinerLIPID [id number] 00:00:00* Test Item Value Reference Range Interpretation Comme nts CHOLESTEROL (test code = 2210) 297 MG/DL TRIGLYCERIDES (test code = 2232) 336 MG/DL HDL CHOLESTEROL (test code = 2220) 43 MG/DL CALC LDL CHOL (test code = 2237) 197 MG/DL RISK RATIO LDL/HDL (test cod e = 2238) 4.58 RATIO Medardo Ibrahim KristoferCOMPREHENSIVE METABOLIC [id number] 00:00:00* Test Item Value Reference Range Interpretation Comme nts GLUCOSE (test code = 2217) 102 MG/DL BUN (test code = 2208) 11 MG/DL CREATININE (test code = 2214) 0.68 MG/DL eGFR (2020 CKD-EPI) (test code = 90233) 105 ML/MIN/1.73 CALC BUN/CREAT (test code = [...] code = 2219) 18 U/L Medardo MinerLIPID [id number] 00:00:00* Test Item Value Reference Range Interpretation Comme nts CHOLESTEROL (test code = 2210) 297 MG/DL TRIGLYCERIDES (test code = 2232) 336 MG/DL HDL CHOLESTEROL (test code = 2220) 43 MG/DL CALC LDL CHOL (test code = 2237) 197 MG/DL RISK RATIO LDL/HDL (test cod e = 2238) 4.58 RATIO Medardo MinerLIPID [id number] 04:38:43* Test Item Value Reference Range Interpretation [...] SPECIMENS. FOR MOREINFORMATION, SEE CLIENT ANNOUNCEMENT AT [email or web address] /CalcLDL-C RISK RATIO LDL/HDL (test code = 2238) 2.95 RATIO <3.22 UNLESS OTHERW ISE INDICATED, ALL TESTING PERFORMED [facility] [address] [place] [id number] [employer]AR SALES: [employer] M.D. CLIA NUMBER [id number] [facility] [place] [id number] LIPID [id number] 00:00:00* Test Item Value Reference Range Interpretation Comme nts CHOLESTEROL (test code = 2210) 212 MG/DL TRIGLYCERIDES (test code = 2232) 274 MG/DL HDL CHOLESTEROL (test code = 2220) 43 MG/DL CALC LDL CHOL (test code = 2237) 127 MG/DL RISK RATIO LDL/HDL (test cod e = 2238) 2.95 RATIO Medardo MinerLIPID [id number] 00:00:00* Test Item Value Reference Range Interpretation Comme nts CHOLESTEROL (test code = 2210) 212 MG/DL TRIGLYCERIDES (test code = 2232) 274 MG/DL HDL CHOLESTEROL (test code = 2220) 43 MG/DL CALC LDL CHOL (test code = 2237) 127 MG/DL RISK RATIO LDL/HDL (test cod e = 2238) 2.95 RATIO Medardo MinerLIPID [id number] 00:00:00* Test Item Value Reference Range Interpretation Comme nts CHOLESTEROL (test code = 2210) 212 MG/DL TRIGLYCERIDES (test code = 2232) 274 MG/DL HDL CHOLESTEROL (test code = 2220) 43 MG/DL CALC LDL CHOL (test code = 2237) 127 MG/DL RISK RATIO LDL/HDL (test cod e = 2238) 2.95 RATIO Medardo MinerLIPID [id number] 00:00:00* Test Item Value Reference Range Interpretation Comme nts CHOLESTEROL (test code = 2210) 212 MG/DL TRIGLYCERIDES (test code = 2232) 274 MG/DL HDL CHOLESTEROL (test code = 2220) 43 MG/DL CALC LDL CHOL (test code = 2237) 127 MG/DL RISK RATIO LDL/HDL (test cod e = 2238) 2.95 RATIO Medardo MinerLIPID [id number] 00:00:00* Test Item Value Reference Range Interpretation Comme nts CHOLESTEROL (test code = 2210) 212 MG/DL TRIGLYCERIDES (test code = 2232) 274 MG/DL HDL CHOLESTEROL (test code = 2220) 43 MG/DL CALC LDL CHOL (test code = 2237) 127 MG/DL RISK RATIO LDL/HDL (test cod e = 2238) 2.95 RATIO Medardo MinerLIPID [id number] 00:00:00* Test Item Value Reference Range Interpretation Comme nts CHOLESTEROL (test code = 2210) 212 MG/DL TRIGLYCERIDES (test code = 2232) 274 MG/DL HDL CHOLESTEROL (test code = 2220) 43 MG/DL CALC LDL CHOL (test code = 2237) 127 MG/DL RISK RATIO LDL/HDL (test cod e = 2238) 2.95 RATIO LIPID [id number] 00:00:00* Test Item Value Reference Range Interpretation Comme nts CHOLESTEROL (test code = 2210) 212 MG/DL TRIGLYCERIDES (test code = 2232) 274 MG/DL HDL CHOLESTEROL (test code = 2220) 43 MG/DL CALC LDL CHOL (test code = 2237) 127 MG/DL RISK RATIO LDL/HDL (test cod e = 2238) 2.95 RATIO HEMOGLOBIN [id number] 05:20:30* Test Item Value Reference Range Interpretation Comme nts HEMOGLOBIN A1c (test code = 99282) 5.6 % 4.2-5.6 CBC W/AUTO DIFF WITH [id number] 04:41:22* Test Item Value Reference Range Interpretation [...] H ABS NUCLEATED RBCS (test code = 08163) 0.00 K/UL 0.00-0.11 UNLESS OTHER MCKAY INDICATED, ALL TESTING PERFORMED [facility] [address] [place] [id number] [employer]AR SALES: [employer] M.D. CLIA NUMBER [id number] [facility] [place]. [id number] HEMOGLOBIN [id number] 00:00:00* Test Item Value Reference Range Interpretation Comme nts HEMOGLOBIN A1c (test code = 83919) 5.6 % Medardo Ibrahim [facility] W/AUTO [id number] 00:00:00* Test Item Value Reference Range Interpretation [...] ABS NUCLEATED RBCS (test cod e = 34405) 0.00 K/UL Medardo Ibrahim AustinHEMOGLOBIN [id number] 00:00:00* Test Item Value Reference Range Interpretation Comme nts HEMOGLOBIN A1c (test code = 60619) 5.6 % Medardo Ibrahim AustinCBC W/AUTO [id number] 00:00:00* Test Item Value Reference Range Interpretation [...] ABS NUCLEATED RBCS (test cod e = 19925) 0.00 K/UL Medardo Ibrahim AustinHEMOGLOBIN [id number] 00:00:00* Test Item Value Reference Range Interpretation Comme nts HEMOGLOBIN A1c (test code = 65095) 5.6 % Medardo Ibrahim AustinCBC W/AUTO [id number] 00:00:00* Test Item Value Reference Range Interpretation [...] ABS NUCLEATED RBCS (test cod e = 92142) 0.00 K/UL Medardo MinerHEMOGLOBIN [id number] 00:00:00* Test Item Value Reference Range Interpretation Comme nts HEMOGLOBIN A1c (test code = 69434) 5.6 % Medardo MinerCBC W/AUTO [id number] 00:00:00* Test Item Value Reference Range Interpretation [...] ABS NUCLEATED RBCS (test cod e = 12271) 0.00 K/UL Medardo F AustinHEMOGLOBIN [id number] 00:00:00* Test Item Value Reference Range Interpretation Comme nts HEMOGLOBIN A1c (test code = 40591) 5.6 % CBC W/AUTO [id number] 00:00:00* Test Item Value Reference Range Interpretation [...] ABS NUCLEATED RBCS (test cod e = 02274) 0.00 K/UL HEMOGLOBIN [id number] 00:00:00* Test Item Value Reference Range Interpretation Comme nts HEMOGLOBIN A1c (test code = 89420) 5.6 % Medardo MinerCBC W/AUTO [id number] 00:00:00* Test Item Value Reference Range Interpretation [...] ABS NUCLEATED RBCS (test cod e = 97269) 0.00 K/UL Medardo Ibrahim AustinHEMOGLOBIN [id number] 00:00:00* Test Item Value Reference Range Interpretation Comme nts HEMOGLOBIN A1c (test code = 28794) 5.6 % CBC W/AUTO [id number] 00:00:00* Test Item Value Reference Range Interpretation [...] ABS NUCLEATED RBCS (test cod e = 46446) 0.00 K/UL HEMOGLOBIN [id number] 00:00:00* Test Item Value Reference Range Interpretation Comme nts HEMOGLOBIN A1c (test code = 08448) 5.6 % CBC W/AUTO [id number] 00:00:00* Test Item Value Reference Range Interpretation [...] ABS NUCLEATED RBCS (test cod e = 70914) 0.00 K/UL HEMOGLOBIN [id number] 00:00:00* Test Item Value Reference Range Interpretation Comme nts HEMOGLOBIN A1c (test code = 20161) 5.5 % Medardo Ibrahim AustinLIPID [id number] 00:00:00* Test Item Value Reference Range Interpretation Comme nts CHOLESTEROL (test code = 2210) 242 MG/DL TRIGLYCERIDES (test code = 2232) 300 MG/DL HDL CHOLESTEROL (test code = 2220) 53 MG/DL CALC LDL CHOL (test code = 2237) 146 MG/DL RISK RATIO LDL/HDL (test cod e = 2238) 2.75 RATIO Medardo MinerCOMPREHENSIVE METABOLIC [id number] 00:00:00* Test Item Value Reference Range Interpretation Comme nts GLUCOSE (test code = 2217) 101 MG/DL BUN (test code = 2208) 11 MG/DL CREATININE (test code = 2214) 0.86 MG/DL eGFR AMER. (test cod e = 09324) 92 ML/MIN/1.73 eGFR NON- AMER. (test code = 09092) 79 ML/MIN/1.73 CALC BUN/CREAT (test code = [...] code = 2219) 31 U/L Medardo MinerHEMOGLOBIN [id number] 00:00:00* Test Item Value Reference Range Interpretation Comme nts HEMOGLOBIN A1c (test code = 70971) 5.5 % Medardo Ibrahim [facility] CenterL[facility]ID [id number] 00:00:00* Test Item Value Reference Range Interpretation Comme nts CHOLESTEROL (test code = 2210) 242 MG/DL TRIGLYCERIDES (test code = 2232) 300 MG/DL HDL CHOLESTEROL (test code = 2220) 53 MG/DL CALC LDL CHOL (test code = 2237) 146 MG/DL RISK RATIO LDL/HDL (test cod e = 2238) 2.75 RATIO Medardo MinerCOMPREHENSIVE METABOLIC [id number] 00:00:00* Test Item Value Reference Range Interpretation Comme nts GLUCOSE (test code = 2217) 101 MG/DL BUN (test code = 2208) 11 MG/DL CREATININE (test code = 2214) 0.86 MG/DL eGFR AMER. (test cod e = 11596) 92 ML/MIN/1.73 eGFR NON- AMER. (test code = 20764) 79 ML/MIN/1.73 CALC BUN/CREAT (test code = [...] code = 2219) 31 U/L Medardo MinerHEMOGLOBIN [id number] 00:00:00* Test Item Value Reference Range Interpretation Comme daysi HEMOGLOBIN A1c (test code = 59931) 5.5 % Medardo MinerLIPID [id number] 00:00:00* Test Item Value Reference Range Interpretation Comme nts CHOLESTEROL (test code = 2210) 242 MG/DL TRIGLYCERIDES (test code = 2232) 300 MG/DL HDL CHOLESTEROL (test code = 2220) 53 MG/DL CALC LDL CHOL (test code = 2237) 146 MG/DL RISK RATIO LDL/HDL (test cod e = 2238) 2.75 RATIO Medardo MinerCOMPREHENSIVE METABOLIC [id number] 00:00:00* Test Item Value Reference Range Interpretation Comme nts GLUCOSE (test code = 2217) 101 MG/DL BUN (test code = 2208) 11 MG/DL CREATININE (test code = 2214) 0.86 MG/DL eGFR AMER. (test cod e = 21056) 92 ML/MIN/1.73 eGFR NON- AMER. (test code = 78507) 79 ML/MIN/1.73 CALC BUN/CREAT (test code = [...] code = 2219) 31 U/L Medardo MinerHEMOGLOBIN [id number] 00:00:00* Test Item Value Reference Range Interpretation Comme nts HEMOGLOBIN A1c (test code = 98272) 5.5 % Medardo MinerLIPID [id number] 00:00:00* Test Item Value Reference Range Interpretation Comme nts CHOLESTEROL (test code = 2210) 242 MG/DL TRIGLYCERIDES (test code = 2232) 300 MG/DL HDL CHOLESTEROL (test code = 2220) 53 MG/DL CALC LDL CHOL (test code = 2237) 146 MG/DL RISK RATIO LDL/HDL (test cod e = 2238) 2.75 RATIO Medardo MinerCOMPREHENSIVE METABOLIC [id number] 00:00:00* Test Item Value Reference Range Interpretation Comme nts GLUCOSE (test code = 2217) 101 MG/DL BUN (test code = 2208) 11 MG/DL CREATININE (test code = 2214) 0.86 MG/DL eGFR AMER. (test cod e = 61490) 92 ML/MIN/1.73 eGFR NON- AMER. (test code = 11885) 79 ML/MIN/1.73 CALC BUN/CREAT (test code = [...] = 2219) 31 U/L Medardo Ibrahim AustinHEMOGLOBIN [id number] 00:00:00* Test Item Value Reference Range Interpretation Comme nts HEMOGLOBIN A1c (test code = 29108) 5.5 % Medardo Ibrahim AustinHEMOGLOBIN [id number] 00:00:00* Test Item Value Reference Range Interpretation Comme nts HEMOGLOBIN A1c (test code = 51567) 5.5 % LIPID [id number] 00:00:00* Test Item Value Reference Range Interpretation Comme nts CHOLESTEROL (test code = 2210) 242 MG/DL TRIGLYCERIDES (test code = 2232) 300 MG/DL HDL CHOLESTEROL (test code = 2220) 53 MG/DL CALC LDL CHOL (test code = 2237) 146 MG/DL RISK RATIO LDL/HDL (test cod e = 2238) 2.75 RATIO COMPREHENSIVE METABOLIC [id number] 00:00:00* Test Item Value Reference Range Interpretation Comme nts GLUCOSE (test code = 2217) 101 MG/DL BUN (test code = 2208) 11 MG/DL CREATININE (test code = 2214) 0.86 MG/DL eGFR AMER. (test cod e = 73078) 92 ML/MIN/1.73 eGFR NON- AMER. (test code = 98463) 79 ML/MIN/1.73 CALC BUN/CREAT (test code = [...] (test code = 2219) 31 U/L LIPID [id number] 00:00:00* Test Item Value Reference Range Interpretation Comme nts CHOLESTEROL (test code = 2210) 242 MG/DL TRIGLYCERIDES (test code = 2232) 300 MG/DL HDL CHOLESTEROL (test code = 2220) 53 MG/DL CALC LDL CHOL (test code = 2237) 146 MG/DL RISK RATIO LDL/HDL (test cod e = 2238) 2.75 RATIO Medardo MinerCOMPREHENSIVE METABOLIC [id number] 00:00:00* Test Item Value Reference Range Interpretation Comme nts GLUCOSE (test code = 2217) 101 MG/DL BUN (test code = 2208) 11 MG/DL CREATININE (test code = 2214) 0.86 MG/DL eGFR AMER. (test cod e = 03950) 92 ML/MIN/1.73 eGFR NON- AMER. (test code = 50119) 79 ML/MIN/1.73 CALC BUN/CREAT (test code = [...] code = 2219) 31 U/L Medardo MinerHEMOGLOBIN [id number] 00:00:00* Test Item Value Reference Range Interpretation Comme nts HEMOGLOBIN A1c (test code = 40441) 5.5 % LIPID [id number] 00:00:00* Test Item Value Reference Range Interpretation Comme nts CHOLESTEROL (test code = 2210) 242 MG/DL TRIGLYCERIDES (test code = 2232) 300 MG/DL HDL CHOLESTEROL (test code = 2220) 53 MG/DL CALC LDL CHOL (test code = 2237) 146 MG/DL RISK RATIO LDL/HDL (test cod e = 2238) 2.75 RATIO COMPREHENSIVE METABOLIC [id number] 00:00:00* Test Item Value Reference Range Interpretation Comme nts GLUCOSE (test code = 2217) 101 MG/DL BUN (test code = 2208) 11 MG/DL CREATININE (test code = 2214) 0.86 MG/DL eGFR AMER. (test cod e = 25209) 92 ML/MIN/1.73 eGFR NON- AMER. (test code = 34322) 79 ML/MIN/1.73 CALC BUN/CREAT (test code = [...] (test code = 2219) 31 U/L HEMOGLOBIN [id number] 00:00:00* Test Item Value Reference Range Interpretation Comme nts HEMOGLOBIN A1c (test code = 43651) 5.5 % LIPID [id number] 00:00:00* Test Item Value Reference Range Interpretation Comme nts CHOLESTEROL (test code = 2210) 242 MG/DL TRIGLYCERIDES (test code = 2232) 300 MG/DL HDL CHOLESTEROL (test code = 2220) 53 MG/DL CALC LDL CHOL (test code = 2237) 146 MG/DL RISK RATIO LDL/HDL (test cod e = 2238) 2.75 RATIO COMPREHENSIVE METABOLIC [id number] 00:00:00* Test Item Value Reference Range Interpretation Comme nts GLUCOSE (test code = 2217) 101 MG/DL BUN (test code = 2208) 11 MG/DL CREATININE (test code = 2214) 0.86 MG/DL eGFR AMER. (test cod e = 00683) 92 ML/MIN/1.73 eGFR NON- AMER. (test code = 07460) 79 ML/MIN/1.73 CALC BUN/CREAT (test code = [...] (test code = 2219) 31 U/L HEMOGLOBIN [id number] 00:00:00* Test Item Value Reference Range Interpretation Comme nts HEMOGLOBIN A1c (test code = 50030) 5.5 % Medardo F AustinHEMOGLOBIN [id number] 00:00:00* Test Item Value Reference Range Interpretation Comme nts HEMOGLOBIN A1c (test code = 16341) 5.5 % Medardo F AustinHEMOGLOBIN [id number] 00:00:00* Test Item Value Reference Range Interpretation Comme nts HEMOGLOBIN A1c (test code = 12312) 5.5 % Medardo F AustinHEMOGLOBIN [id number] 00:00:00* Test Item Value Reference Range Interpretation Comme nts HEMOGLOBIN A1c (test code = 64163) 5.5 % Medardo F AustinHEMOGLOBIN [id number] 00:00:00* Test Item Value Reference Range Interpretation Comme nts HEMOGLOBIN A1c (test code = 23565) 5.5 % HEMOGLOBIN [id number] 00:00:00* Test Item Value Reference Range Interpretation Comme nts HEMOGLOBIN A1c (test code = 28236) 5.5 % Medardo Ibrahim AustinHEMOGLOBIN [id number] 00:00:00* Test Item Value Reference Range Interpretation Comme nts HEMOGLOBIN A1c (test code = 38527) 5.5 % HEMOGLOBIN [id number] 00:00:00* Test Item Value Reference Range Interpretation Comme nts HEMOGLOBIN A1c (test code = 75454) 5.5 % COMPREHENSIVE METABOLIC [id number] 00:00:00* Test Item Value Reference Range Interpretation Comme nts GLUCOSE (test code = 2217) 139 MG/DL BUN (test code = 2208) 12 MG/DL CREATININE (test code = 2214) 0.74 MG/DL eGFR AMER. (test cod e = 06152) 111 ML/MIN/1.73 eGFR NON- AMER. (test code = 92170) 96 ML/MIN/1.73 CALC BUN/CREAT (test code = [...] code = 2219) 18 U/L Medardo Ibrahim AustinHEMOGLOBIN [id number] 00:00:00* Test Item Value Reference Range Interpretation Comme daysi HEMOGLOBIN A1c (test code = 28211) 5.5 % Medardo MinerCBC W/AUTO [id number] 00:00:00* Test Item Value Reference Range Interpretation [...] (test code = 1015) 295 K/UL Medardo [id number] 00:00:00* Test Item Value Reference Range Interpretation Comme nts TSH, THIRD GENERATION (test code = 2821) 0.857 UIU/ML Medardo MinerCOMPREHENSIVE METABOLIC [id number] 00:00:00* Test Item Value Reference Range Interpretation Comme nts GLUCOSE (test code = 2217) 139 MG/DL BUN (test code = 2208) 12 MG/DL CREATININE (test code = 2214) 0.74 MG/DL eGFR AMER. (test cod e = 55474) 111 ML/MIN/1.73 eGFR NON- AMER. (test code = 50134) 96 ML/MIN/1.73 CALC BUN/CREAT (test code = [...] code = 2219) 18 U/L Medardo MinerHEMOGLOBIN [id number] 00:00:00* Test Item Value Reference Range Interpretation Comme nts HEMOGLOBIN A1c (test code = 52174) 5.5 % Medardo MinerCBC W/AUTO [id number] 00:00:00* Test Item Value Reference Range Interpretation [...] (test code = 1015) 295 K/UL Medardo [id number] 00:00:00* Test Item Value Reference Range Interpretation Comme nts TSH, THIRD GENERATION (test code = 2821) 0.857 UIU/ML Medardo MinerCOMPREHENSIVE METABOLIC [id number] 00:00:00* Test Item Value Reference Range Interpretation Comme nts GLUCOSE (test code = 2217) 139 MG/DL BUN (test code = 2208) 12 MG/DL CREATININE (test code = 2214) 0.74 MG/DL eGFR AMER. (test cod e = 49091) 111 ML/MIN/1.73 eGFR NON- AMER. (test code = 70222) 96 ML/MIN/1.73 CALC BUN/CREAT (test code = [...] code = 2219) 18 U/L Medardo MinerHEMOGLOBIN [id number] 00:00:00* Test Item Value Reference Range Interpretation Comme nts HEMOGLOBIN A1c (test code = 33161) 5.5 % Medardo MinerCBC W/AUTO [id number] 00:00:00* Test Item Value Reference Range Interpretation [...] (test code = 1015) 295 K/UL Medardo [id number] 00:00:00* Test Item Value Reference Range Interpretation Comme nts TSH, THIRD GENERATION (test code = 2821) 0.857 UIU/ML Medardo MinerCOMPREHENSIVE METABOLIC [id number] 00:00:00* Test Item Value Reference Range Interpretation Comme nts GLUCOSE (test code = 2217) 139 MG/DL BUN (test code = 2208) 12 MG/DL CREATININE (test code = 2214) 0.74 MG/DL eGFR AMER. (test cod e = 24586) 111 ML/MIN/1.73 eGFR NON- AMER. (test code = 18614) 96 ML/MIN/1.73 CALC BUN/CREAT (test code = [...] code = 2219) 18 U/L Medardo MinerHEMOGLOBIN [id number] 00:00:00* Test Item Value Reference Range Interpretation Comme nts HEMOGLOBIN A1c (test code = 49618) 5.5 % Medardo MinerCBC W/AUTO [id number] 00:00:00* Test Item Value Reference Range Interpretation [...] (test code = 1015) 295 K/UL Medardo [id number] 00:00:00* Test Item Value Reference Range Interpretation Comme nts TSH, THIRD GENERATION (test code = 2821) 0.857 UIU/ML Medardo Ibrahim KristoferCOMPREHENSIVE METABOLIC [id number] 00:00:00* Test Item Value Reference Range Interpretation Comme nts GLUCOSE (test code = 2217) 139 MG/DL BUN (test code = 2208) 12 MG/DL CREATININE (test code = 2214) 0.74 MG/DL eGFR AMER. (test cod e = 05118) 111 ML/MIN/1.73 eGFR NON- AMER. (test code = 92646) 96 ML/MIN/1.73 CALC BUN/CREAT (test code = [...] ALT (test code = 2219) 18 U/L COMPREHENSIVE METABOLIC [id number] 00:00:00* Test Item Value Reference Range Interpretation Comme nts GLUCOSE (test code = 2217) 139 MG/DL BUN (test code = 2208) 12 MG/DL CREATININE (test code = 2214) 0.74 MG/DL eGFR AMER. (test cod e = 80560) 111 ML/MIN/1.73 eGFR NON- AMER. (test code = 88681) 96 ML/MIN/1.73 CALC BUN/CREAT (test code = [...] code = 2219) 18 U/L Medardo MinerHEMOGLOBIN [id number] 00:00:00* Test Item Value Reference Range Interpretation Comme nts HEMOGLOBIN A1c (test code = 87370) 5.5 % HEMOGLOBIN [id number] 00:00:00* Test Item Value Reference Range Interpretation Comme nts HEMOGLOBIN A1c (test code = 08328) 5.5 % Medardo MinerCBC W/AUTO [id number] 00:00:00* Test Item Value Reference Range Interpretation [...] COUNT (test code = 1015) 295 K/UL [id number] 00:00:00* Test Item Value Reference Range Interpretation Comme nts TSH, THIRD GENERATION (test code = 2821) 0.857 UIU/ML CBC W/AUTO [id number] 00:00:00* Test Item Value Reference Range Interpretation [...] (test code = 1015) 295 K/UL Medardo [id number] 00:00:00* Test Item Value Reference Range Interpretation Comme nts TSH, THIRD GENERATION (test code = 2821) 0.857 UIU/ML Medardo MinerCOMPREHENSIVE METABOLIC [id number] 00:00:00* Test Item Value Reference Range Interpretation Comme nts GLUCOSE (test code = 2217) 139 MG/DL BUN (test code = 2208) 12 MG/DL CREATININE (test code = 2214) 0.74 MG/DL eGFR AMER. (test cod e = 74445) 111 ML/MIN/1.73 eGFR NON- AMER. (test code = 57764) 96 ML/MIN/1.73 CALC BUN/CREAT (test code = [...] (test code = 2219) 18 U/L HEMOGLOBIN [id number] 00:00:00* Test Item Value Reference Range Interpretation Comme nts HEMOGLOBIN A1c (test code = 74472) 5.5 % CBC W/AUTO [id number] 00:00:00* Test Item Value Reference Range Interpretation [...] COUNT (test code = 1015) 295 K/UL [id number] 00:00:00* Test Item Value Reference Range Interpretation Comme nts TSH, THIRD GENERATION (test code = 2821) 0.857 UIU/ML COMPREHENSIVE METABOLIC [id number] 00:00:00* Test Item Value Reference Range Interpretation Comme nts GLUCOSE (test code = 2217) 139 MG/DL BUN (test code = 2208) 12 MG/DL CREATININE (test code = 2214) 0.74 MG/DL eGFR AMER. (test cod e = 60136) 111 ML/MIN/1.73 eGFR NON- AMER. (test code = 86051) 96 ML/MIN/1.73 CALC BUN/CREAT (test code = [...] (test code = 2219) 18 U/L HEMOGLOBIN [id number] 00:00:00* Test Item Value Reference Range Interpretation Comme nts HEMOGLOBIN A1c (test code = 50660) 5.5 % CBC W/AUTO [id number] 00:00:00* Test Item Value Reference Range Interpretation [...] COUNT (test code = 1015) 295 K/UL [id number] 00:00:00* Test Item Value Reference Range Interpretation Comme [facility] TSH, THIRD GENERATION (test code = 2821) 0.857 UIU/ML LIPID [id number] 00:00:00* Test Item Value Reference Range Interpretation Comme nts CHOLESTEROL (test code = 2210) 219 MG/DL TRIGLYCERIDES (test code = 2232) 407 MG/DL HDL CHOLESTEROL (test code = 2220) 41 MG/DL CALC LDL CHOL (test code = 2237) NOTE MG/DL RISK RATIO LDL/HDL (test cod e = 2238) (NOTE) RATIO Medardo F AustinLIPID [id number] 00:00:00* Test Item Value Reference Range Interpretation Comme nts CHOLESTEROL (test code = 2210) 219 MG/DL TRIGLYCERIDES (test code = 2232) 407 MG/DL HDL CHOLESTEROL (test code = 2220) 41 MG/DL CALC LDL CHOL (test code = 2237) NOTE MG/DL RISK RATIO LDL/HDL (test cod e = 2238) (NOTE) RATIO Medardo Ibrahim AustinLIPID [id number] 00:00:00* Test Item Value Reference Range Interpretation Comme nts CHOLESTEROL (test code = 2210) 219 MG/DL TRIGLYCERIDES (test code = 2232) 407 MG/DL HDL CHOLESTEROL (test code = 2220) 41 MG/DL CALC LDL CHOL (test code = 2237) NOTE MG/DL RISK RATIO LDL/HDL (test cod e = 2238) (NOTE) RATIO Medardo Ibrahim AustinLIPID [id number] 00:00:00* Test Item Value Reference Range Interpretation Comme nts CHOLESTEROL (test code = 2210) 219 MG/DL TRIGLYCERIDES (test code = 2232) 407 MG/DL HDL CHOLESTEROL (test code = 2220) 41 MG/DL CALC LDL CHOL (test code = 2237) NOTE MG/DL RISK RATIO LDL/HDL (test cod e = 2238) (NOTE) RATIO Medardo Ibrahim AustinLIPID [id number] 00:00:00* Test Item Value Reference Range Interpretation Comme nts CHOLESTEROL (test code = 2210) 219 MG/DL TRIGLYCERIDES (test code = 2232) 407 MG/DL HDL CHOLESTEROL (test code = 2220) 41 MG/DL CALC LDL CHOL (test code = 2237) NOTE MG/DL RISK RATIO LDL/HDL (test cod e = 2238) (NOTE) RATIO LIPID [id number] 00:00:00* Test Item Value Reference Range Interpretation Comme nts CHOLESTEROL (test code = 2210) 219 MG/DL TRIGLYCERIDES (test code = 2232) 407 MG/DL HDL CHOLESTEROL (test code = 2220) 41 MG/DL CALC LDL CHOL (test code = 2237) NOTE MG/DL RISK RATIO LDL/HDL (test cod e = 2238) (NOTE) RATIO Medardo Ibrahim AustinLIPID [id number] 00:00:00* Test Item Value Reference Range Interpretation Comme nts CHOLESTEROL (test code = 2210) 219 MG/DL TRIGLYCERIDES (test code = 2232) 407 MG/DL HDL CHOLESTEROL (test code = 2220) 41 MG/DL CALC LDL CHOL (test code = 2237) NOTE MG/DL RISK RATIO LDL/HDL (test cod e = 2238) (NOTE) RATIO LIPID [id number] 00:00:00* Test Item Value Reference Range Interpretation Comme nts CHOLESTEROL (test code = 2210) 219 MG/DL TRIGLYCERIDES (test code = 2232) 407 MG/DL HDL CHOLESTEROL (test code = 2220) 41 MG/DL CALC LDL CHOL (test code = 2237) NOTE MG/DL RISK RATIO LDL/HDL (test cod e = 2238) (NOTE) RATIO GC AND CHLAMYDIA, AMPLIFIED, [id number] 00:00:00* Test Item Value Reference Range Interpretation Comme nts GONORRHEA, TMA (test code = 81628) NEGATIVE CHLAMYDIA, TMA (test code = 50854) NEGATIVE Medardo F AustinGC AND CHLAMYDIA, AMPLIFIED, [id number] 00:00:00* Test Item Value Reference Range Interpretation Comme nts GONORRHEA, TMA (test code = 17567) NEGATIVE CHLAMYDIA, TMA (test code = 52741) NEGATIVE Medardo F AustinGC AND CHLAMYDIA, AMPLIFIED, [id number] 00:00:00* Test Item Value Reference Range Interpretation Comme nts GONORRHEA, TMA (test code = 15677) NEGATIVE CHLAMYDIA, TMA (test code = 82308) NEGATIVE Medardo F AustinGC AND CHLAMYDIA, AMPLIFIED, [id number] 00:00:00* Test Item Value Reference Range Interpretation Comme nts GONORRHEA, TMA (test code = 81522) NEGATIVE CHLAMYDIA, TMA (test code = 94108) NEGATIVE Medardo F AustinGC AND CHLAMYDIA, AMPLIFIED, [id number] 00:00:00* Test Item Value Reference Range Interpretation Comme nts GONORRHEA, TMA (test code = 32406) NEGATIVE CHLAMYDIA, TMA (test code = 53976) NEGATIVE Medardo F AustinGC AND CHLAMYDIA, AMPLIFIED, [id number] 00:00:00* Test Item Value Reference Range Interpretation Comme nts GONORRHEA, TMA (test code = 42074) NEGATIVE CHLAMYDIA, TMA (test code = 64206) NEGATIVE GC AND CHLAMYDIA, AMPLIFIED, [id number] 00:00:00* Test Item Value Reference Range Interpretation Comme nts GONORRHEA, TMA (test code = 41409) NEGATIVE CHLAMYDIA, TMA (test code = 45836) NEGATIVE GC AND CHLAMYDIA, AMPLIFIED, [id number] 00:00:00* Test Item Value Reference Range Interpretation Comme nts GONORRHEA, TMA (test code = 81075) NEGATIVE CHLAMYDIA, TMA (test code = 22255) NEGATIVE COMPREHENSIVE METABOLIC [id number] 00:00:00* Test Item Value Reference Range Interpretation Comme nts GLUCOSE (test code = 2217) 100 MG/DL BUN (test code = 2208) 16 MG/DL CREATININE (test code = 2214) 0.72 MG/DL eGFR AMER. (test cod e = 90496) 116 ML/MIN/1.73 eGFR NON- AMER. (test code = 79800) 100 ML/MIN/1.73 CALC BUN/CREAT (test code = [...] = 2219) 20 U/L Medardo Ibrahim AustinLIPID [id number] 00:00:00* Test Item Value Reference Range Interpretation Comme nts CHOLESTEROL (test code = 2210) 202 MG/DL TRIGLYCERIDES (test code = 2232) 190 MG/DL HDL CHOLESTEROL (test code = 2220) 51 MG/DL CALC LDL CHOL (test code = 2237) 113 MG/DL RISK RATIO LDL/HDL (test cod e = 2238) 2.22 RATIO Medardo Ibrahim AustinCOMPREHENSIVE METABOLIC [id number] 00:00:00* Test Item Value Reference Range Interpretation Comme nts GLUCOSE (test code = 2217) 100 MG/DL BUN (test code = 2208) 16 MG/DL CREATININE (test code = 2214) 0.72 MG/DL eGFR AMER. (test cod e = 16265) 116 ML/MIN/1.73 eGFR NON- AMER. (test code = 93081) 100 ML/MIN/1.73 CALC BUN/CREAT (test code = [...] code = 2219) 20 U/L Medardo Ibrahim [facility] CenterLIPID [id number] 00:00:00* Test Item Value Reference Range Interpretation Comme nts CHOLESTEROL (test code = 2210) 202 MG/DL TRIGLYCERIDES (test code = 2232) 190 MG/DL HDL CHOLESTEROL (test code = 2220) 51 MG/DL CALC LDL CHOL (test code = 2237) 113 MG/DL RISK RATIO LDL/HDL (test cod e = 2238) 2.22 RATIO Medardo MinerCOMPREHENSIVE METABOLIC [id number] 00:00:00* Test Item Value Reference Range Interpretation Comme nts GLUCOSE (test code = 2217) 100 MG/DL BUN (test code = 2208) 16 MG/DL CREATININE (test code = 2214) 0.72 MG/DL eGFR AMER. (test cod e = 96590) 116 ML/MIN/1.73 eGFR NON- AMER. (test code = 89906) 100 ML/MIN/1.73 CALC BUN/CREAT (test code = [...] = 2219) 20 U/L Medardo Ibrahim AustinLIPID [id number] 00:00:00* Test Item Value Reference Range Interpretation Comme nts CHOLESTEROL (test code = 2210) 202 MG/DL TRIGLYCERIDES (test code = 2232) 190 MG/DL HDL CHOLESTEROL (test code = 2220) 51 MG/DL CALC LDL CHOL (test code = 2237) 113 MG/DL RISK RATIO LDL/HDL (test cod e = 2238) 2.22 RATIO Medardo MinerCOMPREHENSIVE METABOLIC [id number] 00:00:00* Test Item Value Reference Range Interpretation Comme nts GLUCOSE (test code = 2217) 100 MG/DL BUN (test code = 2208) 16 MG/DL CREATININE (test code = 2214) 0.72 MG/DL eGFR AMER. (test cod e = 29875) 116 ML/MIN/1.73 eGFR NON- AMER. (test code = 94560) 100 ML/MIN/1.73 CALC BUN/CREAT (test code = [...] code = 2219) 20 U/L Medardo MinerLIPID [id number] 00:00:00* Test Item Value Reference Range Interpretation Comme nts CHOLESTEROL (test code = 2210) 202 MG/DL TRIGLYCERIDES (test code = 2232) 190 MG/DL HDL CHOLESTEROL (test code = 2220) 51 MG/DL CALC LDL CHOL (test code = 2237) 113 MG/DL RISK RATIO LDL/HDL (test cod e = 2238) 2.22 RATIO Medardo MinerCOMPREHENSIVE METABOLIC [id number] 00:00:00* Test Item Value Reference Range Interpretation Comme nts GLUCOSE (test code = 2217) 100 MG/DL BUN (test code = 2208) 16 MG/DL CREATININE (test code = 2214) 0.72 MG/DL eGFR AMER. (test cod e = 01759) 116 ML/MIN/1.73 eGFR NON- AMER. (test code = 92847) 100 ML/MIN/1.73 CALC BUN/CREAT (test code = [...] (test code = 2219) 20 U/L Medardo MinerCOMPREHENSIVE METABOLIC [id number] 00:00:00* Test Item Value Reference Range Interpretation Comme nts GLUCOSE (test code = 2217) 100 MG/DL BUN (test code = 2208) 16 MG/DL CREATININE (test code = 2214) 0.72 MG/DL eGFR AMER. (test cod e = 99417) 116 ML/MIN/1.73 eGFR NON- AMER. (test code = 49599) 100 ML/MIN/1.73 CALC BUN/CREAT (test code = [...] (test code = 2219) 20 U/L LIPID [id number] 00:00:00* Test Item Value Reference Range Interpretation Comme nts CHOLESTEROL (test code = 2210) 202 MG/DL TRIGLYCERIDES (test code = 2232) 190 MG/DL HDL CHOLESTEROL (test code = 2220) 51 MG/DL CALC LDL CHOL (test code = 2237) 113 MG/DL RISK RATIO LDL/HDL (test cod e = 2238) 2.22 RATIO LIPID [id number] 00:00:00* Test Item Value Reference Range Interpretation Comme nts CHOLESTEROL (test code = 2210) 202 MG/DL TRIGLYCERIDES (test code = 2232) 190 MG/DL HDL CHOLESTEROL (test code = 2220) 51 MG/DL CALC LDL CHOL (test code = 2237) 113 MG/DL RISK RATIO LDL/HDL (test cod e = 2238) 2.22 RATIO Medardo F AustinCOMPREHENSIVE METABOLIC [id number] 00:00:00* Test Item Value Reference Range Interpretation Comme nts GLUCOSE (test code = 2217) 100 MG/DL BUN (test code = 2208) 16 MG/DL CREATININE (test code = 2214) 0.72 MG/DL eGFR AMER. (test cod e = 48065) 116 ML/MIN/1.73 eGFR NON- AMER. (test code = 53782) 100 ML/MIN/1.73 CALC BUN/CREAT (test code = [...] (test code = 2219) 20 U/L LIPID [id number] 00:00:00* Test Item Value Reference Range Interpretation Comme nts CHOLESTEROL (test code = 2210) 202 MG/DL TRIGLYCERIDES (test code = 2232) 190 MG/DL HDL CHOLESTEROL (test code = 2220) 51 MG/DL CALC LDL CHOL (test code = 2237) 113 MG/DL RISK RATIO LDL/HDL (test cod e = 2238) 2.22 RATIO COMPREHENSIVE METABOLIC [id number] 00:00:00* Test Item Value Reference Range Interpretation Comme nts GLUCOSE (test code = 2217) 100 MG/DL BUN (test code = 2208) 16 MG/DL CREATININE (test code = 2214) 0.72 MG/DL eGFR AMER. (test cod e = 80776) 116 ML/MIN/1.73 eGFR NON- AMER. (test code = 42204) 100 ML/MIN/1.73 CALC BUN/CREAT (test code = [...] (test code = 2219) 20 U/L LIPID [id number] 00:00:00* Test Item Value Reference Range Interpretation Comme nts CHOLESTEROL (test code = 2210) 202 MG/DL TRIGLYCERIDES (test code = 2232) 190 MG/DL HDL CHOLESTEROL (test code = 2220) 51 MG/DL CALC LDL CHOL (test code = 2237) 113 MG/DL RISK RATIO LDL/HDL (test cod e = 2238) 2.22 RATIO COMPREHENSIVE METABOLIC PANEL [ADDED]2018-01-26 00:00:00* Test Item Value Reference Range Interpretation Comme nts GLUCOSE (test code = 2217) 93 MG/DL BUN (test code = 2208) 15 MG/DL CREATININE (test code = 2214) 0.61 MG/DL eGFR AMER. (test cod e = 11700) 126 ML/MIN/1.73 eGFR NON- AMER. (test code = 03558) 109 ML/MIN/1.73 CALC BUN/CREAT (test code = [...] MG/DL eGFR AMER. (test cod e = 00833) 126 ML/MIN/1.73 eGFR NON- AMER. (test code = 92532) 109 ML/MIN/1.73 CALC BUN/CREAT (test code = [...] MG/DL eGFR AMER. (test cod e = 70099) 126 ML/MIN/1.73 eGFR NON- AMER. (test code = 20387) 109 ML/MIN/1.73 CALC BUN/CREAT (test code = [...] MG/DL eGFR AMER. (test cod e = 82083) 126 ML/MIN/1.73 eGFR NON- AMER. (test code = 99826) 109 ML/MIN/1.73 CALC BUN/CREAT (test code = [...] MG/DL eGFR AMER. (test cod e = 47987) 126 ML/MIN/1.73 eGFR NON- AMER. (test code = 50629) 109 ML/MIN/1.73 CALC BUN/CREAT (test code = [...] ALT (test code = 2219) 16 U/L COMPREHENSIVE METABOLIC PANEL [ADDED]2018-01-26 00:00:00* Test Item Value Reference Range Interpretation Comme nts GLUCOSE (test code = 2217) 93 MG/DL BUN (test code = 2208) 15 MG/DL CREATININE (test code = 2214) 0.61 MG/DL eGFR AMER. (test cod e = 12082) 126 ML/MIN/1.73 eGFR NON- AMER. (test code = 62291) 109 ML/MIN/1.73 CALC BUN/CREAT (test code = [...] (test cod e = 2238) 2.23 RATIO LIPID PANEL [ADDED]2018-01-26 00:00:00* Test Item Value Reference Range Interpretation Comme nts CHOLESTEROL (test code = 2210) 220 MG/DL TRIGLYCERIDES (test code = 2232) 389 MG/DL HDL CHOLESTEROL (test code = 2220) 44 MG/DL CALC LDL CHOL (test code = 2237) 98 MG/DL RISK RATIO LDL/HDL (test cod e = 2238) 2.23 RATIO Medardo F AustinCOMPREHENSIVE METABOLIC PANEL [ADDED]2018-01-26 00:00:00* Test Item Value Reference Range Interpretation Comme nts GLUCOSE (test code = 2217) 93 MG/DL BUN (test code = 2208) 15 MG/DL CREATININE (test code = 2214) 0.61 MG/DL eGFR AMER. (test cod e = 28108) 126 ML/MIN/1.73 eGFR NON- AMER. (test code = 17422) 109 ML/MIN/1.73 CALC BUN/CREAT (test code = [...] MG/DL eGFR AMER. (test cod e = 31512) 126 ML/MIN/1.73 eGFR NON- AMER. (test code = 45308) 109 ML/MIN/1.73 CALC BUN/CREAT (test code = [...] (test cod e = 2238) 2.23 RATIO Notes Date/Time Note Provider Source 2024-05-23 15:57:47 Chief Complaint Patient presents with Blood Pressure Patient would like to discuss BP med not working and getting on new new one Joselyn Laboy MA [facility]2024-10-11 00:00:00 [facility]2024-09-21 00:00:00 [facility]2024-06-14 00:00:00 [facility]2024-05-30 00:00:00 [facility]
[2024-07-29 14:29] LABS: Influenza A Ag Negative; Influenza B Ag Negative; SARS-CoV-2 Antigen Rapid Res Negative (Negative)
--- NOTE | 2024-07-29 14:40 | EDPHYS ---
Physician Documentation [facility] Name: Tina Chapman Age: 54 yrs Sex: Female : 1970 Arrival Date: 07/29/2024 Time: 13:01 Bed IW1 Private MD: ED Physician Kenneth Curtis HPI: 07/29 15:52 This 54 yrs old Female presents to ER via Ambulatory with complaints of Flu Symptoms. sb4 15:52 chest congestion, hoarseness, cough x 5 days. 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 has sb4 been taking tylenol and motrin, does not take OTC decongestants d/t h/o HTN. Historical: - Allergies: 13:22 Codeine; ld1 13:22 PENICILLINS; ld1 - PMHx: 13:22 Anxiety; Hypercholesterolemia; Hypertensive disorder; ld1 - PSHx: 13:22 historectomy; Thyroid tumor; Thyroidectomy; Tonsillectomy; ld1 - Immunization history:: Adult Immunizations up to date. - Infectious Disease History:: Denies. - Social history:: Smoking status: Patient denies any tobacco usage or history of. ROS: 16:38 Constitutional: Negative for fever, chills, and weight loss, sb4 16:38 ENT: Positive for hoarseness, sinus congestion, sore throat, 16:38 Respiratory: Positive for cough, 16:38 All other systems are negative, Exam: 16:38 Head/Face: Normocephalic, atraumatic. Eyes: Extra-ocular motions intact. Periorbital sb4 areas with no swelling, redness, or edema. ENT: Mucous membranes moist. Cardiovascular: Regular rate and rhythm with a normal S1 and S2. Respiratory: No increased work of breathing, no retractions or nasal flaring. Abdomen/GI: Soft, non-tender, no distension. Skin: Warm, dry with normal turgor. Normal color with no rashes, no lesions, and no evidence of cellulitis. 16:38 Constitutional: The patient appears in no acute distress, alert, awake, 16:38 Head/face: Sinus tenderness, is not appreciated, 16:38 ENT: Voice: is hoarse, 16:38 Respiratory: Breath sounds: are clear throughout, Vital Signs: 13:21 BP 155 / 95; Pulse 67; Resp 18; Temp 97.1(TE); Pulse Ox 100% on R/A; Weight 68.04 kg; ld1 Height 5 ft. 4 in. ; Pain 0/10; 13:21 Body Mass Index 25.75 (68.04 kg, 162.56 cm) ld1 13:21 Pain Scale: Adult ld1 MDM: 13:22 Medical Screening Exam initiated sb4 16:39 Data reviewed: vital signs, nurses notes, lab test result(s), and as a result, I will sb4 discharge patient. Counseling: I had a detailed discussion with the patient and/or guardian regarding the historical points, exam findings, and any diagnostic results supporting the discharge/admit diagnosis, lab results, the need for outpatient follow up, for definitive care, to return to the emergency department if symptoms worsen or persist or if there are any questions or concerns that arise at home. 07/29 13:22 Order name: COVID-19 Ag + Flu A+B Ag; Complete Time: 14:31 ld1 07/29 13:22 Order name: Group A Streptococcus Rapid; Complete Time: 14:15 ld1 07/29 14:17 Order name: Throat Culture EDCA Administered Medications: No medications were administered Disposition: 07/30 13:03 Co-signature as Attending Physician, Kenneth Curtis MD I agree with the assessment and dylan plan of care. Disposition Summary: 07/29/24 14:39 Discharge Ordered Notes: Location: Home sb4 Problem: new sb4 Symptoms: are unchanged sb4 Condition: Stable sb4 Diagnosis - Viral infection, unspecified sb4 Followup: sb4 - With: Emergency Department - When: As needed - Reason: Trouble breathing, Worsening of condition Discharge Instructions: - Discharge Summary Sheet sb4 - Viral Respiratory Infection, [id number] sb4 - Viral Illness, Adult sb4 Forms: - Work release form sb4 - Patient Portal Instructions sb4 - Leadership Thank You Letter sb4 Prescriptions: - albuterol sulfate 90 mcg/actuation Inhalation HFA Aerosol Inhaler - inhale 2 inhalation INHALATION route every 6 hours PRN sob/wheezing; 1 sb4 Applicator; Refills: 0, Product Selection Permitted - Tessalon Perles 100 mg Oral Capsule - take 1 capsule ORAL route every 8 hours As needed; 15 capsule; Refills: 0, sb4 Product Selection Permitted Signatures: Dispatcher [employer] EDMS Kenneth Curtis MD MD cha Sims, Lauren, RN RN ld1 Raeann Nguyen, PAHermelindoC PAHermelindoC sb4 Corrections: (The following items were deleted from the chart) 07/29 13: 13:22 COVID-19 Ag + Flu A+B Ag+I.LAB.BRZ ordered. EDMS EDMS 13:22 Group A Streptococcus Rapid Sc+I.LAB.BRZ ordered. EDMS EDMS 16:38 15:52 chest congestion, hoarseness, cough x 5 days. 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 sb4 sb4
--- NOTE | 2024-07-29 14:40 | ER ---
Nurse's Notes [facility] Name: Tina Chapman Age: 54 yrs Sex: Female : 1970 Arrival Date: 07/29/2024 Time: 13:01 Bed IW1 Private MD: Diagnosis: Viral infection, unspecified Presentation: 07/29 13:21 Chief complaint: Patient states: Cough, sore throat, fever, congestion X 2 days. Pt ld1 requesting inhaler and cough meds. Needs work excuse. Coronavirus screen: At this time, the client does not indicate any symptoms associated with coronavirus-19. Ebola Screen: No symptoms or risks identified at this time. Initial Sepsis Screen: Does the patient meet any 2 criteria? No. Patient's initial sepsis screen is negative. Does the patient have a suspected source of infection? No. Patient's initial sepsis screen is negative. Risk Assessment: Do you want to hurt yourself or someone else? Patient reports no desire to harm self or others. Onset of symptoms was July 29, 2024. 13:21 Method Of Arrival: Ambulatory ld1 13:21 Acuity: DENEEN 4 ld1 Triage Assessment: 13:22 General: Appears in no apparent distress. comfortable, Behavior is calm, cooperative, ld1 appropriate for age. Pain: Denies pain. EENT: No signs and/or symptoms were reported regarding the EENT system. Neuro: Level of Consciousness is awake, alert, obeys commands, Oriented to person, place, time, situation, Appropriate for age. Cardiovascular: Capillary refill < 3 seconds Patient's skin is warm and dry. Respiratory: Airway is patent Respiratory effort is even, unlabored. GI: Abdomen is round non-distended. : No signs and/or symptoms were reported regarding the genitourinary system. Derm: No signs and/or symptoms reported regarding the dermatologic system. Musculoskeletal: No signs and/or symptoms reported regarding the musculoskeletal system. Historical: - Allergies: 13:22 Codeine; ld1 13:22 PENICILLINS; ld1 - PMHx: 13:22 Anxiety; Hypercholesterolemia; Hypertensive disorder; ld1 - PSHx: 13:22 historectomy; Thyroid tumor; Thyroidectomy; Tonsillectomy; ld1 - Immunization history:: Adult Immunizations up to date. - Infectious Disease History:: Denies. - Social history:: Smoking status: Patient denies any tobacco usage or history of. Screenin:00 [facility] ED Fall Risk Assessment (Adult) History of falling in the last 3 months, ld1 including since admission No falls in past 3 months (0 pts) Confusion or Disorientation No (0 pts) Intoxicated or Sedated No (0 pts) Impaired Gait No (0 pts) Mobility Assist Device Used No (0 pt) Altered Elimination No (0 pt) Score/Fall Risk Level 0 - 2 = Low Risk Oriented to surroundings, Hourly rounding (assess needs \T\ fall precautionary measures) done. Abuse screen: Denies threats or abuse. Denies injuries from another. Nutritional screening: No deficits noted. Tuberculosis screening: No symptoms or risk factors identified. Assessment: 14:00 Reassessment: See triage assessment. ERP evaluated in triage. ld1 Vital Signs: 13:21 BP 155 / 95; Pulse 67; Resp 18; Temp 97.1(TE); Pulse Ox 100% on R/A; Weight 68.04 kg; ld1 Height 5 ft. 4 in. ; Pain 0/10; 13:21 Body Mass Index 25.75 (68.04 kg, 162.56 cm) ld1 13:21 Pain Scale: Adult ld1 ED Course: 13:06 Patient arrived in ED. al6 13:21 Raeann Nguyen PA-C is PHCP. sb4 13:21 Kenneth Curtis MD is Attending Physician. sb4 13:22 Triage completed. ld1 13:22 Arm band placed on right wrist. ld1 14:00 Patient has correct armband on for positive identification. Placed in gown. Bed in low ld1 position. Call light in reach. Side rails up X2. Pulse ox on. NIBP on. Door closed. Noise minimized. 14:00 No provider procedures requiring assistance completed. Patient did not have IV access ld1 during this emergency room visit. Administered Medications: No medications were administered Medication: 14:00 VIS not applicable for this client. ld1 Outcome: 14:39 Discharge ordered by . sb4 14:46 Discharged to home ambulatory, ld1 14:46 Condition: stable 14:46 Discharge instructions given to patient, Instructed on discharge instructions, follow up and referral plans. Demonstrated understanding of instructions, follow-up care, medications, Prescriptions given X 2, 14:47 Patient left the ED. ld1 Signatures: Layla Bocanegra RN RN ld1 Raeann Nguyen PA-C PAHermelindoC sb4 Sirisha Escoto6 Corrections: (The following items were deleted from the chart) 13:23 13:21 Chief complaint: Patient states: Cough, sore throat, fever, congestion X 2 days ld1 ld1 13:23 13:21 Chief complaint: Patient states: Cough, sore throat, fever, congestion X 2 days. ld1 Pt requesting inhaler and cough meds. ld1
[2024-07-29 15:10] VITALS: BP 155/95; TEMP 97.1; O2SAT 100
== END 2024-07-29 14:47 | disposition home or self-care (01) ==
LOC: ER 13:01
DX: B34.9 Viral infection, unspecified (principal); Z11.52 Encounter for screening for COVID-19
CPT/HCPCS: 36415; 87070; 87428; 99283